=== PATIENT | male | born 1955 | race Caucasian/White ===

== ENCOUNTER → 2018-10-19 00:59 | Outpatient (CLI) | payer OTHER, SELFPAY ==
[2018-10-18 17:22] VITALS: BMI 35.7
[2018-10-19 01:12] LABS: Absolute Lymphocyte Count 2.59 X10^3/ul (0.83-4.51); Absolute Neutrophil Count 4.6 X10^3/uL (2.0-7.7); Basophil# 0.04 X10^3/uL; Basophil% 0.5 % (0-1); Eosinophil# 0.39 X10^3/uL; Eosinophils% 4.8 % (0-5); Hematocrit 41.5 % (40-54); Hemoglobin 14.4 g/dl (13.0-16.5); Lymphocyte # 2.59 X10^3/ul (4.0); Lymphocyte % 31.6 % (19-41); Mean Corp Hgb Conc 34.7 g/gl (32-36); Mean Corpuscular Hgb 31.9 pg (27.0-32.0); Mean Platelet Vol. 10.3 fl (6.2-12.0); Monocyte# 0.56 X10^3/uL; Monocyte% 6.8 % (0-10); Neutrophil % 56.2 % (47-70); Platelet Count 231 K/mm3 (150-450); RBC Distribution Width CV 12.7 % (11.6-14.6); RBC Distribution Width SD 42.5 fl (35.1-43.9); Red Blood Count 4.51 M/mm3 (4.6-6.2); White Blood Count 8.2 K/mm3 (4.4-11.0)
[2018-10-19 01:13] LABS: POSITIVE COUNT NO; POSITIVE DIFFERENTIAL NO; POSITIVE MORPHOLOGY NO
[2018-10-19 02:37] LABS: ALB/GLOB Ratio 1.1 RATIO (0.9-2.4); AST(SGOT) 36 U/L (15-37); Alanine Aminotransfer ALT/SGPT 37 U/L (16-61); Alkaline Phosphatase 61 U/L (45-117); Anion Gap 8 (5-15); BUN 18 mg/dL (7-18); BUN/Creat Ratio 21.3 RATIO (10-20); Calcium,Total 8.7 mg/dL (8.5-10.1); Chloride 106 mmol/L (98-107); Creatinine, Serum 0.84 mg/dL (0.70-1.30); EST Glomerular Filtration Rate 97 mL/min (>60); Est Glom Filt Rate - Afr Amer 118 mL/min (>60); Free T3 3.4 pg/mL (2.18-3.98); Globulin 3.7 g/dL (2.2-4.2); Glucose 83 mg/dL (74-106); Protein, Total 7.7 g/dL (6.4-8.2); Rheumatoid Factor < 10.0 IU/mL (<15); Sodium Level 138 mmol/L (136-145); T4 Free Direct 0.93 ng/dL (0.76-1.46); Thyroid Stim Hormone (TSH) 2.23 uIU/mL (0.358-3.74)
[2018-10-23 15:18] LABS: ANTINUCLEAR ANTIBODIES DIRECT Negative (Negative)
== END ==
PROVIDERS: Referring Provider Nurse Practitioner; Visit Provider Nurse Practitioner
DX: M25.40 Effusion, unspecified joint (principal); M06.9 Rheumatoid arthritis, unspecified; I10 Essential (primary) hypertension
CPT/HCPCS: 80053; 84439; 84443; 84481; 85025; 86038; 86225; 86235; 86431

== ENCOUNTER → 2018-12-29 20:58 | Outpatient (CLI) | payer OTHER, SELFPAY ==
[2018-12-29 09:58] VITALS: BMI 35.7
[2018-12-29 21:43] LABS: Cholesterol 156 mg/dL (200); High Density Lipoprotein 27 mg/dL; PSA,Total - Annual Screen 0.36 ng/mL (0.00-4.00); Triglycerides 249 mg/dL; Very Low Density Lipoprotein 50 mg/dL (5-40)
== END ==
PROVIDERS: Family Provider Nurse Practitioner; PCP Nurse Practitioner; Referring Provider Nurse Practitioner; Visit Provider Nurse Practitioner
DX: R35.0 Frequency of micturition (principal); I10 Essential (primary) hypertension
CPT/HCPCS: 80061; 84153; G0103

== ENCOUNTER → 2019-03-23 19:10 | Outpatient (CLI) | payer OTHER, SELFPAY ==
[2019-03-23 11:35] VITALS: BMI 34.8
[2019-03-23 19:33] LABS: Absolute Lymphocyte Count 1.91 X10^3/ul (0.83-4.51); Absolute Neutrophil Count 3.8 X10^3/uL (2.0-7.7); Basophil# 0.02 X10^3/uL; Basophil% 0.3 % (0-1); Eosinophil# 0.37 X10^3/uL; Eosinophils% 5.6 % (0-5); Hemoglobin 14.7 g/dl (13.0-16.5); Lymphocyte # 1.91 X10^3/ul (4.0); Lymphocyte % 28.8 % (19-41); Mean Corpuscular Hgb 31.8 pg (27.0-32.0); Mean Corpuscular Volume 90.9 fL (80-94); Mean Platelet Vol. 10.7 fl (6.2-12.0); Monocyte# 0.55 X10^3/uL; Monocyte% 8.3 % (0-10); Neutrophil # 3.78 X10^3/uL (2.7-7.7); Neutrophil % 56.8 % (47-70); Platelet Count 226 K/mm3 (150-450); RBC Distribution Width CV 12.4 % (11.6-14.6); RBC Distribution Width SD 40.8 fl (35.1-43.9); Red Blood Count 4.62 M/mm3 (4.6-6.2); White Blood Count 6.6 K/mm3 (4.4-11.0)
[2019-03-23 19:42] LABS: POSITIVE COUNT NO; POSITIVE DIFFERENTIAL NO; POSITIVE MORPHOLOGY NO
[2019-03-23 19:56] LABS: ALB/GLOB Ratio 1.2 RATIO (0.9-2.4); AST(SGOT) 26 U/L (15-37); Alanine Aminotransfer ALT/SGPT 39 U/L (16-61); Albumin, Serum 3.9 g/dL (3.2-5.0); Alkaline Phosphatase 63 U/L (45-117); Anion Gap 9 (5-15); BUN 15 mg/dL (7-18); BUN/Creat Ratio 17.3 RATIO (10-20); Calcium,Total 8.8 mg/dL (8.5-10.1); Chloride 106 mmol/L (98-107); Creatinine, Serum 0.87 mg/dL (0.70-1.30); EST Glomerular Filtration Rate 94 mL/min (>60); Est Glom Filt Rate - Afr Amer 114 mL/min (>60); Globulin 3.2 g/dL (2.2-4.2); Glucose 96 mg/dL (74-106); Magnesium 2.2 mg/dL (1.6-2.6); Potassium 3.9 mmol/L (3.5-5.1); Protein, Total 7.1 g/dL (6.4-8.2); Sodium Level 141 mmol/L (136-145)
== END ==
PROVIDERS: Family Provider Nurse Practitioner; PCP Nurse Practitioner; Referring Provider Nurse Practitioner; Visit Provider Nurse Practitioner
DX: I10 Essential (primary) hypertension (principal)
CPT/HCPCS: 80053; 83735; 84484; 85025

== ENCOUNTER 2019-04-06 23:03 | Emergency (ER) | payer OTHER, SELFPAY ==
[2019-03-23 11:35] VITALS: BMI 34.8
[2019-04-06 23:03] VITALS: BP 145/100; PULSE 67; RESP 18; TEMP 36.1; O2SAT 95; BMI 35.4
--- NOTE | 2019-04-06 23:53 | RAD_ITS ---
STUDY: X-RAY CHEST REASON FOR EXAM: Male, 63 years old. Dizziness TECHNIQUE: Frontal and lateral views of the chest. COMPARISON: None. FINDINGS: The lungs are clear and expanded. There is no demonstrated pleural abnormality. Normal size heart. Normal mediastinum and sue. Normal visualized pulmonary arteries. There is atherosclerotic calcification of the aortic arch with tortuosity. Normal visualized thoracic spine. Normal visualized ribs, clavicles, and shoulders. There is no demonstrated abnormality of the visualized soft tissue structures of the upper abdomen. RAD/Chest PA and Lateral IMPRESSION: Normal x-ray examination of the chest. Electronically Signed: Elvia Noel, at 1:12 EDT Tel , Service support ,
--- NOTE | 2019-04-06 23:53 | EKG12_ITS ---
Test Reason : DIZZINESS Blood Pressure : / mmHG Vent. Rate : 058 BPM Atrial Rate : 058 BPM P-R Int : 152 ms QRS Dur : 094 ms QT Int : 430 ms P-R-T Axes : 037 -13 023 degrees QTc Int : 422 ms Sinus bradycardia Otherwise normal ECG Confirmed by LJ MISHRA, MOISÉS ([id number]), digital editor JEANETTE DIALLO ([id number]) on 04/09/2019 1:48:38 PM Referred By: ANISHA Confirmed By:MOISÉS CALHOUN MD
[2019-04-07] VITALS (10 sets, daily range): BP systolic 133–156; BP diastolic 90–109; PULSE 57–80; RESP 15–19; O2SAT 95–98
--- NOTE | 2019-04-07 00:07 | ED.RN ---
NO OLD EKGS IN MUSE
[2019-04-07] MEDS: 0.9% Normal Saline 1,000 ML 50 ML IV (00:13)
[2019-04-07 00:22] LABS: Absolute Lymphocyte Count 2.67 X10^3/ul (0.83-4.51); Absolute Neutrophil Count 4.2 X10^3/uL (2.0-7.7); Basophil# 0.03 X10^3/uL; Basophil% 0.4 % (0-1); Eosinophil# 0.43 X10^3/uL; Eosinophils% 5.4 % (0-5); Hematocrit 39.7 % (40-54); Hemoglobin 14.4 g/dl (13.0-16.5); Lymphocyte # 2.67 X10^3/ul (4.0); Lymphocyte % 33.6 % (19-41); Mean Corp Hgb Conc 36.3 g/gl (32-36); Mean Corpuscular Hgb 31.7 pg (27.0-32.0); Mean Corpuscular Volume 87.4 fL (80-94); Mean Platelet Vol. 9.9 fl (6.2-12.0); Monocyte# 0.59 X10^3/uL; Monocyte% 7.4 % (0-10); Neutrophil # 4.21 X10^3/uL (2.7-7.7); Neutrophil % 52.9 % (47-70); Platelet Count 193 K/mm3 (150-450); RBC Distribution Width SD 37.7 fl (35.1-43.9); Red Blood Count 4.54 M/mm3 (4.6-6.2)
[2019-04-07 00:25] LABS: POSITIVE COUNT NO; POSITIVE DIFFERENTIAL NO; POSITIVE MORPHOLOGY NO
[2019-04-07 00:36] LABS: Anion Gap 5 (5-15); BUN 15 mg/dL (7-18); BUN/Creat Ratio 15.3 RATIO (10-20); Calcium,Total 8.5 mg/dL (8.5-10.1); Chloride 107 mmol/L (98-107); Creatinine, Serum 0.98 mg/dL (0.70-1.30); EST Glomerular Filtration Rate 82 mL/min (>60); Est Glom Filt Rate - Afr Amer 99 mL/min (>60); Estimated Creatinine Clearance 76.15 ml/min; Glucose 107 mg/dL (74-106); Potassium 3.8 mmol/L (3.5-5.1); Sodium Level 140 mmol/L (136-145)
[2019-04-07 00:37] LABS: International Normalized Ratio 1.2; Prothrombin Time (Protime)PT. 14.5 SECONDS (11.7-14.9)
[2019-04-07 00:38] LABS: Partial Thromboplast Time 28.1 Seconds (24.1-36.2)
--- NOTE | 2019-04-07 01:10 | CT_ITS ---
STUDY: CT BRAIN WITHOUT CONTRAST REASON FOR EXAM: Male, 63 years old. Dizziness. RADIATION DOSAGE (If Supplied By Facility): CTDIvol = ( 44.99 ) mGy, DLP = ( 779.24 ) mGycm TECHNIQUE: Transaxial CT imaging of the brain was performed without administration of intravenous contrast material. Individualized dose optimization techniques were used for this CT. COMPARISON: No relevant priors. FINDINGS: Normal soft tissue structures. Normal calvarium. Normal size ventricles and extra-axial spaces for the patient's age. Normal white matter tracts of the cerebral hemispheres. Normal basal ganglia and thalami. Normal brainstem. Normal cerebellum. There is no intracranial hemorrhage. There are no findings of an acute ischemic infarction. Normal visualized paranasal sinuses. CT/Brain/Head without Contrast IMPRESSION: Normal unenhanced CT scan of the brain. Electronically Signed: Elvia Noel, at 2:14 EDT Tel , Service support ,
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
[2019-04-07] MEDS: 0.9% Normal Saline 1,000 ML 1000 ML IV (01:40)
[2019-04-08 09:24] LABS: Bedside Glucose 115 mg/dL (70-110)
== END 2019-04-07 04:13 | disposition home or self-care (01) ==
PROVIDERS: Emergency Provider Emergency Medicine; Family Provider Nurse Practitioner; PCP Nurse Practitioner
DX: R42 Dizziness and giddiness (principal); R05 Cough; M54.2 Cervicalgia; J34.89 Other specified disorders of nose and nasal sinuses; R61 Generalized hyperhidrosis; I10 Essential (primary) hypertension; Z79.899 Other long term (current) drug therapy
CPT/HCPCS: 70450; 71046; 80048; 82962; 84484; 85025; 85610; 85730; 93005; 96360; 96361; 99285

== ENCOUNTER → 2020-02-28 12:31 | Outpatient (CLI) | payer OTHER, SELFPAY ==
[2020-02-06 17:39] VITALS: BMI 37.2
== END ==
PROVIDERS: PCP Nurse Practitioner; Referring Provider Nurse Practitioner; Visit Provider Nurse Practitioner
DX: Z20.828 Contact with and (suspected) exposure to other viral communicable diseases (principal)
CPT/HCPCS: 87635; G2023; U0003

== ENCOUNTER → 2020-12-03 15:01 | Outpatient (CLI) | payer OTHER, SELFPAY | PROVIDERS: PCP Nurse Practitioner; Referring Provider Nurse Practitioner; Visit Provider Nurse Practitioner | DX: Z20.822 Contact with and (suspected) exposure to COVID-19 (principal) | CPT/HCPCS: 87635; C9803; U0002 ==

== ENCOUNTER → 2021-05-13 21:37 | Outpatient (CLI) | payer OTHER, SELFPAY ==
[2021-05-13 21:48] LABS: Absolute Neutrophil Count 5.4 X10^3/uL (2.0-7.7); Basophil# 0.07 X10^3/uL; Basophil% 0.8 % (0-1); Eosinophil# 0.22 X10^3/uL; Eosinophils% 2.6 % (0-5); Hematocrit 41.2 % (40-54); Hemoglobin 14.2 g/dL (13.0-16.5); Lymphocyte % 25.8 % (19-41); Mean Corp Hgb Conc 34.5 g/dL (32-36); Mean Corpuscular Hgb 31.2 pg (27.0-32.0); Mean Corpuscular Volume 90.5 fL (80-94); Mean Platelet Vol. 10.3 fl (6.2-12.0); Monocyte# 0.65 X10^3/uL; Monocyte% 7.6 % (0-10); NRBC Flagged by Analyzer 0 % (0-5); Neutrophil # 5.36 X10^3/uL (2.7-7.7); Neutrophil % 62.8 % (47-70); Platelet Count 240 K/mm3 (150-450); RBC Distribution Width CV 11.9 % (11.6-14.6); RBC Distribution Width SD 39.4 fl (35.1-43.9); Red Blood Count 4.55 M/mm3 (4.6-6.2); White Blood Count 8.5 K/mm3 (4.4-11.0)
[2021-05-13 22:19] LABS: ALB/GLOB Ratio 1.2 RATIO (0.9-2.4); AST(SGOT) 22 U/L (15-37); Alanine Aminotransfer ALT/SGPT 39 U/L (16-61); Albumin, Serum 4.1 g/dL (3.2-5.0); Alkaline Phosphatase 65 U/L (45-117); Anion Gap 6 (5-15); BUN 16 mg/dL (7-18); BUN/Creat Ratio 18.7 RATIO (10-20); Calcium,Total 8.5 mg/dL (8.5-10.1); Chloride 106 mmol/L (98-107); Creatinine, Serum 0.85 mg/dL (0.70-1.30); EST Glomerular Filtration Rate 95 mL/min (>60); Est Glom Filt Rate - Afr Amer 115 mL/min (>60); Globulin 3.3 g/dL (2.2-4.2); Glucose 97 mg/dL (74-106); Potassium 4.1 mmol/L (3.5-5.1); Protein, Total 7.4 g/dL (6.4-8.2); Sodium Level 137 mmol/L (136-145); Thyroid Stim Hormone (TSH) 2.65 uIU/mL (0.358-3.74)
== END ==
PROVIDERS: PCP Nurse Practitioner; Visit Provider Nurse Practitioner
DX: R42 Dizziness and giddiness (principal); R51.9 Headache, unspecified
CPT/HCPCS: 80053; 84443; 85025

== ENCOUNTER → 2022-03-07 | Outpatient (CLI) | payer OTHER, SELFPAY ==
[2022-03-07 21:45] LABS: Absolute Lymphocyte Count 2.32 X10^3/uL (0.83-4.51); Basophil# 0.05 X10^3/uL; Basophil% 0.5 % (0-1); Eosinophil# 0.31 X10^3/uL; Hematocrit 40.8 % (40-54); Hemoglobin 14.3 g/dL (13.0-16.5); Lymphocyte # 2.32 X10^3/ul (0.83-4.51); Lymphocyte % 22.2 % (19-41); Mean Corpuscular Hgb 31.9 pg (27.0-32.0); Mean Corpuscular Volume 91.1 fL (80-94); Mean Platelet Vol. 10.7 fl (6.2-12.0); Monocyte# 0.78 X10^3/uL; Monocyte% 7.5 % (0-10); NRBC Flagged by Analyzer 0 % (0-5); Neutrophil # 6.96 X10^3/uL (2.7-7.7); Neutrophil % 66.4 % (47-70); Platelet Count 248 K/mm3 (150-450); RBC Distribution Width CV 12.2 % (11.6-14.6); RBC Distribution Width SD 40.2 fl (35.1-43.9); Red Blood Count 4.48 M/mm3 (4.6-6.2); White Blood Count 10.5 K/mm3 (4.4-11.0)
[2022-03-07 21:58] LABS: ALB/GLOB Ratio 1.1 RATIO (0.9-2.4); Albumin, Serum 4.1 g/dL (3.2-5.0); Anion Gap 3 (5-15); BUN 13 mg/dL (7-18); BUN/Creat Ratio 13.2 RATIO (10-20); Chloride 106 mmol/L (98-107); EST Glomerular Filtration Rate 81 mL/min (>60); Est Glom Filt Rate - Afr Amer 97 mL/min (>60); Globulin 3.6 g/dL (2.2-4.2); Potassium 4.5 mmol/L (3.5-5.1); Protein, Total 7.7 g/dL (6.4-8.2)
[2022-03-08 18:05] LABS: AST(SGOT) 27 U/L (15-37); Alanine Aminotransfer ALT/SGPT 37 U/L (16-61); Alkaline Phosphatase 64 U/L (45-117); Calcium,Total 9.2 mg/dL (8.5-10.1); Glucose 90 mg/dL (74-106); Rheumatoid Factor < 10.0 IU/mL (<15); Sodium Level 138 mmol/L (136-145)
[2022-03-10 21:48] LABS: ANTINUCLEAR ANTIBODIES DIRECT Negative (Negative)
== END | disposition home or self-care (01) ==
LOC: LABSPEC 21:38
PROVIDERS: PCP Nurse Practitioner; Visit Provider Nurse Practitioner
DX: R22.1 Localized swelling, mass and lump, neck (principal); M25.9 Joint disorder, unspecified
CPT/HCPCS: 80053; 85025; 86038; 86140; 86225; 86235; 86431

== ENCOUNTER → 2022-04-04 | Outpatient (CLI) | payer OTHER, SELFPAY ==
[2022-04-04 21:48] LABS: Absolute Lymphocyte Count 2.56 X10^3/uL (0.83-4.51); Absolute Neutrophil Count 5.4 X10^3/uL (2.0-7.7); Basophil# 0.05 X10^3/uL; Basophil% 0.6 % (0-1); Eosinophil# 0.37 X10^3/uL; Eosinophils% 4.1 % (0-5); Hematocrit 40.9 % (40-54); Hemoglobin 14.3 g/dL (13.0-16.5); Lymphocyte # 2.56 X10^3/ul (0.83-4.51); Lymphocyte % 28.3 % (19-41); Mean Corpuscular Hgb 32.1 pg (27.0-32.0); Mean Corpuscular Volume 91.9 fL (80-94); Mean Platelet Vol. 10.4 fl (6.2-12.0); Monocyte# 0.67 X10^3/uL; Monocyte% 7.4 % (0-10); NRBC Flagged by Analyzer 0 % (0-5); Neutrophil # 5.38 X10^3/uL (2.7-7.7); Neutrophil % 59.3 % (47-70); Platelet Count 232 K/mm3 (150-450); RBC Distribution Width CV 12.1 % (11.6-14.6); RBC Distribution Width SD 40.2 fl (35.1-43.9); Red Blood Count 4.45 M/mm3 (4.6-6.2); White Blood Count 9.1 K/mm3 (4.4-11.0)
[2022-04-04 22:02] LABS: ALB/GLOB Ratio 1.1 RATIO (0.9-2.4); AST(SGOT) 29 U/L (15-37); Alanine Aminotransfer ALT/SGPT 43 U/L (16-61); Albumin, Serum 3.8 g/dL (3.2-5.0); Alkaline Phosphatase 57 U/L (45-117); Anion Gap 8 (5-15); BUN 16 mg/dL (7-18); BUN/Creat Ratio 18.3 RATIO (10-20); CRP 5.47 mg/L (0.0-3.0); Chloride 106 mmol/L (98-107); Creatinine, Serum 0.87 mg/dL (0.70-1.30); EST Glomerular Filtration Rate 93 mL/min (>60); Est Glom Filt Rate - Afr Amer 112 mL/min (>60); Globulin 3.4 g/dL (2.2-4.2); Glucose 104 mg/dL (74-106); Potassium 4.1 mmol/L (3.5-5.1); Protein, Total 7.2 g/dL (6.4-8.2); Rheumatoid Factor < 10.0 IU/mL (<15); Sodium Level 140 mmol/L (136-145)
== END | disposition home or self-care (01) ==
PROVIDERS: Visit Provider Nurse Practitioner
DX: R22.41 Localized swelling, mass and lump, right lower limb (principal); M25.9 Joint disorder, unspecified; R79.82 Elevated C-reactive protein (CRP)
CPT/HCPCS: 80053; 85025; 86140; 86431

== ENCOUNTER → 2022-05-26 | Outpatient (CLI) | payer OTHER, SELFPAY ==
[2022-05-26 22:53] LABS: Absolute Lymphocyte Count 1.08 X10^3/uL (0.83-4.51); Basophil# 0.04 X10^3/uL; Basophil% 0.6 % (0-1); Eosinophil# 0.19 X10^3/uL; Eosinophils% 2.7 % (0-5); Hematocrit 40.9 % (40-54); Hemoglobin 14.3 g/dL (13.0-16.5); Lymphocyte # 1.08 X10^3/ul (0.83-4.51); Lymphocyte % 15.1 % (19-41); Mean Corpuscular Hgb 32.2 pg (27.0-32.0); Mean Corpuscular Volume 92.1 fL (80-94); Mean Platelet Vol. 10.2 fl (6.2-12.0); Monocyte# 0.77 X10^3/uL; Monocyte% 10.8 % (0-10); NRBC Flagged by Analyzer 0 % (0-5); Neutrophil # 5.04 X10^3/uL (2.7-7.7); Neutrophil % 70.5 % (47-70); Platelet Count 186 K/mm3 (150-450); RBC Distribution Width CV 12.2 % (11.6-14.6); RBC Distribution Width SD 41.1 fl (35.1-43.9); Red Blood Count 4.44 M/mm3 (4.6-6.2); White Blood Count 7.1 K/mm3 (4.4-11.0)
[2022-05-26 22:54] LABS: POSITIVE COUNT NO; POSITIVE DIFFERENTIAL NO; POSITIVE MORPHOLOGY NO
[2022-05-27 00:05] LABS: ALB/GLOB Ratio 1.1 RATIO (0.9-2.4); AST(SGOT) 29 U/L (15-37); Alanine Aminotransfer ALT/SGPT 44 U/L (16-61); Albumin, Serum 3.9 g/dL (3.2-5.0); Alkaline Phosphatase 58 U/L (45-117); Anion Gap 6 (5-15); BUN 14 mg/dL (7-18); BUN/Creat Ratio 14.6 RATIO (10-20); Chloride 105 mmol/L (98-107); Creatinine, Serum 0.96 mg/dL (0.70-1.30); EST Glomerular Filtration Rate 83 mL/min (>60); Est Glom Filt Rate - Afr Amer 101 mL/min (>60); Globulin 3.5 g/dL (2.2-4.2); Glucose 100 mg/dL (74-106); Potassium 4.1 mmol/L (3.5-5.1); Protein, Total 7.4 g/dL (6.4-8.2); Rheumatoid Factor < 10.0 IU/mL (<15); Sodium Level 137 mmol/L (136-145)
== END | disposition home or self-care (01) ==
PROVIDERS: Visit Provider Nurse Practitioner
DX: R25.2 Cramp and spasm (principal); J18.9 Pneumonia, unspecified organism; R50.9 Fever, unspecified
CPT/HCPCS: 80053; 83735; 85025; 86038; 86225; 86235; 86431

== ENCOUNTER → 2022-06-13 | Outpatient (CLI) | payer OTHER, SELFPAY ==
[2022-06-13 23:22] LABS: Absolute Lymphocyte Count 2.68 X10^3/uL (0.83-4.51); Absolute Neutrophil Count 6.1 X10^3/uL (2.0-7.7); Basophil# 0.03 X10^3/uL; Basophil% 0.3 % (0-1); Eosinophil# 0.32 X10^3/uL; Eosinophils% 3.3 % (0-5); Hematocrit 39.4 % (40-54); Hemoglobin 13.7 g/dL (13.0-16.5); Lymphocyte # 2.68 X10^3/ul (0.83-4.51); Lymphocyte % 27.2 % (19-41); Mean Corp Hgb Conc 34.8 g/dL (32-36); Mean Corpuscular Hgb 32.3 pg (27.0-32.0); Mean Corpuscular Volume 92.9 fL (80-94); Mean Platelet Vol. 10.7 fl (6.2-12.0); Monocyte# 0.57 X10^3/uL; Monocyte% 5.8 % (0-10); NRBC Flagged by Analyzer 0 % (0-5); Neutrophil # 6.13 X10^3/uL (2.7-7.7); Neutrophil % 62.3 % (47-70); Platelet Count 211 K/mm3 (150-450); RBC Distribution Width CV 12.1 % (11.6-14.6); RBC Distribution Width SD 41.1 fl (35.1-43.9); Red Blood Count 4.24 M/mm3 (4.6-6.2); White Blood Count 9.8 K/mm3 (4.4-11.0)
[2022-06-14 00:02] LABS: BNP,B-Type NATRIURETIC PEPTIDE 10.7 pg/mL (0-100)
[2022-06-14 01:16] LABS: AST(SGOT) 21 U/L (15-37); Alanine Aminotransfer ALT/SGPT 35 U/L (16-61); Albumin, Serum 3.6 g/dL (3.2-5.0); Alkaline Phosphatase 58 U/L (45-117); Anion Gap 10 (5-15); BUN 19 mg/dL (7-18); BUN/Creat Ratio 19.1 RATIO (10-20); Calcium,Total 8.9 mg/dL (8.5-10.1); Chloride 106 mmol/L (98-107); Cholesterol 184 mg/dL (200); Creatinine, Serum 0.99 mg/dL (0.70-1.30); EST Glomerular Filtration Rate 80 mL/min (>60); Est Glom Filt Rate - Afr Amer 96 mL/min (>60); Globulin 3.6 g/dL (2.2-4.2); Glucose 151 mg/dL (74-106); High Density Lipoprotein 29 mg/dL; Potassium 3.6 mmol/L (3.5-5.1); Protein, Total 7.2 g/dL (6.4-8.2); Sodium Level 140 mmol/L (136-145); Triglycerides 340 mg/dL; Very Low Density Lipoprotein 68 mg/dL (5-40)
[2022-06-14 08:50] LABS: Troponin-I HS 8 pg/mL (3.0-78.0)
== END | disposition home or self-care (01) ==
PROVIDERS: Visit Provider Nurse Practitioner
DX: R07.9 Chest pain, unspecified (principal); I10 Essential (primary) hypertension
CPT/HCPCS: 80053; 80061; 83880; 84484; 85025; 86141

== ENCOUNTER → 2022-09-06 | Outpatient (CLI) | payer OTHER, SELFPAY ==
--- NOTE | 2022-09-06 06:48 | ECHOD_ITS ---
Reason For Study: CHEST PAIN Procedure This was a 2D Doppler, Color Flow transthoracic echocardiogram. The study was technically difficult. Exam performed in department. Left Ventricle Normal LV size. Left ventricular systolic function is normal. The estimated ejection fraction is 65 %. No evidence for diastolic dysfunction. No regional wall motion abnormalities noted. Right Ventricle Normal RV size. Normal systolic function. Atria Normal left atrium. Normal right atrium. No doppler evidence for ASD. Mitral Valve There is mild mitral annular calcification. Normal mitral valve. The mitral valve chordae are thickened and/or calcified. Trivial mitral valve insufficiency. Tricuspid Valve Normal tricuspid valve. Trivial tricuspid valve insufficiency. Unable to estimate RV systolic pressure/pulmonary artery pressure due to technically difficult study. Aortic Valve Trisinus/trileaflet aortic valve. Normal aortic valve. Pulmonic Valve The pulmonic valve is not well visualized. Great Vessels Normal sized aortic root. Pericardium/Pleural No pericardial effusion. MMode/2D Measurements & Calculations LVIDd: 4.8 cm IVSd: 1.0 cm Ao root diam: 3.7 cm LVIDs: 3.4 cm LVPWd: 1.4 cm FS: 29.6 % LAV(MOD-bp): 46.1 ml LVAd ap4: 27.8 cm2 SV(MOD-sp4): 50.5 ml LAV(MOD-bp) Indexed: 20.5 ml/m2 LVLd ap4: 8.1 cm LAV(MOD-sp2): 47.2 ml EDV(MOD-sp4): 81.3 ml LAV(MOD-sp4): 46.4 ml EDV(sp4-el): 80.7 ml LVAs ap4: 14.7 cm2 LVLs ap4: 6.9 cm ESV(MOD-sp4): 30.7 ml ESV(sp4-el): 26.6 ml EF(MOD-sp4): 62.2 % EF(sp4-el): 67.0 % SV(sp4-el): 54.1 ml LA A4 area: 17.3 cm2 LA dimension(2D): 3.8 cm RA A4 area: 14.1 cm2 Time Measurements MV dec time: 0.17 sec Doppler Measurements & Calculations MV E max eddie: 61.5 cm/sec Lat Peak E' Eddie: 10.8 cm/sec Med Peak E' Eddie: 5.6 cm/sec MV A max eddie: 84.5 cm/sec E/E' lat: 5.7 E/E' med: 11.0 MV E/A: 0.73 MV V2 max: 94.1 cm/sec Ao V2 max: 118.8 cm/sec MV max P.6 mmHg MV dec slope: 394.4 cm/sec2 Ao max P.6 mmHg MV V2 mean: 59.9 cm/sec Ao V2 mean: 87.1 cm/sec MV mean P.5 mmHg Ao mean P.4 mmHg MV V2 VTI: 23.0 cm Ao V2 VTI: 24.3 cm AV (velocity ratio): 0.88 LV V1 max: 115.0 cm/sec PA V2 max: 90.3 cm/sec LV V1 max P.3 mmHg PA V2 mean: 66.1 cm/sec LV V1 mean P.2 mmHg LV V1 mean: 85.7 cm/sec LV V1 VTI: 21.3 cm ECHO/Echo Complete Interpretation Summary The study was technically difficult. Left ventricular systolic function is normal. The estimated ejection fraction is 65 %. There is mild mitral annular calcification. The mitral valve chordae are thickened and/or calcified. Trivial mitral valve insufficiency. Trivial tricuspid valve insufficiency. No evidence for diastolic dysfunction. Ordering Physician: Boris Bingham Performed By: Mary Parham RCS
--- NOTE | 2022-09-06 08:43 | STRESSREP_ITS ---
Stress Test Report Date: 09-06-2022 Procedure: Exercise tolerance test/imaging study Indications: Chest pain; dyspnea on exertion; hypertension Consent: Per the patient Procedure: The patient exercised on a Bebo protocol for 6 minutes and 30 seconds completing Stage II and 30 seconds of Stage III achieving a peak heart rate of 151 bpm (99% predicted maximal heart rate) with resting blood pressure of 142/94 mmHg and a peak blood pressure 182/100 mmHg and a peak MET capacity of 8 METs. The baseline ECG demonstrated normal sinus rhythm; poor R wave progression. The peak exercise ECG demonstrated no obvious ECG changes. There were occasional PVCs and an isolated ventricular couplet during exercise. The functional capacity was considered average. There was no complaint of chest discomfort during exercise or recovery. The examination was discontinued secondary to dyspnea and leg fatigue. Impression: 1. Technically adequate (percent predicted maximal heart rate greater than 85%) exercise tolerance test 2. Peak exercise ECG with no obvious ECG change 3. There were occasional PVCs and an isolated ventricular couplet during exercise 4. Nuclear images pending Myocardial perfusion imaging study: Technique: The patient was injected with mCi of technetium 99m Cardiolite and subsequently rest SPECT Cardiolite nuclear imaging was obtained in the horizontal long, vertical long, and short axis views. The patient exercised on a Bebo protocol for 6 minutes and 30 seconds completing Stage II and 30 seconds of Stage III achieving a peak heart rate of 151 bpm (99% predicted maximal heart rate) with resting blood pressure of 142/94 mmHg and a peak blood pressure 182/100 mmHg and a peak MET capacity of 8 METs. The patient was injected with mCi of technetium 99m Cardiolite and subsequently stress SPECT Cardiolite nuclear imaging was obtained in the horizontal long, vertical long, and short axis views. A gated Cardiolite study at peak stress was obtained. Interpretation: Rest and stress SPECT Cardiolite nuclear imaging status post realignment, normalization, and attenuation correction, demonstrates the appearance of relative uniform tracer uptake and myocardial perfusion appearing within normal limits. There is end systolic thickening and brightening. The gated Cardiolite study demonstrates myocardial thickening and inward wall motion. The reported LVEF is 62%. Impression: 1. Rest and stress SPECT Cardiolite nuclear imaging demonstrate relative uniform tracer uptake and myocardial perfusion appearing within normal limits. 2. The gated Cardiolite study reports an LVEF of 62%. This note was generated with [employer] software. It may contain incorrect words, spelling, and punctuation that were not noted in checking the note before signing.
== END | disposition home or self-care (01) ==
LOC: CVS 06:47
PROVIDERS: PCP Nurse Practitioner; Visit Provider Internal Medicine Cardiovascular Disease
DX: I49.3 Ventricular premature depolarization (principal); R53.83 Other fatigue; R06.00 Dyspnea, unspecified; I10 Essential (primary) hypertension; R07.9 Chest pain, unspecified; J18.9 Pneumonia, unspecified organism; E78.5 Hyperlipidemia, unspecified
CPT/HCPCS: 78452; 93017; 93306; A9500; A4216

== ENCOUNTER → 2023-10-03 | Outpatient (CLI) | payer OTHER, SELFPAY ==
--- OUTSIDE RECORDS SUMMARY | 2023-10-03 21:27 | XMS RPT_ITS | CCD ---
Author Name Unknown Address [address] [place] [address] Organization [facility] Care Team Providers Care Parts Department Supervisor Name Role Phone LEE THRASHER Referring Unavailable Adam HARD METALS HAND ENGRAVER.Rosa Isela FAUST Primary Care Provide r Adam HARD METALS HAND ENGRAVER.Rosa Isela FAUST Primary Care Provide r ADAM ROSA ISELA L Primary Care Unavailable MEDINA, ROSA ISELA L Primary Care Unavailable MEDINA, ROSA ISELA L Primary Care Unavailable MEDINA, ROSA ISELA L Referring Unavailable MEDINA, ROSA ISELA L Primary Care Unavailable MEDINA, ROSA ISELA L Referring Unavailable MEDINA, ROSA ISELA L Primary Care Unavailable MEDINA, ROSA ISELA L Referring Unavailable MEDINA, ROSA ISELA L Referring Unavailable MEDINA, ROSA ISELA L Primary Care Unavailable Allergies Allergy Classification Reported Allergen(s) Allergy Type Date of Onset Reaction(s) Facility (8 sources) Naproxen; Translations: [NAPROXEN SODIUM] Drug Allergy 7 Intolerance [facility] (8 sources) FLU VAC QS 2015-17(6-35MO)( PF); Translations: [FLU VAC QS 2016-17(6-35MO)( PF)] Propensity to adverse reactions to drug (disorder) 7 Intolerance [facility] Medications Completed/Discontinued Medications Medication Drug Class(es) Dates Sig (Normalized) Sig (Original) lisinopril 30 mg oral tablet (5 sources) Angiotensin Converting Enzyme Inhibitor Start: 12-29-2018 take 1 tablet by mouth once daily lisinopril (ZESTRIL,PRINIVIL ) 30 mg tablet Take 30 mg by mouth once daily. 0 12/29/2018 Active Problems Active Problems Problem Classification Problem Date Documented Da te Episodic/Chronic E Codes: Unspecified (1 source) Civilian activity done for income or pay; Translations: [Work related injury] Onset: 06-22-2023 Episodic Essential hypertension (5 sources) Hypertensive disorder; Translations: [Essential (primary) hypertension] Onset: 07-10-2016 09-21-2021 Chronic Open wounds of extremities (1 source) Laceration without foreign body of left hand, initial encounter; Translations: [Laceration of left hand without foreign body, initial encounter] Onset: 06-22-2023 Episodic Other non-traumatic joint disorders (1 source) Effusion, left knee; Translations: [Effusion, left knee] Onset: 06-07-2023 Episodic Other non-traumatic joint disorders (1 source) Pain in left knee; Translations: [Pain in left knee] Onset: 06-07-2023 Episodic Unclassified (1 source) leg injury Onset: 08-16-2023 Past or Other Problems Problem Classification Problem Date Documented Date Episodic/Chronic Other connective tissue disease (1 source) Other enthesopathies, not elsewhere classified; Translations: [Other enthesopathies, not elsewhere classified] Onset: 12-23-2022 Episodic Other hematologic conditions (5 sources) Raised cardiac enzyme or marker; Translations: [Other specified abnormalities of plasma proteins] Onset: 01-21-2019 01-21-2019 Episodic Other lower respiratory disease (1 source) Shortness of breath; Translations: [Shortness of breath] Onset: 12-23-2022 Episodic Other lower respiratory disease (1 source) Other forms of dyspnea; Translations: [Other forms of dyspnea] Onset: 12-23-2022 Episodic Syncope (5 sources) Syncope and collapse; Translations: [Syncope and collapse] Onset: 07-10-2016 07-10-2016 Episodic Results Test Name Value Interpretation Reference Range Facil ity Encounters Encounter Date Encounter Type Care Provider Facility Start: 08-16-2023 Emergency department patient visit ROSA ISELA MEDINA Facility:[facility] Start: 06-22-2023 End: 06-22-2023 Emergency department patient visit ROSA ISELA MEDINA Facility:[facility] Start: 06-07-2023 ambulatory ROSA ISELA MEDINA Facil ity:[facility] Start: 06-07-2023 End: 06-07-2023 Subsequent hospital visit by physician [facility] Procedures Date Procedure Procedure Detail Performing Clinician Start: 06-07-2023 Radiologic examinati on knee 1/2 views Rosa Isela Medina HARD METALS HAND ENGRAVER.DROPHAMMER OPERATOR Work Phone: Start: 12-23-2022 Radex shoulder compl ete minimum 2 views Rosa Isela Medina HARD METALS HAND ENGRAVER.CHRISTIANNE Work Phone: Start: 12-23-2022 Radiologic exam ches t 2 views Rosa Isela Medina HARD METALS HAND ENGRAVER.DROPHAMMER OPERATOR Work Phone: Start: 05-27-2022 Radiologic exam ches t 2 views Rosa Isela Medina HARD METALS HAND ENGRAVER.DROPHAMMER OPERATOR Work Phone: Start: 01-22-2019 Lipid 1996 panel - S tj or Plasma [facility] Plan of Treatment Date Care Activity Detail Author Start: 01-23-2024 Lipid 1996 panel - S tj or Plasma Lipid Screening [facility] Start: 01-23-2024 LIPID SCREEN LIPID SCREEN [facility] Start: 05-26-2023 Influenza vaccination [facility] Start: 09-25-2022 ADVANCE DIRECTIVE DISCUSSION ADVANCE DIRECTIVE DISCUSSION [facility] Start: 09-25-2022 DEPRESSION ASSESSMENT DEPRESSION ASS ESSMENT [facility] Start: 05-26-2022 Influenza vaccination INFLUENZA (#1) [facility] Start: 01-29-2022 DIABETES SCREEN DIABETES SCREEN [facility] Start: 01-29-2022 Diabetes Screening Diabetes Screenin g [facility] Start: 09-25-2021 ADVANCE DIRECTIVE DISCUSSION ADVANCE DIRECTIVE DISCUSSION [facility] Start: 2019 Pneumococcal Vaccine : 65+ (1 - PCV) Pneumococcal Vaccine: 65+ (1 - PCV) [facility] Start: 2019 PNEUMOCOCCAL: 65+ (1 - PCV) PNEUMOCOCCAL: 65+ (1 - PCV) [facility] Start: 2009 PROSTATE CANCER SCRE ENING DISCUSSION PROSTATE CANCER SCREENING DISCUSSION [facility] Start: 2004 SHINGRIX VACCINE (1 of 2) SHINGRIX V ACCINE (1 of 2) [facility] Start: 1999 COLOGUARD (FIT-DNA) COLOGUARD (FIT-D NA) [facility] Start: 1999 Colonoscopy COLONOSCOPY [facility] Start: 1999 COLORECTAL CANCER SCREENING COLORECTAL CANCER SCREENING [facility] Start: [address] COLONOGRAPHY [facility] Start: 1999 FECAL OCCULT BLOOD FECAL OCCULT BLOO D [facility] Start: 1999 SIGMOIDOSCOPY SIGMOIDOSCOPY Clebra[facility]io cardona [facility] Start: 1973 Urine microalbumin profile [facility] Start: 1972 ANNUAL PCP TEAM BONE GRINDER JUSTUS DISEASE VISIT ANNUAL PCP TEAM CHRONIC DISEASE VISIT [facility] Start: 1972 BP CONTROLLED (<130/80) BP CONTROLLE D (<130/80) [facility] Start: 1966 Adult depression scr eening assessment DEPRESSION SCREENING [facility] Start: 1954 COVID-19 VACCINE (#1) COVID-19 VACCI NE (#1) [facility] Payers Date Payer Category Payer Unknown [id number] 2019 Unknown [id number] 2019 Unknown [id number] Social History Date Type Detail Facility Start: 04-06-2018 Tobacco smoking stat us KYIS Never smoked tobacco [facility] Start: 04-06-2018 Tobacco use and exposure Smoke less tobacco non-user [facility] Start: 01-21-2019 Alcohol intake Current non-dr pourer off of alcohol (finding) [facility] Start: 1955 Sex Assigned At Not on file [facility] Start: 05-17-2022 End: 05-27-2022 Exposure to SARS-CoV-2 (event) Yes [facility] Start: 01-21-2019 End: 08-30-2020 History of Social function [facility] Start: 01-21-2019 End: 08-30-2020 Tobacco use panel [facility] note 07-08-2023 Note Date & Type Note Facility 07-08-2023 Note HNO ID: [id number] Author: Note, Interface Service: ? Author Type: ? Type: Progress Notes Filed: 07/08/2023 2:57 AM Note Text: Epic Scheduled Downtime: 07/08/2023 1:00:00 AM to 07/08/2023 1:28:00 AM [facility] Progress note 06-07-2023 Note Date & Type Note Facility 06-07-2023 Note HNO ID: [id number] Author: Brittney Pennington CT Service: ? Author Type: Technologist Type: Progress Notes Filed: 06/07/2023 9:30 AM Note Text: Radiology Service Progress Note PATIENT NAME: Ashvin Oliva DATE OF SERVICE: June 07, 2023 TIME: 9:30 AM PATIENT IDENTITY VERIFICATION COMPLETED USING TWO (2) IDENTIFIERS: Name and Date of confirmed by patient verbally. FALL SCREENING: Has the patient had 2 falls in the last year or 1 fall with injury or currently using an Ambulatory Assistive Device (Walker, Cane, Wheelchair, Crutches, etc.)? Yes, Patient High Risk for Falls What interventions were put in place to prevent falls during this visit? Instructed Patient to Call for Help if Needed, Offered Assistance with Transfers/Clothing, Instructed Patient to Remain Seated (Not on Exam Table) Until Exam, and Increased Observations by Caregivers PATIENT GENDER DATA: Male PATIENT RELEVANT IMPLANT DATA REVIEWED: Not Applicable RADIOLOGY DEPARTMENT: General X-ray: Exam(s) Completed: Lower Extremity X-Ray(s): Knee, AP Only Bilateral PERIPHERAL IV DATA: Not applicable SIGNED BY: RED Juares June 07, 2023 9:30 AM [facility] Progress note 06-07-2023 Note Date & Type Note Facility 06-07-2023 Note HNO ID: [id number] Author: Brittney Pennington CT Service: ? Author Type: Technologist Type: Progress Notes Filed: 06/07/2023 9:30 AM Note Text: Radiology Service Progress Note PATIENT NAME: Ashvin Oliva DATE OF SERVICE: June 07, 2023 TIME: 9:29 AM PATIENT IDENTITY VERIFICATION COMPLETED USING TWO (2) IDENTIFIERS: Name and Date of confirmed by patient verbally. FALL SCREENING: Has the patient had 2 falls in the last year or 1 fall with injury or currently using an Ambulatory Assistive Device (Walker, Cane, Wheelchair, Crutches, etc.)? Yes, Patient High Risk for Falls What interventions were put in place to prevent falls during this visit? Instructed Patient to Call for Help if Needed, Offered Assistance with Transfers/Clothing, Instructed Patient to Remain Seated (Not on Exam Table) Until Exam, and Increased Observations by Caregivers PATIENT GENDER DATA: Male PATIENT RELEVANT IMPLANT DATA REVIEWED: Not Applicable RADIOLOGY DEPARTMENT: General X-ray: Exam(s) Completed: Lower Extremity X-Ray(s): Knee, AP / LAT Left PERIPHERAL IV DATA: Not applicable SIGNED BY: RED Juares June 07, 2023 9:29 AM [facility] History of Present illness Narrative 06-07-[address] - 06/07/2023 9:00 AM EDT Note Date & Type Note Facility 06-07-2023 History of Presen t illness Narrative Radiology Service Progress Note PATIENT NAME: Ashvin Oliva DATE OF SERVICE: June 07, 2023 TIME: 9:30 AM PATIENT IDENTITY VERIFICATION COMPLETED USING TWO (2) IDENTIFIERS: Name and Date of confirmed by patient verbally. FALL SCREENING: Has the patient had 2 falls in the last year or 1 fall with injury or currently using an Ambulatory Assistive Device (Walker, Cane, Wheelchair, Crutches, etc.)? Yes, Patient High Risk for Falls What interventions were put in place to prevent falls during this visit? Instructed Patient to Call for Help if Needed, Offered Assistance with Transfers/Clothing, Instructed Patient to Remain Seated (Not on Exam Table) Until Exam, and Increased Observations by Caregivers PATIENT GENDER DATA: Male PATIENT RELEVANT IMPLANT DATA REVIEWED: Not Applicable RADIOLOGY DEPARTMENT: General X-ray: Exam(s) Completed: Lower Extremity X-Ray(s): Knee, AP Only Bilateral PERIPHERAL IV DATA: Not applicable SIGNED BY: RED Juares June 07, 2023 9:30 AM documented in this encounter [facility] History of Present illness Narrative 06-07-[address] - 06/07/2023 8:30 AM EDT Note Date & Type Note Facility 06-07-2023 History of Presen t illness Narrative Radiology Service Progress Note PATIENT NAME: Ashvin Oliva DATE OF SERVICE: June 07, 2023 TIME: 9:29 AM PATIENT IDENTITY VERIFICATION COMPLETED USING TWO (2) IDENTIFIERS: Name and Date of confirmed by patient verbally. FALL SCREENING: Has the patient had 2 falls in the last year or 1 fall with injury or currently using an Ambulatory Assistive Device (Walker, Cane, Wheelchair, Crutches, etc.)? Yes, Patient High Risk for Falls What interventions were put in place to prevent falls during this visit? Instructed Patient to Call for Help if Needed, Offered Assistance with Transfers/Clothing, Instructed Patient to Remain Seated (Not on Exam Table) Until Exam, and Increased Observations by Caregivers PATIENT GENDER DATA: Male PATIENT RELEVANT IMPLANT DATA REVIEWED: Not Applicable RADIOLOGY DEPARTMENT: General X-ray: Exam(s) Completed: Lower Extremity X-Ray(s): Knee, AP / LAT Left PERIPHERAL IV DATA: Not applicable SIGNED BY: RED Juares June 07, 2023 9:29 AM documented in this encounter [facility] Summary Purpose Family History No Family History Records FoundNo Family History Records FoundNo Family History Records FoundNo Family History Records Found Advance Directives No Advanced Directives Records FoundNo Advanced Directives Records FoundNo Advanced Directives Records FoundNo Advanced Directives Records Found Additional Source Comments (unrecognized sect ion and content) No Status Records FoundNo Status Records FoundNo Status Records FoundNo Status Records Found INFORMATION SOURCE (unrecogn ized section and content) DATE CREATED AUTHOR AUTHOR'S ORGANIZ ATION 08/30/2019 [facility] DATE CREATED AUTHOR AUTHOR'S ORGANIZ ATION 07/09/2023 [facility] DATE CREATED AUTHOR AUTHOR'S ORGANIZ ATION 08/19/2023 [facility] Source Comments (unrecognize d section and content) In the event this informatio n is protected by the Federal Confidentiality of Alcohol and Drug Abuse Patient Records regulations: The Federal rules restrict any use of the information to criminally investigate or prosecute any alcohol or drug abuse patient.[facility] the event this information is protected by the Federal Confidentiality of Alcohol and Drug Abuse Patient Records regulations: The Federal rules restrict any use of the information to criminally investigate or prosecute any alcohol or drug abuse patient.[facility] the event this information is protected by the Federal Confidentiality of Alcohol and Drug Abuse Patient Records regulations: The Federal rules restrict any use of the information to criminally investigate or prosecute any alcohol or drug abuse patient.[facility] the event this information is protected by the Federal Confidentiality of Alcohol and Drug Abuse Patient Records regulations: The Federal rules restrict any use of the information to criminally investigate or prosecute any alcohol or drug abuse patient.[facility] the event this information is protected by the Federal Confidentiality of Alcohol and Drug Abuse Patient Records regulations: The Federal rules restrict any use of the information to criminally investigate or prosecute any alcohol or drug abuse patient.[facility] Care Teams (unrecognized sec tion and content) Parts Department Supervisor Relationship Specialty Start Date End Date Rosa Isela Medina HARD METALS HAND ENGRAVER.DROPHAMMER OPERATOR [address] [place] [address] PCP - General Family Medicine 01/21/19 Parts Department Supervisor Relationship Specialty Start Date End Date Rosa Isela Medina HARD METALS HAND ENGRAVER.DROPHAMMER OPERATOR [address] [place] [address] PCP - General Family Medicine 01/21/19 Parts Department Supervisor Relationship Specialty Start Date End Date Rosa Isela Medina HARD METALS HAND ENGRAVER.DROPHAMMER OPERATOR [address] [place] [address] PCP - General Family Medicine 01/21/19 FOR RECORDS PERTAINING TO PATIENTS WHO ARE OR HAVE BEEN ENROLLED IN A CHEMICAL DEPENDENCY/SUBSTANCEABUSE PROGRAM, SOME INFORMATION MAY BE OMITTED. This clinical summary was aggregated from multiple sources. Caution should be exercised in using it in the provision of clinical care. This summary normalizes information from multiple sources, and as a consequence, information in this document may materially change the coding, format and clinical context of patient data. In addition, data may be omitted in some cases. CLINICAL DECISIONS SHOULD BE BASED ON THE PRIMARY CLINICAL RECORDS. [facility] [employer] [facility]. provides no warranty or guarantee of the accuracy or completeness of information in this document.
[2023-10-03 21:37] LABS: Absolute Lymphocyte Count 2.75 X10^3/uL (0.83-4.51); Basophil# 0.07 X10^3/uL; Basophil% 0.8 % (0-1); Eosinophil# 0.44 X10^3/uL; Eosinophils% 4.9 % (0-5); Hematocrit 39.2 % (40-54); Lymphocyte # 2.75 X10^3/ul (0.83-4.51); Lymphocyte % 30.7 % (19-41); Mean Corp Hgb Conc 35.7 g/dL (32-36); Mean Corpuscular Hgb 32.7 pg (27.0-32.0); Mean Corpuscular Volume 91.6 fL (80-94); Mean Platelet Vol. 10.7 fl (6.2-12.0); Monocyte# 0.64 X10^3/uL; Monocyte% 7.2 % (0-10); NRBC Flagged by Analyzer 0 % (0-5); Neutrophil # 5.03 X10^3/uL (2.7-7.7); Neutrophil % 56.2 % (47-70); Platelet Count 255 K/mm3 (150-450); RBC Distribution Width CV 12.3 % (11.6-14.6); RBC Distribution Width SD 40.8 fl (35.1-43.9); Red Blood Count 4.28 M/mm3 (4.6-6.2)
[2023-10-03 21:51] LABS: ALB/GLOB Ratio 1.1 RATIO (0.9-2.4); AST(SGOT) 34 U/L (15-37); Alanine Aminotransfer ALT/SGPT 53 U/L (16-61); Albumin, Serum 3.9 g/dL (3.2-5.0); Alkaline Phosphatase 71 U/L (45-117); Anion Gap 3 (5-15); BUN 15 mg/dL (7-18); BUN/Creat Ratio 15.5 RATIO (10-20); Calcium,Total 8.4 mg/dL (8.5-10.1); Chloride 107 mmol/L (98-107); Cholesterol 173 mg/dL (200); Creatinine, Serum 0.97 mg/dL (0.70-1.30); EST Glomerular Filtration Rate 82 mL/min (>60); Est Glom Filt Rate - Afr Amer 99 mL/min (>60); Globulin 3.6 g/dL (2.2-4.2); Glucose 103 mg/dL (74-106); High Density Lipoprotein 28 mg/dL; PSA,Total - Annual Screen 0.39 ng/mL (0.00-4.00); Potassium 3.9 mmol/L (3.5-5.1); Protein, Total 7.5 g/dL (6.4-8.2); Sodium Level 140 mmol/L (136-145); Triglycerides 320 mg/dL; Very Low Density Lipoprotein 64 mg/dL (5-40)
== END | disposition home or self-care (01) ==
PROVIDERS: PCP Nurse Practitioner; Visit Provider Nurse Practitioner
DX: I10 Essential (primary) hypertension (principal); E78.5 Hyperlipidemia, unspecified; R35.0 Frequency of micturition
CPT/HCPCS: 80053; 80061; 84153; 85025; G0103

== ENCOUNTER → 2024-08-20 | Outpatient (CLI) | payer OTHER, SELFPAY ==
[2024-08-20 22:43] LABS: Absolute Lymphocyte Count 2.65 X10^3/uL (0.83-4.51); Absolute Neutrophil Count 4.7 X10^3/uL (2.0-7.7); Basophil# 0.07 X10^3/uL; Basophil% 0.8 % (0-1); Eosinophils% 4.8 % (0-5); Hematocrit 41.4 % (40-54); Hemoglobin 14.5 g/dL (13.0-16.5); Lymphocyte # 2.65 X10^3/ul (0.83-4.51); Lymphocyte % 31.5 % (19-41); Mean Corpuscular Hgb 32.2 pg (27.0-32.0); Mean Platelet Vol. 10.2 fl (6.2-12.0); Monocyte# 0.59 X10^3/uL; NRBC Flagged by Analyzer 0 % (0-5); Neutrophil # 4.66 X10^3/uL (2.7-7.7); Neutrophil % 55.5 % (47-70); Platelet Count 248 K/mm3 (150-450); RBC Distribution Width CV 12.3 % (11.6-14.6); RBC Distribution Width SD 40.8 fl (35.1-43.9); White Blood Count 8.4 K/mm3 (4.4-11.0)
[2024-08-20 22:59] LABS: AST(SGOT) 31 U/L (15-37); Alanine Aminotransfer ALT/SGPT 47 U/L (16-61); Albumin, Serum 3.7 g/dL (3.2-5.0); Alkaline Phosphatase 73 U/L (45-117); Anion Gap 5 (5-15); BUN 13 mg/dL (7-18); BUN/Creat Ratio 13.1 RATIO (10-20); Calcium,Total 9.2 mg/dL (8.5-10.1); Chloride 108 mmol/L (98-107); Creatinine, Serum 0.99 mg/dL (0.70-1.30); EST Glomerular Filtration Rate 80 mL/min (>60); Est Glom Filt Rate - Afr Amer 96 mL/min (>60); Globulin 3.6 g/dL (2.2-4.2); Glucose 110 mg/dL (74-106); Potassium 4.1 mmol/L (3.5-5.1); Protein, Total 7.3 g/dL (6.4-8.2); Sodium Level 141 mmol/L (136-145); Troponin-I HS 10 pg/mL (3.0-78.0)
[2024-08-22 04:08] LABS: CRP, High Sensitivity 4.89 mg/L (0.00-3.00)
== END | disposition home or self-care (01) ==
PROVIDERS: PCP Nurse Practitioner; Visit Provider Nurse Practitioner
DX: R06.09 Other forms of dyspnea (principal); I10 Essential (primary) hypertension; R51.9 Headache, unspecified
CPT/HCPCS: 80053; 84443; 84484; 85025; 86141

== ENCOUNTER → 2025-03-21 | Outpatient (CLI) | payer OTHER, SELFPAY ==
--- OUTSIDE RECORDS SUMMARY | 2025-03-21 21:35 | XMS RPT_ITS | CCD ---
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 13.0-17.0 [facility] Comment on above: Order Comment: Speci men Type: BLOOD SPECIMENOrdering Facility: [facility] Address: [address] [place] [address] Performed By: #### 5 8410-2 ####ANDREWS LABORATORYCLIA [id number] [address] MCH (RBC) [Entitic mass] 32.3 pg Normal 26.0-34.0 [facility] Comment on above: Order Comment: Speci men Type: BLOOD SPECIMENOrdering Facility: [facility] Address: [address] [place] [address] Performed By: #### 5 8410-2 ####ANDREWS LABORATORYCLIA [id number] [address] MCHC (RBC) [Mass/Vol] 35.6 g/dL Normal 30.5-36.0 [facility] Comment on above: Order Comment: Speci men Type: BLOOD SPECIMENOrdering Facility: [facility] Address: [address] [place] [address] Performed By: #### 5 8410-2 ####ANDREWS LABORATORYCLIA [id number] [address] MCV (RBC) [Entitic vol] 90.8 fL Normal 80.0-100.0 [facility] Comment on above: Order Comment: Speci men Type: BLOOD SPECIMENOrdering Facility: [facility] Address: [address] [place] [address] Performed By: #### 5 8410-2 ####ANDREWS LABORATORYCLIA [id number] [address] Nucleated RBC (Bld) [#/Vol] 10*3/uL Normal <0.01 [facility] Comment on above: Order Comment: Speci men Type: BLOOD SPECIMENOrdering Facility: [facility] Address: [address] [place] [address] Performed By: #### 5 8410-2 ####ANDREWS LABORATORYCLIA [id number] [address] Platelet mean volume (Bld) [Entitic vol] 9.8 fL Normal 9.0-12.7 [facility] Comment on above: Order Comment: Speci men Type: BLOOD SPECIMENOrdering Facility: [facility] Address: [facility] [place] [id number] Performed By: #### 5 8410-2 ####ANDREWS LABORATORYCLIA [id number] [address] Platelets (Bld) [#/Vol] 200 10*3/uL Normal 150-400 [facility] Comment on above: Order Comment: Speci men Type: BLOOD SPECIMENOrdering Facility: [facility] Address: [address] [place] [address] Performed By: #### 5 8410-2 ####ANDREWS LABORATORYCLIA [id number] [place] [address] [place] RBC (Bld) [#/Vol] 3.90 10*6/uL Low 4.20-6.00 [facility] Comment on above: Order Comment: Speci men Type: BLOOD SPECIMENOrdering Facility: [facility] Address: [address] [place] [address] Performed By: #### 5 8410-2 ####ANDREWS LABORATORYCLIA [id number] [address] [place] WBC (Bld) [#/Vol] 6.76 10*3/uL Normal 3.70-11.00 [facility] Comment on above: Order Comment: Speci men Type: BLOOD SPECIMENOrdering Facility: [facility] Address: [address] [place] [address] Performed By: #### 5 8410-2 ####ANDREWS LABORATORYCLIA [id number] [place] [id number] [facility] CNCOon 12-20-2024 CNCO Letter Text Normal [facility] CNDSon 12-20-2024 CNDS HNO ID: [id number] Author: ELIANA COOPER MD Service: General Internal Medicine Author Type: Physician Type: Discharge Summary Filed: 12/20/2024 23:44 Note Text: [facility] STAFF PHYSICIAN NOTE OF PERSONAL INVOLVEMENT IN CARE I have reviewed the discharge summary obtained and documented by the nurse practitioner and I personally participated in the alfonso components. I have discussed the case and management of the patient's care. The following comments revise or confirm relevant alfonso components of their note. 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 PLAN: MRI is negative, decrease Amlodipine to 5 mg and advise with compressive socks to lower extremities and OP event recorder. Plan of care discussed with Provider, RN, Patient and Family/Significant Other: Spouse CARE COORDINATION: Discharge Management: I personally spent greater than 30 minutes involved in the discharge management of this patient SIGNATURE: Eliana Cooper MD DATE of SERVICE: December 20, 2024 TIME of SERVICE: 11:42 PM DISCHARGE SUMMARY PATIENT NAME: Nicolas Oliva Code Status: Full Code Highest Readmission Risk Score: 12 The 30 day readmissions risk score is derived from an internally validated risk model which evaluates patient level characteristics, utilization history, medication orders and lab results up until the day of discharge. Patients with a score of 39 or above are considered highest risk for readmission. Specific patient level drivers will be listed at the bottom of the summary. Admission Information Admission Information ADMIT DATE: 12/19/2024 DISCHARGE DATE: 12/20/2024 MY DOCTORS AND MEDICAL TEAM: My Main Hospital Doctor: Eliana Cooper MD Primary Care Provider: Rosa Isela Chiu APRN.CLIENT DELIVERY MANAGER My Medical Team Members: Treatment Team: Attending Provider: Eliana Cooper MD MY CONDITION AT DISCHARGE: Stable REASON I WAS IN THE HOSPITAL: Dizziness Severe RV4 stenosis SUMMARY OF WHAT HAPPENED WHILE I WAS IN THE HOSPITAL: You were admitted on 12/19/24 under the care of Dr. Eliana Cooper with dizziness. Evaluation via telestroke was initiated in the ER; CT brain showed no acute process, CTA showed severe RV4 stenosis. You have been started on daily aspirin and admitted for MRI, which showed no acute findings. Orthostatic vitals were completed and noted no drop, however you were advised to wear knee high compression stockings. 30 day event monitor has been ordered for evaluation for any arrythmia. Your amlodipine dose has been decreased d/t lower extremity swelling and may need to be discontinued all together. Please follow up with your PCP or guzzler builder regarding this. You have been advised to space out your blood pressure meds to avoid a drop. You are being discharged home today. Please follow up with your PCP in 1-2 weeks; please check your blood pressure daily (record and take with you to your follow up visit), you may need recheck of orthostatic vitals at follow up appointment as well. Discuss previous lipid panel with your PCP, if LDL>70 will need to be started on statin. Please also follow up with Neurology in 2 weeks. OTHER PROBLEMS/DIAGNOSIS: Principal Problem (Resolved): Dizziness Active Problems: HTN (hypertension) Resolved Problems: Dizziness, nonspecific OPERATIONS PERFORMED WHILE IN THE HOSPITAL: None IMPORTANT TEST/PROCEDURES: See summary TEST RESULTS NOT AVAILABLE AT THIS TIME: No pending results Discharge Disposition Discharge Disposition: Home With Self Care Activity When You Leave the Hospital Resume pre-hospital activity Diet Instructions Resume your pre-hospital diet Call Your Doctor If You have a severe headache You have lightheadedness, fainting, or confusion You have persistent nausea/vomiting over 24 hours You have swollen glands or cold and clammy skin Your temperature is greater than 101F Follow Up Appointments Follow-up Appointment 1-2 weeks When: In: Patient/Parents to call for appointment?: Yes Rosa Isela Chiu, CABLE SPLICING TECHNICIAN.[facility] [phone] [address] PCP Requested Referral Additional Provider to Provider Information: You were admitted on 12/19/24 under the care of Dr. Eliana Cooper with dizziness. Evaluation via telestroke was initiated in the ER; CT brain showed no acute process, CTA showed severe RV4 stenosis. You have been started on daily aspirin and admitted for MRI, which showed no acute findings. Orthostatic vitals were completed and noted no drop, however you were advised to wear knee high compression stockings. 30 day event monitor has been ordered for evaluation for any arrythmia. Your amlodipine dose has been decreased d/t lower extremity swelling and may need to be discontinued all together. Please follow up with your PCP or guzzler builder regarding this. You have been advised to space out your blo (more content not included)... Normal [facility] HISTORY PHYSICALon HISTORY PHYSICAL HNO ID: [id number] Author: ELIANA COOPER MD Service: General Internal Medicine Author Type: Physician Type: H&P Filed: 12/20/2024 13:01 Note Text: [facility] STAFF PHYSICIAN NOTE OF PERSONAL INVOLVEMENT IN CARE I have reviewed the history and physical examination obtained and documented by the nurse practitioner and I personally participated in the alfonso components. I have discussed the case and management of the patient's care. The following comments revise or confirm relevant alfonso components of their note. IMPRESSION: This is a 69 year old male who presents with dizziness. PLAN: check MRI. Plan of care discussed with Provider, RN, Patient and Family/Significant Other: SPOUSE CARE COORDINATION: The majority of the visit was spent counseling and/or coordinating care for the patient. Rvre-do-skoc time was 35 minutes SIGNATURE: Eliana Cooper MD DATE of SERVICE: December 20, 2024 TIME of SERVICE: 1:00 PM History and Physical Examination SERVICE DATE: 12/19/2024 SERVICE TIME: 1700 PCP: Rosa Isela Chiu APRN.CLIENT DELIVERY MANAGER PRIMARY ATTENDING: Sanjuanita John DO Subjective CHIEF COMPLAINT: Dizziness (Pt states dizziness while standing today at a work site/ denies SOB, CP or n/v/d) HPI: Patient is a 69 year old male with PMHx of HTN, COPD, and HLD. He presents to [facility] with dizziness. He states he was at work, and got so dizzy he had to sit down or else he felt he was going to pass out or fall. He did neither. He has never had this happened to him before. He states his guzzler builder has been adjusting his bp meds, and his bp has been improving (sbp less than 165). He knows this is high, but they been working on it for 2 years. In the ER tele neuro was consulted for unsteady gait. Has recommended MRI and PT. ER Workup: Labs were unremarkable. EKG: SB 55, QTc 436 CT of brain is negative for acute infarct CTA shows right ROB Mod-Severe stenosis, neck arteries are normal Elevated troponins / (chronic)- last stress test 08/2022 Dr. Ivette Sanchez will be admitting in observation status for dizziness. History provided by: patient, family member, and outside medical records FUNCTIONAL STATUS: Independent PAST MEDICAL HISTORY Diagnosis Date COPD (chronic obstructive pulmonary disease) (HCC) HLD (hyperlipidemia) Hypertension PAST SURGICAL HISTORY Procedure Laterality Date ORTHOPEDICS SURGERY HX No family history on file. Social History Tobacco Use Smoking status: Never Smokeless tobacco: Never Substance Use Topics Alcohol use: No Drug use: No I have confirmed and edited as necessary, the PFSH obtained by others. ALLERGIES Allergen Reactions Flu Vac Qs 2015-(* Intolerance Hs continu cold year afterrwards Prior to Admission Medications Prescriptions Last Dose Informant Patient Reported? Taking? albuterol HFA (PROVENTIL HFA, VENTOLIN HFA) 90 mcg/actuation inhaler Yes Yes Sig: Inhale 2 Puffs as instructed every 6 hours as needed. amLODIPine (NORVASC) 10 mg tablet Yes Yes Sig: Take 1 tablet by mouth once daily. carvedilol (COREG) 25 mg tablet Yes Yes Sig: Take 25 mg by mouth two times a day. TAKE WITH FOOD. losartan (COZAAR) 100 mg tablet Yes Yes Sig: Take 1 tablet by mouth once daily. Facility-Administered Medications: None REVIEW OF SYSTEMS: Review of Systems Constitutional: Negative for chills and fever. HENT: Negative. Respiratory: Negative for shortness of breath. Cardiovascular: Negative for chest pain and leg swelling. Gastrointestinal: Negative for abdominal pain, constipation, diarrhea, nausea and vomiting. Neurological: Positive for dizziness. NEAR-SYNCOPE Objective PHYSICAL EXAM: Physical Exam Vitals and nursing note reviewed. Constitutional: General: He is not in acute distress. Appearance: He is obese. He is not ill-appearing. HENT: Head: Normocephalic. Eyes: Pupils: Pupils are equal, round, and reactive to light. Cardiovascular: Rate and Rhythm: Regular rhythm. Bradycardia present. Pulses: Normal pulses. Heart sounds: Normal heart sounds. Pulmonary: Effort: Pulmonary effort is normal. No respiratory distress. Breath sounds: Normal breath sounds. No wheezing, rhonchi or rales. Abdominal: General: Bowel sounds are normal. Tenderness: There is no abdominal tenderness. Musculoskeletal: Right lower leg: No edema. Left lower leg: No edema. Skin: General: Skin is warm and dry. Neurological: Mental Status: He is alert and oriented to person, place, and time. BP 136/94 Pulse (!) 92 Temp 36.3 ?C (97.4 ?F) (Oral) Resp 18 Wt 120.7 kg (266 lb) SpO2 97% BMI 39.28 kg/m? Body mass index is 39.28 kg/m?. DATA: Diagnostic tests: Most recent labs and imaging results. Most recent EKG Imaging: CT BRAIN WO IVCON Result Date: 12/19/2024 * * *Final Report* * * DATE OF EXAM: Dec 19 2024 12:35PM [facility] 0504 - CT BRAIN WO IVCON / PROCEDURE REASON: Focal neuro de (more content not included)... [facility] NURSING PROGon 12-20-2024 NURSING PROG HNO ID: [id number] Author: PEG CROFT, RAINA Service: Nursing Author Type: Registered Nurse Type: Nursing Progress Note Filed: 12/20/2024 15:33 Note Text: Other: 1220 Dr. Cooper here with bedside rounding done with updated on labs AND vitals7 ortho. B/P.'s. 1520 Went over discharge instructions with pt. [facility] ALLIED HEALTHon 12-19-2024 ALLIED HEALTH HNO ID: [id number] Author: ROBERTO CARLOS GARCIA CT Service: Radiology Author Type: Director Utilization Management Type: [facility] Filed: 12/19/2024 20:07 Note Text: Radiology Service Progress Note PATIENT NAME: Nicolas Oliva DATE OF SERVICE: December 19, 2024 TIME: 8:07 PM PATIENT IDENTITY VERIFICATION COMPLETED USING TWO (2) IDENTIFIERS: Name and Date of confirmed by patient verbally. FALL SCREENING: Has the patient had 2 falls in the last year or 1 fall with injury or currently using an Ambulatory Assistive Device (Walker, Cane, Wheelchair, Crutches, etc.)? Inpatient: Screened on floor PATIENT GENDER DATA: Assigned male at PATIENT RELEVANT IMPLANT DATA REVIEWED: Yes PATIENT PRESENTS WITH AN IMPLANTABLE OR ATTACHED WIRE MESH FILTER FABRICATOR: No RADIOLOGY DEPARTMENT: MR; Exam(s) Completed: Head: Routine Brain PERIPHERAL IV DATA: Not applicable SIGNED BY: RED Ware December 19, 2024 8:07 PM [facility] HNO ID: [id number] Author: SKIP URRUTIA RT(R) Service: Radiology Author Type: Technologist Type: Allied Health Filed: 12/19/2024 12:29 Note Text: Radiology Service Progress Note PATIENT NAME: Nicolas Oliva DATE OF SERVICE: December 19, 2024 TIME: 12:29 PM PATIENT IDENTITY VERIFICATION COMPLETED USING TWO (2) IDENTIFIERS: Name and Date of confirmed by patient verbally and Name and Date of confirmed by identification band. FALL SCREENING: Has the patient had 2 falls in the last year or 1 fall with injury or currently using an Ambulatory Assistive Device (Walker, Cane, Wheelchair, Crutches, etc.)? No PATIENT GENDER DATA: Assigned male at PATIENT RELEVANT IMPLANT DATA REVIEWED: Not Applicable PATIENT PRESENTS WITH AN IMPLANTABLE OR ATTACHED WIRE MESH FILTER FABRICATOR: No RADIOLOGY DEPARTMENT: CT; Exam(s) Completed: Brain , CTA Brain , and CTA Neck PERIPHERAL IV DATA: Not applicable SIGNED BY: RT Vivian(R) December 19, 2024 12:29 PM Normal [facility] CBC W Auto Differential pane l (Bld)on 12-19-2024 Basophils (Bld) [#/Vol] 0.05 10*3/uL Normal <0.11 [facility] Comment on above: Order Comment: Speci men Type: BLOOD SPECIMENOrdering Facility: [facility] Address: [address] [place] [address] Performed By: #### 5 7021-8 ####ANDREWS LABORATORYCLIA [id number] [place] [address] [place] Basophils/100 WBC (Bld) 0.7 % Normal [facility] Comment on above: Order Comment: Speci men Type: BLOOD SPECIMENOrdering Facility: [facility] Address: [address] [place] [address] Performed By: #### 5 7021-8 ####ANDREWS LABORATORYCLIA [id number] [place] [address] [place] Differential cell count method Nom (Bld) Auto Normal [facility] Comment on above: Order Comment: Speci men Type: BLOOD SPECIMENOrdering Facility: [facility] Address: [address] [place] [address] Performed By: #### 5 7021-8 ####ANDREWS LABORATORYCLIA [id number] [place] [address] [place] Eosinophils (Bld) [#/Vol] 0.46 10*3/uL High <0.46 [facility] Comment on above: Order Comment: Speci men Type: BLOOD SPECIMENOrdering Facility: [facility] Address: [address] [place] [address] Performed By: #### 5 7021-8 ####ANDREWS LABORATORYCLIA [id number] [place] [address] [place] Eosinophils/100 WBC (Bld) 6.1 % Normal [facility] Comment on above: Order Comment: Speci men Type: BLOOD SPECIMENOrdering Facility: [facility] Address: [address] [place] [address] Performed By: #### 5 7021-8 ####ANDREWS LABORATORYCLIA [id number] [address] [place] Erythrocyte distribution width (RBC) [Ratio] 12.1 % Normal 11.5-15.0 [facility] Comment on above: Order Comment: Speci men Type: BLOOD SPECIMENOrdering Facility: [facility] Address: [address] [place] [address] Performed By: #### 5 7021-8 ####ANDREWS LABORATORYCLIA [id number] [address] [place] Hematocrit (Bld) [Volume fraction] 36.9 % Low 39.0-51.0 [facility] Comment on above: Order Comment: Speci men Type: BLOOD SPECIMENOrdering Facility: [facility] Address: [address] [place] [address] Performed By: #### 5 7021-8 ####ANDREWS LABORATORYCLIA [id number] [place] [address] [place] Hemoglobin (Bld) [Mass/Vol] 13.0 g/dL Normal 13.0-17.0 [facility] Comment on above: Order Comment: Speci men Type: BLOOD SPECIMENOrdering Facility: [facility] Address: [address] [place] [address] Performed By: #### 5 7021-8 ####ANDREWS LABORATORYCLIA [id number] [address] [place] Immature granulocytes (Bld) [#/Vol] 10*3/uL Normal <0.10 [facility] Comment on above: Order Comment: Speci men Type: BLOOD SPECIMENOrdering Facility: [facility] Address: [address] [place] [address] Performed By: #### 5 7021-8 ####ANDREWS LABORATORYCLIA [id number] [address] Immature granulocytes/100 WBC (Bld) 0.3 % Normal [facility] Comment on above: Order Comment: Speci men Type: BLOOD SPECIMENOrdering Facility: [facility] Address: [address] [place] [address] Performed By: #### 5 7021-8 ####ANDREWS LABORATORYCLIA [id number] [place] [address] [place] Lymphocytes (Bld) [#/Vol] 1.93 10*3/uL Normal 1.00-4.00 [facility] Comment on above: Order Comment: Speci men Type: BLOOD SPECIMENOrdering Facility: [facility] Address: [address] [place] [address] Performed By: #### 5 7021-8 ####ANDREWS LABORATORYCLIA [id number] [address] Lymphocytes/100 WBC (Bld) 25.6 % Normal [facility] Comment on above: Order Comment: Speci men Type: BLOOD SPECIMENOrdering Facility: [facility] Address: [address] [place] [address] Performed By: #### 5 7021-8 ####ANDREWS LABORATORYCLIA [id number] [address] [place] MCH (RBC) [Entitic mass] 32.1 pg Normal 26.0-34.0 [facility] Comment on above: Order Comment: Speci men Type: BLOOD SPECIMENOrdering Facility: [facility] Address: [address] [place] [address] Performed By: #### 5 7021-8 ####ANDREWS LABORATORYCLIA [id number] [address] MCHC (RBC) [Mass/Vol] 35.2 g/dL Normal 30.5-36.0 [facility] Comment on above: Order Comment: Speci men Type: BLOOD SPECIMENOrdering Facility: [facility] Address: [address] [place] [address] Performed By: #### 5 7021-8 ####ANDREWS LABORATORYCLIA [id number] [place] [address] [place] MCV (RBC) [Entitic vol] 91.1 fL Normal 80.0-100.0 [facility] Comment on above: Order Comment: Speci men Type: BLOOD SPECIMENOrdering Facility: [facility] Address: [address] [place] [address] Performed By: #### 5 7021-8 ####ANDREWS LABORATORYCLIA [id number] [place] [address] [place] Monocytes (Bld) [#/Vol] 0.62 10*3/uL Normal <0.87 [facility] Comment on above: Order Comment: Speci men Type: BLOOD SPECIMENOrdering Facility: [facility] Address: [address] [place] [address] Performed By: #### 5 7021-8 ####ANDREWS LABORATORYCLIA [id number] [address] [place] Monocytes/100 WBC (Bld) 8.2 % Normal [facility] Comment on above: Order Comment: Speci men Type: BLOOD SPECIMENOrdering Facility: [facility] Address: [address] [place] [address] Performed By: #### 5 7021-8 ####ANDREWS LABORATORYCLIA [id number] [place] [address] [place] Neutrophils (Bld) [#/Vol] 4.45 10*3/uL Normal 1.45-7.50 [facility] Comment on above: Order Comment: Speci men Type: BLOOD SPECIMENOrdering Facility: [facility] Address: [address] [place] [address] Performed By: #### 5 7021-8 ####ANDREWS LABORATORYCLIA [id number] [address] [place] Neutrophils/100 WBC (Bld) 59.1 % Normal [facility] Comment on above: Order Comment: Speci men Type: BLOOD SPECIMENOrdering Facility: [facility] Address: [address] [place] [address] Performed By: #### 5 7021-8 ####ANDREWS LABORATORYCLIA [id number] [place] [address] [place] Nucleated RBC (Bld) [#/Vol] 10*3/uL Normal <0.01 [facility] Comment on above: Order Comment: Speci men Type: BLOOD SPECIMENOrdering Facility: [facility] Address: [address] [place] [address] Performed By: #### 5 7021-8 ####ANDREWS LABORATORYCLIA [id number] [place] [address] [place] Nucleated RBC/100 WBC (Bld) [Ratio] 0.0 /100 WBC Normal [facility] Comment on above: Order Comment: Speci men Type: BLOOD SPECIMENOrdering Facility: [facility] Address: [address] [place] [address] Performed By: #### 5 7021-8 ####ANDREWS LABORATORYCLIA [id number] [place] [address] [place] Platelet mean volume (Bld) [Entitic vol] 10.1 fL Normal 9.0-12.7 [facility] Comment on above: Order Comment: Speci men Type: BLOOD SPECIMENOrdering Facility: [facility] Address: [address] [place] [address] Performed By: #### 5 7021-8 ####ANDREWS LABORATORYCLIA [id number] [place] [address] [place] Platelets (Bld) [#/Vol] 211 10*3/uL Normal 150-400 [facility] Comment on above: Order Comment: Speci men Type: BLOOD SPECIMENOrdering Facility: [facility] Address: [address] [place] [address] Performed By: #### 5 7021-8 ####ANDREWS LABORATORYCLIA [id number] [place] [address] [place] RBC (Bld) [#/Vol] 4.05 10*6/uL Low 4.20-6.00 [facility] Comment on above: Order Comment: Speci men Type: BLOOD SPECIMENOrdering Facility: [facility] Address: [address] [place] [address] [place] [address] Performed By: #### 5 7021-8 ####ANDREWS LABORATORYCLIA [id number] [place] [address] [place] WBC (Bld) [#/Vol] 7.53 10*3/uL Normal 3.70-11.00 [facility] Comment on above: Order Comment: Speci men Type: BLOOD SPECIMENOrdering Facility: [facility] Address: [address] [place] [address] Performed By: #### 5 7021-8 ####ANDREWS LABORATORYCLIA [id number] [place] [address] [place] [address] BRAIN WO IVCONon 12-20-19 CT BRAIN WO IVCON * * *Final Report* * * DATE OF EXAM: Dec 19 2024 12:35PM [facility] [address]504 - CT BRAIN WO IVCON / PROCEDURE REASON: Focal neuro deficit, new, fixed, or worsening, 4.5 to 24 hours, NIHSS 6 or great * * * * Physician Interpretation * * * * EXAMINATION: CTA HEAD W IVCON, CTA NECK W IVCON, CT BRAIN WO IVCON HISTORY: Dizziness while standing. Orthostatic? TECHNIQUE: Routine CT of the brain without IV contrast. Next, high resolution axial images were obtained through the head, neck and superior mediastinum following bolus administration of intravenous contrast for CT angiography. 3D maximum intensity projection images were created, reviewed and archived . MQ: CTABNPlus_4 Contrast: 80 mL Omnipaque [address] Radiation dose: Integrated Dose-Length Product (DLP) for this visit = 1272 mGy*cm. CT Dose Reduction Employed: Automated exposure control(AEC) and iterative recon COMPARISON: CT brain from 01/21/2019. RESULT: BRAIN: Acute change: No evidence of an acute infarct or other acute parenchymal process. ASPECT Score = 10 Hemorrhage: No evidence of acute intracranial hemorrhage. ECASS hemorrhagic transformation score: Not Applicable Mass Lesion / Mass Effect: There is no evidence of an intracranial mass or extra-axial fluid collection. No significant mass effect. Chronic change: None apparent. Parenchyma: There is no significant volume loss. The brain parenchyma is otherwise within normal limits for age. Ventricles: The ventricles are within normal limits of size and configuration for age. Other: The visualized paranasal sinuses are grossly clear. The skull and visualized extracranial soft tissues are grossly normal. NECK: Soft tissues: The soft tissue planes are maintained throughout. No evidence of a soft tissue mass in the neck or superior mediastinum. No significant lymphadenopathy is seen. Spine: Alignment is normal. Severe loss of disc height present at C5-C6 and C6-C7 but only mild canal stenoses at these level due to disc osteophyte complexes. Lung apices: The visualized lung apices are clear. CT ARTERIOGRAM: Extracranial Circulation: Aortic Arch: There is a normal branching pattern from the aortic arch. There is no significant stenosis in the proximal brachiocephalic vessels. Carotid Stenosis: Right Common: No significant stenosis. Right Internal Carotid Plaque: No significant plaque formation. Right Internal Carotid Stenosis (% by NASCET Criteria): 0 Left Common: No significant stenosis. Left Internal Carotid Plaque: No significant plaque formation. Left Internal Carotid Stenosis (% by NASCET Criteria): 0 Cervical Vertebral Arteries: Patency: Bilateral. Vertebral artery origins are patent bilaterally. Dominance: Left Intracranial Circulation: Anterior Circulation: Carotid siphons are normal in caliber bilaterally and symmetric. No significant atherosclerotic changes. The anterior and middle cerebral arteries are normal in caliber without thrombosis, focal stenosis or aneurysmal dilatation. Vertebrobasilar Circulation: There is moderate irregularity and tendon high-grade stenoses in the right intracranial vertebral artery (series 304 images 82-97). Left intracranial vertebral artery is patent. Basilar artery and intracranial vertebral arteries are normal in caliber. There is a type origin of the right ACTIVITY DIRECTOR. Both security system analyst are normal in course. There is normal contrast opacification of the dural venous sinuses. The right transverse and sigmoid sinus are dominant. Carrot Buncher (topogram) images: Unremarkable. IMPRESSION: BRAIN: Normal noncontrast CT brain. CTA HEAD: 1. 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 2. Otherwise normal intracranial CTA. CTA NECK: Normal CTA of the neck arteries. Arterial blood flow was measured to detect acute large vessel occlusion by computer aided detection software: Not Performed. Concordance between software and imaging review: Not Applicable. Goring Cutter: ABILIO Transcribe Date/Time: Dec 19 2024 12:43P Dictated by : ANNA BUTTERFIELD MD This examination was interpreted and the report reviewed and electronically signed by: ANNA BUTTERFIELD MD on Dec 19 2024 12:50PM EST [id number] [facility] CTA HEAD W IVCONon CTA HEAD W IVCON * * *Final Report* * * DATE OF EXAM: Dec 19 2024 12:35PM [facility] 0022 - CTA HEAD W IVCON / PROCEDURE REASON: Focal neuro deficit, new, fixed, or worsening, 4.5 to 24 hours, NIHSS < 6, strok * * * * Physician Interpretation * * * * EXAMINATION: CTA HEAD W IVCON, CTA NECK W IVCON, CT BRAIN WO IVCON HISTORY: Dizziness while standing. Orthostatic? TECHNIQUE: Routine CT of the brain without IV contrast. Next, high resolution axial images were obtained through the head, neck and superior mediastinum following bolus administration of intravenous contrast for CT angiography. 3D maximum intensity projection images were created, reviewed and archived . MQ: CTABNPlus_4 Contrast: 80 mL Omnipaque [address] Radiation dose: Integrated Dose-Length Product (DLP) for this visit = 1272 mGy*cm. CT Dose Reduction Employed: Automated exposure control(AEC) and iterative recon COMPARISON: CT brain from 01/21/2019. RESULT: BRAIN: Acute change: No evidence of an acute infarct or other acute parenchymal process. ASPECT Score = 10 Hemorrhage: No evidence of acute intracranial hemorrhage. ECASS hemorrhagic transformation score: Not Applicable Mass Lesion / Mass Effect: There is no evidence of an intracranial mass or extra-axial fluid collection. No significant mass effect. Chronic change: None apparent. Parenchyma: There is no significant volume loss. The brain parenchyma is otherwise within normal limits for age. Ventricles: The ventricles are within normal limits of size and configuration for age. Other: The visualized paranasal sinuses are grossly clear. The skull and visualized extracranial soft tissues are grossly normal. NECK: Soft tissues: The soft tissue planes are maintained throughout. No evidence of a soft tissue mass in the neck or superior mediastinum. No significant lymphadenopathy is seen. Spine: Alignment is normal. Severe loss of disc height present at C5-C6 and C6-C7 but only mild canal stenoses at these level due to disc osteophyte complexes. Lung apices: The visualized lung apices are clear. CT ARTERIOGRAM: Extracranial Circulation: Aortic Arch: There is a normal branching pattern from the aortic arch. There is no significant stenosis in the proximal brachiocephalic vessels. Carotid Stenosis: Right Common: No significant stenosis. Right Internal Carotid Plaque: No significant plaque formation. Right Internal Carotid Stenosis (% by NASCET Criteria): 0 Left Common: No significant stenosis. Left Internal Carotid Plaque: No significant plaque formation. Left Internal Carotid Stenosis (% by NASCET Criteria): 0 Cervical Vertebral Arteries: Patency: Bilateral. Vertebral artery origins are patent bilaterally. Dominance: Left Intracranial Circulation: Anterior Circulation: Carotid siphons are normal in caliber bilaterally and symmetric. No significant atherosclerotic changes. The anterior and middle cerebral arteries are normal in caliber without thrombosis, focal stenosis or aneurysmal dilatation. Vertebrobasilar Circulation: There is moderate irregularity and tendon high-grade stenoses in the right intracranial vertebral artery (series 304 images 82-97). Left intracranial vertebral artery is patent. Basilar artery and intracranial vertebral arteries are normal in caliber. There is a type origin of the right ACTIVITY DIRECTOR. Both security system analyst are normal in course. There is normal contrast opacification of the dural venous sinuses. The right transverse and sigmoid sinus are dominant. Carrot Buncher (topogram) images: Unremarkable. IMPRESSION: BRAIN: Normal noncontrast CT brain. CTA HEAD: 1. 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 2. Otherwise normal intracranial CTA. CTA NECK: Normal CTA of the neck arteries. Arterial blood flow was measured to detect acute large vessel occlusion by computer aided detection software: Not Performed. Concordance between software and imaging review: Not Applicable. Goring Cutter: ABILIO Transcribe Date/Time: Dec 19 2024 12:43P Dictated by : ANNA BUTTERFIELD MD This examination was interpreted and the report reviewed and electronically signed by: ANNA BUTTERFIELD MD on Dec 19 2024 12:50PM EST [id number] Normal [facility] CTA NECK W IVCONon CTA NECK W IVCON * * *Final Report* * * DATE OF EXAM: Dec 19 2024 12:35PM [facility] 0024 - CTA NECK W IVCON / PROCEDURE REASON: Focal neuro deficit, new, fixed, or worsening, 4.5 to 24 hours, NIHSS < 6, strok * * * * Physician Interpretation * * * * EXAMINATION: CTA HEAD W IVCON, CTA NECK W IVCON, CT BRAIN WO IVCON HISTORY: Dizziness while standing. Orthostatic? TECHNIQUE: Routine CT of the brain without IV contrast. Next, high resolution axial images were obtained through the head, neck and superior mediastinum following bolus administration of intravenous contrast for CT angiography. 3D maximum intensity projection images were created, reviewed and archived . MQ: CTABNPlus_4 Contrast: 80 mL Omnipaque [address] Radiation dose: Integrated Dose-Length Product (DLP) for this visit = 1272 mGy*cm. CT Dose Reduction Employed: Automated exposure control(AEC) and iterative recon COMPARISON: CT brain from 01/21/2019. RESULT: BRAIN: Acute change: No evidence of an acute infarct or other acute parenchymal process. ASPECT Score = 10 Hemorrhage: No evidence of acute intracranial hemorrhage. ECASS hemorrhagic transformation score: Not Applicable Mass Lesion / Mass Effect: There is no evidence of an intracranial mass or extra-axial fluid collection. No significant mass effect. Chronic change: None apparent. Parenchyma: There is no significant volume loss. The brain parenchyma is otherwise within normal limits for age. Ventricles: The ventricles are within normal limits of size and configuration for age. Other: The visualized paranasal sinuses are grossly clear. The skull and visualized extracranial soft tissues are grossly normal. NECK: Soft tissues: The soft tissue planes are maintained throughout. No evidence of a soft tissue mass in the neck or superior mediastinum. No significant lymphadenopathy is seen. Spine: Alignment is normal. Severe loss of disc height present at C5-C6 and C6-C7 but only mild canal stenoses at these level due to disc osteophyte complexes. Lung apices: The visualized lung apices are clear. CT ARTERIOGRAM: Extracranial Circulation: Aortic Arch: There is a normal branching pattern from the aortic arch. There is no significant stenosis in the proximal brachiocephalic vessels. Carotid Stenosis: Right Common: No significant stenosis. Right Internal Carotid Plaque: No significant plaque formation. Right Internal Carotid Stenosis (% by NASCET Criteria): 0 Left Common: No significant stenosis. Left Internal Carotid Plaque: No significant plaque formation. Left Internal Carotid Stenosis (% by NASCET Criteria): 0 Cervical Vertebral Arteries: Patency: Bilateral. Vertebral artery origins are patent bilaterally. Dominance: Left Intracranial Circulation: Anterior Circulation: Carotid siphons are normal in caliber bilaterally and symmetric. No significant atherosclerotic changes. The anterior and middle cerebral arteries are normal in caliber without thrombosis, focal stenosis or aneurysmal dilatation. Vertebrobasilar Circulation: There is moderate irregularity and tendon high-grade stenoses in the right intracranial vertebral artery (series 304 images 82-97). Left intracranial vertebral artery is patent. Basilar artery and intracranial vertebral arteries are normal in caliber. There is a type origin of the right ACTIVITY DIRECTOR. Both security system analyst are normal in course. There is normal contrast opacification of the dural venous sinuses. The right transverse and sigmoid sinus are dominant. Carrot Buncher (topogram) images: Unremarkable. IMPRESSION: BRAIN: Normal noncontrast CT brain. CTA HEAD: 1. 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 2. Otherwise normal intracranial CTA. CTA NECK: Normal CTA of the neck arteries. Arterial blood flow was measured to detect acute large vessel occlusion by computer aided detection software: Not Performed. Concordance between software and imaging review: Not Applicable. Goring Cutter: ABILIO Transcribe Date/Time: Dec 19 2024 12:43P Dictated by : ANNA BUTTERFIELD MD This examination was interpreted and the report reviewed and electronically signed by: ANNA BUTTERFIELD MD on Dec 19 2024 12:50PM EST [id number] Normal [facility] Comprehensive metabolic 2000 panelon 12-19-2024 Albumin [Mass/Vol] 4.1 g/dL Normal 3.9-4.9 [facility] Comment on above: Order Comment: Speci men Type: BLOOD SPECIMENOrdering Facility: [facility] Address: [address] [place] [address] Performed By: #### 3 3762-6, 40828-3, , [id number] ####MAYNARD LABORATORYCLIA [id number] [place] [address] [place] [facility] ALP [Catalytic activity/Vol] 64 U/L Normal 38-113 [facility] Comment on above: Order Comment: Speci men Type: BLOOD SPECIMENOrdering Facility: [facility] Address: [address] [place] [address] Performed By: #### 3 3762-6, 26946-0, , [id number] ####MAYNARD LABORATORYCLIA [id number] [place] [address] [place] ALT [Catalytic activity/Vol] 34 U/L Normal 10-54 [facility] Comment on above: Order Comment: Speci men Type: BLOOD SPECIMENOrdering Facility: [facility] Address: [address] [place] [id number] Performed By: #### 3 3762-6, 01425-4, , [id number] ####ANDREWS LABORATORYCLIA [id number] [place] [address] [place] Anion gap [Moles/Vol] 12 mmol/L Normal 8-15 [facility] Comment on above: Order Comment: Speci men Type: BLOOD SPECIMENOrdering Facility: [facility] Address: [address] [place] [address] Performed By: #### 3 3762-6, 07457-8, , [id number] ####ANDREWS LABORATORYCLIA [id number] [place] [address] [place] AST [Catalytic activity/Vol] 28 U/L Normal 14-40 [facility] Comment on above: Order Comment: Speci men Type: BLOOD SPECIMENOrdering Facility: [facility] Address: [address] [place], [place] [address] Performed By: #### 3 3762-6, 59996-3, , [id number] ####ANDREWS LABORATORYCLIA [id number] [place] [address] [place] Bilirubin [Mass/Vol] 0.5 mg/dL Normal 0.2-1.3 [facility] Comment on above: Order Comment: Speci men Type: BLOOD SPECIMENOrdering Facility: [facility] Address: [address] [place] [address] Performed By: #### 3 3762-6, 93445-9, , [id number] ####ANDREWS LABORATORYCLIA [id number] [place] [id number] [place] Calcium [Mass/Vol] 9.5 mg/dL Normal 8.5-10.2 [facility] Comment on above: Order Comment: Speci men Type: BLOOD SPECIMENOrdering Facility: [facility] Address: [address] [place] [address] Performed By: #### 3 3762-6, 97643-9, 31425-1, [id number] ####ANDREWS LABORATORYCLIA [id number] [place] [address] [place] Chloride [Moles/Vol] 101 mmol/L Normal 98-107 [facility] Comment on above: Order Comment: Speci men Type: BLOOD SPECIMENOrdering Facility: [facility] Address: [address] [place] [address] Performed By: #### 3 3762-6, 13341-9, 24673-0, [id number] ####ANDREWS LABORATORYCLIA [id number] [place] [address] [place] CO2 [Moles/Vol] 25 mmol/L Normal 22-30 [facility] Comment on above: Order Comment: Speci men Type: BLOOD SPECIMENOrdering Facility: [facility] Address: [address] [place] [address] Performed By: #### 3 3762-6, 86895-1, , [id number] ####ANDREWS LABORATORYCLIA [id number] [place] [id number] [place] Creatinine [Mass/Vol] 0.97 mg/dL Normal 0.73-1.22 [facility] Comment on above: Order Comment: Speci men Type: BLOOD SPECIMENOrdering Facility: [facility] Address: [address] [place] [address] Performed By: #### 3 3762-6, 62310-5, , [id number] ####ANDREWS LABORATORYCLIA [id number] [place] [id number] [facility] Creatinine and Glomerular filtration rate.predicted panel (S/P/Bld) 84 mL/min/1.73m??? Normal >=60 [facility] Comment on above: Order Comment: Speci men Type: BLOOD SPECIMENOrdering Facility: [facility] Address: [address] [place] [address] Result Comment: Amarilys mated Glomerular Filtration Rate (eGFR) is calculated using the 2020 CKD-EPI creatinine equation. This equation utilizes serum creatinine, sex, and age as parameters. The creatinine assay has traceable calibration to isotope dilution-mass spectrometry. Refer to KDIGO guidelines for clinical interpretation. In patients with unstable renal function, e.g. those with acute kidney injury, the eGFR may not accurately reflect actual GFR. Performed By: #### 3 3762-6, 50381-6, , [id number] ####ANDREWS LABORATORYCLIA [id number] [place] [address] [place] Glucose [Mass/Vol] 111 mg/dL High 74-99 [facility] Comment on above: Order Comment: Cody shanks Type: BLOOD SPECIMENOrdering Facility: [facility] Address: [address] [place], [place] [address] Result Comment: The [place] Diabetes Association (ADA) provides guidance for cutoff values for fasting glucose and random glucose. The ADA defines fasting as no caloric intake for at least 8 hours. Fasting plasma glucose results between 100 to 125 mg/dL indicate increased risk for diabetes (prediabetes). Fasting plasma glucose results greater than or equal to 126 mg/dL meet the criteria for diagnosis of diabetes. In the absence of unequivocal hyperglycemia, results should be confirmed by repeat testing. In a patient with classic symptoms of hyperglycemia or hyperglycemic crisis, random plasma glucose results greater than or equal to 200 mg/dL meet the criteria for diagnosis of diabetes. Reference: Standards of Medical Care in Diabetes 2016, [place] Diabetes Association. Diabetes Care. 2016.39(Suppl 1). Performed By: #### 3 3762-6, 99743-9, , [id number] ####ANDREWS LABORATORYCLIA [id number] [place] [address] [place] Potassium [Moles/Vol] 4.3 mmol/L Normal 3.7-5.1 [facility] Comment on above: Order Comment: Cody shanks Type: BLOOD SPECIMENOrdering Facility: [facility] Address: [address] [place] [address] Performed By: #### 3 3762-6, 09109-1, , [id number] ####ANDREWS LABORATORYCLIA [id number] [place] [address] [place] Protein [Mass/Vol] 6.9 g/dL Normal 6.3-8.0 [facility] Comment on above: Order Comment: Speci men Type: BLOOD SPECIMENOrdering Facility: [facility] Address: [address] [place], [place] [address] Performed By: #### 3 3762-6, 92473-5, 56967-5, [id number] ####ANDREWS LABORATORYCLIA [id number] [address] Sodium [Moles/Vol] 138 mmol/L Normal 136-144 [facility] Comment on above: Order Comment: Speci men Type: BLOOD SPECIMENOrdering Facility: [facility] Address: [address] [place] [address] Performed By: #### 3 3762-6, 81476-1, 02767-7, [id number] ####ANDREWS LABORATORYCLIA [id number] [address] Urea nitrogen [Mass/Vol] 20 mg/dL Normal 9-24 [facility] Comment on above: Order Comment: Speci men Type: BLOOD SPECIMENOrdering Facility: [facility] Address: [address] [place], [place] [address] Performed By: #### 3 3762-6, 82339-8, 96061-8, [id number] ####ANDREWS LABORATORYCLIA [id number] [address] OF [facility] ECG COMPLETEon 12-19-2024 ECG COMPLETE Ventricular Rate : 5 5 BPM Atrial Rate : 55 BPM P-R Interval : 166 ms QRS Duration : 106 ms Q-T Interval : 456 ms QTC Calculation(Bazett) : 436 ms Calculated P [place] : 27 degrees Calculated R [place] : -29 degrees Calculated T [place] : 35 degrees SINUS BRADYCARDIA CANNOT RULE OUT ANTERIOR INFARCT , AGE UNDETERMINED ABNORMAL ECG NO STEMI Confirmed by SANJUANITA WILDER DO ([id number]) on 12/26/2024 6:33:09 PM NAME : NICOLAS OLIVA PID : [id number] : 1955 Gender : Male Race : ORD : [id number] Procedure Date : Dec 19 2024 11:04:37 Edit Date : Dec 26 2024 18:33:10 Diagnosis: SINUS BRADYCARDIA CANNOT RULE OUT ANTERIOR INFARCT , AGE UNDETERMINED ABNORMAL ECG NO STEMI Confirmed by SANJUAINTA WILDER DO ([id number]) on 12/26/2024 6:33:09 PM Test Reason : Chest Pain Location : 1 : ER ED Overread By : SANJUANITA WILDER DO Edited By : SANJUANITA WILDER DO Referred By : , Acquired by : [id number], [facility] ED NOTEon 12-19-2024 ED NOTE HNO ID: [id number] Author: JERI BOOTH RN Service: ? Author Type: Registered Nurse Type: ED Notes Filed: 12/19/2024 17:34 Note Text: 4 S charge nurse informed of hand off report placed [facility] ED NOTE HNO ID: [id number] Author: JERI BOOTH RN Service: ? Author Type: Registered Nurse Type: ED Notes Filed: 12/19/2024 12:37 Note Text: Pt returned from [facility] ED NOTE HNO ID: [id number] Author: JERI OBOTH RN Service: ? Author Type: Registered Nurse Type: ED Notes Filed: 12/19/2024 12:32 Note Text: Pt in [facility] ED NOTE HNO ID: [id number] Author: JERI BOOTH RN Service: ? Author Type: Registered Nurse Type: ED Notes Filed: 12/19/2024 11:30 Note Text: Pt states room spinning when sitting and standing for orthostatics - Dr. Wilder informed [facility] ED NOTE HNO ID: [id number] Author: PEG JONES RN Service: ? Author Type: Registered Nurse Type: ED Notes Filed: 12/19/2024 10:51 Note Text: Bed: ED-03 Expected date: 12/19/24 Expected time: Means of arrival: Comments: [facility] ED PROV NOTEon 12-19-2024 ED PROV NOTE HNO ID: [id number] Author: SANJUANITA WILDER DO Service: Emergency Medicine Author Type: Physician Type: ED Provider Notes Filed: 12/19/2024 17:38 Note Text: ED Provider Note Patient Name: Nicolas Oliva : 1955 SERVICE DATE: 12/19/24 History Patient presents with: Dizziness: Pt states dizziness while standing today at a work site/ denies SOB, CP or n/v/d Patient is 69-year-old male with a history of hypertension presenting to the ER today with lightheadedness/dizzine ss after he stood up at work. He states he then states standing for little bit was walking and continue to feel lightheaded like he was going to pass out had to sit back down and then called EMS. He does state that his coworkers noticed he looked off and asked them specifically about it. Sitting at rest here he has no symptoms. He denies any chest pain, shortness of breath, nausea, vomiting. Denies similar symptoms in the past. PAST MEDICAL HISTORY Diagnosis Date COPD (chronic obstructive pulmonary disease) (HCC) HLD (hyperlipidemia) Hypertension PAST SURGICAL HISTORY Procedure Laterality Date ORTHOPEDICS SURGERY HX No family history on file. Social History Tobacco Use Smoking status: Never Smokeless tobacco: Never Substance and Sexual Activity Alcohol use: No Drug use: No Sexual activity: Not on file ALLERGIES Allergen Reactions Flu Vac Qs 2015-(* Intolerance Hs continu cold year afterrwards Review of Systems Constitutional: Negative for fever. Respiratory: Negative for shortness of breath. Cardiovascular: Negative for chest pain. Allergic/Immunologic: Negative for immunocompromised state. Neurological: Positive for dizziness and light-headedness. All other systems reviewed and are negative. Physical Exam Vitals [12/19/24 1053] BP Pulse Temp Temp src Resp SpO2 Weight Height 132/90 58 36.3 ?C (97.4 ?F) Oral 18 96 % 120.7 kg (266 lb) -- Physical Exam Vitals and nursing note reviewed. Constitutional: General: He is not in acute distress. Appearance: He is well-developed. He is not ill-appearing. HENT: Head: Normocephalic and atraumatic. Eyes: Conjunctiva/sclera: Conjunctivae normal. Neck: Thyroid: No thyromegaly. Trachea: No tracheal deviation. Cardiovascular: Rate and Rhythm: Normal rate and regular rhythm. Pulmonary: Effort: Pulmonary effort is normal. No respiratory distress. Breath sounds: Normal breath sounds. Abdominal: General: There is no distension. Musculoskeletal: General: Normal range of motion. Cervical back: Normal range of motion. Right lower leg: No edema. Left lower leg: No edema. Skin: General: Skin is warm and dry. Capillary Refill: Capillary refill takes less than 2 seconds. Findings: No rash. Neurological: Mental Status: He is alert and oriented to person, place, and time. Comments: Alert and oriented x 3 cranial nerves II through XII are intact bilaterally normal speech Normal finger to nose 5 out of 5 strength in the upper and lower extremities both proximal and distally Normal sensation in all 4 extremities NIHSS 0 Psychiatric: Behavior: Behavior normal. ED STROKE DOCUMENTATION (Last 48 Hours) Stroke Care Path Flowsheet Row Name 12/19/24 1050 Last Known Well Date Patient Last Known Well 12/19/24 -CY Time Patient Last Known Well 0900 -CY NIHSS NIHSS - Initial or Subsequent Initial -CY NIHSS Initial - LIP ENTRY ONLY !!!!! REMEMBER TO VALIDATE DATE AND TIME !!!!! LOC 0 - alert and responsive -CY LOC Questions 0 - both correct -CY LOC Commands 0 - both correct -CY Best Gaze 0 - normal gaze -CY Visual Lozada 0 - no visual loss -CY Facial Palsy 0 - normal -CY Motor Left Arm 0 - no drift -CY Motor Right Arm 0 - no drift -CY Motor Left Leg 0 - no drift -CY Motor Right Leg 0 - no drift -CY Limb Ataxia 0 - no ataxia (or aphasic, hemiplegic) -CY Sensory 0 - normal -CY Best Language 0 - normal -CY Dysarthria 0 - normal -CY Extinction and Inattention 0 - normal, none detected (or visual loss alone) -CY Initial NIHSS Score 0 -CY User Alfonso (r) = Recorded By, (t) = Taken By, (c) = Cosigned By Initials Name CY Sanjuanita Wilder, DO Diagnostic Testing ED Labs Ordered and Reviewed COMPREHENSIVE METABOLIC PANEL - Abnormal; Notable for the following components: Result Value Ref Range Glucose 111 (*) 74 - 99 mg/dL All other components within normal limits HIGH SENSITIVITY TROPONIN T (INITIAL) - Abnormal; Notable for the following components: HENRY High Sensitivity 42 (*) <12 ng/L All other components within normal limits COMPLETE BLOOD COUNT AND DIFFERENTIAL - Abnormal; Notable for the following components: RBC 4.05 (*) 4.20 - 6.00 m/uL Hematocrit 36.9 (*) 39.0 - 51.0 % Abs Eosin 0.46 (*) <0.46 k/uL All other components within normal limits HIGH SENSITIVITY TROPONIN T (SECOND) - Abnormal; Notable for the following components: HENRY High Sensi (more content not included)... Normal [facility] HIGH SENSITIVITY TROPONIN T (INITIAL)on 12-19-2024 Troponin T.cardiac High sensitivity method [Mass/Vol] 42 ng/L High <[address] [place] [address] Comment on above: Order Comment: Speci men Type: BLOOD SPECIMENOrdering Facility: [facility] Address: [address] [place] [address] Performed By: #### 3 3762-6, 38813-5, 05890-3, [id number] ####[facility]ORY[facility] [id number] [address] HIGH SENSITIVITY TROPONIN T (SECOND)on 12-19-2024 Troponin T.cardiac High sensitivity method [Mass/Vol] 33 ng/L High <[address] [place] [address] Comment on above: Order Comment: Speci men Type: BLOOD SPECIMENOrdering Facility: [facility] Address: [address] [place] [address] Performed By: #### L [id number] ####[facility]ORYCL[facility] [id number] [address] HIGH SENSITIVITY TROPONIN T (THIRD) 3 HRS AFTER INITIALon 12-19-2024 Troponin T.cardiac High sensitivity method [Mass/Vol] 33 ng/L High <[address] [place] [address] Comment on above: Order Comment: Speci men Type: BLOOD SPECIMENOrdering Facility: [facility] Address: [address] [place] [address] Performed By: #### L [id number] ####[facility]ORATORYCLIA [id number] [address] OF [facility] MRI BRAIN WO IVCONon 025 MRI BRAIN WO IVCON * * *Final Report* * * DATE OF EXAM: Dec 19 2024 8:14PM MDM 0294 - MRI BRAIN WO IVCON / PROCEDURE REASON: Dizziness, non-specific * * * * Physician Interpretation * * * * EXAMINATION: MRI BRAIN WO IVCON HISTORY: Dizziness, non-specific TECHNIQUE: MRI brain routine protocol without contrast. M: [id number] COMPARISON: CT brain and CTA head/neck 12/19/2024 RESULT: Acute Change: No evidence of restricted diffusion to suggest an acute infarct. Hemorrhage: No evidence of prior parenchymal hemorrhage on the susceptibility weighted sequences. Mass Lesion/ Mass Effect: No evidence of an intracranial mass, extra-axial fluid collection, or significant localized mass effect. Chronic Change: Small/patchy nonspecific foci of T2/FLAIR hyperintensity scattered in the supratentorial white matter likely reflecting chronic microvascular ischemia. Parenchyma: Mild to moderate generalized parenchymal volume loss. Ventricles: Commensurate with volume loss. Skull Base: Hypothalamic and pituitary region are grossly normal. Craniocervical junction is normal. No significant marrow replacement process. Vasculature: Major intracranial arteries and dural venous sinuses demonstrate typical flow voids, suggesting patency by spin echo criteria. Other: The paranasal sinuses and mastoid air cells are clear. The orbits and extracranial soft tissues are unremarkable. IMPRESSION: No acute intracranial findings, specifically no acute infarct. Chronic changes, as detailed. Goring Cutter: ABILIO Transcribe Date/Time: Dec 19 2024 8:21P Dictated by : JILLIAN SALINAS MD This examination was interpreted and the report reviewed and electronically signed by: JILLIAN SALINAS MD on Dec 19 2024 8:24PM EST [id number] Normal [facility] Magnesium [Mass/Vol] 2.2 mg/dL Normal 1.7-2.3 [facility] Comment on above: Order Comment: Speci men Type: BLOOD SPECIMENOrdering Facility: [facility] Address: [address] [place] [address] Performed By: #### 3 3762-6, 25709-8, 79312-9, [id number] ####[facility]ORATORYCLIA [id number] [place] [address] [place] NT-proBNP SerPl-mCncon 12-19 Natriuretic peptide.B prohormone N-Terminal [Mass/Vol] 70 pg/mL Normal <125 [facility] Comment on above: Order Comment: Speci men Type: BLOOD SPECIMENOrdering Facility: [facility] Address: [address] [place] [address] Performed By: #### 3 3762-6, 27425-2, 43814-7, [id number] ####[facility]ORATORYCLIA [id number] [place] [address] [place] Cardiology Visit Reporton Cardiology Visit Report [facility] [address] [place] [address] OFFICE VISIT Date of Service: 12/05/24 MR#: [id number] Acct: [id number] Name: NICOLAS OLIVA PENNY Sr. Rep #: [id number] : 1955 Provider: LI Triplett Age/Sex: 69/M Location: [facility] Status: Signed HPI HPI History of Present Illness Details: Nicolas Durant is a 69 year old white male who presents today for outpatient cardiovascular output follow-up. He established with us in May 2022 based upon a combination of concerns of chest/back discomfort, headache, and hypertension. Stress test was negative for ischemia. Echocardiogram demonstrated a preserved ejection fraction. He was seen last month after he had not been seen in our office since 2021 for concerns over increase in BP. Medications were added. Pt has been out of his coreg for 2 weeks. From a cardiac standpoint, patient is doing well. He does not have any chest discomfort/heaviness/ti ghtness. His exercise tolerance is stable for his age. He does not have any worsening symptoms of shortness of breath. He denies any PND. He does not have any orthopnea. He does not have any symptoms of congestive heart failure. He does not have any palpitations that he is aware of. He does not have any lightheadedness or dizziness. He does not have any near-syncope or syncope. He does not have any lower extremity edema. He does not have any symptoms of claudication. Intake Vital Signs 10/22/24 09:21 12/05/24 07:39 Height 5 ft 9 in 5 ft 9 in Weight: 255 lb 260 lb BMI 37.6 38.4 BP 143/90 H 138/85 H Blood Pressure Location Lt brachial Lt brachial Position Sitting Sitting Respiration 18 18 Pulse 58 L 62 Pulse Source Monitor Monitor Pulse Oximetry (%) 96 97 Intake Visit Reasons: 6 WK FU PER MMM Shellfish Grower Required: No Is patient in pain?: No Allergies naproxen (From Aleve) Adverse Reaction (Intermediate, Verified 12/05/24 09:25) B/P GEORGE UP Medications ???Medication ???Instructions ???Recorded ???Confirmed ???Type albuterol sulfate 90 mcg/actuation See Rx Instructions .Route 02/1310/22/24 Rx aerosol inhaler .COMPLEX #8.5 grams cyclobenzaprine 5 mg tablet 5 mg PO TID PRN muscle spasm #60 0 10/03/23 10/22/24 Rx tabs meclizine 12.5 mg tablet 12.5 mg PO TID PRN dizziness #45 0 12/14/23 10/22/24 Rx tabs levothyroxine 50 mcg tablet 50 mcg PO QDAY #30 tabs 08/21/24 0 10/22/24 Rx losartan 100 mg tablet 100 mg PO QDAY 3 months #30 tabs 1 11/04/23 12/05/24 Rx amlodipine 10 mg tablet 10 mg PO QDAY #30 tabs 09/10/24 Rx carvedilol 25 mg tablet 25 mg PO BID #60 tabs 12/05/24 Rx Ejection fraction %: 65 Have you fallen in the past year?: No PFSH Medical History Hypothyroid Hypertension Essential hypertension Osteoarthritis Exposure to COVID-19 virus Hypertension Surgical History Carpal tunnel syndrome of left wrist Family History Father Asthma at age 64; Brother Hypertension Sister Hypertension Myocardial infarction After childbirth at age 29; Brother Hypertension Brother Hypertension Aunt No problems noted. Brother Hypertension Brother Hypertension Brother Hypertension Sister Hypertension Sister Hypertension Other Heart disease Social History Smoking Status: Never smoker alcohol intake: current details: Rare substance use type: does not use caffeine: Yes Type: coffee Number of servings: 4 ROS Cardio Chest Pain: No Edema: Left GI GI: Positive for nausea and vomiting (this morning) Neuro Neuro: Positive for lightheadedness Cardiology Exam Const Appearance: cooperative, healthy appearing, comfortable and no acute distress Nutritional Appearance: well nourished and obese Orientation: alert, awake and oriented x3 Head Head: normal to inspection Ears: hearing grossly normal bilaterally Nose: external nose normal Face and Sinus: face symmetric Mouth: moist mucous membranes Eyes General: appearance normal, both eyes and all related structures Eyelids: eyelids normal EOM: EOM intact bilaterally Neck Neck: normal visual inspection and no JVD Carotids: normal carotid upstroke Chest Chest inspection: normal inspection of the chest, symmetric chest movement and normal respiratory effort; Negative cough Auscultation: Bilateral: Diminished Lung Sounds Cardio Rate: regular rate Rhythm: regular rhythm Heart sounds: S1 normal and S2 normal; Negative rub, gallop or murmur GI GI: normal to inspection and obese Neuro Gen (more content not included)... Normal [facility] Cardiology Visit Reporton Cardiology Visit Report [facility] [address] [place] [address] OFFICE VISIT Date of Service: 10/22/24 MR#: [id number] Acct: [id number] Name: NICOLAS OLIVA . Rep #: [id number] : 1955 Provider: LI Triplett Age/Sex: 69/M Location: [facility] Status: Signed HPI HPI History of Present Illness Details: Nicolas Durant is a 69 year old white male who presents today for outpatient cardiovascular output follow-up. He established with us in May 2022 based upon a combination of concerns of chest/back discomfort, headache, and hypertension. Stress test was negative for ischemia. Echocardiogram demonstrated a preserved ejection fraction. He was seen last month after he had not been seen in our office since 2021 for concerns over increase in BP. Medications were added. From a cardiac standpoint, patient is doing well. He does not have any chest discomfort/heaviness/ti ghtness. His exercise tolerance is stable for his age. He does not have any worsening symptoms of shortness of breath. He denies any PND. He does not have any orthopnea. He does not have any symptoms of congestive heart failure. He does not have any palpitations that he is aware of. He does not have any lightheadedness or dizziness. He does not have any near-syncope or syncope. He does not have any lower extremity edema. He does not have any symptoms of claudication. Intake Vital Signs 09/10/24 13:54 10/22/24 09:21 Height 5 ft 9 in 5 ft 9 in Weight: 255 lb BMI 37.6 BP 143/90 H Blood Pressure Location Lt brachial Position Sitting Respiration 18 Pulse 58 L Pulse Source Monitor Pulse Oximetry (%) 96 Intake Visit Reasons: 6 W FU Shellfish Grower Required: No Is patient in pain?: No Allergies naproxen (From Aleve) Adverse Reaction (Intermediate, Verified 10/22/24 09:21) B/P GEORGE UP Medications ???Medication ???Instructions ???Recorded ???Confirmed ???Type albuterol sulfate 90 mcg/actuation See Rx Instructions .Route 02/13/23 10/22/24 Rx aerosol inhaler .COMPLEX #8.5 grams cyclobenzaprine 5 mg tablet 5 mg PO TID PRN muscle spasm #60 10/03/23 10/22/24 Rx tabs meclizine 12.5 mg tablet 12.5 mg PO TID PRN dizziness #45 12/14/23 10/22/24 Rx tabs levothyroxine 50 mcg tablet 50 mcg PO QDAY #30 tabs 08/21/24 10/22/24 Rx losartan 100 mg tablet 100 mg PO QDAY 3 months #30 tabs 09/03/24 10/22/24 Rx amlodipine 10 mg tablet 10 mg PO QDAY #30 tabs 09/10/24 10/22/24 Rx carvedilol 25 mg tablet 25 mg PO BID #60 tabs 10/22/24 10/22/24 Rx Have you fallen in the past year?: No [facility] Medical History Hypothyroid Hypertension Essential hypertension Osteoarthritis Exposure to COVID-19 virus Hypertension Surgical History Carpal tunnel syndrome of left wrist Family History Father Asthma at age 64; Brother Hypertension Sister Hypertension Myocardial infarction After childbirth at age 29; Brother Hypertension Brother Hypertension Aunt No problems noted. Brother Hypertension Brother Hypertension Brother Hypertension Sister Hypertension Sister Hypertension Other Heart disease Social History Smoking Status: Never smoker alcohol intake: current details: Rare substance use type: does not use caffeine: Yes Type: coffee Number of servings: 4 ROS Const Const: Positive for headache(s); Negative for fatigue or weakness Eyes Eyes: Negative for loss of peripheral vision, blurry vision or change in vision ENT ENT: Positive for headache(s); Negative for balance problems Cardio Chest Pain: Yes (ache, thinks it is arthritis, only when he lifts something) Frequency: other (every few weeks, does not last long) Palpitations: No Edema: None Muscle aches with walking: None Resp Respiratory: Negative for SOB with activity, SOB at rest or SOB orthopnea SOB lying down GI GI: Positive for heartburn; Negative nausea, vomiting or black,tarry stools : Negative for hematuria Musc Musc: Positive for muscle aches/ myalgia and joint pain; Negative for muscle weakness or balance problems Neuro Neuro: Positive for headache(s); Negative for weakness or blurry vision Endo Endo: Negative for fatigue Cardiology Exam Const Appearance: cooperative, healthy appearing, comfortable and no acute distress Nutritional Appearance: well nourished and obese Orientation: alert, awake and oriented x3 Head Head: normal to inspection Ears: hearing grossly normal bilaterally Nose: external nose normal Face and Sinus: face symmetric Mouth: moist (more content not included)... Normal [facility] ALLIED HEALTHon 09-19-2024 ALLIED HEALTH HNO ID: [id number] Author: TAYLA ORANTES RT(R) Service: ? Author Type: Technologist Type: Allied Health Filed: 09/19/2024 18:56 Note Text: Radiology Service Progress Note PATIENT NAME: Nicolas Oliva DATE OF SERVICE: September 19, 2024 TIME: 6:56 PM PATIENT IDENTITY VERIFICATION COMPLETED USING TWO (2) IDENTIFIERS: Name and Date of confirmed by patient verbally. FALL SCREENING: Has the patient had 2 falls in the last year or 1 fall with injury or currently using an Ambulatory Assistive Device (Walker, Cane, Wheelchair, Crutches, etc.)? Emergency Room Patient: Screened in ED PATIENT GENDER DATA: Male PATIENT RELEVANT IMPLANT DATA REVIEWED: Not Applicable PATIENT PRESENTS WITH AN IMPLANTABLE OR ATTACHED WIRE MESH FILTER FABRICATOR: No RADIOLOGY DEPARTMENT: General X-ray: Exam(s) Completed: Chest X-Ray PERIPHERAL IV DATA: Not applicable SIGNED BY: Tayla Orantes, RT(R) September 19, 2024 6:56 PM Normal [facility] Basic metabolic 2000 panelon 09-19-2024 Anion gap [Moles/Vol] 10 mmol/L Normal 8-15 [facility] Comment on above: Order Comment: Speci men Type: BLOOD SPECIMEN Ordering Facility: [facility] Address: [address] [place] [address] Performed By: #### 2 4321-2 #### [facility] CLIA [id number] [address] [place] [address] [place] Calcium [Mass/Vol] 9.1 mg/dL Normal 8.5-10.2 [facility] Comment on above: Order Comment: Speci men Type: BLOOD SPECIMEN Ordering Facility: [facility] Address: [address] [place] [address] Performed By: #### 2 4321-2 #### [facility] CLIA [id number] [address] [place] [address] [place] Chloride [Moles/Vol] 101 mmol/L Normal 98-107 [facility] Comment on above: Order Comment: Speci men Type: BLOOD SPECIMEN Ordering Facility: [facility] Address: [address] [place] [address] Performed By: #### 2 4321-2 #### [facility] CLIA [id number] [address] [place] [address] [place] CO2 [Moles/Vol] 26 mmol/L Normal 22-30 [facility] Comment on above: Order Comment: Speci men Type: BLOOD SPECIMEN Ordering Facility: [facility] Address: [address] [place] [address] Performed By: #### 2 4321-2 #### [facility] CLIA [id number] [address] [place] [address] [place] Creatinine [Mass/Vol] 1.08 mg/dL Normal 0.73-1.22 [facility] Comment on above: Order Comment: Cody shanks Type: BLOOD SPECIMEN Ordering Facility: [facility] Address: [address] [place] [address] Performed By: #### 2 4321-2 #### [facility] CLIA [id number] [address] [place] [address] [facility] [place] Creatinine and Glomerular filtration rate.predicted panel (S/P/Bld) 74 mL/min/1.73m??? Normal >=60 [facility] Comment on above: Order Comment: Cody shanks Type: BLOOD SPECIMEN Ordering Facility: [facility] Address: [address] [place] [address] Result Comment: Amarilys mated Glomerular Filtration Rate (eGFR) is calculated using the 2020 CKD-EPI creatinine equation. This equation utilizes serum creatinine, sex, and age as parameters. The creatinine assay has traceable calibration to isotope dilution-mass spectrometry. Refer to KDIGO guidelines for clinical interpretation. In patients with unstable renal function, e.g. those with acute kidney injury, the eGFR may not accurately reflect actual GFR. Performed By: #### 2 4321-2 #### [facility] CLIA [id number] [address] [place], [place] [id number] [place] Glucose [Mass/Vol] 151 mg/dL High 74-99 [facility] Comment on above: Order Comment: Cody shanks Type: BLOOD SPECIMEN Ordering Facility: [facility] Address: [address] [place] [address] Result Comment: The [place] Diabetes Association (ADA) provides guidance for cutoff values for fasting glucose and random glucose. The ADA defines fasting as no caloric intake for at least 8 hours. Fasting plasma glucose results between 100 to 125 mg/dL indicate increased risk for diabetes (prediabetes). Fasting plasma glucose results greater than or equal to 126 mg/dL meet the criteria for diagnosis of diabetes. In the absence of unequivocal hyperglycemia, results should be confirmed by repeat testing. In a patient with classic symptoms of hyperglycemia or hyperglycemic crisis, random plasma glucose results greater than or equal to 200 mg/dL meet the criteria for diagnosis of diabetes. Reference: Standards of Medical Care in Diabetes 2016, [place] Diabetes Association. Diabetes Care. 2016.39(Suppl 1). Performed By: #### 2 4321-2 #### [facility] CLIA [id number] [address] [place] [address] [place] [facility] Potassium [Moles/Vol] 3.8 mmol/L Normal 3.7-5.1 [facility] Comment on above: Order Comment: Speci men Type: BLOOD SPECIMEN Ordering Facility: [facility] Address: [address] [place] [address] Performed By: #### 2 4321-2 #### [facility] CLIA [id number] [address] [place] [facility] Sodium [Moles/Vol] 137 mmol/L Normal 136-144 [facility] Comment on above: Order Comment: Speci men Type: BLOOD SPECIMEN Ordering Facility: [facility] Address: [address] [place] [address] Performed By: #### 2 4321-2 #### [facility] [facility] CLIA [id number] [address] [place] [address] STATES [facility] Urea nitrogen [Mass/Vol] 16 mg/dL Normal 9-24 [facility] Comment on above: Order Comment: Speci men Type: BLOOD SPECIMEN Ordering Facility: [facility] Address: [address] [place] [address] Performed By: #### 2 4321-2 #### [facility] CLIA [id number] [address] [place] [address] [place] CBC W Auto Differential pane l (Bld)on 09-19-2024 Basophils (Bld) [#/Vol] 0.04 10*3/uL Normal <0.11 [facility] Comment on above: Order Comment: Speci men Type: BLOOD SPECIMEN Ordering Facility: [facility] Address: [address] [place] [address] Performed By: #### 5 7021-8 #### [facility] CLIA [id number] [address] [place] [address] STATES OF [facility] Basophils/100 WBC (Bld) 0.7 % Normal [facility] Comment on above: Order Comment: Speci men Type: BLOOD SPECIMEN Ordering Facility: [facility] Address: [address] [place] [address] Performed By: #### 5 7021-8 #### [facility] CLIA [id number] [address] [place] [address] [facility] [place] Differential cell count method Nom (Bld) Auto Normal [facility] Comment on above: Order Comment: Speci men Type: BLOOD SPECIMEN Ordering Facility: [facility] Address: [address] [place] [address] Performed By: #### 5 7021-8 #### [facility] CLIA [id number] [address] [place] [id number] [place] Eosinophils (Bld) [#/Vol] 0.33 10*3/uL Normal <0.46 [facility] Comment on above: Order Comment: Speci men Type: BLOOD SPECIMEN Ordering Facility: [facility] Address: [address] [place] [address] Performed By: #### 5 7021-8 #### [facility] CLIA [id number] [address] Eosinophils/100 WBC (Bld) 5.5 % Normal [facility] Comment on above: Order Comment: Speci men Type: BLOOD SPECIMEN Ordering Facility: [facility] Address: [address] [place] [address] Performed By: #### 5 7021-8 #### [facility] CLIA [id number] [address] [place] [address] [place] Erythrocyte distribution width (RBC) [Ratio] 12.1 % Normal 11.5-15.0 [facility] Comment on above: Order Comment: Speci men Type: BLOOD SPECIMEN Ordering Facility: [facility] Address: [address] [place] [address] Performed By: #### 5 7021-8 #### [facility] CLIA [id number] [address] [place] [address] [place] Hematocrit (Bld) [Volume fraction] 42.3 % Normal 39.0-51.0 [facility] Comment on above: Order Comment: Speci men Type: BLOOD SPECIMEN Ordering Facility: [facility] Address: [address] [place] [address] Performed By: #### 5 7021-8 #### [facility] CLIA [id number] [address] [place] [address] [place] Hemoglobin (Bld) [Mass/Vol] 14.7 g/dL Normal 13.0-17.0 [facility] Comment on above: Order Comment: Speci men Type: BLOOD SPECIMEN Ordering Facility: [facility] Address: [address] [place] [address] Performed By: #### 5 7021-8 #### [facility] CLIA [id number] [address] [place] [address] [place] Immature granulocytes (Bld) [#/Vol] 10*3/uL Normal <0.10 [facility] Comment on above: Order Comment: Speci men Type: BLOOD SPECIMEN Ordering Facility: [facility] Address: [address] [place] [address] Performed By: #### 5 7021-8 #### [facility] CLIA [id number] [address] [place] [id number] [place] Immature granulocytes/100 WBC (Bld) 0.2 % Normal [facility] Comment on above: Order Comment: Speci men Type: BLOOD SPECIMEN Ordering Facility: [facility] Address: [address] [place] [address] Performed By: #### 5 7021-8 #### [facility] CLIA [id number] [address] [place] [id number] [place] Lymphocytes (Bld) [#/Vol] 1.70 10*3/uL Normal 1.00-4.00 [facility] Comment on above: Order Comment: Speci men Type: BLOOD SPECIMEN Ordering Facility: [facility] Address: [address] [place] [address] Performed By: #### 5 7021-8 #### [facility] CLIA [id number] [address] STATES [facility] Lymphocytes/100 WBC (Bld) 28.3 % Normal [facility] Comment on above: Order Comment: Speci men Type: BLOOD SPECIMEN Ordering Facility: [facility] Address: [address] [place] [address] Performed By: #### 5 7021-8 #### [facility] CLIA [id number] [address] [place] MCH (RBC) [Entitic mass] 32.1 pg Normal 26.0-34.0 [facility] Comment on above: Order Comment: Speci men Type: BLOOD SPECIMEN Ordering Facility: [facility] Address: [address] [place] [address] Performed By: #### 5 7021-8 #### [facility] CLIA [id number] [address] STATES OF [facility] MCHC (RBC) [Mass/Vol] 34.8 g/dL Normal 30.5-36.0 [facility] Comment on above: Order Comment: Speci men Type: BLOOD SPECIMEN Ordering Facility: [facility] Address: [address] [place] [address] Performed By: #### 5 7021-8 #### [facility] CLIA [id number] [address] OF [place] MCV (RBC) [Entitic vol] 92.4 fL Normal 80.0-100.0 [facility] Comment on above: Order Comment: Speci men Type: BLOOD SPECIMEN Ordering Facility: [facility] Address: [address] [place] [address] Performed By: #### 5 7021-8 #### [facility] CLIA [id number] [address] [place] Monocytes (Bld) [#/Vol] 0.56 10*3/uL Normal <0.87 [facility] Comment on above: Order Comment: Speci men Type: BLOOD SPECIMEN Ordering Facility: [facility] Address: [address] [place] [address] Performed By: #### 5 7021-8 #### [facility] CLIA [id number] [address] [place] [address] [place] Monocytes/100 WBC (Bld) 9.3 % Normal [facility] Comment on above: Order Comment: Speci men Type: BLOOD SPECIMEN Ordering Facility: [facility] Address: [address] [place] [address] Performed By: #### 5 7021-8 #### [facility] CLIA [id number] [address] [place] [address] [place] Neutrophils (Bld) [#/Vol] 3.36 10*3/uL Normal 1.45-7.50 [facility] Comment on above: Order Comment: Speci men Type: BLOOD SPECIMEN Ordering Facility: [facility] Address: [address] [place] [address] Performed By: #### 5 7021-8 #### [facility] CLIA [id number] [address] [place] [address] [place] Neutrophils/100 WBC (Bld) 56.0 % Normal [facility] Comment on above: Order Comment: Speci men Type: BLOOD SPECIMEN Ordering Facility: [facility] Address: [address] [place] [address] Performed By: #### 5 7021-8 #### [facility] CLIA [id number] [address] [place] [address] [place] Nucleated RBC (Bld) [#/Vol] Normal [facility] Comment on above: Order Comment: Speci men Type: BLOOD SPECIMEN Ordering Facility: [facility] Address: [address] [place] [address] Performed By: #### 5 7021-8 #### [facility] CLIA [id number] [address] [place] [address] [place] Nucleated RBC/100 WBC (Bld) [Ratio] Normal [facility] Comment on above: Order Comment: Speci men Type: BLOOD SPECIMEN Ordering Facility: [facility] Address: [address] [place] [address] Performed By: #### 5 7021-8 #### [facility] CLIA [id number] [address] [place] [address] [place] Platelet mean volume (Bld) [Entitic vol] 9.2 fL Normal 9.0-12.7 [facility] Comment on above: Order Comment: Speci men Type: BLOOD SPECIMEN Ordering Facility: [facility] Address: [address] [place] [address] Performed By: #### 5 7021-8 #### [facility] CLIA [id number] [address] [place] [address] [place] Platelets (Bld) [#/Vol] 194 10*3/uL Normal 150-400 [facility] Comment on above: Order Comment: Speci men Type: BLOOD SPECIMEN Ordering Facility: [facility] Address: [address] [place] [address] Performed By: #### 5 7021-8 #### [facility] CLIA [id number] [address] [place] [address] [place] RBC (Bld) [#/Vol] 4.58 10*6/uL Normal 4.20-6.00 [facility] Comment on above: Order Comment: Speci men Type: BLOOD SPECIMEN Ordering Facility: [facility] Address: [address] [place] [address] Performed By: #### 5 7021-8 #### [facility] CLIA [id number] [address] [place] [address] [place] WBC (Bld) [#/Vol] 6.00 10*3/uL Normal 3.70-11.00 [facility] Comment on above: Order Comment: Speci men Type: BLOOD SPECIMEN Ordering Facility: [facility] Address: [address] [place] [address] Performed By: #### 5 7021-8 #### [facility] CLIA [id number] [address] [place] [address] [facility] ECG COMPLETEon 09-19-2024 ECG COMPLETE Ventricular Rate : 7 6 BPM Atrial Rate : 76 BPM P-R Interval : 154 ms QRS Duration : 98 ms Q-T Interval : 398 ms QTC Calculation(Bazett) : 447 ms Calculated P [place] : 45 degrees Calculated R [place] : -48 degrees Calculated T [place] : 63 degrees SINUS RHYTHM WITH OCCASIONAL PREMATURE VENTRICULAR COMPLEXES LEFT ANTERIOR FASCICULAR BLOCK ABNORMAL ECG NO PREVIOUS ECGS AVAILABLE Confirmed by MD RODRIGUEZ VINAYAK ([id number]) on 09/24/2024 10:10:15 PM NAME : NICOLAS OLIVA PID : [id number] : 1955 Gender : Male Race : ORD : [id number] Procedure Date : Sep 19 2024 18:03:23 Edit Date : Sep 24 2024 22:10:16 Diagnosis: SINUS RHYTHM WITH OCCASIONAL PREMATURE VENTRICULAR COMPLEXES LEFT ANTERIOR FASCICULAR BLOCK ABNORMAL ECG NO PREVIOUS ECGS AVAILABLE Confirmed by MD RODRIGUEZ VINAYAK ([id number]) on 09/24/2024 10:10:15 PM Test Reason : Shortness of Breath Location : 191 : [facility] ED Overread By : MD RODRIGUEZ VINAYAK Edited By : MD RODRIGUEZ VINAYAK Referred By : , Acquired by : OLIVER MERLOS Normal [facility] ED NOTEon 09-19-2024 ED NOTE HNO ID: [id number] Author: WILLY CANNON RN Service: Emergency Medicine Author Type: Registered Nurse Type: ED Notes Filed: 09/19/2024 17:11 Note Text: Pt c/o cough congestion for 2 days. States had fever yesterday but today has been resolved. Concerned for pneumonia. [place], warm, dry. No apparent distress. Alert and oriented. Normal [facility] ED PROV NOTEon 09-19-2024 ED PROV NOTE HNO ID: [id number] Author: PRESTON KRUGER DO Service: Emergency Medicine Author Type: Physician Type: ED Provider Notes Filed: 09/19/2024 22:00 Note Text: ED Provider Note Patient Name: Nicolas Oliva : 1955 SERVICE DATE: 09/19/24 History Patient presents with: Cough Congested Nicolas Oliva is a 69 year old male who presents with Cough and Congested. - Symptoms began Monday. - Severity: moderate - Timing: constant - Symptoms are associated with shortness of breath, chest soreness from coughing, fever now resolved. - Symptoms are not associated with abdominal pain, vomiting, hemoptysis, syncope. . Patient presents with cough and shortness of breath. He reports symptoms started on Monday. He states that his chest is sore from coughing, but denies any other chest pain. He states that he had a fever, but that broke last night. He reports he has a history of bronchitis. No sore throat or ear pain. No abdominal pain or vomiting. PAST MEDICAL HISTORY Diagnosis Date Hypertension PAST SURGICAL HISTORY Procedure Laterality Date ORTHOPEDICS SURGERY HX No family history on file. Social History Tobacco Use Smoking status: Never Smokeless tobacco: Never Substance and Sexual Activity Alcohol use: No Drug use: No Sexual activity: Not on file ALLERGIES Allergen Reactions Flu Vac Qs 2015-(* Intolerance Hs continu cold year afterrwards Review of Systems Constitutional: Negative for fever. HENT: Negative for facial swelling, sore throat and trouble swallowing. Respiratory: Positive for cough, shortness of breath and wheezing. Cardiovascular: Positive for chest pain (Chest is sore from coughing, denies any other chest pain). Negative for leg swelling. Gastrointestinal: Negative for abdominal pain and vomiting. Musculoskeletal: Negative for neck stiffness. Neurological: Negative for syncope and weakness. Psychiatric/Behavioral: Negative for agitation and confusion. Physical Exam Vitals [09/19/24 1711] BP Pulse Temp Temp src Resp SpO2 Weight Height 130/81 73 36.8 ?C (98.2 ?F) Temporal 20 95 % 114.3 kg (252 lb) 1.753 m (5' 9) Physical Exam Vitals and nursing note reviewed. Constitutional: Appearance: He is not toxic-appearing or diaphoretic. HENT: Head: Normocephalic and atraumatic. Mouth/Throat: Mouth: Mucous membranes are moist. Pharynx: Oropharynx is clear. Eyes: General: No scleral icterus. Conjunctiva/sclera: Conjunctivae normal. Cardiovascular: Rate and Rhythm: Normal rate and regular rhythm. Pulses: Normal pulses. Pulmonary: Effort: Pulmonary effort is normal. No respiratory distress. Breath sounds: Wheezing present. Abdominal: General: Bowel sounds are normal. There is no distension. Palpations: Abdomen is soft. Tenderness: There is no abdominal tenderness. Musculoskeletal: Right lower leg: No edema. Left lower leg: No edema. Skin: General: Skin is warm and dry. Capillary Refill: Capillary refill takes less than 2 seconds. Neurological: General: No focal deficit present. Mental Status: He is alert and oriented to person, place, and time. GCS: GCS eye subscore is 4. GCS verbal subscore is 5. GCS motor subscore is 6. Psychiatric: Mood and Affect: Mood normal. Behavior: Behavior normal. Diagnostic Testing ED Labs Ordered and Reviewed BASIC METABOLIC PANEL - Abnormal; Notable for the following components: Result Value Ref Range Glucose 151 (*) 74 - 99 mg/dL All other components within normal limits HIGH SENSITIVITY TROPONIN T (INITIAL) - Abnormal; Notable for the following components: HENRY High Sensitivity 38 (*) <12 ng/L All other components within normal limits HIGH SENSITIVITY TROPONIN T (SECOND) - Abnormal; Notable for the following components: HENRY High Sensitivity 38 (*) <12 ng/L All other components within normal limits HIGH SENSITIVITY TROPONIN T (THIRD) 3 HRS AFTER INITIAL - Abnormal; Notable for the following components: HENRY High Sensitivity 36 (*) <12 ng/L All other components within normal limits COVID AND INFLUENZA A/B AND RSV PCR, EXPEDITED - Normal Narrative: Reference Range (the expected result in uninfected individuals): Not detected COMPLETE BLOOD COUNT AND DIFFERENTIAL Procedures ED Course / Clinical Impression Clinical Impressions as of 09/19/24 2200 COPD exacerbation (HCC) Bronchitis MDM / Disposition / Plan Will obtain labs, EKG and chest imaging. DuoNeb ordered. Steroids ordered. Reviewing patient's problem list from primary's visit on 09/10/24: Asthma (15 sources) Asthmatic bronchitis; Translations: [Unspecified asthma, uncomplicated] 07-13-2020 Chronic Chronic obstructive pulmonary disease and bronchiectasis (16 sources) Bronchitis; Translations: [Bronchitis, not specified as acute or chronic] 10-10-2019 Episodic Labs Reviewed BASIC METABOLIC PANEL - Abnormal; Notable for the following components (more content not included)... Normal [facility] HIGH SENSITIVITY TROPONIN T (INITIAL)on 09-19-2024 Troponin T.cardiac High sensitivity method [Mass/Vol] 38 ng/L High <12 [facility] Comment on above: Order Comment: Cody shanks Type: BLOOD SPECIMEN Ordering Facility: [facility] Address: [address] [place] [address] Performed By: #### L [id number] #### [facility] CLIA [id number] [address] [place] [address] HIGH SENSITIVITY TROPONIN T (SECOND)on 09-19-2024 Troponin T.cardiac High sensitivity method [Mass/Vol] 38 ng/L High <12 [facility] Comment on above: Order Comment: Cody shanks Type: BLOOD SPECIMEN Ordering Facility: [facility] Address: [address] [place] [address] Performed By: #### L [id number] #### [facility] CLIA [id number] [address] HIGH SENSITIVITY TROPONIN T (THIRD) 3 HRS AFTER INITIALon 09-19-2024 Troponin T.cardiac High sensitivity method [Mass/Vol] 36 ng/L High <12 [facility] Comment on above: Order Comment: Cody shanks Type: BLOOD SPECIMEN Ordering Facility: [facility] Address: [address] [place] [address] Performed By: #### L [id number] #### [facility] CLIA [id number] [address] [place] [address] OF [facility] XR CHEST 2V FRONTAL/LATon XR CHEST 2V FRONTAL/LAT * * *Final Report* * * DATE OF EXAM: Sep 19 2024 6:53PM LDX [id number] - XR CHEST 2V FRONTAL/LAT / PROCEDURE REASON: Chest Pain * * * * Physician Interpretation * * * * EXAMINATION: XR CHEST 2V FRONTAL/LAT Clinical History: Cough x two days, congestion/chest is very tight Chest Pain M: [id number] Comparison: 12/23/2022 RESULT: Lines, tubes, and devices: None. Lungs and pleura: The lungs and pleura are clear. Cardiomediastinal silhouette: The cardiomediastinal contours are within normal limits. There are atherosclerotic calcifications of the thoracic aorta. Other: The thoracic musculoskeletal structures and upper abdomen are not significantly changed. IMPRESSION: No acute cardiopulmonary process is identified. Goring Cutter: ABILIO Transcribe Date/Time: Sep 19 2024 7:43P Dictated by : ARVIN PIERCE MD This examination was interpreted and the report reviewed and electronically signed by: ARVIN PIERCE MD on Sep 19 2024 7:44PM EST [id number] Normal [facility] Cardiology Visit Reporton Cardiology Visit Report [facility] [place] [address] [place] [address] OFFICE VISIT Date of Service: 09/10/24 MR#: [id number] Acct: [id number] Name: NICOLAS OLIVA PENNY . Rep #: [id number] : 1955 Provider: LI Triplett Age/Sex: 69/M Location: [facility] Status: Signed HPI HPI History of Present Illness Details: Nicolas Durant is a 69 year old white male who presents today for outpatient cardiovascular output follow-up. He established with us in May 2022 based upon a combination of concerns of chest/back discomfort, headache, and hypertension. Stress test was negative for ischemia. Echocardiogram demonstrated a preserved ejection fraction. He was last in to see us in 2021. He was in to see his PCP earlier this month and noted to have elevated blood pressure readings. He is here today for follow-up from this. Pt notes that his BP has been increasing over the last several months. It has been running 170/100. STOP-BANG Assessment: 1. Do you snore? y 2. Are you frequently tired during the day? n 3. Have you been observed gasping or choking while asleep? n 4. Do you have high blood pressure? n 5. BMI - greater than 35kg/m2? y 6. Age - over 50 years old? y 7. Neck Circumference - greater than 37 cm for females or 40 cm for males? n 8. Gender - male? y Total STOP-BANG score = 4 which indicates positive risk for obstructive sleep apnea (yes to 3 or more questions = high risk of sleep apnea). Intake Vital Signs 09/03/24 17:42 09/10/24 13:51 09/10/24 13:54 Height 5 ft 9 in 5 ft 9 in 5 ft 9 in Weight: 253 lb BMI 37.3 BP 159/109 H Blood Pressure Location Lt brachial Position Sitting Respiration 20 H Pulse 84 Pulse Source Monitor Pulse Oximetry (%) 95 Intake Visit Reasons: HTN/ Medication Changes per PCP Shellfish Grower Required: No Is patient in pain?: No Allergies naproxen (From Aleve) Adverse Reaction (Intermediate, Verified 09/10/24 13:52) B/P GEORGE UP Medications ???Medication ???Instructions ???Recorded ???Confirmed ???Type albuterol sulfate 90 mcg/actuation See Rx Instructions .Route 02/13/23 09/05/24 Rx aerosol inhaler .COMPLEX #8.5 grams cyclobenzaprine 5 mg tablet 5 mg PO TID PRN muscle spasm #60 10/03/23 09/05/24 Rx tabs meclizine 12.5 mg tablet 12.5 mg PO TID PRN dizziness #45 12/14/23 09/05/24 Rx tabs levothyroxine 50 mcg tablet 50 mcg PO QDAY #30 tabs 08/21/24 09/05/24 Rx losartan 100 mg tablet 100 mg PO QDAY 3 months #30 tabs 09/03/24 09/10/24 Rx metoprolol succinate 100 mg 100 mg PO DAILY #30 tabs 09/03/24 09/10/24 Rx tablet,extended release 24 hr amlodipine 10 mg tablet 10 mg PO QDAY #30 tabs 09/10/24 09/10/24 Rx Have you fallen in the past year?: No Nurse's Note: no medication list, patient does not know what he is taking [facility] Medical History Hypothyroid Hypertension Essential hypertension Osteoarthritis Exposure to COVID-19 virus Hypertension Surgical History Carpal tunnel syndrome of left wrist Family History Father Asthma at age 64; Brother Hypertension Sister Hypertension Myocardial infarction After childbirth at age 29; Brother Hypertension Brother Hypertension Aunt No problems noted. Brother Hypertension Brother Hypertension Brother Hypertension Sister Hypertension Sister Hypertension Other Heart disease Social History Smoking Status: Never smoker alcohol intake: current details: Rare substance use type: does not use caffeine: Yes Type: coffee Number of servings: 4 ROS Const Const: Positive for headache(s); Negative for fatigue or weakness Eyes Eyes: Negative for loss of peripheral vision, blurry vision or change in vision ENT ENT: Positive for headache(s); Negative for balance problems Cardio Chest Pain: Yes (ache, thinks it is arthritis) Frequency: other (every few weeks, does not last long) Palpitations: No Edema: None Muscle aches with walking: None Resp Respiratory: Negative for SOB with activity, SOB at rest or SOB orthopnea SOB lying down GI GI: Positive for heartburn; Negative nausea, vomiting or black,tarry stools : Negative for hematuria Musc Musc: Positive for muscle aches/ myalgia and joint pain; Negative for muscle weakness or balance problems Neuro Neuro: Positive for headache(s); Negative for weakness or blurry vision Endo Endo: Negative for fatigue Cardiology Exam Const Appearance: cooperative, healthy appearing, comfortable and no acute distress Nutritional Appearance: well nourished (more content not included)... Normal [facility] CRP, High Sensitivity [id number] on 08-22-2024 CRP, HIGH SENS 4.89 mg/L High 0.00-3.00 [facility] Comment on above: Result Comment: Rela tive Risk for Future Cardiovascular Event Low <1.00 Average 1.00 - 3.00 High >3.00 Performed at: - [facility] [id number] Hearing Screen Coordinator: Vini Hernandez PhD, Phone: [phone] Performed By: #### L [id number], S783.3915, N9472.7123, F225.9130, L100.0100 #### [facility] [place], [address] CBC W/Diff, Automatedon 11-2 -2023 Absolute Lymph 2.65 X10 3/uL Normal 0.83-4.51 [facility] Comment on above: Performed By: #### L [id number], [id number], [id number], L501.9520, L100.0100 #### [facility] [address] [place], [address] Absolute Neut 4.7 X10 3/uL Normal 2.0-7.7 [facility] Comment on above: Performed By: #### L [id number], [id number], [id number], [id number], L100.0100 #### [facility] [address] [place], [address] Basophils/100 WBC (Bld) 0.8 % Normal 0-1 [facility] Comment on above: Performed By: #### L [id number], [id number], [id number], [id number], L100.0100 #### [facility] [address] [place], [address] Eosinophils/100 WBC (Bld) 4.8 % Normal 0-5 [facility] Comment on above: Performed By: #### L [id number], [id number], [id number], L501.9520, L100.0100 #### [facility] [address] [place], [address] Erythrocyte distribution width (RBC) [Ratio] 12.3 % Normal 11.6-14.6 [facility] Comment on above: Performed By: #### L [id number], [id number], [id number], L501.9520, L100.0100 #### [facility] [address] [place], [address] Hematocrit (Bld) [Volume fraction] 41.4 % Normal 40-54 [facility] Comment on above: Performed By: #### L [id number], [id number], [id number], L501.9520, L100.0100 #### [facility] [address] [place], [address] Hemoglobin (Bld) [Mass/Vol] 14.5 g/dL Normal 13.0-16.5 [facility] Comment on above: Performed By: #### L [id number], [id number], [id number], L501.9520, L100.0100 #### [facility] [address] [place], [address] IG% 0.400 Normal 0.0-0.9 [facility] Comment on above: Result Comment: IG% - Immature Granulocytes (promyelocytes, myelocytes and metamyelocytes) > 1% indicates that a LEFT SHIFT is Present. Performed By: #### L 501.4020, [id number], L3100.7870, L501.9520, L100.0100 #### [facility] [address] [place], [address] Lymphocytes/100 WBC (Bld) 31.5 % Normal 19-41 [facility] Comment on above: Performed By: #### L [id number], [id number], [id number], L501.9520, L100.0100 #### [facility] [address] [place], [address] MCH (RBC) [Entitic mass] 32.2 pg High 27.0-32.0 [facility] Comment on above: Performed By: #### L [id number], [id number], [id number], L501.9520, L100.0100 #### [facility] [address] [place], [address] MCHC (RBC) [Mass/Vol] 35.0 g/dL Normal 32-36 [facility] Comment on above: Performed By: #### L [id number], [id number], [id number], L501.9520, L100.0100 #### [facility] [address] [place], [address] MCV (RBC) [Entitic vol] 92.0 fL Normal 80-94 [facility] Comment on above: Performed By: #### L [id number], [id number], [id number], L501.9520, L100.0100 #### [facility] [address] [place], [address] Monocytes/100 WBC (Bld) 7.0 % Normal 0-10 [facility] Comment on above: Performed By: #### L 501.4020, [id number], [id number], [id number], L100.0100 #### [facility] [address] [place], [address] Neutrophils/100 WBC (Bld) 55.5 % Normal 47-70 [facility] Comment on above: Performed By: #### L 501.4020, [id number], [id number], L501.9520, L100.0100 #### [facility] [address] [place], [address] Nucleated RBC (Bld) [#/Vol] 0 10*3/uL Normal 0-5 [facility] Comment on above: Performed By: #### L [id number], [id number], [id number], L501.9520, L100.0100 #### [facility] [address] [place], [address] Platelet mean volume (Bld) [Entitic vol] 10.2 fL Normal 6.2-12.0 [facility] Comment on above: Performed By: #### L [id number], [id number], [id number], L501.9520, L100.0100 #### [facility] [address] [place], [address] Platelets (Bld) [#/Vol] 248 10*3/uL Normal 150-450 [facility] Comment on above: Performed By: #### L [id number], [id number], [id number], L501.9520, L100.0100 #### [facility] [address] [place], [address] RBC (Bld) [#/Vol] 4.50 10*6/uL Low 4.6-6.2 [facility] Comment on above: Performed By: #### L [id number], [id number], L3100.7870, L501.9520, L100.0100 #### [facility] [address] [place], [address] RDW SD 40.8 fl Normal 35.1-43.9 [facility] Comment on above: Performed By: #### L [id number], [id number], [id number], L501.9520, L100.0100 #### [facility] [address] [place], [address] WBC (Bld) [#/Vol] 8.4 10*3/uL Normal 4.4-11.0 [facility] Comment on above: Performed By: #### L [id number], [id number], L3100.7870, L501.9520, L100.0100 #### [facility] [address] [place], [address] Comprehensive Metabolic Prof ilon 08-20-2024 Albumin [Mass/Vol] 3.7 g/dL Normal 3.2-5.0 [facility] Comment on above: Order Comment: 1 Performed By: #### L 501.4020, [id number], L3100.7870, L501.9520, L100.0100 #### [facility] [address] [place], [address] Albumin/Globulin [Mass ratio] 1.0 {ratio} Normal 0.9-2.4 [facility] Comment on above: Order Comment: 1 Performed By: #### L [id number], [id number], [id number], L501.9520, L100.0100 #### [facility] [address] [place], [address] ALK P 73 U/L Normal 45-117 [facility] Comment on above: Order Comment: 1 Performed By: #### L [id number], [id number], [id number], L501.9520, L100.0100 #### [facility] [address] [place], [address] ALT [Catalytic activity/Vol] 47 U/L Normal 16-61 [facility] Comment on above: Order Comment: 1 Performed By: #### L [id number], [id number], [id number], L501.9520, L100.0100 #### [facility] [address] [place], [address] AST [Catalytic activity/Vol] 31 U/L Normal 15-37 [facility] Comment on above: Order Comment: 1 Performed By: #### L [id number], [id number], [id number], L501.9520, L100.0100 #### [facility] [address] [place], [address] Bilirubin [Mass/Vol] 0.50 mg/dL Normal 0.20-1.00 [facility] Comment on above: Order Comment: 1 Result Comment: For patients on eltrombopag therapy, use of Dimension [place] TBIL is not recommended. Performed By: #### L [id number], [id number], [id number], L501.9520, L100.0100 #### [facility] [address] [place], [address] BUN/CRE 13.1 RATIO Normal 10-20 [facility] Comment on above: Order Comment: 1 Performed By: #### L [id number], [id number], [id number], L501.9520, L100.0100 #### [facility] [address] [place], [address] CA,Total 9.2 mg/dL Normal 8.5-10.1 [facility] Comment on above: Order Comment: 1 Performed By: #### L [id number], [id number], [id number], L501.9520, L100.0100 #### [facility] [address] [place], [address] Chloride [Moles/Vol] 108 mmol/L High 98-107 [facility] Comment on above: Order Comment: 1 Performed By: #### L 501.4020, [id number], L3100.7870, L501.9520, L100.0100 #### [facility] [address] [place], [address] CO2 [Moles/Vol] 29.0 mmol/L Normal 21.0-32.0 [facility] Comment on above: Order Comment: 1 Performed By: #### L [id number], [id number], L3100.7870, L501.9520, L100.0100 #### [facility] [address] [place], [address] Creatinine [Mass/Vol] 0.99 mg/dL Normal 0.70-1.30 [facility] Comment on above: Order Comment: 1 Result Comment: The validity of the calculated GFR GFRAA in patients over 70 years has not been determined. Clinical correlation is essential. Performed By: #### L 501.4020, [id number], L3100.7870, L501.9520, L100.0100 #### [facility] [address] [place], [address] EST GFR - AA 96 mL/min Normal >60 [facility] Comment on above: Order Comment: 1 Result Comment: Afri can Nigerien GFR Calc Performed By: #### L [id number], [id number], [id number], L501.9520, L100.0100 #### [facility] [address] [place], [address] GAP 5 Normal 5-15 [facility] Comment on above: Order Comment: 1 Performed By: #### L 501.4020, [id number], L3100.7870, L501.9520, L100.0100 #### [facility] [address] [place], [address] GFR/1.73 sq M.predicted among non-blacks MDRD (S/P/Bld) [Vol rate/Area] 80 mL/min/{1.73_m2} Normal >60 [facility] Comment on above: Order Comment: 1 Result Comment: Non- GFR Calc Performed By: #### L [id number], [id number], L3100.7870, L501.9520, L100.0100 #### [facility] [address] [place], [address] Globulin (S) [Mass/Vol] 3.6 g/dL Normal 2.2-4.2 [facility] Comment on above: Order Comment: 1 Performed By: #### L [id number], [id number], [id number], L501.9520, L100.0100 #### [facility] [address] [place], [address] Glucose [Mass/Vol] 110 mg/dL High 74-106 [facility] Comment on above: Order Comment: 1 Result Comment: Fast ing Glucose result from 100 to 125 mg/dL suggests IMPAIRED HOMEOSTASIS per A.D.A. criteria. Performed By: #### L 501.4020, L500.4050, L3100.7870, L501.9520, L100.0100 #### [facility] [address] [place], [address] Potassium [Moles/Vol] 4.1 mmol/L Normal 3.5-5.1 [facility] Comment on above: Order Comment: 1 Performed By: #### L [id number], [id number], [id number], L501.9520, L100.0100 #### [facility] [address] [place], [address] Sodium [Moles/Vol] 141 mmol/L Normal 136-145 [facility] Comment on above: Order Comment: 1 Performed By: #### L 501.4020, L500.4050, L3100.7870, L501.9520, L100.0100 #### [facility] [address] [place], [address] T PROT 7.3 g/dL Normal 6.4-8.2 [facility] Comment on above: Order Comment: 1 Performed By: #### L 501.4020, [id number], [id number], L501.9520, L100.0100 #### [facility] [address] [place], [address] Urea nitrogen [Mass/Vol] 13 mg/dL Normal 7-18 [facility] Comment on above: Order Comment: 1 Performed By: #### L 501.4020, [id number], L3100.7870, L501.9520, L100.0100 #### [facility] [address] [place], [address] L501.4020on 08-20-2024 TROPONIN-I HS 10 pg/mL Normal 3.0-78.0 [facility] Comment on above: Order Comment: 1 Result Comment: Chiki richards Note: New Test Units and Gender Specific Reference Ranges. For more information see Policy Stat Procedure [place] High Sensitivity Troponin (TNIH) and attachments. Performed By: #### L 501.4020, L500.4050, L3100.7870, L501.9520, L100.0100 #### [facility] [address] [place], [place], [address] Thyroid Stim Hormone (TSH)on 08-20-2024 TSH 3.960 uIU/mL High 0.358-3.740 [facility] Comment on above: Order Comment: 1 Performed By: #### L 501.4020, L500.4050, [id number], L501.9520, L100.0100 #### [facility] [address] [place], [place], [id number] XR KNEE LIMITED 2V AP/LAT LE FTon 06-07-2023 [facility] No Panel Informationon 12-23 [facility] Absolute lymphocyte counton 06-13-2022 Lymphocytes Auto (Unsp spec) [#/Vol] 2.68 10*3/uL 0.83-4.51 [facility] Work Phone: Basophil percentageon 2021 Basophils/100 WBC (Bld) 0.3 % 0-1 [facility] Work Phone: Bilirubin [Mass/Vol] 0.40 mg/dL 0.20-1.00 [facility] Work Phone: Comment on above: For patients on eltr ombopag therapy, use of Dimension [place] TBIL is not recommended. Chloride [Moles/Vol] 106 mmol/L 98-107 [facility] Work Phone: Cholesterol [Mass/Vol] 184 mg/dL <200 [facility] Work Phone: Comment on above: <200 mg/dL Desirable 200-240 mg/dL Borderline >240 mg/dL High Risk Eosinophils/100 WBC (Bld) 3.3 % 0-5 [facility] Work Phone: Glucose [Mass/Vol] 151 mg/dL 74-106 [facility] Work Phone: Comment on above: Fasting Glucose resu lt greater than or equal to 126 mg/dL suggests DIABETES MELLITUS per A.D.A. criteria. Neutrophils (Bld) [#/Vol] 6.1 10*3/uL 2.0-7.7 [facility] Work Phone: Neutrophils/100 WBC (Bld) 62.3 % 47-70 [facility] Work Phone: Potassium [Moles/Vol] 3.6 mmol/L 3.5-5.1 [facility] Work Phone: Protein [Mass/Vol] 7.2 g/dL 6.4-8.2 [facility] Work Phone: Sodium [Moles/Vol] 140 mmol/L 136-145 [facility] Work Phone: Triglyceride [Mass/Vol] 340 mg/dL <199 [facility] Work Phone: Comment on above: The drugs N-Acetylcy steine and Metamizole may falsely depress this assay.Serum Triglycerides Reference Interval Normal <150 mg/dL Borderline high 150 - 199 mg/dL High 200 - 499 mg/dL Very High > or = 500 mg/dL WBC (Bld) [#/Vol] 9.8 10*3/uL 4.4-11.0 [facility] Work Phone: Blood erythrocytes count (nu mber/volume)on 06-13-2022 RBC (Bld) [#/Vol] 4.24 10*6/uL 4.6-6.2 [facility] Work Phone: Blood hemoglobin measurement (mass/volume)on 06-13-2022 Hemoglobin (Bld) [Mass/Vol] 13.7 g/dL 13.0-16.5 [facility] Work Phone: Blood lymphocytes/100 leukoc yteson 06-13-2022 Lymphocytes/100 WBC (Bld) 27.2 % 19-41 [facility] Work Phone: Blood monocytes/100 leukocyt eson 06-13-2022 Monocytes/100 WBC (Bld) 5.8 % 0-10 [facility] Work Phone: Blood platelet mean volumeon 06-13-2022 Platelet mean volume (Bld) [Entitic vol] 10.7 fL 6.2-12.0 [facility] Work Phone: Determination of erythrocyte mean corpuscular volume (MCV)on 06-13-2022 MCV (RBC) [Entitic vol] 92.9 fL 80-94 [facility] Work Phone: Hematocrit Auto (Bld) [Volum e fraction]on 06-13-2022 Hematocrit (Bld) [Volume fraction] 39.4 % 40-54 [facility] Work Phone: Laboratory - Chemistry and C hemistry - challengeon 06-13-2022 ALP [Catalytic activity/Vol] 58 U/L 45-117 [facility] Work Phone: ALT [Catalytic activity/Vol] 35 U/L 16-61 [facility] Work Phone: CO2 [Moles/Vol] 24.0 mmol/L 21.0-32.0 [facility] Work Phone: Globulin (S) [Mass/Vol] 3.6 g/dL 2.2-4.2 [facility] Work Phone: Natriuretic peptide B (Bld) [Mass/Vol] 10.7 pg/mL 0-100 [facility] Work Phone: Urea nitrogen/Creatinine [Mass ratio] 19.1 mg/mg 10-20 [facility] Work Phone: Laboratory - Hematology and Cell countson 06-13-2022 Erythrocyte distribution width (RBC) [Entitic vol] 41.1 fL 35.1-43.9 [facility] Work Phone: Erythrocyte distribution width (RBC) [Ratio] 12.1 % 11.6-14.6 [facility] Work Phone: Immature granulocytes/100 WBC (Bld) 1.100 % 0.0-0.9 [facility] Work Phone: Comment on above: IG% - Immature Granu locytes (promyelocytes, myelocytes and metamyelocytes) > 1% indicates that a LEFT SHIFT is Present. MCH (RBC) [Entitic mass] 32.3 pg 27.0-32.0 [facility] Work Phone: Nucleated RBC/100 WBC (Bld) [Ratio] 0 % 0-5 [facility] Work Phone: MCHC Auto (RBC) [Mass/Vol]on 06-13-2022 MCHC (RBC) [Mass/Vol] 34.8 g/dL 32-36 [facility] Work Phone: No Panel Informationon 06-13 C-Reactive Protein High Sensitivity 20.60 mg/L <3.00 [facility] Work Phone: Comment on above: Low Relative Risk of CVD <1.0 mg/L Average Relative Risk of CVD 1.0 - 3.0 mg/L High Relative Risk of CVD >3.0 mg/L Estimated GFR (MDRD) Amer 96 mL/min >60 [facility] Work Phone: Comment on above: GFR Calc Estimated GFR (MDRD) Non-Af Amer 80 mL/min >60 [facility] Work Phone: Comment on above: Non- GFR Calc Troponin I High Sensitivity 8 pg/mL 3.0-78.0 [facility] Work Phone: Comment on above: Please Note: New Kyung t Units and Gender Specific Reference Ranges. For more information see Policy Stat Procedure [place] High Sensitivity Troponin (TNIH) and attachments. Platelets bldon 06-13-2022 Platelets (Bld) [#/Vol] 211 10*3/uL 150-450 [facility] Work Phone: Serum or plasma albumin billy urement (mass/volume)on 06-13-2022 Albumin [Mass/Vol] 3.6 g/dL 3.2-5.0 [facility] Work Phone: Serum or plasma albumin/glob ulin mass ratioon 06-13-2022 Albumin/Globulin [Mass ratio] 1.0 {ratio} 0.9-2.4 [facility] Work Phone: Serum or plasma calcium billy urement (mass/volume)on 06-13-2022 Calcium [Mass/Vol] 8.9 mg/dL 8.5-10.1 [facility] Work Phone: Serum or plasma cholesterol in HDL measurement (mass/volume)on 06-13-2022 Cholesterol in HDL [Mass/Vol] 29 mg/dL >40 [facility] Work Phone: Comment on above: The drugs N-Acetylcy steine and Metamizole may falsely depress this assay. Reference Range HDL <40 mg/dL Low HDL Cholesterol HDL >or= 60 mg/dL High HDL Cholesterol Serum or plasma cholesterol in VLDL measurement (mass/volume)on 06-13-2022 Cholesterol in VLDL [Mass/Vol] 68 mg/dL 5-40 [facility] Work Phone: Serum or plasma creatinine m easurement (mass/volume)on 06-13-2022 Creatinine [Mass/Vol] 0.99 mg/dL 0.70-1.30 [facility] Work Phone: Comment on above: The validity of the calculated GFR & GFRAA in patients over 70 years has not been determined. Clinical correlation is essential. Serum or plasma low density lipoprotein (LDL) cholesterol measurement (mass/volume)on 06-13-2022 Cholesterol in LDL [Mass/Vol] 87 mg/dL 0-130 [facility] Work Phone: Serum or plasma urea nitroge n measurement (mass/volume)on 06-13-2022 Urea nitrogen [Mass/Vol] 19 mg/dL 7-18 [facility] Work Phone: Thin prep Papanicolaou smear with manual screeningon 06-13-2022 Thin prep Papanicolaou smear with manual screening 21 U/L 15-37 [facility] Work Phone: Thin prep Papanicolaou smear with manual screening 10 5-15 [facility] Work Phone: XR CHEST 2V FRONTAL/LATon [facility] Absolute lymphocyte counton 05-26-2022 Lymphocytes Auto (Unsp spec) [#/Vol] 1.08 10*3/uL 0.83-4.51 [facility] Work Phone: Basophil percentageon 2021 Basophils/100 WBC (Bld) 0.6 % 0-1 [facility] Work Phone: Bilirubin [Mass/Vol] 0.70 mg/dL 0.20-1.00 [facility] Work Phone: Comment on above: For patients on eltr ombopag therapy, use of Dimension [place] TBIL is not recommended. Chloride [Moles/Vol] 105 mmol/L 98-107 [facility] Work Phone: Eosinophils/100 WBC (Bld) 2.7 % 0-5 [facility] Work Phone: Glucose [Mass/Vol] 100 mg/dL 74-106 [facility] Work Phone: Comment on above: Fasting Glucose resu lt from 100 to 125 mg/dL suggests IMPAIRED HOMEOSTASIS per A.D.A. criteria. Neutrophils (Bld) [#/Vol] 5.0 10*3/uL 2.0-7.7 [facility] Work Phone: Neutrophils/100 WBC (Bld) 70.5 % 47-70 [facility] Work Phone: Potassium [Moles/Vol] 4.1 mmol/L 3.5-5.1 [facility] Work Phone: Protein [Mass/Vol] 7.4 g/dL 6.4-8.2 [facility] Work Phone: Sodium [Moles/Vol] 137 mmol/L 136-145 [facility] Work Phone: WBC (Bld) [#/Vol] 7.1 10*3/uL 4.4-11.0 [facility] Work Phone: Blood erythrocytes count (nu mber/volume)on 05-26-2022 RBC (Bld) [#/Vol] 4.44 10*6/uL 4.6-6.2 [facility] Work Phone: Blood hemoglobin measurement (mass/volume)on 05-26-2022 Hemoglobin (Bld) [Mass/Vol] 14.3 g/dL 13.0-16.5 [facility] Work Phone: Blood lymphocytes/100 leukoc yteson 05-26-2022 Lymphocytes/100 WBC (Bld) 15.1 % 19-41 [facility] Work Phone: Blood monocytes/100 leukocyt eson 05-26-2022 Monocytes/100 WBC (Bld) 10.8 % 0-10 [facility] Work Phone: Blood platelet mean volumeon 05-26-2022 Platelet mean volume (Bld) [Entitic vol] 10.2 fL 6.2-12.0 [facility] Work Phone: Determination of erythrocyte mean corpuscular volume (MCV)on 05-26-2022 MCV (RBC) [Entitic vol] 92.1 fL 80-94 [facility] Work Phone: Hematocrit Auto (Bld) [Volum e fraction]on 05-26-2022 Hematocrit (Bld) [Volume fraction] 40.9 % 40-54 [facility] Work Phone: Laboratory - Chemistry and C hemistry - challengeon 05-26-2022 ALP [Catalytic activity/Vol] 58 U/L 45-117 [facility] Work Phone: ALT [Catalytic activity/Vol] 44 U/L 16-61 [facility] Work Phone: CO2 [Moles/Vol] 26.0 mmol/L 21.0-32.0 [facility] Work Phone: Globulin (S) [Mass/Vol] 3.5 g/dL 2.2-4.2 [facility] Work Phone: Magnesium [Mass/Vol] 2.0 mg/dL 1.6-2.6 [facility] Work Phone: Urea nitrogen/Creatinine [Mass ratio] 14.6 mg/mg 10-20 [facility] Work Phone: Laboratory - Hematology and Cell countson 05-26-2022 Erythrocyte distribution width (RBC) [Entitic vol] 41.1 fL 35.1-43.9 [facility] Work Phone: Erythrocyte distribution width (RBC) [Ratio] 12.2 % 11.6-14.6 [facility] Work Phone: Immature granulocytes/100 WBC (Bld) 0.300 % 0.0-0.9 [facility] Work Phone: Comment on above: IG% - Immature Granu locytes (promyelocytes, myelocytes and metamyelocytes) > 1% indicates that a LEFT SHIFT is Present. MCH (RBC) [Entitic mass] 32.2 pg 27.0-32.0 [facility] Work Phone: Nucleated RBC/100 WBC (Bld) [Ratio] 0 % 0-5 [facility] Work Phone: MCHC Auto (RBC) [Mass/Vol]on 05-26-2022 MCHC (RBC) [Mass/Vol] 35.0 g/dL 32-36 [facility] Work Phone: No Panel Informationon 05-26 Estimated GFR (MDRD) Amer 101 mL/min >60 [facility] Work Phone: Comment on above: GFR Calc Estimated GFR (MDRD) Non-Af Amer 83 mL/min >60 [facility] Work Phone: Comment on above: Non- GFR Calc Platelets bldon 05-26-2022 Platelets (Bld) [#/Vol] 186 10*3/uL 150-450 [facility] Work Phone: Serum or plasma albumin billy urement (mass/volume)on 05-26-2022 Albumin [Mass/Vol] 3.9 g/dL 3.2-5.0 [facility] Work Phone: Serum or plasma albumin/glob ulin mass ratioon 05-26-2022 Albumin/Globulin [Mass ratio] 1.1 {ratio} 0.9-2.4 [facility] Work Phone: Serum or plasma calcium billy urement (mass/volume)on 05-26-2022 Calcium [Mass/Vol] 9.0 mg/dL 8.5-10.1 [facility] Work Phone: Serum or plasma creatinine m easurement (mass/volume)on 05-26-2022 Creatinine [Mass/Vol] 0.96 mg/dL 0.70-1.30 [facility] Work Phone: Comment on above: The validity of the calculated GFR & GFRAA in patients over 70 years has not been determined. Clinical correlation is essential. Serum or plasma urea nitroge n measurement (mass/volume)on 05-26-2022 Urea nitrogen [Mass/Vol] 14 mg/dL 7-18 [facility] Work Phone: Serum rheumatoid factor dete ctionon 05-26-2022 Rheumatoid factor Ql (S) < 10.0 IU/mL <15 [facility] Work Phone: Thin prep Papanicolaou smear with manual screeningon 05-26-2022 Thin prep Papanicolaou smear with manual screening 29 U/L 15-37 [facility] Work Phone: Thin prep Papanicolaou smear with manual screening 6 5-15 [facility] Work Phone: Absolute lymphocyte counton 04-04-2022 Lymphocytes Auto (Unsp spec) [#/Vol] 2.56 10*3/uL 0.83-4.51 [facility] Work Phone: Basophil percentageon 2021 Basophils/100 WBC (Bld) 0.6 % 0-1 [facility] Work Phone: Bilirubin [Mass/Vol] 0.40 mg/dL 0.20-1.00 [facility] Work Phone: Comment on above: For patients on eltr ombopag therapy, use of [place]ension [place] TBIL is not recommended. Chloride [Moles/Vol] 106 mmol/L 98-107 [facility] Work Phone: Eosinophils/100 WBC (Bld) 4.1 % 0-5 [facility] Work Phone: Glucose [Mass/Vol] 104 mg/dL 74-106 [facility] Work Phone: Comment on above: Fasting Glucose resu lt from 100 to 125 mg/dL suggests IMPAIRED HOMEOSTASIS per A.D.A. criteria. Neutrophils (Bld) [#/Vol] 5.4 10*3/uL 2.0-7.7 [facility] Work Phone: Neutrophils/100 WBC (Bld) 59.3 % 47-70 [facility] Work Phone: Potassium [Moles/Vol] 4.1 mmol/L 3.5-5.1 [facility] Work Phone: Protein [Mass/Vol] 7.2 g/dL 6.4-8.2 [facility] Work Phone: Sodium [Moles/Vol] 140 mmol/L 136-145 [facility] Work Phone: WBC (Bld) [#/Vol] 9.1 10*3/uL 4.4-11.0 [facility] Work Phone: Blood erythrocytes count (nu mber/volume)on 04-04-2022 RBC (Bld) [#/Vol] 4.45 10*6/uL 4.6-6.2 [facility] Work Phone: Blood hemoglobin measurement (mass/volume)on 04-04-2022 Hemoglobin (Bld) [Mass/Vol] 14.3 g/dL 13.0-16.5 [facility] Work Phone: Blood lymphocytes/100 leukoc yteson 04-04-2022 Lymphocytes/100 WBC (Bld) 28.3 % 19-41 [facility] Work Phone: Blood monocytes/100 leukocyt eson 04-04-2022 Monocytes/100 WBC (Bld) 7.4 % 0-10 [facility] Work Phone: Blood platelet mean volumeon 04-04-2022 Platelet mean volume (Bld) [Entitic vol] 10.4 fL 6.2-12.0 [facility] Work Phone: Determination of erythrocyte mean corpuscular volume (MCV)on 04-04-2022 MCV (RBC) [Entitic vol] 91.9 fL 80-94 [facility] Work Phone: Hematocrit Auto (Bld) [Volum e fraction]on 04-04-2022 Hematocrit (Bld) [Volume fraction] 40.9 % 40-54 [facility] Work Phone: Laboratory - Chemistry and C hemistry - challengeon 04-04-2022 ALP [Catalytic activity/Vol] 57 U/L 45-117 [facility] Work Phone: ALT [Catalytic activity/Vol] 43 U/L 16-61 [facility] Work Phone: CO2 [Moles/Vol] 26.0 mmol/L 21.0-32.0 [facility] Work Phone: Globulin (S) [Mass/Vol] 3.4 g/dL 2.2-4.2 [facility] Work Phone: Urea nitrogen/Creatinine [Mass ratio] 18.3 mg/mg 10-20 [facility] Work Phone: Laboratory - Hematology and Cell countson 04-04-2022 Erythrocyte distribution width (RBC) [Entitic vol] 40.2 fL 35.1-43.9 [facility] Work Phone: Erythrocyte distribution width (RBC) [Ratio] 12.1 % 11.6-14.6 [facility] Work Phone: Immature granulocytes/100 WBC (Bld) 0.300 % 0.0-0.9 [facility] Work Phone: Comment on above: IG% - Immature Granu locytes (promyelocytes, myelocytes and metamyelocytes) > 1% indicates that a LEFT SHIFT is Present. MCH (RBC) [Entitic mass] 32.1 pg 27.0-32.0 [facility] Work Phone: Nucleated RBC/100 WBC (Bld) [Ratio] 0 % 0-5 [facility] Work Phone: MCHC Auto (RBC) [Mass/Vol]on 04-04-2022 MCHC (RBC) [Mass/Vol] 35.0 g/dL 32-36 [facility] Work Phone: No Panel Informationon 04-04 Estimated GFR (MDRD) Amer 112 mL/min >60 [facility] Work Phone: Comment on above: GFR Calc Estimated GFR (MDRD) Non-Af Amer 93 mL/min >60 [facility] Work Phone: Comment on above: Non- GFR Calc Platelets bldon 04-04-2022 Platelets (Bld) [#/Vol] 232 10*3/uL 150-450 [facility] Work Phone: Serum or plasma C reactive p rotein measurement (mass/volume)on 04-04-2022 CRP [Mass/Vol] 5.47 mg/L 0.0-3.0 [facility] Work Phone: Comment on above: C-Reactive Protein ( CRP) provides useful information for thediagnosis, therapy and monitoring of inflammatory processesand associated diseases. For the evaluation of Relative Riskfor Cardiovascular Disease, a High Sensitivity CRP (HSCRP)should be ordered. Serum or plasma albumin billy urement (mass/volume)on 04-04-2022 Albumin [Mass/Vol] 3.8 g/dL 3.2-5.0 [facility] Work Phone: Serum or plasma albumin/glob ulin mass ratioon 04-04-2022 Albumin/Globulin [Mass ratio] 1.1 {ratio} 0.9-2.4 [facility] Work Phone: Serum or plasma calcium billy urement (mass/volume)on 04-04-2022 Calcium [Mass/Vol] 9.0 mg/dL 8.5-10.1 [facility] Work Phone: Serum or plasma creatinine m easurement (mass/volume)on 04-04-2022 Creatinine [Mass/Vol] 0.87 mg/dL 0.70-1.30 [facility] Work Phone: Comment on above: The validity of the calculated GFR & GFRAA in patients over 70 years has not been determined. Clinical correlation is essential. Serum or plasma urea nitroge n measurement (mass/volume)on 04-04-2022 Urea nitrogen [Mass/Vol] 16 mg/dL 7-18 [facility] Work Phone: Serum rheumatoid factor dete ctionon 04-04-2022 Rheumatoid factor Ql (S) < 10.0 IU/mL <15 [facility] Work Phone: Thin prep Papanicolaou smear with manual screeningon 04-04-2022 Thin prep Papanicolaou smear with manual screening 29 U/L 15-37 [facility] Work Phone: Thin prep Papanicolaou smear with manual screening 8 5-15 [facility] Work Phone: Basophil percentageon 2021 Basophil percentage Not Reportable [facility] Work Phone: No Panel Informationon 03-08 Anti-Nuclear Antibody Screen Negative Negative [facility] Work Phone: Comment on above: Performed at: [facility] [address] [id number] Director: Vini Hernandez PhD, Phone: [phone] [employer] Antibody Not Reportable [facility] Work Phone: [employer] Antibody Not Reportable [facility] Work Phone: Serum DNA double strand anti body assay (units/volume)on 03-08-2022 DNA double strand Ab Qn (S) Not Reportable [facility] Work Phone: Serum Monse-1 antibody assay (u nits/volume)on 03-08-2022 Monse-1 extractable nuclear Ab Qn (S) Not Reportable [facility] Work Phone: Serum Scl-70 extractable nuc lear antibody assay (units/volume)on 03-08-2022 SCL-70 extractable nuclear Ab Qn (S) Not Reportable [facility] Work Phone: Serum Roberto extractable nucl ear antibody detectionon 03-08-2022 Roberto extractable nuclear Ab Ql (S) Not Reportable [facility] Work Phone: Absolute lymphocyte counton 03-07-2022 Lymphocytes Auto (Unsp spec) [#/Vol] 2.32 10*3/uL 0.83-4.51 [facility] Work Phone: Basophil percentageon 2021 Basophils/100 WBC (Bld) 0.5 % 0-1 [facility] Work Phone: Bilirubin [Mass/Vol] 0.50 mg/dL 0.20-1.00 [facility] Work Phone: Comment on above: For patients on eltr ombopag therapy, use of [place] TBIL is not recommended. Chloride [Moles/Vol] 106 mmol/L 98-107 [facility] Work Phone: Eosinophils/100 WBC (Bld) 3.0 % 0-5 [facility] Work Phone: Glucose [Mass/Vol] 90 mg/dL 74-106 [facility] Work Phone: Comment on above: Previous reported re sult: 94 mg/dLEdited by: AUTOINNiall on 03/08/22:1804 AMENDED REPORT 03/08/221804 GLU previously reported as: 94 mg/dL Neutrophils (Bld) [#/Vol] 7.0 10*3/uL 2.0-7.7 [facility] Work Phone: Neutrophils/100 WBC (Bld) 66.4 % 47-70 [facility] Work Phone: Potassium [Moles/Vol] 4.5 mmol/L 3.5-5.1 [facility] Work Phone: Protein [Mass/Vol] 7.7 g/dL 6.4-8.2 [facility] Work Phone: Sodium [Moles/Vol] 138 mmol/L 136-145 [facility] Work Phone: Comment on above: Previous reported re sult: 137 mmol/LEdited by: JACK on 03/08/22:1804 AMENDED REPORT 03/08/221804 NA previously reported as: 137 mmol/L WBC (Bld) [#/Vol] 10.5 10*3/uL 4.4-11.0 [facility] Work Phone: Blood erythrocytes count (nu mber/volume)on 03-07-2022 RBC (Bld) [#/Vol] 4.48 10*6/uL 4.6-6.2 [facility] Work Phone: Blood hemoglobin measurement (mass/volume)on 03-07-2022 Hemoglobin (Bld) [Mass/Vol] 14.3 g/dL 13.0-16.5 [facility] Work Phone: Blood lymphocytes/100 leukoc yteson 03-07-2022 Lymphocytes/100 WBC (Bld) 22.2 % 19-41 [facility] Work Phone: Blood monocytes/100 leukocyt eson 03-07-2022 Monocytes/100 WBC (Bld) 7.5 % 0-10 [facility] Work Phone: Blood platelet mean volumeon 03-07-2022 Platelet mean volume (Bld) [Entitic vol] 10.7 fL 6.2-12.0 [facility] Work Phone: Determination of erythrocyte mean corpuscular volume (MCV)on 03-07-2022 MCV (RBC) [Entitic vol] 91.1 fL 80-94 [facility] Work Phone: Hematocrit Auto (Bld) [Volum e fraction]on 03-07-2022 Hematocrit (Bld) [Volume fraction] 40.8 % 40-54 [facility] Work Phone: Laboratory - Chemistry and C hemistry - challengeon 03-07-2022 ALP [Catalytic activity/Vol] 64 U/L 45-117 [facility] Work Phone: Comment on above: Previous reported re sult: 65 U/LEdited by: AUTOINS on 03/08/22:180 AMENDED REPORT 03/08/221804 ALK P previously reported as: 65 U/L ALT [Catalytic activity/Vol] 37 U/L 16-61 [facility] Work Phone: Comment on above: Previous reported re sult: 36 U/LEdited by: AUTOINS on 03/08/22:180 AMENDED REPORT 03/08/221804 ALT previously reported as: 36 U/L CO2 [Moles/Vol] 27.0 mmol/L 21.0-32.0 [facility] Work Phone: Comment on above: Previous reported re sult: 28.0 mmol/LEdited by: AUTOINS on 03/08/22:1804 AMENDED REPORT 03/08/221804 CO2 previously reported as: 28.0 mmol/L Globulin (S) [Mass/Vol] 3.6 g/dL 2.2-4.2 [facility] Work Phone: Urea nitrogen/Creatinine [Mass ratio] 13.2 mg/mg 10-20 [facility] Work Phone: Laboratory - Hematology and Cell countson 03-07-2022 Erythrocyte distribution width (RBC) [Entitic vol] 40.2 fL 35.1-43.9 [facility] Work Phone: Erythrocyte distribution width (RBC) [Ratio] 12.2 % 11.6-14.6 [facility] Work Phone: Immature granulocytes/100 WBC (Bld) 0.400 % 0.0-0.9 [facility] Work Phone: Comment on above: IG% - Immature Granu locytes (promyelocytes, myelocytes and metamyelocytes) > 1% indicates that a LEFT SHIFT is Present. MCH (RBC) [Entitic mass] 31.9 pg 27.0-32.0 [facility] Work Phone: Nucleated RBC/100 WBC (Bld) [Ratio] 0 % 0-5 [facility] Work Phone: MCHC Auto (RBC) [Mass/Vol]on 03-07-2022 MCHC (RBC) [Mass/Vol] 35.0 g/dL 32-36 [facility] Work Phone: No Panel Informationon 03-07 Estimated GFR (MDRD) Amer 97 mL/min >60 [facility] Work Phone: Comment on above: GFR Calc Estimated GFR (MDRD) Non-Af Amer 81 mL/min >60 [facility] Work Phone: Comment on above: Non- GFR Calc Platelets bldon 03-07-2022 Platelets (Bld) [#/Vol] 248 10*3/uL 150-450 [facility] Work Phone: Serum or plasma C reactive p rotein measurement (mass/volume)on 03-07-2022 CRP [Mass/Vol] 32.90 mg/L 0.0-3.0 [facility] Work Phone: Comment on above: C-Reactive Protein ( CRP) provides useful information for thediagnosis, therapy and monitoring of inflammatory processesand associated diseases. For the evaluation of Relative Riskfor Cardiovascular Disease, a High Sensitivity CRP (HSCRP)should be ordered. C-Reactive Protein (CRP) provides useful information for thediagnosis, therapy and monitoring of inflammatory processesand associated diseases. For the evaluation of Relative Riskfor Cardiovascular Disease, a High Sensitivity CRP (HSCRP)should be ordered.Previous reported result: 32.00 mg/LEdited by: JACK on 03/08/22:1805 AMENDED REPORT 03/08/221804 C-REACTIVE PROT previously reported as: 32.00 H mg/L C-Reactive Protein (CRP) provides useful information for thediagnosis, therapy and monitoring of inflammatory processesand associated diseases. For the evaluation of Relative Riskfor Cardiovascular Disease, a High Sensitivity CRP (HSCRP)should be ordered. Serum or plasma albumin billy urement (mass/volume)on 03-07-2022 Albumin [Mass/Vol] 4.1 g/dL 3.2-5.0 [facility] Work Phone: Serum or plasma albumin/glob ulin mass ratioon 03-07-2022 Albumin/Globulin [Mass ratio] 1.1 {ratio} 0.9-2.4 [facility] Work Phone: Serum or plasma calcium billy urement (mass/volume)on 03-07-2022 Calcium [Mass/Vol] 9.2 mg/dL 8.5-10.1 [facility] Work Phone: Comment on above: Previous reported re sult: 9.3 mg/dLEdited by: JACK on 03/08/22:1805 AMENDED REPORT 03/08/221804 CA previously reported as: 9.3 mg/dL Serum or plasma creatinine m easurement (mass/volume)on 03-07-2022 Creatinine [Mass/Vol] 1.00 mg/dL 0.70-1.30 [facility] Work Phone: Comment on above: The validity of the calculated GFR & GFRAA in patients over 70 years has not been determined. Clinical correlation is essential. The validity of the calculated GFR & GFRAA in patients over 70 years has not been determined. Clinical correlation is essential.Previous reported result: 0.98 mg/dLEdited by: JACK on 03/08/22:1805 AMENDED REPORT 03/08/221804 CREAT,SERUM previously reported as: 0.98 mg/dL The validity of the calculated GFR & GFRAA in patients over 70 years has not been determined. Clinical correlation is essential. Serum or plasma urea nitroge n measurement (mass/volume)on 03-07-2022 Urea nitrogen [Mass/Vol] 13 mg/dL 7-18 [facility] Work Phone: Serum rheumatoid factor dete ctionon 03-07-2022 Rheumatoid factor Ql (S) < 10.0 IU/mL <15 [facility] Work Phone: Comment on above: Previous reported re sult: < 15.0 IU/mLEdited by: AUTOINS on 03/08/22:180 AMENDED REPORT 03/08/221804 RHEUMATOID FAC previously reported as: < 15.0 IU/mL Thin prep Papanicolaou smear with manual screeningon 03-07-2022 Thin prep Papanicolaou smear with manual screening 27 U/L 15-37 [facility] Work Phone: Comment on above: Previous reported re sult: 22 U/LEdited by: AUTOINS on 03/08/22:180 AMENDED REPORT 03/08/221804 AST previously reported as: 22 U/L Thin prep Papanicolaou smear with manual screening 3 5-15 [facility] Work Phone: XR CHEST 2V FRONTAL/LATon XR CHEST 2V FRONTAL/LAT * * *Final Report* * * DATE OF EXAM: Aug 26 2019 4:45PM LDX [id number] - XR CHEST 2V FRONTAL/LAT / PROCEDURE REASON: pneumonia, RT lung * * * * Physician Interpretation * * * * EXAMINATION: CHEST RADIOGRAPH (2 VIEW FRONTAL & LATERAL) CLINICAL HISTORY: Pneumonia, right lung. MQ: [id number] Comparison: Chest 2 views 09/24/2018. [address] chest 01/21/2019. RESULT: Lines, tubes, and devices: None. Lungs and pleura: No consolidation. No lung mass. No pleural effusion or pneumothorax. Cardiomediastinal silhouette: Within normal limits and unchanged. Other: The visualized osseous structures appear stable. IMPRESSION: No acute radiographic abnormality. No radiographic evidence of pneumonia. Goring Cutter: ABILIO Transcribe Date/Time: Aug 27 2019 5:57P Dictated by : JACK GALEANA MD This examination was interpreted and the report reviewed and electronically signed by: JACK GALEANA MD on Aug 27 2019 5:58PM EST Normal [facility] Comprehensive Panelon 2018 Protein [Mass/Vol] 7.5 g/dL Normal 6.4-8.2 [facility] Comment on above: Performed By: #### P 14 #### [facility] [address] [place], [place] [address] ALP [Catalytic activity/Vol] 63 U/L Normal 46-116 [facility] Comment on above: Performed By: #### P 14 #### [facility] [address] [place], [place] [address] Bilirubin [Mass/Vol] 0.5 mg/dL Normal 0.2-1.0 [facility] Comment on above: Performed By: #### P 14 #### [facility] [address] [place], [place] [address] Creatinine [Mass/Vol] 0.82 mg/dL Normal 0.67-1.17 [facility] Comment on above: Performed By: #### P 14 #### [facility] [address] [place], [place] [address] ALT [Catalytic activity/Vol] 31 U/L Normal 12-78 [facility] Comment on above: Performed By: #### P 14 #### [facility] [address] [place], [place] [address] AST [Catalytic activity/Vol] 19 U/L Normal 9-37 [facility] Comment on above: Performed By: #### P 14 #### [facility] [address] [place], [place] [address] Glucose [Mass/Vol] 148 mg/dL High 70-99 [facility] Comment on above: Performed By: #### P 14 #### [facility] [address] [place], [place] [address] Albumin [Mass/Vol] 4.0 g/dL Normal 3.4-5.0 [facility] Comment on above: Performed By: #### P 14 #### [facility] [address] [place], [place] [address] Anion gap [Moles/Vol] 11 mmol/L Normal 8-16 [facility] Comment on above: Performed By: #### P 14 #### [facility] [address] [place], [place] [address] Calcium [Mass/Vol] 9.0 mg/dL Normal 8.5-10.1 [facility] Comment on above: Performed By: #### P 14 #### [facility] [address] [place] [address] CO2 [Moles/Vol] 25 mmol/L Normal 21-32 [facility] Comment on above: Performed By: #### P 14 #### [facility] [address] [place] [address] Urea nitrogen [Mass/Vol] 15 mg/dL Normal 7-18 [facility] Comment on above: Performed By: #### P 14 #### [facility] [address] [place] [address] Chloride [Moles/Vol] 107 mmol/L Normal 98-107 [facility] Comment on above: Performed By: #### P 14 #### [facility] [address] [place] [address] Potassium [Moles/Vol] 3.8 mmol/L Normal 3.5-5.1 [facility] Comment on above: Performed By: #### P 14 #### [facility] [address] [place] [address] Sodium [Moles/Vol] 139 mmol/L Normal 136-145 [facility] Comment on above: Performed By: #### P 14 #### [facility] [address] [place] [address] Hemogram/Diffon 01-29-2019 Abs. Baso 0.05 thou/cmm Normal 0.00-0.08 [facility] Comment on above: Performed By: #### L CBCD #### [facility] [address] [place] [address] Abs. Mckean 0.43 thou/cmm Normal 0.20-1.00 [facility] Comment on above: Performed By: #### L CBCD #### [facility] [address] [place] [address] Abs. Neut (ANC) 4.22 thou/cmm Normal 3.00-5.67 [facility] Comment on above: Performed By: #### L CBCD #### [facility] [address] [place], [place] [address] Basophils/100 WBC (Bld) 0.7 % Normal [facility] Comment on above: Performed By: #### L CBCD #### [facility] [address] [place], [place] [address] Eosinophils (Bld) [#/Vol] 0.47 thou/cmm High 0.00-0.41 [facility] Comment on above: Performed By: #### L CBCD #### [facility] [address] [place], [place] [address] Eosinophils/100 WBC (Bld) 6.3 % Normal [facility] Comment on above: Performed By: #### L CBCD #### [address] [address] Erythrocyte distribution width (RBC) [Ratio] 11.9 % Normal 11.5-15.9 [facility] Comment on above: Performed By: #### L CBCD #### [facility] [address] [place], [place] [address] Hematocrit (Bld) [Volume fraction] 41.6 % Low 42.0-52.0 [facility] Comment on above: Performed By: #### L CBCD #### [address] [address] Hemoglobin (Bld) [Mass/Vol] 14.9 g/dL Normal 14.0-18.0 [facility] Comment on above: Performed By: #### L CBCD #### [facility] [address] [place], [place] [address] Lymphocytes (Bld) [#/Vol] 2.33 thou/cmm Normal 1.50-3.65 [facility] Comment on above: Performed By: #### L CBCD #### [address] [address] Lymphocytes/100 WBC (Bld) 31.1 % Normal [facility] Comment on above: Performed By: #### L CBCD #### [facility] [address] [place] [address] MCH (RBC) [Entitic mass] 32.5 pg High 27.0-31.0 [facility] Comment on above: Performed By: #### L CBCD #### [facility] [address] [place] [address] MCHC (RBC) [Mass/Vol] 35.8 % Normal 32.0-36.0 [facility] Comment on above: Performed By: #### L CBCD #### [facility] [address] [place] [address] MCV (RBC) [Entitic vol] 90.6 fL Normal 80.0-94.0 [facility] Comment on above: Performed By: #### L CBCD #### [place] [address] Monocytes/100 WBC (Bld) 5.7 % Normal [facility] Comment on above: Performed By: #### L CBCD #### [place] [address] Platelet mean volume (Bld) [Entitic vol] 9.8 fL Normal 7.1-10.5 [facility] Comment on above: Performed By: #### L CBCD #### [place] [address] Platelets (Bld) [#/Vol] 201 thou/cmm Normal 150-400 [facility] Comment on above: Performed By: #### L CBCD #### [place] [address] RBC (Bld) [#/Vol] 4.59 mil/cmm Low 4.60-6.20 [facility] Comment on above: Performed By: #### L CBCD #### [place] [address] Seg Neutrophil 56.2 % Normal [facility] Comment on above: Performed By: #### L CBCD #### [place] [address] WBC (Bld) [#/Vol] 7.5 thou/cmm Normal 4.8-10.5 [facility] Comment on above: Performed By: #### L CBCD #### [facility] [address] [place], [place] [address] MDRD GFRon 01-29-2019 GFR/1.73 sq M predicted among non-blacks MDRD (S/P/Bld) [Vol rate/Area] mL/min/{1.73_m2} Normal >60mL/min/1.73 m2 [facility] Comment on above: Result Comment: If t he patient is , multiply the result by 1.210. Performed By: #### G FR #### [facility] [address] [place], [place] [address] Troponin Ion 01-29-2019 Troponin I.cardiac [Mass/Vol] ng/mL Normal 0.00-0.07 [facility] Comment on above: Performed By: #### L TROP #### [address] [address] Vital Signs Date Time Vital Sign Value Performing Clinician Cooper blair 08-02-2022 08:28-0500 Body height 175.26 cm SLURRY CONTROL OPERATOR HELPERMaribeth Chiu SLURRY CONTROL OPERATOR HELPER Work Phone: [facility] Work Phone: 08-02-2022 08:28-0500 Body mass index (BMI) [Ratio] 36.7 kg/m2 SLURRY CONTROL OPERATOR HELPERMaribeth Chiu SLURRY CONTROL OPERATOR HELPER Work Phone: [facility] Work Phone: 08-02-2022 08:28-0500 Body weight 112.94 kg SLURRY CONTROL OPERATOR HELPERMaribeth Chiu SLURRY CONTROL OPERATOR HELPER Work Phone: [facility] Work Phone: 08-02-2022 08:28-0500 Diastolic blood pressure 85 mm[Hg] SLURRY CONTROL OPERATOR HELPERMaribeth Chiu SLURRY CONTROL OPERATOR HELPER Work Phone: [facility] Work Phone: 08-02-2022 08:28-0500 Heart rate 65 /min SLURRY CONTROL OPERATOR HELPERMaribeth Chiu SLURRY CONTROL OPERATOR HELPER Work Phone: [facility] Work Phone: 08-02-2022 08:28-0500 Respiratory rate 18 /min SLURRY CONTROL OPERATOR HELPER-C Rosa Isela Chiu SLURRY CONTROL OPERATOR HELPER Work Phone: [facility] Work Phone: 08-02-2022 08:28-0500 Systolic blood pressure 125 mm[Hg] SLURRY CONTROL OPERATOR HELPER-C Rosa Isela Chiu SLURRY CONTROL OPERATOR HELPER Work Phone: [facility] Work Phone: 06-15-2022 13:05-0400 Body mass index (BMI) [Ratio] 34.9 kg/m2 SLURRY CONTROL OPERATOR HELPER-C Rosa Isela Chiu SLURRY CONTROL OPERATOR HELPER Work Phone: [facility] Work Phone: 06-15-2022 13:05-0400 Body weight 107.13 kg SLURRY CONTROL OPERATOR HELPER-C Rosa Isela Chiu SLURRY CONTROL OPERATOR HELPER Work Phone: [facility] Work Phone: 06-15-2022 13:05-0400 Diastolic blood pressure 96 mm[Hg] SLURRY CONTROL OPERATOR HELPER-C Rosa Isela Chiu SLURRY CONTROL OPERATOR HELPER Work Phone: [facility] Work Phone: 06-15-2022 13:05-0400 Heart rate 76 /min SLURRY CONTROL OPERATOR HELPER-C Rosa Isela Chiu SLURRY CONTROL OPERATOR HELPER Work Phone: [facility] Work Phone: 06-15-2022 13:05-0400 Respiratory rate 18 /min SLURRY CONTROL OPERATOR HELPER-C Rosa Isela Chiu SLURRY CONTROL OPERATOR HELPER Work Phone: [facility] Work Phone: 06-15-2022 13:05-0400 Systolic blood pressure 128 mm[Hg] SLURRY CONTROL OPERATOR HELPER-C Rosa Isela Chiu SLURRY CONTROL OPERATOR HELPER Work Phone: [facility] Work Phone: 06-14-2022 10:39-0400 Diastolic blood pressure 80 mm[Hg] SLURRY CONTROL OPERATOR HELPER-C Rosa Isela Chiu SLURRY CONTROL OPERATOR HELPER Work Phone: [facility] Work Phone: 06-14-2022 10:39-0400 Systolic blood pressure 142 mm[Hg] SLURRY CONTROL OPERATOR HELPER-C Rosa Isela Chiu SLURRY CONTROL OPERATOR HELPER Work Phone: [facility] Work Phone: 06-13-2022 20:03-0400 Body mass index (BMI) [Ratio] 35.4 kg/m2 SLURRY CONTROL OPERATOR HELPER-C Rosa Isela Chiu SLURRY CONTROL OPERATOR HELPER Work Phone: [facility] Work Phone: 06-13-2022 20:03-0400 Body temperature 98.8 [degF] SLURRY CONTROL OPERATOR HELPER-C Rosa Isela Chiu SLURRY CONTROL OPERATOR HELPER Work Phone: [facility] Work Phone: 06-13-2022 20:03-0400 Body weight 108.86 kg SLURRY CONTROL OPERATOR HELPER-C Rosa Isela Chiu SLURRY CONTROL OPERATOR HELPER Work Phone: [facility] Work Phone: 06-13-2022 20:03-0400 Heart rate 101 /min SLURRY CONTROL OPERATOR HELPER-C Rosa Isela Chiu SLURRY CONTROL OPERATOR HELPER Work Phone: [facility] Work Phone: 06-13-2022 20:03-0400 Respiratory rate 18 /min SLURRY CONTROL OPERATOR HELPER-C Rosa Isela Chiu SLURRY CONTROL OPERATOR HELPER Work Phone: [facility] Work Phone: 06-13-2022 20:03-0400 SaO2% (BldA) [Mass fraction] 98 % SLURRY CONTROL OPERATOR HELPER-C Rosa Isela Chiu SLURRY CONTROL OPERATOR HELPER Work Phone: [facility] Work Phone: 05-26-2022 19:25-0400 Body height 175.26 cm [facility] Work Phone: 05-26-2022 19:25-0400 Body mass index (BMI) [Ratio] 35.1 kg/m2 [facility] Work Phone: 05-26-2022 19:25-0400 Body temperature 99.5 [degF] [facility] Work Phone: 05-26-2022 19:25-0400 Body weight 107.95 kg [facility] Work Phone: 05-26-2022 19:25-0400 Diastolic blood pressure 90 mm[Hg] [facility] Work Phone: 05-26-2022 19:25-0400 Heart rate 89 /min [facility] Work Phone: 05-26-2022 19:25-0400 Respiratory rate 18 /min [facility] Work Phone: 05-26-2022 19:25-0400 SaO2% (BldA) [Mass fraction] 97 % [facility] Work Phone: 05-26-2022 19:25-0400 Systolic blood pressure 138 mm[Hg] [facility] Work Phone: 04-04-2022 11:58-0400 Body height 175.26 cm [facility] Work Phone: 03-07-2022 15:57-0400 Body height 175.26 cm [facility] Work Phone: 03-07-2022 15:57-0400 Body mass index (BMI) [Ratio] 35.9 kg/m2 [facility] Work Phone: 03-07-2022 15:57-0400 Body temperature 97.5 [degF] [facility] Work Phone: 03-07-2022 15:57-0400 Body weight 110.22 kg [facility] Work Phone: 03-07-2022 15:57-0400 Diastolic blood pressure 94 mm[Hg] [facility] Work Phone: 03-07-2022 15:57-0400 Heart rate 78 /min [facility] Work Phone: 03-07-2022 15:57-0400 Respiratory rate 18 /min [facility] Work Phone: 03-07-2022 15:57-0400 SaO2% (BldA) [Mass fraction] 95 % [facility] Work Phone: 03-07-2022 15:57-0400 Systolic blood pressure 148 mm[Hg] [facility] Work Phone: 01-03-2022 16:09-0400 Body mass index (BMI) [Ratio] 35.4 kg/m2 [facility] Work Phone: 01-03-2022 16:09-0400 Body temperature 97.7 [degF] [facility] Work Phone: 01-03-2022 16:09-0400 Body weight 108.86 kg [facility] Work Phone: 01-03-2022 16:09-0400 Diastolic blood pressure 100 mm[Hg] [facility] Work Phone: 01-03-2022 16:09-0400 Heart rate 79 /min [facility] Work Phone: 01-03-2022 16:09-0400 Respiratory rate 18 /min [facility] Work Phone: 01-03-2022 16:09-0400 SaO2% (BldA) [Mass fraction] 98 % [facility] Work Phone: 01-03-2022 16:09-0400 Systolic blood pressure 148 mm[Hg] [facility] Work Phone: 12-15-2021 18:04-0400 Body mass index (BMI) [Ratio] 36 kg/m2 [facility] Work Phone: 12-15-2021 18:04-0400 Body temperature 97.9 [degF] [facility] Work Phone: 12-15-2021 18:04-0400 Body weight 110.67 kg [facility] Work Phone: 12-15-2021 18:04-0400 Diastolic blood pressure 80 mm[Hg] [facility] Work Phone: 12-15-2021 18:04-0400 Heart rate 74 /min [facility] Work Phone: 12-15-2021 18:04-0400 Respiratory rate 18 /min [facility] Work Phone: 12-15-2021 18:04-0400 SaO2% (BldA) [Mass fraction] 95 % [facility] Work Phone: 12-15-2021 18:04-0400 Systolic blood pressure 122 mm[Hg] [facility] Work Phone: Encounters Encounter Date Encounter Type Care Provider Facility Start: 01-09-2025 End: 01-09-2025 ambulatory Rosa Isela Chiu SLURRY CONTROL OPERATOR HELPER Facility:[facility] Start: 12-19-2024 End: 12-19-2024 Admission to same day surgery center Jack Vieira MD Work Phone: Neurosurgery Comment on above: Stroke-like symptoms (Primary Dx) Start: 12-19-2024 End: 12-19-2024 Telemedicine consultation with patient Jack Vieira MD Work Phone: Neurosurgery Start: 12-19-2024 End: 12-20-2024 ambulatory ROSA ISELA CHIU Facility:[facility] Start: 12-05-2024 End: 12-05-2024 ambulatory Rosa Isela Chiu SLURRY CONTROL OPERATOR HELPER Facility:[facility] Start: 10-22-2024 End: 10-22-2024 ambulatory Rosa Isela Chiu SLURRY CONTROL OPERATOR HELPER Facility:[facility] Start: 09-19-2024 Emergency department patient visit ROSA ISELA CHIU Facility:[facility] Start: 09-10-2024 End: 09-10-2024 ambulatory Rosa Isela Chiu SLURRY CONTROL OPERATOR HELPER Facility:[facility] Start: 08-20-2024 End: 08-20-2024 ambulatory Rosa Isela Chiu SLURRY CONTROL OPERATOR HELPER Facility:[facility] Start: 06-07-2023 End: 06-07-2023 Subsequent hospital visit by physician [facility] Comment on above: Effusion, left knee [M25.462] Start: 12-23-2022 End: 12-23-2022 Subsequent hospital visit by physician [facility] Comment on above: Shortness of breath [R06.02] Start: 09-06-2022 Non-patient / Non-visit SLURRY CONTROL OPERATOR HELPER-Mohsen Chiu SLURRY CONTROL OPERATOR HELPER Work Phone: [facility] Start: 09-06-2022 End: 09-06-2022 ambulatory SLURRY CONTROL OPERATOR HELPER-Mohsen Chiu SLURRY CONTROL OPERATOR HELPER Work Phone: [facility] Work Phone: Start: 09-06-2022 End: 09-06-2022 Patient encounter procedure SLURRY CONTROL OPERATOR HELPER-Mohsen Chiu SLURRY CONTROL OPERATOR HELPER Work Phone: [facility] Start: 08-02-2022 End: 08-02-2022 Patient encounter procedure SLURRY CONTROL OPERATOR HELPER-Mohsen Chiu SLURRY CONTROL OPERATOR HELPER Work Phone: [facility] Start: 06-15-2022 End: 06-15-2022 Patient encounter procedure SLURRY CONTROL OPERATOR HELPER-Mohsen Chiu SLURRY CONTROL OPERATOR HELPER Work Phone: [facility] Start: 06-13-2022 End: 06-13-2022 Patient encounter procedure SLURRY CONTROL OPERATOR HELPER-Mohsen Chiu SLURRY CONTROL OPERATOR HELPER Work Phone: [facility]-Laboratory, Specimen Start: 05-27-2022 End: 05-27-2022 Subsequent hospital visit by physician [facility] Comment on above: Pneumonia, unspecifi ed organism [J18.9] Start: 05-26-2022 End: 05-26-2022 ambulatory [facility] Work Phone: Start: 05-26-2022 End: 05-26-2022 Patient encounter procedure [facility], Specimen Start: 04-04-2022 End: 04-04-2022 Patient encounter procedure [facility] Spec[facility] Start: 03-07-2022 End: 03-07-2022 Patient encounter procedure [facility] Spec[facility] Procedures Date Procedure Procedure Detail Performing Clinician Start: 06-07-2023 Radiologic examinati on knee 1/2 views Rosa Isela Chiu CABLE SPLICING TECHNICIAN.CLIENT DELIVERY MANAGER Work Phone: Start: 12-23-2022 Radex shoulder compl ete minimum 2 views Rosa Isela Chiu CABLE SPLICING TECHNICIAN.CLIENT DELIVERY MANAGER Work Phone: Start: 12-23-2022 Radiologic exam ches t 2 views Rosa Isela Chiu CABLE SPLICING TECHNICIAN.CLIENT DELIVERY MANAGER Work Phone: Start: 09-06-2022 Radionuclide imaging of perfusion of myocardium under exercise stress SLURRY CONTROL OPERATOR HELPER-C Rosa Isela Chiu SLURRY CONTROL OPERATOR HELPER Work Phone: Start: 05-27-2022 Radiologic exam ches t 2 views Rosa Isela Chiu CABLE SPLICING TECHNICIAN.CLIENT DELIVERY MANAGER Work Phone: Start: 01-22-2019 Lipid 1996 panel - S jt or Plasma [facility] Plan of Treatment Date Care Activity Detail Author Start: 06-22-2033 Urine microalbumin profile DTaP,Tdap,Td Vaccine (2 - Td or Tdap) [facility] Start: 2029 RSV Vaccine (1 - 1-dose 75+ series) RSV Vaccine (1 - 1-dose 75+ series) [facility] Start: 12-20-2027 Diabetes Screening Diabetes Screening [facility] Start: 09-25-2024 Advance Directive Discussion Advance Directive Discussion [facility] Start: 05-26-2024 Covid-19 Vaccine ( season) Covid-19 Vaccine ( season) [facility] Start: 05-26-2024 Influenza vaccination Influenza Vaccine (#1) [facility] Start: 01-23-2024 Lipid 1996 panel - Serum or Plasma Lipid Screening [facility] Start: 01-23-2024 Lipid panel Lipid Screening [facility] Start: 01-23-2024 LIPID SCREEN LIPID SCREEN [facility] Start: 05-26-2023 Influenza vaccination [facility] Start: 09-25-2022 ADVANCE DIRECTIVE DISCUSSION ADVANCE DIRECTIVE DISCUSSION [facility] Start: 09-25-2022 DEPRESSION ASSESSMENT DEPRESSION ASSESSMENT [facility] Start: 05-26-2022 Influenza vaccination INFLUENZA (#1) [facility] Start: 03-08-2022 Cytoplasmic ANCA Screen [facility] Work Phone: Start: 01-29-2022 DIABETES SCREEN DIABETES SCREEN [facility] Start: 01-29-2022 Diabetes Screening Diabetes Screening [facility] Start: 09-25-2021 ADVANCE DIRECTIVE DISCUSSION ADVANCE DIRECTIVE DISCUSSION [facility] Start: 2019 Pneumococcal Vaccine: 65+ (1 - PCV) Pneumococcal Vaccine: 65+ (1 - PCV) [facility] Start: 2019 PNEUMOCOCCAL: 65+ (1 - PCV) PNEUMOCOCCAL: 65+ (1 - PCV) [facility] Start: 2009 PROSTATE CANCER SCREENING DISCUSSION PROSTATE CANCER SCREENING DISCUSSION [facility] Start: 2004 Pneumococcal Vaccine: 50+ (1 of 1 - PCV) Pneumococcal Vaccine: 50+ (1 of 1 - PCV) [facility] Start: 2004 SHINGRIX VACCINE (1 of 2) SHINGRIX VACCINE (1 of 2) [facility] Start: 1999 COLOGUARD (FIT-DNA) COLOGUARD (FIT-DNA) [facility] Start: 1999 Colonoscopy COLONOSCOPY [facility] Start: 1999 COLORECTAL CANCER SCREENING COLORECTAL CANCER SCREENING [facility] Start: [address] COLONOGRAPHY [facility] Start: 1999 FECAL OCCULT BLOOD FECAL OCCULT BLOOD [facility] Start: 1999 Screening for malignant neoplasm of colon [facility] Start: 1999 SIGMOIDOSCOPY SIGMOIDOSCOPY [facility] Start: 1973 Urine microalbumin profile [facility] Start: 1972 ANNUAL PCP TEAM CHRONIC DISEASE VISIT ANNUAL PCP TEAM CHRONIC DISEASE VISIT [facility] Start: 1972 Anxiety Screening Anxiety Screening [facility] Start: 1972 BP CONTROLLED (<130/80) BP CONTROLLED (<130/80) [facility] Start: 1972 Depression Screening Depression Screening [facility] Start: 1966 Adult depression screening assessment DEPRESSION SCREENING [facility] Start: 1954 COVID-19 VACCINE (#1) COVID-19 VACCINE (#1) [facility] Antibody to lupus La protein measurement [facility] Work Phone: Antibody to SS-A measurement [facility] Work Phone: Centromere protein B Ab [Units/volume] in Serum [facility] Work Phone: Chromatin Ab [Units/volume] in Serum or Plasma [facility] Work Phone: DNA double strand Ab [Units/volume] in Serum [facility] Work Phone: Monse-1 extractable nuc lear Ab [Units/volume] in Serum [facility] Work Phone: Nuclear Ab [Presence ] in Serum [facility] Work Phone: SCL-70 extractable nuclear Ab [Units/volume] in Serum by Immunoassay [facility] Work Phone: Roberto extractable nu clear Ab [Presence] in Serum [facility] Work Phone: Troponin I measurement [facility] Work Phone: Immunizations Immunization Date Immunization Notes Care Provider Fa [facility] 06-22-2023 tetanus toxoid, redu roya diphtheria toxoid, and acellular pertussis vaccine, adsorbed Jack Vieira MD Work Phone: [facility] Payers Date Payer Category Payer Self-pay [id number] 2019 Private Health Insurance MMO SUP ER[employer] O [id number] 2019 Unknown [id number] 2019 Unknown [id number] Unknown [id number] Unknown [id number] Unknown [id number] Unknown [id number] Unknown [id number] Social History Date Type Detail Facility Start: 01-03-2022 End: 08-02-2022 Tobacco smoking status NHIS Unknown if ever smoked [facility] Work Phone: Start: 1955 Sex Assigned At Male [facility] Work Phone: Start: 04-06-[address] [facility] Start: 04-06-2018 Tobacco use and exposure Smokeless tobacco non-user [facility] Start: 01-21-2019 End: 12-19-2024 Alcohol intake Current non-drinker of alcohol (finding) [facility] Start: 1955 Sex Assigned At Not on file [facility] Start: 05-17-2022 End: 05-27-2022 Exposure to SARS-CoV-2 (event) Yes [facility] Start: 01-21-2019 End: 06-23-2023 History of Social function [facility] Start: 01-21-2019 End: 06-23-2023 Tobacco use panel [facility] Status Date Assessment Result Facility 01-22-2019 Are you deaf, or do you have serious difficulty hearing No 01/22/2019 5:07 PM Jessa Medina RN No [facility] 01-22-2019 Are you blind, or do you have serious difficulty seeing, even when wearing glasses No 01/22/2019 5:07 PM Jessa Medina, RAINA No [facility] 01-22-2019 Do you have serious difficulty walking or climbing stairs No 01/22/2019 5:07 PM Jessa Medina, RAINA No [facility] 01-22-2019 Do you have difficul ty dressing or bathing No 01/22/2019 5:07 PM EDT Jessa Orlando, RAINA No [facility] 01-22-2019 Because of a physica l, mental, or emotional condition, do you have difficulty doing errands alone such as visiting a physician's office or shopping No 01/22/2019 5:07 PM EDT Jessa Orlando RN No [facility] Mental Status Date Assessment Result Facility 01-22-2019 Because of a physica l, mental, or emotional condition, do you have serious difficulty concentrating, remembering, or making decisions No 01/22/2019 5:07 PM EDT Jessa Orlando RN No [facility] Clinical Notes 06-07-2023 to 12-20-2024 Handshoe, Jack Huston MD - 12/19/2024 3:38 PM Brittney Caiced[place], [place] - 06/07/2023 9:00 AM Brittney Caiced[place] - 06/07/2023 8:30 AM EDT Note Date & Type Note Facility 12-20-2024 Note HNO ID: [id number] Author: ANASTACIA MELLO RN Service: Care Management Author Type: Registered Nurse Type: Care Mgt Progress Note Filed: 12/20/2024 15:26 Note Text: CARE MANAGEMENT DISCHARGE NOTE SERVICE DATE: December 20, 2024 SERVICE TIME: 3:25 PM Discharge order written for today. Discharge Home Spouse to Transport. RN CM discussed discharge with Nurse: Peg Croft RN. Admission Date: 12/19/2024 LOS: 0 days Discharge Arrangement Discharge Arrangement: Home with Self Care Transportation Arrangements Transportation Arrangements: Car Date of Trip: 12/20/24 Destination: Home Handoff Communication: Handoff to: Primary Care Physician Primary Care Physician Name/Phone: PCP: Rosa Isela Chiu APRN CLIENT DELIVERY MANAGER - Additional Information: Discharge Information Row Name ED to Hosp-Admission (Current) from 12/19/2024 in [facility] Follow-Up Appointment Provider Name PCP: Rosa Isela Chiu APRN CLIENT DELIVERY MANAGER - SIGNATURE: Anastacia Mello RN PATIENT NAME: Nicolas Oliva DATE: December 20, 2024 TIME: 3:25 PM [facility] 12-20-2024 Note HNO ID: [id number] Author: ANASTACIA MELLO, RN Service: Care Management Author Type: Registered Nurse Type: Care Mgt Initial Assessment Filed: 12/20/2024 13:05 Note Text: CARE MANAGEMENT: ASSESSMENT AND DISCHARGE PLAN SERVICE DATE: December 20, 2024 SERVICE TIME: 12:54 PM auto dealership porter spoke with patient by phone to complete Care Management Assessment. Introduction made and role of Care Management explained. PCP: Rosa Isela Chiu APRN.CLIENT DELIVERY MANAGER - patient confirmed Primary Contact: Extended Emergency Contact Information Primary Emergency Contact: Amaya Oliva Address: [address] [place] [address] Mobile Relation: Spouse Secondary Emergency Contact: HazelNicolas Dulce Address: [address] [place] [id number] [facility] Relation: Son Admission Status: Observation [facility] Discharge Planning requested by: Per Department Practice Potential Transition Plans Home Advance Directives Current Advance Directive: None Distributor Cleaner Attempted to Assist with AD Completion: Yes Action: Education Provided Current Living Arrangements and Support Lives with: Spouse/significant other (Spouse: Amaya Oliva - ) Type of Residence: Private Residence (House) (Duplex: 2 Story with No Basement and 1 shallow entry step) Does the patient have to climb stairs at home?: stairs outside the home, Yes Support: Spouse/significant other (Spouse: Amaay Oliva - ) How do you manage to accomplish the following: Independent: Ambulation, Bathe/Shower, Dress, Meals/Meal Prep, Medication Management, Transportation to appointments/community, Going to the bathroom Current Services/Equipment Current DME Type: None Current Post-Acute Service(s) Provider: None Discharge Planning Patient Goal(s): Be able to go home Cullen of Choice Explained: Cullen of Choice Given: No (Discharge Needs: to be determined.) Discharge Pharmacy Preference: [facility] [place] Discharge Planning Participant(s): Patient Transport at Discharge: Transportation Arrangements: Car Destination: Home Needs Prior to Discharge: Needs Prior to Discharge: To Be Determined Post-Acute Discharge Plan: From home. Lives with spouse. Patient reports he is independent with all his care. Employed. Drives. DME: None. Active Services: None Discharge Plan: Home Discharge Transportation: Spouse/Amaya ARBOLEDA Dept to Follow. SIGNATURE: Anastacia Mello RN PATIENT NAME: Nicolas Oliva DATE: December 20, 2024 TIME: 12:54 PM [facility] 12-19-2024 Note HNO ID: [id number] Author: JACK VIEIRA MD Service: ? Author Type: Fellow Type: Progress Notes Filed: 12/19/2024 15:43 Note Text: TELESTROKE DOCUMENTATION Name: Nicolas Oliva : 1955 Referring Site: [place] Referring Provider: Dr. Graham Last Known Well (Date/Time): 12/19/24 09 Neurologist Callback (Date/Time): 12/19/24 1338 Chief Complaint: Unsteady gait HPI: 69 year old male,PMHx HTN who presented to [place] ED today for unsteady gait. LKW 0900 this AM since that time has had difficulty with balance, no other focal deficits. NIHSS 0 on arrival, able to ambulate but wide based and unsteady per provider. CT brain showed no acute process. 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 He was not a TNK candidate given LKW. Discussed plan for ASA 325 and admission with MRI, PT evaluation. Stroke Risk Factors Hypertension Current Anticoagulant Not Applicable BP: 138/98 NIHSS Telestroke Type - Patient location (ED or Inpatient): ED - Telephone Site Reported NIHSS: 0 Neurologist Performed Total Score: N/A Imaging CT Imaging reviewed, NO acute infarct/hemorrhage seen CTA Reviewed, Other (Specify) CTA Imaging Reviewed (Specify): RV4 severe stenosis Summary Suspected ACUTE ischemic stroke IV Thrombolysis Candidate Window: No - Patient arrived past 4.5 hour window OR Last Known Well Date/Time is unknown Potential Candidate for Endovascular Therapy: No - Negative for evidence of large vessel occlusion Disposition/Billing (Physician is not in the same physical location as the patient) The patient will remain at the referring institution for further evaluation and management This case was discussed with stroke staff who was immediately available for direct supervision when needed.(List staff name): Dr. Koenig Telephone Only: Minutes spent reviewing pertinent diagnostic data and discussing patient care with the referring physician: 10 More than 50 percent of the encounter was spent on coordinating care of the patient during a telestroke. Thank you for contacting the [facility]. I appreciate the opportunity for allowing me to participate in Nicolas Oliva's care. Please feel free to contact me and/or the [facility] at any time if you have any further questions or need additional assistance. Jack Vieira MD December 19, 2024 3:42 PM [facility] 12-19-2024 History of Present illness Narrative TELESTROKE DOCUMENTATION Name: Nicolas Oliva : 1955 Referring Site: [place] Referring Provider: Dr. Graham Last Known Well (Date/Time): 12/19/24 09 Neurologist Callback (Date/Time): 12/19/24 1338 Chief Complaint: Unsteady gait HPI: 69 year old male,PMHx HTN who presented to [place] ED today for unsteady gait. LKW 0900 this AM since that time has had difficulty with balance, no other focal deficits. NIHSS 0 on arrival, able to ambulate but wide based and unsteady per provider. CT brain showed no acute process. 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 He was not a TNK candidate given LKW. Discussed plan for ASA 325 and admission with MRI, PT evaluation. Stroke Risk Factors Hypertension Current Anticoagulant Not Applicable BP: 138/98 NIHSS Telestroke Type - Patient location (ED or Inpatient): ED - Telephone Site Reported NIHSS: 0 Neurologist Performed Total Score: N/A Imaging CT Imaging reviewed, NO acute infarct/hemorrhage seen CTA Reviewed, Other (Specify) CTA Imaging Reviewed (Specify): RV4 severe stenosis Summary Suspected ACUTE ischemic stroke IV Thrombolysis Candidate Window: No - Patient arrived past 4.5 hour window OR Last Known Well Date/Time is unknown Potential Candidate for Endovascular Therapy: No - Negative for evidence of large vessel occlusion Disposition/Billing (Physician is not in the same physical location as the patient) The patient will remain at the referring institution for further evaluation and management This case was discussed with stroke staff who was immediately available for direct supervision when needed.(List staff name): Dr. Koenig Telephone Only: Minutes spent reviewing pertinent diagnostic data and discussing patient care with the referring physician: 10 More than 50 percent of the encounter was spent on coordinating care of the patient during a telestroke. Thank you for contacting the [facility]. I appreciate the opportunity for allowing me to participate in Nicolas Oliva's care. Please feel free to contact me and/or [facility] at any time if you have any further questions or need additional assistance. Jack Vieira MD December 19, 2024 3:42 PM documented in this encounter [facility] 12-19-2024 Note HNO ID: [id number] Author: MARIA C KENT MD Service: Cardiovascular Medicine Author Type: Physician Type: Procedures Filed: 01/27/2025 16:05 Note Text: Patient Name: Nicolas Oliva : 1955 Ordering Provider: ROCÍO RUSSELL Indication: R42 Dizziness and giddiness Type of Monitor: Extended Monitoring-Zio Patch Enrollment Dates: 12/27/2024-01/10/2025 IRHYTHM FINDINGS: Patient had a min HR of 51 bpm, max HR of 167 bpm, and avg HR of 70 bpm. Predominant underlying rhythm was Sinus Rhythm. 9 Supraventricular Tachycardia runs occurred, the run with the fastest interval lasting 4 beats with a max rate of 167 bpm, the longest lasting 13.6 secs with an avg rate of 125 bpm. Some episodes of Supraventricular Tachycardia conducted with possible aberrancy. Some episodes of Supraventricular Tachycardia may be possible Atrial Tachycardia with variable block. Isolated SVEs were rare (<1.0%), SVE Couplets were rare (<1.0%), and SVE Triplets were rare (<1.0%). Isolated VEs were occasional (2.8%, 35,074), VE Couplets were rare (<1.0%, 45), and no VE Triplets were present. Ventricular Bigeminy and Trigeminy were present. Inverted QRS complexes possibly due to inverted placement of device. Maria C Kent MD, FACC. Diamond Cleaner, Department of Cardiology, [facility]. Clinical Asst. highballer, [facility] / [facility] Staff Forest Fire Prevention Manager, [facility] [place], [facility]. [facility] 09-19-2024 Note SARS-COV-2 (AGENT OF COVID-19) RNA: Not detected INFLUENZA A RNA: Not detected INFLUENZA B RNA: Not detected RESPIRATORY SYNCYTIAL VIRUS (RSV) RNA: Not detected [facility] Comment on above: Performed By: #### 9 [id number] #### [facility] CLIA [id number] [address] [place] [address] STATES OF [facility] 06-07-2023 History of Present illness Narrative Radiology Service Progress Note PATIENT NAME: Nicolas Oliva DATE OF SERVICE: June 07, 2023 [...] 2023 9:30 AM documented in this encounter [facility] 06-07-2023 History of Present illness Narrative Radiology Service Progress Note PATIENT NAME: Nicolas Oliva DATE OF SERVICE: June 07, 2023 [...] 2023 9:29 AM documented in this encounter [facility] Evaluation note Diagnosis Onset Date Pruritic dermatitis acute Psoriasis acute Asthmatic bronchitis acute SOB (shortness of breath) ac lester Disorder of sternoclavicular joint acute Elevated C-reactive protein (CRP) acute Localized swelling of right foot acute Lump in neck [facility] Work Phone: Evaluation note* Diagnosis Onset Date Resolution Status Pruritic dermatitis acute Psoriasis acute Asthmatic bronchitis acute SOB (shortness of breath) ac lester Disorder of sternoclavicular joint acute Elevated C-reactive protein (CRP) acute Localized swelling of right foot acute Lump in neck acute Disorder of sternoclavicular joint acute Elevated C-reactive protein (CRP) acute Localized swelling of right foot acute [facility] Work Phone: Evaluation note* Diagnosis Onset Date Resolution Status Disorder of sternoclavicular joint acute Elevated C-reactive protein (CRP) acute Localized swelling of right foot acute Lump in neck acute Disorder of sternoclavicular joint acute Elevated C-reactive protein (CRP) acute Localized swelling of right foot acute Asthmatic bronchitis acute Fever acute Pneumonia acute [facility] Work Phone: Evaluation note* Diagnosis Onset Date Resolution Status Asthmatic bronchitis acute Fever acute Pneumonia acute Chest pain acute Chest pain acute Hyperlipidemia LDL goal <130 acute Pneumonia acute Essential hypertension chron ic Dyspnea on exertion chronic Essential hypertension chron ic Lump in neck chronic [facility] Work Phone: Evaluation note* Diagnosis Stroke-like symptoms- Primary Other symptoms involving nervous and musculoskeletal systems documented in this encounter [facility] Summary Purpose Family History No Family History Records Found Relationship Condition Age at Onset Recorded Date/T evelyne Not Specified Cardiac disease Unknown father Asthma Unknown brother Hypertension Unknown sister Hypertension Unknown Myocardial infarction Unknown Advance Directives No Advanced Directives Records Found Advance Directive Response Recorded Date/ Time Living Will No January 03, 2022 4:09pm Power of Garbage Pick Up Worker No January 03 4:09pm Advance Directive Response Recorded Date/ Time Living Will No May 26 6:27pm Power of Garbage Pick Up Worker No May 26, 2022 6:27pm Advance Directive Response Recorded Date/ Time Living Will No May 26 5:27pm Power of Garbage Pick Up Worker No May 26, 2022 5:27pm Date Activated Date Inactivated Comments 12/19/2024 7:35 PM Question Answer Comments Full Code Order Discussed With: Patient Chief Complaint and Reason for Visit Chief Complaint medication refills & rash Chest cold & congestion bad cough Complaining of lump in the throat Reason for Visit Pruritic dermatitis Psoriasis Asthmatic bronchitis SOB (shortness of breath) Disorder of sternoclavicular joint Elevated C-reactive protein (CRP) Localized swelling of right foot Lump in neck Chief Complaint medication refills & rash Chest cold & congestion bad cough Complaining of lump in the throat Re:draw labs Reason for Visit Pruritic dermatitis Psoriasis Asthmatic bronchitis SOB (shortness of breath) Disorder of sternoclavicular joint Elevated C-reactive protein (CRP) Localized swelling of right foot Lump in neck Disorder of sternoclavicular joint Elevated C-reactive protein (CRP) Localized swelling of right foot Chief Complaint Complaining of lump in the throat Re:draw labs Cough fatigue H/A achey Reason for Visit Disorder of sternocl avicular joint Elevated C-reactive protein (CRP) Localized swelling of right foot Lump in neck Disorder of sternoclavicular joint Elevated C-reactive protein (CRP) Localized swelling of right foot Asthmatic bronchitis Fever Pneumonia Chief Complaint Cough fatigue H/A ac hey BP check up ABN EKG (ROSA ISELA CHIU) 6 wk FU CHEST PAIN CHEST PAIN Reason for Visit Asthmatic bronchitis Fever Pneumonia Chest pain Chest pain Hyperlipidemia LDL goal <130 Pneumonia Essential hypertension Dyspnea on exertion Essential hypertension Lump in neck Additional Source Comments (unrecognized sect ion and content) No Status Records FoundNo Status Records FoundNo Status Records FoundNo Status Records FoundNo Status Records Found INFORMATION SOURCE (unrecogn ized section and content) DATE CREATED AUTHOR 08/30/2019 [facility] DATE CREATED AUTHOR AUTHOR'S ORGANIZ ATION 09/26/[address] [facility] DATE CREATED AUTHOR AUTHOR'S ORGANIZ ATION 12/21/2024 [facility] DATE CREATED AUTHOR AUTHOR'S ORGANIZ ATION 01/11/2025 [facility] DATE CREATED AUTHOR AUTHOR'S ORGANIZ ATION 01/30/2025 [facility] Goals (unrecognized section and content) Goals may be documented in a n alternate sectionGoals may be documented in an alternate sectionGoals may be documented in an alternate sectionGoals may be documented in an alternate section Source Comments (unrecognize d section and content) In the event this informatio n is protected by the Federal Confidentiality of Alcohol and Drug Abuse Patient Records regulations: The Federal rules restrict any use of the information to criminally investigate or prosecute any alcohol or drug abuse patient.[facility] the event this information is protected by the Federal Confidentiality of Alcohol and Drug Abuse Patient Records regulations: The Federal rules restrict any use of the information to criminally investigate or prosecute any alcohol or drug abuse patient.[facility] the event this information is protected by the Federal Confidentiality of Alcohol and Drug Abuse Patient Records regulations: The Federal rules restrict any use of the information to criminally investigate or prosecute any alcohol or drug abuse patient.[facility] the event this information is protected by the Federal Confidentiality of Alcohol and Drug Abuse Patient Records regulations: The Federal rules restrict any use of the information to criminally investigate or prosecute any alcohol or drug abuse patient.[facility] the event this information is protected by the Federal Confidentiality of Alcohol and Drug Abuse Patient Records regulations: The Federal rules restrict any use of the information to criminally investigate or prosecute any alcohol or drug abuse patient.[facility] the event this information is protected by the Federal Confidentiality of Alcohol and Drug Abuse Patient Records regulations: The Federal rules restrict any use of the information to criminally investigate or prosecute any alcohol or drug abuse patient.[facility] Care Teams (unrecognized sec tion and content) Literature Professor Relationship Specialty Start Date End Date Chiu, Rosa Isela L, CABLE SPLICING TECHNICIAN.CLIENT DELIVERY MANAGER [address] [place], [place] [phone] PCP - General Family Practice 01/21/19 Literature Professor Relationship Specialty Start Date End Date Rosa Isela Chiu, CABLE SPLICING TECHNICIAN.CLIENT DELIVERY MANAGER [address] [place], [place] [phone] PCP - General Family Medicine 01/21/19 Literature Professor Relationship Specialty Start Date End Date Rosa Isela Chiu, CABLE SPLICING TECHNICIAN.CLIENT DELIVERY MANAGER [address] [place], [place] [phone] PCP - General Family Medicine 01/21/19 Literature Professor Relationship Specialty Start Date End Date Rosa Isela Chiu, CABLE SPLICING TECHNICIAN.CLIENT DELIVERY MANAGER [address] [place], [place] [phone] PCP - General Family Medicine 01/21/19 Literature Professor Relationship Specialty Start Date End Date Rosa Isela Chiu, CABLE SPLICING TECHNICIAN.CLIENT DELIVERY MANAGER [address] [place], [place] [phone] PCP - General Family Medicine 01/21/19 Reason for Visit (unrecogniz ed section and content) Reason Comments Neurologic Problem FOR RECORDS PERTAINING TO PATIENTS WHO ARE [...] BE BASED ON THE PRIMARY CLINICAL RECORDS. [employer] provides no warranty or guarantee of the accuracy or completeness of information in this document.
[2025-03-21 21:45] LABS: Absolute Lymphocyte Count 2.43 X10^3/uL (0.83-4.51); Absolute Neutrophil Count 4.4 X10^3/uL (2.0-7.7); Basophil# 0.04 X10^3/uL; Basophil% 0.5 % (0-1); Eosinophil# 0.41 X10^3/uL; Eosinophils% 5.2 % (0-5); Hemoglobin 13.7 g/dL (13.0-16.5); Lymphocyte # 2.43 X10^3/ul (0.83-4.51); Lymphocyte % 31.1 % (19-41); Mean Corp Hgb Conc 36.1 g/dL (32-36); Mean Corpuscular Hgb 32.5 pg (27.0-32.0); Mean Corpuscular Volume 90.3 fL (80-94); Mean Platelet Vol. 10.5 fl (6.2-12.0); Monocyte# 0.47 X10^3/uL; NRBC Flagged by Analyzer 0 % (0-5); Neutrophil # 4.44 X10^3/uL (2.7-7.7); Neutrophil % 56.9 % (47-70); Platelet Count 220 K/mm3 (150-450); RBC Distribution Width CV 12.3 % (11.6-14.6); RBC Distribution Width SD 40.2 fl (35.1-43.9); Red Blood Count 4.21 M/mm3 (4.6-6.2); White Blood Count 7.8 K/mm3 (4.4-11.0)
[2025-03-21 22:02] LABS: ALB/GLOB Ratio 1.5 RATIO (0.9-2.4); AST(SGOT) 31 U/L (<=37); Alanine Aminotransfer ALT/SGPT 36 U/L (<=46); Albumin, Serum 4.3 g/dL (3.4-4.8); Alkaline Phosphatase 66 U/L (40-129); Anion Gap 12 (5-15); BUN 16 mg/dL (4-19); BUN/Creat Ratio 18.4 RATIO (10-20); Calcium,Total 9.1 mg/dL (7.6-11.0); Chloride 103 mmol/L (98-108); Cholesterol 187 mg/dL (<=200); Creatinine, Serum 0.84 mg/dL (0.70-1.20); EST Glomerular Filtration Rate 94 (>60); Globulin 2.9 g/dL (2.2-4.2); Glucose 140 mg/dL (70-99); High Density Lipoprotein 24 mg/dL; Low Density Lipoprotein Calc. 87 mg/dL; Potassium 3.6 mmol/L (3.3-5.1); Protein, Total 7.2 g/dL (5.9-8.4); Sodium Level 137 mmol/L (133-145); Total Bilirubin 0.36 mg/dL (0.00-1.30); Triglycerides 380 mg/dL; Very Low Density Lipoprotein 76 mg/dL (5-40); cholesterol:hdl ratio screen 7.86
[2025-03-24 13:08] LABS: PSA, Free 0.17 ng/mL; PSA, Free % 45.2 % (.); PSA, Total Ultrasensitive 0.376 ng/mL (0.000-4.000)
== END | disposition home or self-care (01) ==
PROVIDERS: PCP Nurse Practitioner; Referring Provider Nurse Practitioner; Visit Provider Nurse Practitioner
DX: I10 Essential (primary) hypertension (principal); M05.741 Rheumatoid arthritis with rheumatoid factor of right hand without organ or systems involvement; M05.742 Rheumatoid arthritis with rheumatoid factor of left hand without organ or systems involvement; E03.9 Hypothyroidism, unspecified; R35.0 Frequency of micturition; E78.5 Hyperlipidemia, unspecified
CPT/HCPCS: 80053; 80061; 84153; 84154; 85025

== ENCOUNTER → 2025-07-19 | Outpatient (CLI) | payer OTHER, SELFPAY ==
--- OUTSIDE RECORDS SUMMARY | 2025-07-19 11:47 | XMS RPT_ITS | CCD ---
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 edema. He does not have sudden weight gain. He does acknowledge occasional lightheadedness with quick positional changes. He denies dizziness, syncopal or near syncopal episodes, and headaches. 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 Accompanied by: Self Is patient in pain?: No Allergies naproxen (From Aleve) Adverse Reaction (Intermediate, Verified 07/11/25 09:40) B/P GEORGE UP Medications ???Medication ???Instructions ???Recorded ???Confirmed ???Type aspirin 325 mg tablet,delayed 325 mg PO QDAY 01/09/25 07/11/25 H istory release albuterol sulfate 90 mcg/actuation See Rx Instructions .Route 03/2107/11/25 Rx aerosol inhaler .COMPLEX #8.5 grams carvedilol 25 mg tablet 25 mg PO BID #180 tabs 03/21/25 Rx cyclobenzaprine 5 mg tablet 5 mg PO TID PRN muscle spasm #60 0 03/21/25 07/11/25 Rx tabs losartan 100 mg tablet 100 mg PO QDAY #90 tabs 03/21/25 1 Rx amlodipine 5 mg tablet 5 mg PO QDAY #30 tabs 07/11/25 Rx hydrochlorothiazide 25 mg tablet 25 mg PO DAILY #30 tabs 07/11/25 1 Rx Ejection fraction %: 65 Have you fallen in the past year?: No Nurse's Note: Pt states he stopped taking his levothyroxine because it was causing too many side effects that he was unable to work. Pt wants a thyriod medication he can take with food. [facility] Medical History Hypothyroid Hypertension Essential hypertension Osteoarthritis [...] servings: 4 ROS Const Const: Positive for fatigue; Negative for weakness Eyes Eyes: Negative for change in vision ENT ENT: Negative for dizziness, Nosebleed/epistaxis or balance problems Cardio Chest Pain: No Palpitations: No Edema: Bilateral Resp Respiratory: Positive for SOB with activity GI GI: Negative nausea, vomiting, heartburn or bright, red blood in stools : Negative for hematuria Musc Musc: Negative for balance problems Neuro Neuro: Positive for lightheadedness; Negative for dizziness, syncope or weakness Endo Endo: Positive for [...] Eyelids: eyelids normal EOM: EOM intact bilaterally Nec (more content not included)... Normal [facility] PSA Total+%Freeon 03-24-2025 PSA, FREE 0.17 ng/mL Normal N/A [facility] Comment on above: Result Comment: Angel covarrubias ECLIA methodology. Performed By: #### L 500.4100, L100.0100, L500.4050, L3110.0500 #### [facility] [address] [place], [place], [id number] PSA, FREE % 45.2 Normal . [facility] Comment on above: Result Comment: The table below lists the probability of prostate cancer for men with non-suspicious JAMIE results and total PSA between 4 and 10 ng/mL, by patient age (Jessa et al, LAUREN 1998, 279:1542). % Free PSA 50-64 yr 65-75 yr 0.00-10.00% 56% 55% 10.01-15.00% 24% 35% 15.01-20.00% 17% 23% 20.01-25.00% 10% 20% >25.00% 5% 9% Please note: Jessa et al did not make specific recommendations regarding the use of percent free PSA for any other population of men. Performed at: [address] [id number] Telephone Cleaner: Vini Hernandez PhD, Phone: [phone] Performed By: #### L 500.4100, L100.0100, L500.4050, L3110.0500 #### [facility] [address] [place], [place], [id number] PSA, TOTAL ULTR 0.376 ng/mL Normal 0.000-4.000 [facility] Comment on above: Result Comment: Roch marci ECLIA methodology. According to the [place] [employer], Serum PSA should decrease and remain at undetectable levels after radical prostatectomy. The AUA defines biochemical recurrence as an initial PSA value 0.200 ng/mL or greater followed by a subsequent confirmatory PSA value 0.200 ng/mL or greater. Values obtained with different assay methods or kits cannot be used interchangeably. Results cannot be interpreted as absolute evidence of the presence or absence of malignant disease. Performed By: #### L 500.4100, L100.0100, L500.4050, L3110.0500 #### [facility] [address] [place], [place], [id number] Absolute lymphocyte countOrd ered By: Rosa Isela Chiu on 03-21-2025 Lymphocytes Auto (Unsp spec) [#/Vol] 2.43 10*3/uL 0.83-4.51 [facility] Absolute neutrophil countOrd ered By: Rosa Isela Chiu on 03-21-2025 Neutrophils (Bld) [#/Vol] 4.4 10*3/uL 2.0-7.7 [facility] Anion gap in Serum or Plasma Ordered By: Rosa Isela Chiu on 03-21-2025 Anion gap [Moles/Vol] 12 mmol/L 5-15 [facility] Automated lymphocyte count a s percentage of total leukocytesOrdered By: Rosa Isela Chiu on 03-21-2025 Lymphocytes/100 WBC Auto (Unsp spec) 31.1 % 19- [facility] BUN/creatinine ratioOrdered By: Rosa Iselajaylen Chiu on 03-21-2025 Urea nitrogen/Creatinine [Mass ratio] 18.4 mg/mg 10-20 [facility] Basophil percentageOrdered B y: Rosa Isela Chiu on 03-21-2025 Basophils/100 WBC (Bld) 0.5 % 0-[address] [facility] Bilirubin, totalOrdered By: Rosa Isela Chiu on 03-21-2025 Bilirubin [Mass/Vol] 0.36 mg/dL 0.00-1.30 [facility] CBC W/Diff, Automatedon 02-24 Absolute Lymph 2.43 X10 3/uL Normal 0.83-4.51 [facility] Comment on above: Performed By: #### L 500.4100, L100.0100, L500.4050, L3110.0500 #### [facility] [address] [place], [address] Absolute Neut 4.4 X10 3/uL Normal 2.0-7.7 [facility] Comment on above: Performed By: #### L 500.4100, L100.0100, L500.4050, L3110.0500 #### [facility] [address] [place], [address] Basophils/100 WBC (Bld) 0.5 % Normal 0-[address] [facility] Comment on above: Performed By: #### L 500.4100, L100.0100, L500.4050, L3110.0500 #### [facility] [address] [place], [address] Eosinophils/100 WBC (Bld) 5.2 % High 0-5 [facility] Comment on above: Performed By: #### L 500.4100, L100.0100, L500.4050, L3110.0500 #### [facility] [address] [place], [address] Erythrocyte distribution width (RBC) [Ratio] 12.3 % Normal 11.6-14.6 [facility] Comment on above: Performed By: #### L 500.4100, L100.0100, L500.4050, L3110.0500 #### [facility] [address] [place], [address] Hematocrit (Bld) [Volume fraction] 38.0 % Low 40-54 [facility] Comment on above: Performed By: #### L 500.4100, L100.0100, L500.4050, L3110.0500 #### [facility] [address] [place], [address] Hemoglobin (Bld) [Mass/Vol] 13.7 g/dL Normal 13.0-16.5 [facility] Comment on above: Performed By: #### L 500.4100, L100.0100, L500.4050, L3110.0500 #### [facility] [address] [place], [address] IG% 0.300 Normal 0.0-0.9 [facility] Comment on above: Result Comment: IG% - Immature Granulocytes (promyelocytes, myelocytes and metamyelocytes) > 1% indicates that a LEFT SHIFT is Present. Performed By: #### L 500.4100, L100.0100, L500.4050, L3110.0500 #### [facility] [address] [place], [address] Lymphocytes/100 WBC (Bld) 31.1 % Normal 19-41 [facility] Comment on above: Performed By: #### L 500.4100, L100.0100, L500.4050, L3110.0500 #### [facility] [address] [place], [address] MCH (RBC) [Entitic mass] 32.5 pg High 27.0-32.0 [facility] Comment on above: Performed By: #### L 500.4100, L100.0100, L500.4050, L3110.0500 #### [facility] [address] [place], [address] MCHC (RBC) [Mass/Vol] 36.1 g/dL High 32-36 [facility] Comment on above: Performed By: #### L 500.4100, L100.0100, L500.4050, L3110.0500 #### [facility] [address] [place], [address] MCV (RBC) [Entitic vol] 90.3 fL Normal 80-[address] [facility] Comment on above: Performed By: #### L 500.4100, L100.0100, L500.4050, L3110.0500 #### [facility] [address] [place], [address] Monocytes/100 WBC (Bld) 6.0 % Normal 0-[address] [facility] Comment on above: Performed By: #### L 500.4100, L100.0100, L500.4050, L3110.0500 #### [facility] [address] [place], [address] Neutrophils/100 WBC (Bld) 56.9 % Normal 47-70 [facility] Comment on above: Performed By: #### L 500.4100, L100.0100, L500.4050, L3110.0500 #### [facility] [address] [place], [address] Nucleated RBC (Bld) [#/Vol] 0 10*3/uL Normal 0-5 [facility] Comment on above: Performed By: #### L 500.4100, L100.0100, L500.4050, L3110.0500 #### [facility] [address] [place], [address] Platelet mean volume (Bld) [Entitic vol] 10.5 fL Normal 6.2-12.0 [facility] Comment on above: Performed By: #### L 500.4100, L100.0100, L500.4050, L3110.0500 #### [facility] [address] [place], [address] Platelets (Bld) [#/Vol] 220 10*3/uL Normal 150-450 [facility] Comment on above: Performed By: #### L 500.4100, L100.0100, L500.4050, L3110.0500 #### [facility] [address] [place], [address] RBC (Bld) [#/Vol] 4.21 10*6/uL Low 4.6-6.2 [facility] Comment on above: Performed By: #### L 500.4100, L100.0100, L500.4050, L3110.0500 #### [facility] [address] [place], [address] RDW SD 40.2 fl Normal 35.1-43.9 [facility] Comment on above: Performed By: #### L 500.4100, L100.0100, L500.4050, L3110.0500 #### [facility] [address] [place], [address] WBC (Bld) [#/Vol] 7.8 10*3/uL Normal 4.4-11.0 [facility] Comment on above: Performed By: #### L 500.4100, L100.0100, L500.4050, L3110.0500 #### [facility] [address] [place], [place], [id number] Calculated very low density lipoprotein (VLDL) cholesterol measurementOrdered By: Rosa Isela Chiu on 03-21-2025 Calculated very low density lipoprotein (VLDL) cholesterol measurement 76 mg/dL High 5-40 [facility] Carbon dioxide, total [Moles /volume] in Central venous bloodOrdered By: Rosa Isela Chiu on 03-21-2025 CO2 [Moles/Vol] 23.0 mmol/L 21.0-32.0 [facility] Chloride assayOrdered By: Do ra Chiu on 03-21-2025 Chloride [Moles/Vol] 103 mmol/L 98-108 [facility] Comprehensive Metabolic Prof ilon 03-21-2025 Albumin [Mass/Vol] 4.3 g/dL Normal 3.4-4.8 [facility] Comment on above: Performed By: #### L 500.4100, L100.0100, L500.4050, L3110.0500 #### [facility] [address] [place], [address] Albumin/Globulin [Mass ratio] 1.5 {ratio} Normal 0.9-2.4 [facility] Comment on above: Performed By: #### L 500.4100, L100.0100, L500.4050, L3110.0500 #### [facility] [address] [place], [address] ALK PHOS 66 U/L Normal 40-129 [facility] Comment on above: Performed By: #### L 500.4100, L100.0100, L500.4050, L3110.0500 #### [facility] [address] [place], [address] ALT [Catalytic activity/Vol] 36 U/L Normal <=46 [facility] Comment on above: Performed By: #### L 500.4100, L100.0100, L500.4050, L3110.0500 #### [facility] [address] [place], [address] AST [Catalytic activity/Vol] 31 U/L Normal <=37 [facility] Comment on above: Performed By: #### L 500.4100, L100.0100, L500.4050, L3110.0500 #### [facility] [address] [place], [address] Bilirubin [Mass/Vol] 0.36 mg/dL Normal 0.00-1.30 [facility] Comment on above: Performed By: #### L 500.4100, L100.0100, L500.4050, L3110.0500 #### [facility] [address] [place], [address] BUN/CRE 18.4 RATIO Normal 10-20 [facility] Comment on above: Performed By: #### L 500.4100, L100.0100, L500.4050, L3110.0500 #### [facility] [address] [place], [address] Calcium [Mass/Vol] 9.1 mg/dL Normal 7.6-11.0 [facility] Comment on above: Performed By: #### L 500.4100, L100.0100, L500.4050, L3110.0500 #### [facility] [address] [place], [address] Chloride [Moles/Vol] 103 mmol/L Normal 98-108 [facility] Comment on above: Performed By: #### L 500.4100, L100.0100, L500.4050, L3110.0500 #### [facility] [address] [place], [address] CO2 [Moles/Vol] 23.0 mmol/L Normal 21.0-32.0 [facility] Comment on above: Performed By: #### L 500.4100, L100.0100, L500.4050, L3110.0500 #### [facility] [address] [place], [address] Creatinine [Mass/Vol] 0.84 mg/dL Normal 0.70-1.20 [facility] Comment on above: Performed By: #### L 500.4100, L100.0100, L500.4050, L3110.0500 #### [facility] [address] [place], [address] GAP 12 Normal 5-15 [facility] Comment on above: Performed By: #### L 500.4100, L100.0100, L500.4050, L3110.0500 #### [facility] [address] [place], [address] GFR/1.73 sq M.predicted among non-blacks MDRD (S/P/Bld) [Vol rate/Area] 94 mL/min/{1.73_m2} Normal >60 [facility] Comment on above: Result Comment: mL/m in/1.73m2 CKD-EPI Creatinine Equation (2020) Performed By: #### L 500.4100, L100.0100, L500.4050, L3110.0500 #### [facility] [address] [place], [address] Globulin (S) [Mass/Vol] 2.9 g/dL Normal 2.2-4.2 [facility] Comment on above: Performed By: #### L 500.4100, L100.0100, L500.4050, L3110.0500 #### [facility] [address] [place], [address] Glucose [Mass/Vol] 140 mg/dL High 70-99 [facility] Comment on above: Performed By: #### L 500.4100, L100.0100, L500.4050, L3110.0500 #### [facility] [address] [place], [address] Potassium [Moles/Vol] 3.6 mmol/L Normal 3.3-5.1 [facility] Comment on above: Performed By: #### L 500.4100, L100.0100, L500.4050, L3110.0500 #### [facility] [address] [place], [address] Sodium [Moles/Vol] 137 mmol/L Normal 133-145 [facility] Comment on above: Performed By: #### L 500.4100, L100.0100, L500.4050, L3110.0500 #### [facility] [address] [place], [address] T PROT 7.2 g/dL Normal 5.9-8.4 [facility] Comment on above: Performed By: #### L 500.4100, L100.0100, L500.4050, L3110.0500 #### [facility] [address] [place], [address] Urea nitrogen [Mass/Vol] 16 mg/dL Normal 4-19 [facility] Comment on above: Performed By: #### L 500.4100, L100.0100, L500.4050, L3110.0500 #### [facility] [address] [place], [address] Eosinophil percentageOrdered By: Rosa Isela Chiu on 03-21-2025 Eosinophils/100 WBC (Bld) 5.2 % High 0-5 [facility] Erythrocyte distribution wid th ratioOrdered By: Rosa Isela Chiu on 03-21-2025 Erythrocyte distribution width (RBC) [Ratio] 12.3 % 11.6-14.6 [facility] Erythrocyte distribution wid th standard deviationOrdered By: Rosa Isela Chiu on 03-21-2025 Erythrocyte distribution width (RBC) [Ratio] 40.2 fl 35.1-43.9 [facility] Glomerular filtration rate ( GFR) estimation/1.73 sq m using serum, plasma, or whole bOrdered By: Rosa Isela Chiu on 03-21-2025 GFR/1.73 sq M.predicted among non-blacks MDRD (S/P/Bld) [Vol rate/Area] 94 mL/min/{1.73_m2} >60 [facility] Comment on above: mL/min/1.73m2 CKD-EP I Creatinine Equation (2020) Hematocrit Auto (Bld) [Volum e fraction]Ordered By: Rosa Isela Chiu on 03-21-2025 Hematocrit (Bld) [Volume fraction] 38.0 % Low 40-54 [facility] Hemoglobin measurementOrdere d By: Rosa Isela Chiu on 03-21-2025 Hemoglobin (Bld) [Mass/Vol] 13.7 g/dL 13.0-16.5 [facility] Immature granulocytes/100 WB C Auto (Bld)Ordered By: Rosa Isela Chiu on 03-21-2025 Immature granulocytes/100 WBC (Bld) 0.300 % 0.0-0.9 [facility] Comment on above: IG% - Immature Granu locytes (promyelocytes, myelocytes and metamyelocytes) > 1% indicates that a LEFT SHIFT is Present. LDL calc ser/plasOrdered By: Rosa Isela Chiu on 03-21-2025 Cholesterol in LDL [Mass/Vol] 87 mg/dL [facility] Comment on above: Dwysmegwya=431-153 m g/dL & Higher Stut=960 mg/dL or greater Laboratory - Chemistry and C hemistry - challengeOrdered By: Rosa Isela Chiu on 03-21-2025 AST [Catalytic activity/Vol] 31 U/L <38 [facility] Lipid Profileon 03-21-2025 CHOL:HDL 7.86 Normal [facility] Comment on above: Performed By: #### L 500.4100, L100.0100, L500.4050, L3110.0500 #### [facility] [address] [place], [address] Cholesterol [Mass/Vol] 187 mg/dL Normal <=200 [facility] Comment on above: Result Comment: Chol esterol level, Desirable <200 mg/dL Borderline high cholesterol 200-239 mg/dL High cholesterol >=240 mg/dL Recommendations of the NCEP Adult Treatment Panel for the following risk-cutoff thresholds for the [place] population. Performed By: #### L 500.4100, L100.0100, L500.4050, L3110.0500 #### [facility] [address] [place], [address] Cholesterol in HDL [Mass/Vol] 24 mg/dL Low [facility] Comment on above: Result Comment: [place] Cholesterol Education Program (NCEP) guidelines: <40 mg/dL: Low HDL-cholesterol (major risk factor for CHD) >= 60 mg/dL: High HDL-cholesterol (negative risk factor for CHD) HDL-cholesterol is affected by a number of factors, e.g. smoking, exercise, hormones, sex and age. Performed By: #### L 500.4100, L100.0100, L500.4050, L3110.0500 #### [facility] [address] [place], [address] Cholesterol in LDL [Mass/Vol] 87 mg/dL Normal [facility] Comment on above: Result Comment: Bord ficbxy=796-006 mg/dL Higher Anxd=625 mg/dL or greater Performed By: #### L 500.4100, L100.0100, L500.4050, L3110.0500 #### [facility] [address] [place], [address] Cholesterol in VLDL [Mass/Vol] 76 mg/dL High 5-40 [facility] Comment on above: Performed By: #### L 500.4100, L100.0100, L500.4050, L3110.0500 #### [facility] [address] [place], [place], [address] Triglyceride [Mass/Vol] 380 mg/dL High [facility] Comment on above: Result Comment: The drugs N-Acetylcysteine and Metamizole may falsely depress this assay. Normal range: <150 mg/dL Borderline High: 150-199 mg/dL High: 200-499 mg/dL Very High: >500 mg/dL Performed By: #### L 500.4100, L100.0100, L500.4050, L3110.0500 #### [facility] [address] [place], [place], [address] MCV (mean corpuscular volume ) determinationOrdered By: Rosa Isela Chiu on 03-21-2025 MCV (RBC) [Entitic vol] 90.3 fL 80-[address] [facility] Mean corpuscular hemoglobin (MCH) determinationOrdered By: Rosa Isela Chiu on 03-21-2025 MCH (RBC) [Entitic mass] 32.5 pg High 27.0-32.0 [facility] Mean corpuscular hemoglobin concentration (MCHC) determinationOrdered By: Rosa Isela Chiu on 03-21-2025 MCHC (RBC) [Mass/Vol] 36.1 g/dL High 32-36 [facility] Mean platelet volume determi nationOrdered By: Rosa Isela Chiu on 03-21-2025 Platelet mean volume (Bld) [Entitic vol] 10.5 fL 6.2-12.0 [facility] Monocyte percentageOrdered B y: Rosa Isela Chiu on 03-21-2025 Monocytes/100 WBC (Bld) 6.0 % 0-[address] [facility] Neutrophil percentageOrdered By: Rosa Isela Chiu on 03-21-2025 Neutrophils/100 WBC (Bld) 56.9 % 47-70 [facility] Nucleated red blood cell per centageOrdered By: Rosa Isela Chiu on 03-21-2025 Nucleated RBC/100 WBC (Bld) [Ratio] 0 % 0-5 [facility] Platelet countOrdered By: Do ra Chiu on 03-21-2025 Platelets (Bld) [#/Vol] 220 10*3/uL 150-450 [facility] Potassium measurement (mass/ volume)Ordered By: Rosa Isela Chiu on 03-21-2025 Potassium (Unsp spec) [Mass/Vol] 3.6 mmol/L 3.3-5.1 [facility] RBC Auto (Bld) [#/Vol]Ordere d By: Rosa Isela Chiu on 03-21-2025 RBC (Bld) [#/Vol] 4.21 10*6/uL Low 4.6-6.2 [facility] Screening total cholesterol/ high density lipoprotein (HDL) cholesterol ratioOrdered By: Rosa Isela Chiu on 03-21-2025 Cholesterol.total/Choles terol in HDL [Mass ratio] 7.86 {ratio} [facility] Serum creatinine measurement (mass/volume)Ordered By: Rosa Isela Chiu on 03-21-2025 Creatinine [Mass/Vol] 0.84 mg/dL 0.70-1.20 [facility] Serum globulin measurementOr dered By: Rosa Isela Chiu on 03-21-2025 Globulin (S) [Mass/Vol] 2.9 g/dL 2.2-4.[address] [facility] Serum glucose measurement (m ass/volume)Ordered By: Rosa Isela Chiu on 03-21-2025 Glucose [Mass/Vol] 140 mg/dL High 70-99 [facility] Serum or plasma alanine henriquez otransferase (ALT) measurementOrdered By: Rosa Isela Chiu on 03-21-2025 ALT [Catalytic activity/Vol] 36 U/L <47 [facility] Serum or plasma albumin billy urement (mass/volume)Ordered By: Rosa Isela Chiu on 03-21-2025 Albumin [Mass/Vol] 4.3 g/dL 3.4-4.8 [facility] Serum or plasma albumin/glob ulin mass ratioOrdered By: Rosa Isela Chiu on 03-21-2025 Albumin/Globulin [Mass ratio] 1.5 {ratio} 0.9-2.4 [facility] Serum or plasma alkaline alana sphatase measurementOrdered By: Rosa Isela Chiu on 03-21-2025 ALP [Catalytic activity/Vol] 66 U/L 40-129 [facility] Serum or plasma calcium billy urement (mass/volume)Ordered By: Rosa Isela Chiu on 03-21-2025 Calcium [Mass/Vol] 9.1 mg/dL 7.6-11.0 [facility] Serum or plasma cholesterol in HDL measurement (mass/volume)Ordered By: Rosa Isela Chiu on 03-21-2025 Cholesterol in HDL [Mass/Vol] 24 mg/dL Low >40 [facility] Comment on above: National Cholesterol Education Program (NCEP) guidelines:<40 mg/dL: Low HDL-cholesterol (major risk factor for CHD)>= 60 mg/dL: High HDL-cholesterol (negative risk factor for CHD)HDL-cholesterol is affected by a number of factors, e.g. smoking, exercise, hormones, sex and age. Serum or plasma cholesterol measurement (mass/volume)Ordered By: Rosa Isela Chiu on 03-21-2025 Cholesterol [Mass/Vol] 187 mg/dL <201 [facility] Comment on above: Cholesterol level, D esirable <200 mg/dLBorderline high cholesterol 200-239 mg/dLHigh cholesterol >=240 mg/dLRecommendations of the NCEP Adult Treatment Panel for the following risk-cutoff thresholds for the [place] population. Serum or plasma free prostat e specific antigen (PSA)/total PSA mass ratioOrdered By: Rosa Isela Chiu on 03-21-2025 Free PSA/Total PSA [Mass fraction] 45.2 % . [facility] Comment on above: The table below list s the probability of prostate cancer formen with non-suspicious JAMIE results and total PSA between4 and 10 ng/mL, by patient age (Jessa et al, LAUREN 1998,279:1542). % Free PSA 50-64 yr 65-75 yr 0.00-10.00% 56% 55% 10.01-15.00% 24% 35% 15.01-20.00% 17% 23% 20.01-25.00% 10% 20% >25.00% 5% 9%Please note: Catalona et al did not make specific recommendations regarding the use of percent free PSA for any other population of men.Performed at: - [facility] [id number] [place], [place] [id number] Director: Vini Hernandez PhD, Phone: [phone] Serum or plasma urea nitroge n measurement (mass/volume)Ordered By: Rosa Isela Chiu on 03-21-2025 Urea nitrogen [Mass/Vol] 16 mg/dL 4-19 [facility] Sodium levelOrdered By: Rosa Isela Chiu on 03-21-2025 Sodium [Moles/Vol] 137 mmol/L 133-145 [facility] Total proteinOrdered By: Afshin Chiu on 03-21-2025 Protein [Mass/Vol] 7.2 g/dL 5.9-8.4 [facility] Triglycerides measurementOrd ered By: Rosa Isela Cihu on 03-21-2025 Triglyceride [Mass/Vol] 380 mg/dL High <[address] [facility] Comment on above: The drugs N-Acetylcy steine and Metamizole may falsely depress this assay. Normal range: <150 mg/dLBorderline High: 150-199 mg/dLHigh: 200-499 mg/dLVery High: >500 mg/dL White blood cell (WBC) count Ordered By: Rosa Isela Chiu on 03-21-2025 WBC (Bld) [#/Vol] 7.8 10*3/uL 4.4-11.0 [facility] [facility] Visit Reporton Cardiology Visit Report [facility] [address] [place] [address]. [address] [place], [place] [address] OFFICE VISIT Date of Service: 01/09/25 MR#: [id number] Acct: [id number] Name: NICOLAS OLIVA PENNY Sr. Rep #: [id number] : 1955 Provider: LI Triplett Age/Sex: 69/M Location: [place] Status: Signed HPI HPI History [...] for better Bp control. He was in [facility] for lightheadedness. He did spend the night. 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 Normal [facility] Basic metabolic 2000 panelon 12-20-2024 Anion gap [Moles/Vol] 12 mmol/L Normal 8-15 [facility] Comment on above: Order Comment: Speci men Type: BLOOD SPECIMENOrdering Facility: [facility] Address: [address] [place] [address] Performed By: #### 2 4321-2 ####ANDREWS LABORATORYCLIA [id number] [place] [address] [place] Calcium [Mass/Vol] 8.8 mg/dL Normal 8.5-10.2 [facility] Comment on above: Order Comment: Speci men Type: BLOOD SPECIMENOrdering Facility: [facility] Address: [address] [place] [address] Performed By: #### 2 4321-2 ####ANDREWS LABORATORYCLIA [id number] [place] [address] [place] Chloride [Moles/Vol] 103 mmol/L Normal 98-107 [facility] Comment on above: Order Comment: Speci men Type: BLOOD SPECIMENOrdering Facility: [facility] Address: [address] [place] [address] Performed By: #### 2 4321-2 ####ANDREWS LABORATORYCLIA [id number] [place] [address] [place] CO2 [Moles/Vol] 24 mmol/L Normal 22-30 [facility] Comment on above: Order Comment: Speci men Type: BLOOD SPECIMENOrdering Facility: [facility] Address: [address] [place] [address] Performed By: #### 2 4321-2 ####ANDREWS LABORATORYCLIA [id number] [place] [address] [place] Creatinine [Mass/Vol] 0.88 mg/dL Normal 0.73-1.22 [facility] Comment on above: Order Comment: Speci men Type: BLOOD SPECIMENOrdering Facility: [facility] Address: [address] [place] [address] Performed By: #### 2 4321-2 ####ANDREWS LABORATORYCLIA [id number] [place] [address] [place] Creatinine and Glomerular filtration rate.predicted panel (S/P/Bld) 93 mL/min/1.73m??? Normal >=60 [facility] Comment on above: Order Comment: Cody shanks Type: BLOOD SPECIMENOrdering Facility: [facility] Address: [address] [place] [address] Result Comment: Amarilys mated Glomerular Filtration Rate [...] actual GFR. Performed By: #### 2 4321-2 ####[facility] LABORATORYCLIA [id number] [place] [address] [place] Glucose [Mass/Vol] 129 mg/dL High 74-99 [facility] Comment on above: Order Comment: Cody shanks Type: BLOOD SPECIMENOrdering Facility: [facility] Address: [address] [place] [address] Result Comment: The [place] Diabetes [employer] (ADA) provides guidance for cutoff [...] Standards of Medical Care in Diabetes 2016, [place] [employer]. Diabetes Care. 2016.39(Suppl 1). Performed By: #### 2 4321-2 ####[facility]IL[facility] LABORATORYCLIA [id number] [place] [id number] [place] Potassium [Moles/Vol] 3.9 mmol/L Normal 3.7-5.1 [facility] Comment on above: Order Comment: Cody shanks Type: BLOOD SPECIMENOrdering Facility: [facility] Address: [address] [place] [id number] Performed By: #### 2 4321-2 ####[facility]IL[facility] LABORATORYCLIA [id number] [address] Sodium [Moles/Vol] 139 mmol/L Normal 136-144 [facility] Comment on above: Order Comment: Speci men Type: BLOOD SPECIMENOrdering Facility: [facility] Address: [address] [place] [address] Performed By: #### 2 4321-2 ####ANDREWS LABORATORYCLIA [id number] [address] STATES [facility] Urea nitrogen [Mass/Vol] 18 mg/dL Normal 9-24 [facility] Comment on above: Order Comment: Speci men Type: BLOOD SPECIMENOrdering Facility: [facility] Address: [address] [place] [address] Performed By: #### 2 4321-2 ####ANDREWS LABORATORYCLIA [id number] [address] CBC panel Auto (Bld)on 12-20 Erythrocyte distribution width (RBC) [Ratio] 12.0 % Normal 11.5-15.0 [facility] Comment on above: Order Comment: Speci men Type: BLOOD SPECIMENOrdering Facility: [facility] Address: [address] [place] [address] Performed By: #### 5 8410-2 ####ANDREWS LABORATORYCLIA [id number] [address] [place] Hematocrit (Bld) [Volume fraction] 35.4 % Low 39.0-51.0 [facility] Comment on above: Order Comment: Speci men Type: BLOOD SPECIMENOrdering Facility: [facility] Address: [address] [place] [address] Performed By: #### 5 8410-2 ####ANDREWS LABORATORYCLIA [id number] [address] Hemoglobin (Bld) [Mass/Vol] 12.6 g/dL Low 13.0-17.0 [facility] Comment on above: Order Comment: Speci men Type: BLOOD SPECIMENOrdering Facility: [facility] Address: [address] [place] [address] Performed By: #### 5 8410-2 ####ANDREWS LABORATORYCLIA [id number] [address] MCH (RBC) [Entitic mass] 32.3 pg Normal 26.0-34.0 [facility] Comment on above: Order Comment: Speci men Type: BLOOD SPECIMENOrdering Facility: [facility] Address: [address] [place] [address] Performed By: #### 5 8410-2 ####ANDREWS LABORATORYCLIA [id number] [address] MCHC (RBC) [Mass/Vol] 35.6 g/dL Normal 30.5-36.0 [facility] Comment on above: Order Comment: Speci men Type: BLOOD SPECIMENOrdering Facility: [facility] Address: [address] [place] [address] Performed By: #### 5 8410-2 ####ANDREWS LABORATORYCLIA [id number] [address] MCV (RBC) [Entitic vol] 90.8 fL Normal 80.0-100.0 [facility] Comment on above: Order Comment: Speci men Type: BLOOD SPECIMENOrdering Facility: [facility] Address: [address] [place] [address] Performed By: #### 5 8410-2 ####ANDREWS LABORATORYCLIA [id number] [address] Nucleated RBC (Bld) [#/Vol] 10*3/uL Normal <0.01 [facility] Comment on above: Order Comment: Speci men Type: BLOOD SPECIMENOrdering Facility: [facility] Address: [address] [place] [address] Performed By: #### 5 8410-2 ####ANDREWS LABORATORYCLIA [id number] [address] Platelet mean volume (Bld) [Entitic vol] 9.8 fL Normal 9.0-12.7 [facility] Comment on above: Order Comment: Speci men Type: BLOOD SPECIMENOrdering Facility: [facility] Address: [address] [place] [address] Performed By: #### 5 8410-2 ####ANDREWS LABORATORYCLIA [id number] [place] [address] [facility] [place] Platelets (Bld) [#/Vol] 200 10*3/uL Normal 150-400 [facility] Comment on above: Order Comment: Speci men Type: BLOOD SPECIMENOrdering Facility: [facility] Address: [address] [place] [address] Performed By: #### 5 8410-2 ####ANDREWS LABORATORYCLIA [id number] [place] [id number] [facility] [place] RBC (Bld) [#/Vol] 3.90 10*6/uL Low 4.20-6.[address] [facility] Comment on above: Order Comment: Speci men Type: BLOOD SPECIMENOrdering Facility: [facility] Address: [address] [place] [address] Performed By: #### 5 8410-2 ####[facility]IL[facility] LABORATORYCLIA [id number] [place] [id number] [facility] WBC (Bld) [#/Vol] 6.76 10*3/uL Normal 3.70-11.[address] [facility] Comment on above: Order Comment: Speci men Type: BLOOD SPECIMENOrdering Facility: [facility] Address: [address] [place] [address] Performed By: #### 5 8410-2 ####SE[facility]IL[facility] LABORATORYCLIA [id number] [place] [id number] [facility] CNCOon 12-20-2024 CNCO Letter Text Normal [facility] CNDSon 12-20-2024 CNDS HNO ID: [id number] Author: ELIANA COOPER MD Service: General Internal Medicine Author Type: Physician Type: Discharge Summary Filed: 12/20/2024 23:44 Note Text: [facility] STAFF PHYSICIAN NOTE OF PERSONAL INVOLVEMENT IN [...] MD Primary Care Provider: Rosa Isela Chiu APRN.STAMP MAKER My Medical Team Members: Treatment Team: Attending [...] Please follow up with your PCP or processing tech regarding this. You have been advised to [...] call for appointment?: Yes Rosa Isela Chiu, [facility] [phone] [address] [place] [id number] PCP Requested Referral Additional Provider to Provider [...] Please follow up with your PCP or processing tech regarding this. You have been advised to space out your blo (more content not included)... Normal [facility] HISTORY PHYSICALon HISTORY PHYSICAL HNO ID: [id number] Author: ELIANA COOPER MD Service: General Internal Medicine Author Type: Physician Type: H&P Filed: 12/20/2024 13:01 Note Text: [facility] STAFF PHYSICIAN NOTE OF PERSONAL INVOLVEMENT IN [...] counseling and/or coordinating care for the patient. Vqyo-tu-atsa time was 35 minutes SIGNATURE: Eliana Cooper MD DATE of SERVICE: December 20, 2024 TIME of SERVICE: 1:00 PM History and Physical Examination SERVICE DATE: 12/19/2024 SERVICE TIME: 1700 PCP: Rosa Isela Chiu APRN.STAMP MAKER PRIMARY ATTENDING: Sanjuanita John DO Subjective CHIEF COMPLAINT: Dizziness (Pt states dizziness while standing today at a work site/ denies SOB, CP or n/v/d) HPI: Patient is a 69 year old male with PMHx of HTN, COPD, and HLD. He presents to [facility] with dizziness. He states he was at work, and got so dizzy he had to sit down or else he felt he was going to pass out or fall. He did neither. He has never had this happened to him before. He states his processing tech has been adjusting his bp meds, and [...] stenosis, neck arteries are normal Elevated troponins 42/33/33 (chronic)- last stress test 08/2022 Dr. Ivette [...] others. ALLERGIES Allergen Reactions Flu Vac Qs (* Intolerance Hs continu cold year afterrwards Prior [...] DATE OF EXAM: Dec 19 2024 12:35PM [facility] [place] [place] CT BRAIN WO IVCON / PROCEDURE REASON: Focal neuro de (more content not included)... [facility] NURSING PROGon 12-20-2024 NURSING PROG HNO ID: [id number] Author: PEG CROFT RN Service: Nursing Author Type: Registered Nurse Type: Nursing Progress Note Filed: 12/20/2024 15:33 Note Text: Other: 1220 Dr. Cooper here with bedside rounding done with updated on labs AND vitals7 ortho. B/P.'s. 1520 [facility] HNO ID: [id number] Author: ROBERTO CARLOS GARCIA CT Service: Radiology Author Type: Supervisor Inspection And Testing Type: [facility] Filed: 12/19/2024 20:07 Note Text: Radiology Service [...] PATIENT PRESENTS WITH AN IMPLANTABLE OR ATTACHED STONE CARVER: No RADIOLOGY DEPARTMENT: MR; Exam(s) Completed: Head: Routine Brain PERIPHERAL IV DATA: Not applicable SIGNED BY: RED Ware December 19, 2024 8:07 PM [facility] HNO ID: [id number] Author: OPHELIA KIRK RT(R) Service: Radiology Author Type: Technologist Type: [facility] Filed: 12/19/2024 12:29 Note Text: Radiology Service [...] PATIENT PRESENTS WITH AN IMPLANTABLE OR ATTACHED STONE CARVER: No RADIOLOGY DEPARTMENT: CT; Exam(s) Completed: Brain , CTA Brain , and CTA Neck PERIPHERAL IV DATA: Not applicable SIGNED BY: Ophelia Kirk RT(R) December 19, 2024 12:29 PM Normal [facility] CBC W Auto Differential pane l (Bld)on 12-19-2024 Basophils (Bld) [#/Vol] 0.05 10*3/uL Normal <0.11 [facility] Comment on above: Order Comment: Speci men Type: BLOOD SPECIMENOrdering Facility: [facility] Address: [address] [place] [address] Performed By: #### 5 7021-8 ####ANDREWS LABORATORYCLIA [id number] [place] [address] [place] Basophils/100 WBC (Bld) 0.7 % Normal [facility] Comment on above: Order Comment: Speci men Type: BLOOD SPECIMENOrdering Facility: [facility] Address: [address] [place] [address] Performed By: #### 5 7021-8 ####ANDREWS LABORATORYCLIA [id number] [address] [place] Differential cell count method Nom (Bld) Auto Normal [facility] Comment on above: Order Comment: Speci men Type: BLOOD SPECIMENOrdering Facility: [facility] Address: [address] [place] [address] Performed By: #### 5 7021-8 ####ANDREWS LABORATORYCLIA [id number] [place] [address] [place] Eosinophils (Bld) [#/Vol] 0.46 10*3/uL High <0.46 [facility] Comment on above: Order Comment: Speci men Type: BLOOD SPECIMENOrdering Facility: [facility] Address: [address] [place] [address] Performed By: #### 5 7021-8 ####ANDREWS LABORATORYCLIA [id number] [place] [address] [place] Eosinophils/100 WBC (Bld) 6.1 % Normal [facility] Comment on above: Order Comment: Speci men Type: BLOOD SPECIMENOrdering Facility: [facility] Address: [address] [place] [address] Performed By: #### 5 7021-8 ####ANDREWS LABORATORYCLIA [id number] [address] [place] Erythrocyte distribution width (RBC) [Ratio] 12.1 % Normal 11.5-15.0 [facility] Comment on above: Order Comment: Speci men Type: BLOOD SPECIMENOrdering Facility: [facility] Address: [address] [place] [address] Performed By: #### 5 7021-8 ####ANDREWS LABORATORYCLIA [id number] [address] [place] Hematocrit (Bld) [Volume fraction] 36.9 % Low 39.0-51.0 [facility] Comment on above: Order Comment: Speci men Type: BLOOD SPECIMENOrdering Facility: [facility] Address: [address] [place] [address] Performed By: #### 5 7021-8 ####ANDREWS LABORATORYCLIA [id number] [place] [address] [place] Hemoglobin (Bld) [Mass/Vol] 13.0 g/dL Normal 13.0-17.0 [facility] Comment on above: Order Comment: Speci men Type: BLOOD SPECIMENOrdering Facility: [facility] Address: [address] [place] [address] Performed By: #### 5 7021-8 ####ANDREWS LABORATORYCLIA [id number] [place] [address] [place] Immature granulocytes (Bld) [#/Vol] 10*3/uL Normal <0.10 [facility] Comment on above: Order Comment: Speci men Type: BLOOD SPECIMENOrdering Facility: [facility] Address: [address] [place] [address] Performed By: #### 5 7021-8 ####ANDREWS LABORATORYCLIA [id number] [address] Immature granulocytes/100 WBC (Bld) 0.3 % Normal [facility] Comment on above: Order Comment: Speci men Type: BLOOD SPECIMENOrdering Facility: [facility] Address: [address] [place] [address] Performed By: #### 5 7021-8 ####ANDREWS LABORATORYCLIA [id number] [address] Lymphocytes (Bld) [#/Vol] 1.93 10*3/uL Normal 1.00-4.00 [facility] Comment on above: Order Comment: Speci men Type: BLOOD SPECIMENOrdering Facility: [facility] Address: [address] [place] [address] Performed By: #### 5 7021-8 ####ANDREWS LABORATORYCLIA [id number] [address] Lymphocytes/100 WBC (Bld) 25.6 % Normal [facility] Comment on above: Order Comment: Speci men Type: BLOOD SPECIMENOrdering Facility: [facility] Address: [address] [place] [address] Performed By: #### 5 7021-8 ####ANDREWS LABORATORYCLIA [id number] [address] [place] [facility] MCH (RBC) [Entitic mass] 32.1 pg Normal 26.0-34.0 [facility] Comment on above: Order Comment: Speci men Type: BLOOD SPECIMENOrdering Facility: [facility] Address: [address] [place] [address] Performed By: #### 5 7021-8 ####ANDREWS LABORATORYCLIA [id number] [address] MCHC (RBC) [Mass/Vol] 35.2 g/dL Normal 30.5-36.0 [facility] Comment on above: Order Comment: Speci men Type: BLOOD SPECIMENOrdering Facility: [facility] Address: [address] [place] [address] Performed By: #### 5 7021-8 ####ANDREWS LABORATORYCLIA [id number] [place] [address] [place] MCV (RBC) [Entitic vol] 91.1 fL Normal 80.0-100.0 [facility] Comment on above: Order Comment: Speci men Type: BLOOD SPECIMENOrdering Facility: [facility] Address: [address] [place] [address] Performed By: #### 5 7021-8 ####ANDREWS LABORATORYCLIA [id number] [place] [address] [place] Monocytes (Bld) [#/Vol] 0.62 10*3/uL Normal <0.87 [facility] Comment on above: Order Comment: Speci men Type: BLOOD SPECIMENOrdering Facility: [facility] Address: [address] [place] [address] Performed By: #### 5 7021-8 ####ANDREWS LABORATORYCLIA [id number] [address] [place] Monocytes/100 WBC (Bld) 8.2 % Normal [facility] Comment on above: Order Comment: Speci men Type: BLOOD SPECIMENOrdering Facility: [facility] Address: [address] [place] [address] Performed By: #### 5 7021-8 ####ANDREWS LABORATORYCLIA [id number] [place] [address] [place] Neutrophils (Bld) [#/Vol] 4.45 10*3/uL Normal 1.45-7.50 [facility] Comment on above: Order Comment: Speci men Type: BLOOD SPECIMENOrdering Facility: [facility] Address: [address] [place] [address] Performed By: #### 5 7021-8 ####ANDREWS LABORATORYCLIA [id number] [place] [address] [place] Neutrophils/100 WBC (Bld) 59.1 % Normal [facility] Comment on above: Order Comment: Speci men Type: BLOOD SPECIMENOrdering Facility: [facility] Address: [address] [place] [address] Performed By: #### 5 7021-8 ####ANDREWS LABORATORYCLIA [id number] [place] [address] [place] Nucleated RBC (Bld) [#/Vol] 10*3/uL Normal <0.01 [facility] Comment on above: Order Comment: Speci men Type: BLOOD SPECIMENOrdering Facility: [facility] Address: [address] [place] [address] Performed By: #### 5 7021-8 ####ANDREWS LABORATORYCLIA [id number] [place] [address] [place] Nucleated RBC/100 WBC (Bld) [Ratio] 0.0 /100 WBC Normal [facility] Comment on above: Order Comment: Speci men Type: BLOOD SPECIMENOrdering Facility: [facility] Address: [address] [place] [address] Performed By: #### 5 7021-8 ####ANDREWS LABORATORYCLIA [id number] [place] [address] [place] Platelet mean volume (Bld) [Entitic vol] 10.1 fL Normal 9.0-12.7 [facility] Comment on above: Order Comment: Speci men Type: BLOOD SPECIMENOrdering Facility: [facility] Address: [address] [place] [address] Performed By: #### 5 7021-8 ####ANDREWS LABORATORYCLIA [id number] [place] [address] [place] Platelets (Bld) [#/Vol] 211 10*3/uL Normal 150-400 [facility] Comment on above: Order Comment: Speci men Type: BLOOD SPECIMENOrdering Facility: [facility] Address: [address] [place] [address] Performed By: #### 5 7021-8 ####ANDREWS LABORATORYCLIA [id number] [place] [address] [place] RBC (Bld) [#/Vol] 4.05 10*6/uL Low 4.20-6.[address] [facility] Comment on above: Order Comment: Speci men Type: BLOOD SPECIMENOrdering Facility: [facility] Address: [address] [place] [address] Performed By: #### 5 7021-8 ####ANDREWS LABORATORYCLIA [id number] [place] [address] [place] WBC (Bld) [#/Vol] 7.53 10*3/uL Normal 3.70-11.[address] 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 Both pulverizer tender are normal in course. There is normal contrast opacification of the dural venous sinuses. The right transverse and sigmoid sinus are dominant. Flow Specialist (topogram) images: Unremarkable. IMPRESSION: BRAIN: Normal noncontrast CT brain. CTA HEAD: 1. 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 2. Otherwise normal intracranial CTA. CTA NECK: Normal CTA of the neck arteries. Arterial blood flow was measured to detect acute large vessel occlusion by computer aided detection software: Not Performed. Concordance between software and imaging review: Not Applicable. Finance Director: ABILIO Transcribe Date/Time: Dec 19 2024 12:43P Dictated by : ANNA BUTTERFIELD MD This examination was interpreted and the report reviewed and electronically signed by: ANNA BUTTERFIELD MD on Dec 19 2024 12:50PM EST [id number] [facility] CTA HEAD W IVCONon CTA HEAD W IVCON * * *Final Report* * * DATE OF EXAM: Dec 19 2024 12:35PM [facility] [place]22 - CTA HEAD W IVCON / [...] is a type origin of the right UI UX WEB DEVELOPER. Both pulverizer tender are normal in course. There is normal contrast opacification of the dural venous sinuses. The right transverse and sigmoid sinus are dominant. Flow Specialist (topogram) images: Unremarkable. IMPRESSION: BRAIN: Normal noncontrast CT brain. CTA HEAD: 1. 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 2. Otherwise normal intracranial CTA. CTA NECK: Normal CTA of the neck arteries. Arterial blood flow was measured to detect acute large vessel occlusion by computer aided detection software: Not Performed. Concordance between software and imaging review: Not Applicable. 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 Both pulverizer tender are normal in course. There is normal contrast opacification of the dural venous sinuses. The right transverse and sigmoid sinus are dominant. Flow Specialist (topogram) images: Unremarkable. IMPRESSION: BRAIN: Normal noncontrast CT brain. CTA HEAD: 1. 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 2. Otherwise normal intracranial CTA. CTA NECK: Normal CTA of the neck arteries. Arterial blood flow was measured to detect acute large vessel occlusion by computer aided detection software: Not Performed. Concordance between software and imaging review: Not Applicable. Finance Director: ABILIO Transcribe Date/Time: Dec 19 2024 12:43P Dictated by : ANNA BUTTERFIELD MD This examination was interpreted and the report reviewed and electronically signed by: ANNA BUTTERFIELD MD on Dec 19 2024 12:50PM EST [id number] N Normal [facility] Comprehensive metabolic 2000 panelon 12-19-2024 Albumin [Mass/Vol] 4.1 g/dL Normal 3.9-4.9 [facility] Comment on above: Order Comment: Speci men Type: BLOOD SPECIMENOrdering Facility: [facility] Address: [address] [place] [address] Performed By: #### 3 3762-6, 65132-9, 58297-1, [id number] ####[facility] LABORATORYCLIA [id number] [place] [address] [place] ALP [Catalytic activity/Vol] 64 U/L Normal 38-113 [facility] Comment on above: Order Comment: Speci men Type: BLOOD SPECIMENOrdering Facility: [facility] Address: [address] [place] [address] Performed By: #### 3 3762-6, 22850-5, 46590-7, [id number] ####[facility] LABORATORYCLIA [id number] [place] [address] [place] ALT [Catalytic activity/Vol] 34 U/L Normal 10-54 [facility] Comment on above: Order Comment: Speci men Type: BLOOD SPECIMENOrdering Facility: [facility] Address: [address] [place] [address] Performed By: #### 3 3762-6, 47478-9, 22778-6, [id number] ####[facility] LABORATORYCLIA [id number] [place] [address] [place] Anion gap [Moles/Vol] 12 mmol/L Normal 8-15 [facility] Comment on above: Order Comment: Speci men Type: BLOOD SPECIMENOrdering Facility: [facility] Address: [facility] [place] [id number] Performed By: #### 3 3762-6, 33952-3, 31175-3, [id number] ####[facility] LABORATORYCLIA [id number] [place] [address] [place] AST [Catalytic activity/Vol] 28 U/L Normal 14-40 [facility] Comment on above: Order Comment: Speci men Type: BLOOD SPECIMENOrdering Facility: [facility] Address: [facility] [place] [address] Performed By: #### 3 3762-6, 36121-9, 48187-0, [id number] ####AND[facility] LABORATORYCLIA [id number] [place] [address] [place] Bilirubin [Mass/Vol] 0.5 mg/dL Normal 0.2-1.3 [facility] Comment on above: Order Comment: Speci men Type: BLOOD SPECIMENOrdering Facility: [facility] Address: [address] [place] [address] Performed By: #### 3 3762-6, 46789-4, 39195-7, [id number] ####[facility] LABORATORYCLIA [id number] [place] [address] [place] Calcium [Mass/Vol] 9.5 mg/dL Normal 8.5-10.2 [facility] Comment on above: Order Comment: Speci men Type: BLOOD SPECIMENOrdering Facility: [facility] Address: [address] [place] [id number] Performed By: #### 3 3762-6, 81063-6, 86601-4, [id number] ####ANDREWS LABORATORYCLIA [id number] [place] [address] [place] Chloride [Moles/Vol] 101 mmol/L Normal 98-107 [facility] Comment on above: Order Comment: Cody shanks Type: BLOOD SPECIMENOrdering Facility: [facility] Address: [address] [place] [address] Performed By: #### 3 3762-6, 60640-2, , [id number] ####[facility]ORATORYCLIA [id number] [place] [address] [place] CO2 [Moles/Vol] 25 mmol/L Normal 22-30 [facility] Comment on above: Order Comment: Cody shanks Type: BLOOD SPECIMENOrdering Facility: [facility] Address: [address] [place] [address] Performed By: #### 3 3762-6, 34686-8, , [id number] ####[facility] LABORATORYCLIA [id number] [place] [id number] [place] Creatinine [Mass/Vol] 0.97 mg/dL Normal 0.73-1.22 [facility] Comment on above: Order Comment: Cody shanks Type: BLOOD SPECIMENOrdering Facility: [facility] Address: [address] [place] [address] Performed By: #### 3 3762-6, 31761-7, , [id number] ####[facility] LABORATORYCLIA [id number] [place] [address] [place] Creatinine and Glomerular filtration rate.predicted panel (S/P/Bld) 84 mL/min/1.73m??? Normal >=60 [facility] Comment on above: Order Comment: Cody shanks Type: BLOOD SPECIMENOrdering Facility: [facility] Address: [address] [place] [address] Result Comment: Amarilys mated Glomerular Filtration Rate [...] actual GFR. Performed By: #### 3 3762-6, 12125-6, , [id number] ####ANDREWS LABORATORYCLIA [id number] [place] [address] [place] Glucose [Mass/Vol] 111 mg/dL High 74-99 [facility] Comment on above: Order Comment: Cody shanks Type: BLOOD SPECIMENOrdering Facility: [facility] Address: [address] [place] [address] Result Comment: The [place] [employer] (ADA) provides guidance for cutoff [...] Standards of Medical Care in Diabetes 2016, [place] [employer]. Diabetes Care. 2016.39(Suppl 1). Performed By: #### 3 3762-6, 44183-8, , [id number] ####[facility] LABORATORYCLIA [id number] [place] [address] [place] Potassium [Moles/Vol] 4.3 mmol/L Normal 3.7-5.1 [facility] Comment on above: Order Comment: Cody shanks Type: BLOOD SPECIMENOrdering Facility: [facility] Address: [address] [place] [id number] Performed By: #### 3 3762-6, 84662-7, , [id number] ####[facility]REWS LABORATORYCLIA [id number] [place] [address] [place] Protein [Mass/Vol] 6.9 g/dL Normal 6.3-8.0 [facility] Comment on above: Order Comment: Cody shanks Type: BLOOD SPECIMENOrdering Facility: [facility] Address: [address] [place] [address] Performed By: #### 3 3762-6, 39363-8, 07440-4, [id number] ####ANDREWS LABORATORYCLIA [id number] [place] [address] [facility] Sodium [Moles/Vol] 138 mmol/L Normal 136-144 [facility] Comment on above: Order Comment: Speci men Type: BLOOD SPECIMENOrdering Facility: [facility] Address: [address] [place] [address] [place] [id number] Performed By: #### 3 3762-6, 49392-5, 49351-5, [id number] ####ANDREWS LABORATORYCLIA [id number] [place] [id number] [place] Urea nitrogen [Mass/Vol] 20 mg/dL Normal 9-24 [facility] Comment on above: Order Comment: Speci men Type: BLOOD SPECIMENOrdering Facility: [facility] Address: [address] [place], [place] [address] [address] Performed By: #### 3 3762-6, 56940-9, 42378-2, [id number] ####ANDRE[facility] LABORATORYCLIA [id number] [address] ECG COMPLETEon 12-19-2024 ECG COMPLETE Ventricular Rate : 5 5 BPM Atrial Rate : 55 BPM P-R Interval : 166 ms QRS Duration : 106 ms Q-T Interval : 456 ms QTC Calculation(Bazett) : 436 ms Calculated P [place] : 27 degrees Calculated R [place] : -29 degrees Calculated T [place] : 35 degrees SINUS BRADYCARDIA CANNOT RULE OUT ANTERIOR INFARCT , AGE UNDETERMINED ABNORMAL ECG NO STEMI Confirmed by SANJUANITA WILDER DO ([id number]) on 12/26/2024 6:33:09 PM NAME : NICOLAS OLIVA PID : [id number] : 1955 Gender : Male Race : ORD : [id number] Procedure Date : Dec 19 2024 11:04:37 Edit Date : Dec 26 2024 18:33:10 Diagnosis: SINUS BRADYCARDIA CANNOT RULE OUT ANTERIOR INFARCT , AGE UNDETERMINED ABNORMAL ECG NO STEMI Confirmed by SANJUANITA WILDER DO ([id number]) on 12/26/2024 6:33:09 PM Test Reason : Chest Pain Location : 1 : ER ED Overread By : SANJUANITA WILDER DO Edited By : SANJUANITA WILDER DO Referred By : , Acquired by : [id number], [facility] ED NOTEon 12-19-2024 ED NOTE HNO ID: [id number] Author: JERI BOOTH, RN Service: ? Author Type: Registered Nurse Type: ED Notes Filed: 12/19/2024 17:34 Note Text: 4 S charge nurse informed of hand off report placed [facility] ED NOTE HNO ID: [id number] Author: JERI BOOTH, RN Service: ? Author Type: Registered Nurse Type: ED Notes Filed: 12/19/2024 12:37 Note Text: Pt returned from [facility] ED NOTE HNO ID: [id number] Author: JERI BOOTH, RN Service: ? Author Type: Registered Nurse Type: ED Notes Filed: 12/19/2024 12:32 Note Text: Pt in [facility] ED NOTE HNO ID: [id number] Author: JERI BOOTH, RN Service: ? Author Type: Registered Nurse Type: ED Notes Filed: 12/19/2024 11:30 Note Text: Pt states room spinning when sitting and standing for orthostatics - Dr. Wilder informed [facility] ED NOTE HNO ID: [id number] Author: PEG JONES, RAINA Service: ? Author Type: Registered Nurse Type: ED Notes Filed: 12/19/2024 10:51 Note Text: Bed: ED-03 Expected date: 12/19/24 Expected time: Means of arrival: Comments: [facility] ED PROV NOTEon 12-19-2024 ED PROV NOTE HNO ID: [id number] Author: SANJUANITA WILDER DO Service: Emergency Medicine [...] hypertension presenting to the ER today with lightheadedness/dizzi ness after he stood up at work. He [...] file ALLERGIES Allergen Reactions Flu Vac Qs (* Intolerance Hs continu cold year afterrwards Review [...] By, (c) = Cosigned By Initials Name Sanjuanita Jeong, DO Diagnostic Testing ED Labs Ordered and [...] High Sensi (more content not included)... Normal [facility] HIGH SENSITIVITY TROPONIN T (INITIAL)on 12-19-2024 Troponin T.cardiac High sensitivity method [Mass/Vol] 42 ng/L High <12 [facility] Comment on above: Order Comment: Speci men Type: BLOOD SPECIMENOrdering Facility: [facility] Address: [address] [place] [address] Performed By: #### 3 3762-6, 90308-7, 11818-0, [id number] ####[facility] LABORATORYCLIA [id number] [address] HIGH SENSITIVITY TROPONIN T (SECOND)on 12-19-2024 Troponin T.cardiac High sensitivity method [Mass/Vol] 33 ng/L High <12 [facility] Comment on above: Order Comment: Speci men Type: BLOOD SPECIMENOrdering Facility: [facility] Address: [address] [place] [address] Performed By: #### L [id number] ####[facility] LABORATORYCLIA [id number] [address] HIGH SENSITIVITY TROPONIN T (THIRD) 3 HRS AFTER INITIALon 12-19-2024 Troponin T.cardiac High sensitivity method [Mass/Vol] 33 ng/L High <[address] [place] [address] Comment on above: Order Comment: Speci men Type: BLOOD SPECIMENOrdering Facility: [facility] Address: [address] [place] [address] Performed By: #### L [id number] ####[facility] LABORATORYCLIA [id number] [address] MRI BRAIN WO IVCONon 025 MRI BRAIN WO IVCON * * *Final Report* * * DATE OF EXAM: Dec 19 2024 8:14PM [facility] 0294 - MRI BRAIN WO IVCON / [...] no acute infarct. Chronic changes, as detailed. Finance Director: ABILIO Transcribe Date/Time: Dec 19 2024 8:21P Dictated by : JILLIAN SALINAS MD This examination was interpreted and the report reviewed and electronically signed by: JILLIAN SALINAS MD on Dec 19 2024 8:24PM EST [id number] N Normal [facility] Magnesium SerPl-mCncon 12-19 Magnesium [Mass/Vol] 2.2 mg/dL Normal 1.7-2.3 [facility] Comment on above: Order Comment: Speci men Type: BLOOD SPECIMENOrdering Facility: [facility] Address: [address] [place] [address] Performed By: #### 3 3762-6, 64500-6, 15050-2, [id number] ####[facility] LABORATORYCLIA [id number] [address] NT-proBNP [facility]-19 Natriuretic peptide.B prohormone N-Terminal [Mass/Vol] 70 pg/mL Normal <125 [facility] Comment on above: Order Comment: Speci men Type: BLOOD SPECIMENOrdering Facility: [facility] Address: [address] [place] [address] Performed By: #### 3 3762-6, 12675-6, 26393-8, [id number] ####[facility] LABORATORYCLIA [id number] [place] [address] [facility] Cardiology Visit Reporton Cardiology Visit Report [facility] [address] [place] [address] OFFICE VISIT Date of Service: 12/05/24 MR#: [id number] Acct: [id number] Name: NICOLAS OLIVA . Rep #: [id number] : 1955 Provider: LI Triplett Age/Sex: 69/M Location: [place] Status: Signed HPI HPI History [...] well. He does not have any chest discomfort/heaviness/ tightness. 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 Normal [facility] Cardiology Visit Reporton Cardiology Visit Report [facility] [address] [place] [address] OFFICE VISIT Date of Service: 10/22/24 MR#: [id number] Acct: [id number] Name: NICOLAS OLIVA PENNY . Rep #: [id number] : 1955 Provider: IL Triplett Age/Sex: 69/M Location: [place] Status: Signed HPI HPI History [...] well. He does not have any chest discomfort/heaviness/ tightness. His exercise tolerance is stable for his [...] 96 Intake Visit Reasons: 6 W FU Manager Pipeline Required: No Is patient in pain?: No [...] Mouth: moist (more content not included)... Normal [facility] ALLIED HEALTHon 09-19-2024 ALLIED HEALTH HNO ID: [id number] Author: TAYLA ORANTES RT(R) Service: ? Author [...] PATIENT PRESENTS WITH AN IMPLANTABLE OR ATTACHED STONE CARVER: No RADIOLOGY DEPARTMENT: General X-ray: Exam(s) Completed: Chest X-Ray PERIPHERAL IV DATA: Not applicable SIGNED BY: Tayla Orantes RT(R) September 19, 2024 6:[address] [facility] Basic metabolic 2000 panelon 09-19-2024 Anion gap [Moles/Vol] 10 mmol/L Normal 8-15 [facility] Comment on above: Order Comment: Speci men Type: BLOOD SPECIMEN [facility] Address: [address] [place] [address] Performed By: #### 2 4321-2 #### [facility] CLIA [id number] [address] [place] [address] [place] Calcium [Mass/Vol] 9.1 mg/dL Normal 8.5-10.2 [facility] Comment on above: Order Comment: Speci men Type: BLOOD SPECIMEN [facility] Address: [address] [place] [address] Performed By: #### 2 4321-2 #### [facility] CLIA [id number] [address] [place] [address] [place] Chloride [Moles/Vol] 101 mmol/L Normal 98-107 [facility] Comment on above: Order Comment: Speci men Type: BLOOD SPECIMEN [facility] Address: [address] [place] [address] Performed By: #### 2 4321-2 #### [facility] CLIA [id number] [address] [place] [address] [place] CO2 [Moles/Vol] 26 mmol/L Normal 22-30 [facility] Comment on above: Order Comment: Speci men Type: BLOOD SPECIMEN [facility] Address: [address] [place] [address] Performed By: #### 2 4321-2 #### [facility] CLIA [id number] [address] [place] [address] [place] Creatinine [Mass/Vol] 1.08 mg/dL Normal 0.73-1.22 [facility] Comment on above: Order Comment: Cody shanks Type: BLOOD SPECIMEN [facility] Address: [address] [place] [address] Performed By: #### 2 4321-2 #### [facility] CLIA [id number] [address] [place] [address] [place] Creatinine and Glomerular filtration rate.predicted panel (S/P/Bld) 74 mL/min/1.73m??? Normal >=60 [facility] Comment on above: Order Comment: Cody shanks Type: BLOOD SPECIMEN [facility] Address: [address] [place] [address] Result Comment: Amarilys mated Glomerular Filtration Rate [...] GFR. Performed By: #### 2 4321-2 #### [facility] CLIA [id number] [address] [place] [id number] [place] Glucose [Mass/Vol] 151 mg/dL High 74-99 [facility] Comment on above: Order Comment: Cody shanks Type: BLOOD SPECIMEN [facility] Address: [address] [place] [address] Result Comment: The [place] Diabetes [employer] (ADA) provides guidance for cutoff [...] Standards of Medical Care in Diabetes 2016, [place] [employer]. Diabetes Care. 2016.39(Suppl 1). Performed By: #### 2 4321-2 #### [facility] CLIA [id number] [address] [place] [address] [place] Potassium [Moles/Vol] 3.8 mmol/L Normal 3.7-5.1 [facility] Comment on above: Order Comment: Speci men Type: BLOOD SPECIMEN [facility] Address: [address] [place] [address] Performed By: #### 2 4321-2 #### [facility] CLIA [id number] [address] [place] [address] [place] Sodium [Moles/Vol] 137 mmol/L Normal 136-144 [facility] Comment on above: Order Comment: Speci men Type: BLOOD SPECIMEN [facility] Address: [address] [place] [address] Performed By: #### 2 4321-2 #### [facility] CLIA [id number] [address] [place] [address] [place] [facility] Urea nitrogen [Mass/Vol] 16 mg/dL Normal 9-24 [facility] Comment on above: Order Comment: Speci men Type: BLOOD SPECIMEN [facility] Address: [address] [place] [address] Performed By: #### 2 4321-2 #### [facility] CLIA [id number] [address] [place] [address] [place] CBC W Auto Differential pane l (Bld)on 09-19-2024 Basophils (Bld) [#/Vol] 0.04 10*3/uL Normal <0.11 [facility] Comment on above: Order Comment: Speci men Type: BLOOD SPECIMEN [facility] Address: [address] [place] [address] Performed By: #### 5 7021-8 #### [facility] CLIA [id number] [address] OF [facility] Basophils/100 WBC (Bld) 0.7 % Normal A [facility] Comment on above: Order Comment: Speci men Type: BLOOD SPECIMEN [facility] Address: [address] [place] [address] Performed By: #### 5 7021-8 #### [facility] CLIA [id number] [address] [place] [address] [facility] [place] Differential cell count method Nom (Bld) Auto Normal [facility] Comment on above: Order Comment: Speci men Type: BLOOD SPECIMEN [facility] Address: [address] [place] [address] Performed By: #### 5 7021-8 #### [facility] CLIA [id number] [address] [place] [address] [facility] [place] Eosinophils (Bld) [#/Vol] 0.33 10*3/uL Normal <0.46 [facility] Comment on above: Order Comment: Speci men Type: BLOOD SPECIMEN [facility] Address: [address] [place] [address] Performed By: #### 5 7021-8 #### [facility] CLIA [id number] [address] Eosinophils/100 WBC (Bld) 5.5 % Normal [facility] Comment on above: Order Comment: Speci men Type: BLOOD SPECIMEN [facility] Address: [address] [place] [address] Performed By: #### 5 7021-8 #### [facility] CLIA [id number] [address] [place] [address] [facility] [place] Erythrocyte distribution width (RBC) [Ratio] 12.1 % Normal 11.5-15.0 [facility] Comment on above: Order Comment: Speci men Type: BLOOD SPECIMEN [facility] Address: [address] [place] [address] Performed By: #### 5 7021-8 #### [facility] CLIA [id number] [address] [place] [address] [facility] Hematocrit (Bld) [Volume fraction] 42.3 % Normal 39.0-51.0 [facility] Comment on above: Order Comment: Speci men Type: BLOOD SPECIMEN [facility] Address: [address] [place] [address] Performed By: #### 5 7021-8 #### [facility] CLIA [id number] [address] [place] [address] [place] Hemoglobin (Bld) [Mass/Vol] 14.7 g/dL Normal 13.0-17.0 [facility] Comment on above: Order Comment: Speci men Type: BLOOD SPECIMEN [facility] Address: [address] [place] [address] Performed By: #### 5 7021-8 #### [facility] CLIA [id number] [address] [place] [address] [place] Immature granulocytes (Bld) [#/Vol] 10*3/uL Normal <0.10 [facility] Comment on above: Order Comment: Speci men Type: BLOOD SPECIMEN [facility] Address: [address] [place] [address] Performed By: #### 5 7021-8 #### [facility] CLIA [id number] [address] [place] [address] [place] Immature granulocytes/100 WBC (Bld) 0.2 % Normal [facility] Comment on above: Order Comment: Speci men Type: BLOOD SPECIMEN [facility] Address: [address] [place] [address] Performed By: #### 5 7021-8 #### [facility] CLIA [id number] [address] [place] [address] [place] Lymphocytes (Bld) [#/Vol] 1.70 10*3/uL Normal 1.00-4.00 [facility] Comment on above: Order Comment: Speci men Type: BLOOD SPECIMEN [facility] Address: [address] [place] [address] Performed By: #### 5 7021-8 #### [facility] CLIA [id number] [address] Lymphocytes/100 WBC (Bld) 28.3 % Normal [facility] Comment on above: Order Comment: Speci men Type: BLOOD SPECIMEN [facility] Address: [address] [place] [address] Performed By: #### 5 7021-8 #### [facility] CLIA [id number] [address] MCH (RBC) [Entitic mass] 32.1 pg Normal 26.0-34.0 [facility] Comment on above: Order Comment: Speci men Type: BLOOD SPECIMEN [facility] Address: [address] [place] [address] Performed By: #### 5 7021-8 #### [facility] CLIA [id number] [address] [place] [address] OF [facility] MCHC (RBC) [Mass/Vol] 34.8 g/dL Normal 30.5-36.0 [facility] Comment on above: Order Comment: Speci men Type: BLOOD SPECIMEN [facility] Address: [address] [place] [address] Performed By: #### 5 7021-8 #### [facility] CLIA [id number] [address] [place] [address] MCV (RBC) [Entitic vol] 92.4 fL Normal 80.0-100.0 [facility] Comment on above: Order Comment: Speci men Type: BLOOD SPECIMEN [facility] Address: [address] [place] [address] Performed By: #### 5 7021-8 #### [facility] CLIA [id number] [address] [place] Monocytes (Bld) [#/Vol] 0.56 10*3/uL Normal <0.87 [facility] Comment on above: Order Comment: Speci men Type: BLOOD SPECIMEN [facility] Address: [address] [place] [address] Performed By: #### 5 7021-8 #### [facility] CLIA [id number] [address] [place] [address] [place] Monocytes/100 WBC (Bld) 9.3 % Normal [facility] Comment on above: Order Comment: Speci men Type: BLOOD SPECIMEN [facility] Address: [address] [place] [address] Performed By: #### 5 7021-8 #### [facility] CLIA [id number] [address] [place] [address] [place] Neutrophils (Bld) [#/Vol] 3.36 10*3/uL Normal 1.45-7.50 [facility] Comment on above: Order Comment: Speci men Type: BLOOD SPECIMEN [facility] Address: [address] [place] [address] Performed By: #### 5 7021-8 #### [facility] LAB CLIA [id number] [address] [place] [address] [place] Neutrophils/100 WBC (Bld) 56.0 % Normal [facility] Comment on above: Order Comment: Speci men Type: BLOOD SPECIMEN Ordering Facility: [facility] Address: [address] [place] [address] Performed By: #### 5 7021-8 #### [facility] CLIA [id number] [address] [place] [address] [place] Nucleated RBC (Bld) [#/Vol] Normal [facility] Comment on above: Order Comment: Speci men Type: BLOOD SPECIMEN Ordering Facility: [facility] Address: [address] [place] [address] Performed By: #### 5 7021-8 #### [facility] CLIA [id number] [address] [place] [address] [place] Nucleated RBC/100 WBC (Bld) [Ratio] Normal [facility] Comment on above: Order Comment: Speci men Type: BLOOD SPECIMEN Ordering Facility: [facility] Address: [facility] [place] [address] Performed By: #### 5 7021-8 #### [facility] CLIA [id number] [address] [place] [address] [place] Platelet mean volume (Bld) [Entitic vol] 9.2 fL Normal 9.0-12.7 [facility] Comment on above: Order Comment: Speci men Type: BLOOD SPECIMEN Ordering Facility: [facility] Address: [address] [place] [address] Performed By: #### 5 7021-8 #### [facility] CLIA [id number] [address] [place] [address] [place] Platelets (Bld) [#/Vol] 194 10*3/uL Normal 150-400 [facility] Comment on above: Order Comment: Speci men Type: BLOOD SPECIMEN Ordering Facility: [facility] Address: [address] [place] [address] Performed By: #### 5 7021-8 #### [facility] CLIA [id number] [address] [place] [address] [place] RBC (Bld) [#/Vol] 4.58 10*6/uL Normal 4.20-6.00 [facility] Comment on above: Order Comment: Speci men Type: BLOOD SPECIMEN Ordering Facility: [facility] Address: [address] [place] [address] Performed By: #### 5 7021-8 #### [facility] CLIA [id number] [address] [place] [address] [place] WBC (Bld) [#/Vol] 6.00 10*3/uL Normal 3.70-11.00 [facility] Comment on above: Order Comment: Speci men Type: BLOOD SPECIMEN Ordering Facility: [facility] Address: [address] [place] [address] Performed By: #### 5 7021-8 #### [facility] CLIA [id number] [address] [place] [address] [facility] ECG COMPLETEon 09-19-2024 ECG COMPLETE Ventricular Rate : 7 6 BPM Atrial Rate : 76 BPM P-R Interval : 154 ms QRS Duration : 98 ms Q-T Interval : 398 ms QTC Calculation(Bazett) : 447 ms Calculated P [place] : 45 degrees Calculated R [place] : -48 degrees Calculated T [place] : 63 degrees SINUS RHYTHM WITH OCCASIONAL PREMATURE VENTRICULAR COMPLEXES LEFT ANTERIOR FASCICULAR BLOCK ABNORMAL ECG NO PREVIOUS ECGS AVAILABLE Confirmed by MD RODRIGUEZ VINAYAK ([id number]) on 09/24/2024 10:10:15 PM NAME : NICOLAS OLIVA PID : [id number] : 1955 Gender : Male Race : ORD : [id number] Procedure Date : Sep 19 2024 18:03:23 Edit Date : Sep 24 2024 22:10:16 Diagnosis: SINUS RHYTHM WITH OCCASIONAL PREMATURE VENTRICULAR COMPLEXES LEFT ANTERIOR FASCICULAR BLOCK ABNORMAL ECG NO PREVIOUS ECGS AVAILABLE Confirmed by MD RODRIGUEZ VINAYAK ([id number]) on 09/24/2024 10:10:15 PM Test Reason : Shortness of Breath Location : 191 : [facility] ED Overread By : MD RODRIGUEZ VINAYAK Edited By : MD RODRIGUEZ VINAYAK Referred By : , Acquired by : OLIVER MERLOS Normal [facility] ED NOTEon 09-19-2024 ED NOTE HNO ID: [id number] Author: WILLY CANNON RN Service: Emergency Medicine Author Type: Registered Nurse Type: ED Notes Filed: 09/19/2024 17:11 Note Text: Pt c/o cough congestion for 2 days. States had fever yesterday but today has been resolved. Concerned for pneumonia. [place], warm, dry. No apparent distress. Alert and oriented. Normal [facility] ED PROV NOTEon 09-19-2024 ED PROV NOTE HNO ID: [id number] Author: PRESTON KRUGER DO Service: Emergency Medicine [...] stiffness. Neurological: Negative for syncope and weakness. Psychiatric/Behaviora l: Negative for agitation and confusion. Physical Exam [...] following components (more content not included)... Normal [facility] HIGH SENSITIVITY TROPONIN T (INITIAL)on 09-19-2024 Troponin T.cardiac High sensitivity method [Mass/Vol] 38 ng/L High <12 [facility] Comment on above: Order Comment: Cody shanks Type: BLOOD SPECIMEN Ordering Facility: [facility] Address: [address] [place] [address] Performed By: #### L [id number] #### [facility] CLIA [id number] [address] [place] [id number] [place] [address] HIGH SENSITIVITY TROPONIN T (SECOND)on 09-19-2024 Troponin T.cardiac High sensitivity method [Mass/Vol] 38 ng/L High <12 [facility] Comment on above: Order Comment: Cody shanks Type: BLOOD SPECIMEN Ordering Facility: [facility] Address: [address] [place] [address] Performed By: #### L [id number] #### [facility] CLIA [id number] [address] [place] [address] HIGH SENSITIVITY TROPONIN T (THIRD) 3 HRS AFTER INITIALon 09-19-2024 Troponin T.cardiac High sensitivity method [Mass/Vol] 36 ng/L High <12 [facility] Comment on above: Order Comment: Cody shanks Type: BLOOD SPECIMEN Ordering Facility: [facility] Address: [address] [place] [address] Performed By: #### L [id number] #### [facility] CLIA [id number] [address] [place] [address] OF [facility] XR CHEST 2V FRONTAL/LATon XR CHEST 2V FRONTAL/LAT * * *Final Repor t* * * DATE OF EXAM: Sep 19 [...] IMPRESSION: No acute cardiopulmonary process is identified. Finance Director: ABILIO Transcribe Date/Time: Sep 19 2024 7:43P Dictated by : ARVIN PIERCE MD This examination was interpreted and the report reviewed and electronically signed by: ARVIN PIERCE MD on Sep 19 2024 7:44PM EST [id number] Normal [facility] Cardiology Visit Reporton Cardiology Visit Report [facility] [place] [id number] [facility] [place] [address] OFFICE VISIT Date of Service: 09/10/24 MR#: [id number] Acct: [id number] Name: NICOLAS OLIVA PENNY Sr. Rep #: [id number] : 1955 Provider: LI Triplett Age/Sex: 69/M Location: [facility] Status: Signed HPI HPI History [...] Visit Reasons: HTN/ Medication Changes per PCP Manager Pipeline Required: No Is patient in pain?: No [...] does not know what he is taking [facility] Medical History Hypothyroid Hypertension Essential hypertension Osteoarthritis [...] well nourished (more content not included)... Normal [facility] CRP, High Sensitivity [id number] on 08-22-2024 CRP, HIGH SENS 4.89 mg/L High 0.00-3.00 [facility] Comment on above: Result Comment: Rela tive Risk for Future Cardiovascular Event Low <1.00 Average 1.00 - 3.00 High >3.00 Performed at: - [facility] [id number] Telephone Cleaner: Vini Hernandez PhD, Phone: [phone] Performed By: #### L 100.0100, L501.6910, L500.4050, L3543.4640, L501.7262 ####[facility] [address] [place], [address] CBC W/Diff, Automatedon 11-2 Absolute Lymph 2.65 X10 3/uL Normal 0.83-4.51 [facility] Comment on above: Performed By: #### L 100.0100, L501.4020, L500.4050, L3100.7870, L501.9520 #### [facility] [address] [place], [address] Absolute Neut 4.7 X10 3/uL Normal 2.0-7.7 [facility] Comment on above: Performed By: #### L 100.0100, L501.4020, L500.4050, L3100.7870, L501.9520 #### [facility] [address] [place], [address] Basophils/100 WBC (Bld) 0.8 % Normal 0-[address] [facility] Comment on above: Performed By: #### L 100.0100, L501.4020, L500.4050, L3100.7870, L501.9520 #### [facility] [address] [place], [address] Eosinophils/100 WBC (Bld) 4.8 % Normal 0-5 [facility] Comment on above: Performed By: #### L 100.0100, L501.4020, L500.4050, L3100.7870, L501.9520 #### [facility] [address] [place], [address] Erythrocyte distribution width (RBC) [Ratio] 12.3 % Normal 11.6-14.6 [facility] Comment on above: Performed By: #### L 100.0100, L501.4020, L500.4050, L3100.7870, L501.9520 #### [facility] [address] [place], [address] Hematocrit (Bld) [Volume fraction] 41.4 % Normal 40-54 [facility] Comment on above: Performed By: #### L 100.0100, L501.4020, L500.4050, L3100.7870, L501.9520 #### [facility] [address] [place], [address] Hemoglobin (Bld) [Mass/Vol] 14.5 g/dL Normal 13.0-16.5 [facility] Comment on above: Performed By: #### L 100.0100, L501.4020, L500.4050, L3100.7870, L501.9520 #### [facility] [address] [place], [address] IG% 0.400 Normal 0.0-0.9 [facility] Comment on above: Result Comment: IG% - Immature Granulocytes (promyelocytes, myelocytes and metamyelocytes) > 1% indicates that a LEFT SHIFT is Present. Performed By: #### L 100.0100, L501.4020, L500.4050, L3100.7870, L501.9520 #### [facility] [address] [place], [address] Lymphocytes/100 WBC (Bld) 31.5 % Normal 19-41 [facility] Comment on above: Performed By: #### L 100.0100, L501.4020, L500.4050, L3100.7870, L501.9520 #### [facility] [address] [place], [address] MCH (RBC) [Entitic mass] 32.2 pg High 27.0-32.0 [facility] Comment on above: Performed By: #### L 100.0100, L501.4020, L500.4050, L3100.7870, L501.9520 #### [facility] [address] [place], [address] MCHC (RBC) [Mass/Vol] 35.0 g/dL Normal 32-36 [facility] Comment on above: Performed By: #### L 100.0100, L501.4020, L500.4050, L3100.7870, L501.9520 #### [facility] [address] [place], [address] MCV (RBC) [Entitic vol] 92.0 fL Normal 80-[address] [facility] Comment on above: Performed By: #### L 100.0100, L501.4020, L500.4050, L3100.7870, L501.9520 #### [facility] [address] [place], [address] Monocytes/100 WBC (Bld) 7.0 % Normal 0-10 [facility] Comment on above: Performed By: #### L 100.0100, L501.4020, L500.4050, L3100.7870, L501.9520 #### [facility] [address] [place], [address] Neutrophils/100 WBC (Bld) 55.5 % Normal 47-70 [facility] Comment on above: Performed By: #### L 100.0100, L501.4020, L500.4050, L3100.7870, L501.9520 #### [facility] [address] [place], [address] Nucleated RBC (Bld) [#/Vol] 0 10*3/uL Normal 0-5 [facility] Comment on above: Performed By: #### L 100.0100, L501.4020, L500.4050, L3100.7870, L501.9520 #### [facility] [address] [place], [address] Platelet mean volume (Bld) [Entitic vol] 10.2 fL Normal 6.2-12.0 [facility] Comment on above: Performed By: #### L 100.0100, L501.4020, L500.4050, L3100.7870, L501.9520 #### [facility] [address] [place], [address] Platelets (Bld) [#/Vol] 248 10*3/uL Normal 150-450 [facility] Comment on above: Performed By: #### L 100.0100, L501.4020, L500.4050, L3100.7870, L501.9520 #### [facility] [address] [place], [address] RBC (Bld) [#/Vol] 4.50 10*6/uL Low 4.6-6.2 [facility] Comment on above: Performed By: #### L 100.0100, L501.4020, L500.4050, L3100.7870, L501.9520 #### [facility] [address] [place], [address] RDW SD 40.8 fl Normal 35.1-43.9 [facility] Comment on above: Performed By: #### L 100.0100, L501.4020, L500.4050, L3100.7870, L501.9520 #### [facility] [address] [place], [address] WBC (Bld) [#/Vol] 8.4 10*3/uL Normal 4.4-11.0 [facility] Comment on above: Performed By: #### L 100.0100, L501.4020, L500.4050, L3100.7870, L501.9520 #### [facility] [address] [place], [address] Comprehensive Metabolic Prof ilon 08-20-2024 Albumin [Mass/Vol] 3.7 g/dL Normal 3.2-5.0 [facility] Comment on above: Order Comment: 1 Performed By: #### L 100.0100, L501.4020, L500.4050, L3100.7870, L501.9520 ####[facility] [address] [place], [address] Albumin/Globulin [Mass ratio] 1.0 {ratio} Normal 0.9-2.4 [facility] Comment on above: Order Comment: 1 Performed By: #### L 100.0100, L501.4020, L500.4050, L3100.7870, L501.9520 ####[facility] [address] [place], [address] ALK P 73 U/L Normal 45-117 [facility] Comment on above: Order Comment: 1 Performed By: #### L 100.0100, L501.4020, L500.4050, L3100.7870, L501.9520 ####[facility] [address] [place], [address] ALT [Catalytic activity/Vol] 47 U/L Normal 16-61 [facility] Comment on above: Order Comment: 1 Performed By: #### L 100.0100, L501.4020, L500.4050, L3100.7870, L501.9520 ####[facility] [address] [place], [address] AST [Catalytic activity/Vol] 31 U/L Normal 15-37 [facility] Comment on above: Order Comment: 1 Performed By: #### L 100.0100, L501.4020, L500.4050, L3100.7870, L501.9520 ####[facility] [address] [place], [address] Bilirubin [Mass/Vol] 0.50 mg/dL Normal 0.20-1.00 [facility] Comment on above: Order Comment: 1 Result Comment: For patients on eltrombopag therapy, use of Dimension [place] TBIL is not recommended. Performed By: #### L 100.0100, L501.4020, L500.4050, L3100.7870, L501.9520 ####[facility] [address] [place], [address] BUN/CRE 13.1 RATIO Normal 10-20 [facility] Comment on above: Order Comment: 1 Performed By: #### L 100.0100, L501.4020, L500.4050, L3100.7870, L501.9520 ####[facility] [address] [place], [address] CA,Total 9.2 mg/dL Normal 8.5-10.1 [facility] Comment on above: Order Comment: 1 Performed By: #### L 100.0100, L501.4020, L500.4050, L3100.7870, L501.9520 ####[facility] [address] [place], [address] Chloride [Moles/Vol] 108 mmol/L High 98-107 [facility] Comment on above: Order Comment: 1 Performed By: #### L 100.0100, L501.4020, L500.4050, L3100.7870, L501.9520 ####[facility] [address] [place], [address] CO2 [Moles/Vol] 29.0 mmol/L Normal 21.0-32.0 [facility] Comment on above: Order Comment: 1 Performed By: #### L 100.0100, L501.4020, L500.4050, L3100.7870, L501.9520 ####[facility] [address] [place], [address] Creatinine [Mass/Vol] 0.99 mg/dL Normal 0.70-1.30 [facility] Comment on above: Order Comment: 1 Result Comment: The validity of the calculated GFR GFRAA in patients over 70 years has not been determined. Clinical correlation is essential. Performed By: #### L 100.0100, L501.4020, L500.4050, L3100.7870, L501.9520 ####[facility] [address] [place], [address] EST GFR - AA 96 mL/min Normal >60 [facility] Comment on above: Order Comment: 1 Result Comment: Afri can [place] GFR Calc Performed By: #### L 100.0100, L501.4020, L500.4050, L3100.7870, L501.9520 ####[facility] [address] [place], [address] GAP 5 Normal 5-15 [facility] Comment on above: Order Comment: 1 Performed By: #### L 100.0100, L501.4020, L500.4050, L3100.7870, L501.9520 ####[facility] [address] [place], [address] GFR/1.73 sq M.predicted among non-blacks MDRD (S/P/Bld) [Vol rate/Area] 80 mL/min/{1.73_m2} Normal >60 [facility] Comment on above: Order Comment: 1 Result Comment: Non- GFR Calc Performed By: #### L 100.0100, L501.4020, L500.4050, L3100.7870, L501.9520 ####[facility] [address] [place], [address] Globulin (S) [Mass/Vol] 3.6 g/dL Normal 2.2-4.2 [facility] Comment on above: Order Comment: 1 Performed By: #### L 100.0100, L501.4020, L500.4050, L3100.7870, L501.9520 ####[facility] [address] [place], [address] Glucose [Mass/Vol] 110 mg/dL High 74-106 [facility] Comment on above: Order Comment: 1 Result Comment: Fast ing Glucose result from 100 to 125 mg/dL suggests IMPAIRED HOMEOSTASIS per A.D.A. criteria. Performed By: #### L 100.0100, L501.4020, L500.4050, L3100.7870, L501.9520 ####[facility] [address] [place], [address] Potassium [Moles/Vol] 4.1 mmol/L Normal 3.5-5.1 [facility] Comment on above: Order Comment: 1 Performed By: #### L 100.0100, L501.4020, L500.4050, L3100.7870, L501.9520 ####[facility] [address] [place], [address] Sodium [Moles/Vol] 141 mmol/L Normal 136-145 [facility] Comment on above: Order Comment: 1 Performed By: #### L 100.0100, L501.4020, L500.4050, L3100.7870, L501.9520 ####[facility] [address] [place], [address] T PROT 7.3 g/dL Normal 6.4-8.2 [facility] Comment on above: Order Comment: 1 Performed By: #### L 100.0100, L501.4020, L500.4050, L3100.7870, L501.9520 ####[facility] [address] [place], [address] Urea nitrogen [Mass/Vol] 13 mg/dL Normal 7-18 [facility] Comment on above: Order Comment: 1 Performed By: #### L 100.0100, L501.4020, L500.4050, L3100.7870, L501.9520 ####[facility] [address] [place], [address] L501.4020on 08-20-2024 TROPONIN-I HS 10 pg/mL Normal 3.0-78.0 [facility] Comment on above: Order Comment: 1 Result Comment: Chiki richards Note: New Test Units and Gender Specific Reference Ranges. For more information see Policy Stat Procedure [place] High Sensitivity Troponin (TNIH) and attachments. Performed By: #### L 100.0100, L501.4020, L500.4050, L3100.7870, L501.9520 ####[facility] [address] [place], [place], [address] Thyroid Stim Hormone (TSH)on 08-20-2024 TSH 3.960 uIU/mL High 0.358-3.740 [facility] Comment on above: Order Comment: 1 Performed By: #### L 100.0100, L501.4020, L500.4050, L3100.7870, L501.9520 ####[facility] [address] [place], [place], [address] XR KNEE LIMITED 2V AP/LAT LE FTon 06-07-2023 [facility] No Panel Informationon 12-23 [facility] Absolute lymphocyte counton 06-13-2022 Lymphocytes Auto (Unsp spec) [#/Vol] 2.68 10*3/uL 0.83-4.51 [facility] Work Phone: Basophil percentageon 2021 Basophils/100 WBC (Bld) 0.3 % 0-[address] [facility] Work Phone: Bilirubin [Mass/Vol] 0.40 mg/dL 0.20-1.00 [facility] Work Phone: Comment on above: For patients on eltr ombopag therapy, use of Dimension [place] TBIL is not recommended. Chloride [Moles/Vol] 106 mmol/L 98-107 [facility] Work Phone: Cholesterol [Mass/Vol] 184 mg/dL <200 [facility] Work Phone: Comment on above: <200 mg/dL Desirable 200-240 mg/dL Borderline >240 mg/dL High Risk Eosinophils/100 WBC (Bld) 3.3 % 0-5 [facility] Work Phone: Glucose [Mass/Vol] 151 mg/dL 74-106 [facility] Work Phone: [phone] Comment on above: Fasting Glucose resu lt greater than or equal to 126 mg/dL suggests DIABETES MELLITUS per A.D.A. criteria. Neutrophils (Bld) [#/Vol] 6.1 10*3/uL 2.0-7.7 [facility] Work Phone: Neutrophils/100 WBC (Bld) 62.3 % 47-70 [facility] Work Phone: [phone] Potassium [Moles/Vol] 3.6 mmol/L 3.5-5.1 [facility] Work Phone: [phone] Protein [Mass/Vol] 7.2 g/dL 6.4-8.2 [facility] Work Phone: [phone] Sodium [Moles/Vol] 140 mmol/L 136-145 [facility] Work Phone: [phone] Triglyceride [Mass/Vol] 340 mg/dL <[address] [facility] Work Phone: Comment on above: The drugs N-Acetylcy steine and Metamizole may falsely depress this assay.Serum Triglycerides Reference Interval Normal <150 mg/dL Borderline high 150 - 199 mg/dL High 200 - 499 mg/dL Very High > or = 500 mg/dL WBC (Bld) [#/Vol] 9.8 10*3/uL 4.4-11.0 [facility] Work Phone: [phone] Blood erythrocytes count (nu mber/volume)on 06-13-2022 RBC (Bld) [#/Vol] 4.24 10*6/uL 4.6-6.2 [facility] Work Phone: [phone] Blood hemoglobin measurement (mass/volume)on 06-13-2022 Hemoglobin (Bld) [Mass/Vol] 13.7 g/dL 13.0-16.5 [facility] Work Phone: [phone] Blood lymphocytes/100 leukoc yteson 06-13-2022 Lymphocytes/100 WBC (Bld) 27.2 % 19-41 [facility] Work Phone: Blood monocytes/100 leukocyt eson 06-13-2022 Monocytes/100 WBC (Bld) 5.8 % 0-[address] [facility] Work Phone: Blood platelet mean volumeon 06-13-2022 Platelet mean volume (Bld) [Entitic vol] 10.7 fL 6.2-12.0 [facility] Work Phone: Determination of erythrocyte mean corpuscular volume (MCV)on 06-13-2022 MCV (RBC) [Entitic vol] 92.9 fL 80-[address] [facility] Work Phone: Hematocrit Auto (Bld) [Volum e fraction]on 06-13-2022 Hematocrit (Bld) [Volume fraction] 39.4 % 40-54 [facility] Work Phone: Laboratory - Chemistry and C hemistry - challengeon 06-13-2022 ALP [Catalytic activity/Vol] 58 U/L 45-117 [facility] Work Phone: ALT [Catalytic activity/Vol] 35 U/L 16-61 [facility] Work Phone: CO2 [Moles/Vol] 24.0 mmol/L 21.0-32.0 [facility] Work Phone: [phone] Globulin (S) [Mass/Vol] 3.6 g/dL 2.2-4.[address] [facility] Work Phone: Natriuretic peptide B (Bld) [Mass/Vol] 10.7 pg/mL 0-100 [facility] Work Phone: Urea nitrogen/Creatinine [Mass ratio] 19.1 mg/mg 10-20 [facility] Work Phone: Laboratory - Hematology and Cell countson 06-13-2022 Erythrocyte distribution width (RBC) [Entitic vol] 41.1 fL 35.1-43.9 [facility] Work Phone: Erythrocyte distribution width (RBC) [Ratio] 12.1 % 11.6-14.6 [facility] Work Phone: [phone] Immature granulocytes/100 WBC (Bld) 1.100 % 0.0-0.9 [facility] Work Phone: [phone] Comment on above: IG% - Immature Granu locytes (promyelocytes, myelocytes and metamyelocytes) > 1% indicates that a LEFT SHIFT is Present. MCH (RBC) [Entitic mass] 32.3 pg 27.0-32.0 [facility] Work Phone: [phone] Nucleated RBC/100 WBC (Bld) [Ratio] 0 % 0-5 [facility] Work Phone: [phone] MCHC Auto (RBC) [Mass/Vol]on 06-13-2022 MCHC (RBC) [Mass/Vol] 34.8 g/dL 32-36 [facility] Work Phone: No Panel Informationon 06-13 C-Reactive Protein High Sensitivity 20.60 mg/L <3.00 [facility] Work Phone: [phone] Comment on above: Low Relative Risk of CVD <1.0 mg/L Average Relative Risk of CVD 1.0 - 3.0 mg/L High Relative Risk of CVD >3.0 mg/L Estimated GFR (MDRD) Amer 96 mL/min >60 [facility] Work Phone: [phone] Comment on above: GFR Calc Estimated GFR (MDRD) Non-Af Amer 80 mL/min >60 [facility] Work Phone: [phone] Comment on above: Non- GFR Calc Troponin I High Sensitivity 8 pg/mL 3.0-78.0 [facility] Work Phone: [phone] Comment on above: Please Note: New Kyung t Units and Gender Specific Reference Ranges. For more information see Policy Stat Procedure [place] High Sensitivity Troponin (TNIH) and attachments. Platelets bldon 06-13-2022 Platelets (Bld) [#/Vol] 211 10*3/uL 150-450 [facility] Work Phone: [phone] Serum or plasma albumin billy urement (mass/volume)on 06-13-2022 Albumin [Mass/Vol] 3.6 g/dL 3.2-5.0 [facility] Work Phone: Serum or plasma albumin/glob ulin mass ratioon 06-13-2022 Albumin/Globulin [Mass ratio] 1.0 {ratio} 0.9-2.4 [facility] Work Phone: Serum or plasma calcium billy urement (mass/volume)on 06-13-2022 Calcium [Mass/Vol] 8.9 mg/dL 8.5-10.1 [facility] Work Phone: Serum or plasma cholesterol in HDL measurement (mass/volume)on 06-13-2022 Cholesterol in HDL [Mass/Vol] 29 mg/dL >40 [facility] Work Phone: Comment on above: The drugs N-Acetylcy steine and Metamizole may falsely depress this assay. Reference Range HDL <40 mg/dL Low HDL Cholesterol HDL >or= 60 mg/dL High HDL Cholesterol Serum or plasma cholesterol in VLDL measurement (mass/volume)on 06-13-2022 Cholesterol in VLDL [Mass/Vol] 68 mg/dL 5-40 [facility] Work Phone: Serum or plasma creatinine m easurement (mass/volume)on 06-13-2022 Creatinine [Mass/Vol] 0.99 mg/dL 0.70-1.30 [facility] Work Phone: Comment on above: The validity of the calculated GFR & GFRAA in patients over 70 years has not been determined. Clinical correlation is essential. Serum or plasma low density lipoprotein (LDL) cholesterol measurement (mass/volume)on 06-13-2022 Cholesterol in LDL [Mass/Vol] 87 mg/dL 0-130 [facility] Work Phone: Serum or plasma urea nitroge n measurement (mass/volume)on 06-13-2022 Urea nitrogen [Mass/Vol] 19 mg/dL 7-18 [facility] Work Phone: Thin prep Papanicolaou smear with manual screeningon 06-13-2022 Thin prep Papanicolaou smear with manual screening 21 U/L 15-37 [facility] Work Phone: Thin prep Papanicolaou smear with manual screening 10 5-15 [facility] Work Phone: XR CHEST 2V FRONTAL/LATon [facility] Absolute lymphocyte counton 05-26-2022 Lymphocytes Auto (Unsp spec) [#/Vol] 1.08 10*3/uL 0.83-4.51 [facility] Work Phone: Basophil percentageon 2021 Basophils/100 WBC (Bld) 0.6 % 0-[address] [facility] Work Phone: Bilirubin [Mass/Vol] 0.70 mg/dL 0.20-1.00 [facility] Work Phone: Comment on above: For patients on eltr ombopag therapy, use of Dimension [place] TBIL is not recommended. Chloride [Moles/Vol] 105 mmol/L 98-107 [facility] Work Phone: Eosinophils/100 WBC (Bld) 2.7 % 0-5 [facility] Work Phone: [phone] Glucose [Mass/Vol] 100 mg/dL 74-106 [facility] Work Phone: Comment on above: Fasting Glucose resu lt from 100 to 125 mg/dL suggests IMPAIRED HOMEOSTASIS per A.D.A. criteria. Neutrophils (Bld) [#/Vol] 5.0 10*3/uL 2.0-7.7 [facility] Work Phone: Neutrophils/100 WBC (Bld) 70.5 % 47-70 [facility] Work Phone: Potassium [Moles/Vol] 4.1 mmol/L 3.5-5.1 [facility] Work Phone: Protein [Mass/Vol] 7.4 g/dL 6.4-8.2 [facility] Work Phone: Sodium [Moles/Vol] 137 mmol/L 136-145 [facility] Work Phone: WBC (Bld) [#/Vol] 7.1 10*3/uL 4.4-11.0 [facility] Work Phone: Blood erythrocytes count (nu mber/volume)on 05-26-2022 RBC (Bld) [#/Vol] 4.44 10*6/uL 4.6-6.2 [facility] Work Phone: Blood hemoglobin measurement (mass/volume)on 05-26-2022 Hemoglobin (Bld) [Mass/Vol] 14.3 g/dL 13.0-16.5 [facility] Work Phone: Blood lymphocytes/100 leukoc yteson 05-26-2022 Lymphocytes/100 WBC (Bld) 15.1 % 19-41 [facility] Work Phone: Blood monocytes/100 leukocyt eson 05-26-2022 Monocytes/100 WBC (Bld) 10.8 % 0-[address] [facility] Work Phone: Blood platelet mean volumeon 05-26-2022 Platelet mean volume (Bld) [Entitic vol] 10.2 fL 6.2-12.0 [facility] Work Phone: Determination of erythrocyte mean corpuscular volume (MCV)on 05-26-2022 MCV (RBC) [Entitic vol] 92.1 fL 80-[address] [facility] Work Phone: Hematocrit Auto (Bld) [Volum e fraction]on 05-26-2022 Hematocrit (Bld) [Volume fraction] 40.9 % 40-54 [facility] Work Phone: Laboratory - Chemistry and C hemistry - challengeon 05-26-2022 ALP [Catalytic activity/Vol] 58 U/L 45-117 [facility] Work Phone: ALT [Catalytic activity/Vol] 44 U/L 16-61 [facility] Work Phone: CO2 [Moles/Vol] 26.0 mmol/L 21.0-32.0 [facility] Work Phone: [phone] Globulin (S) [Mass/Vol] 3.5 g/dL 2.2-4.[address] [facility] Work Phone: [phone] Magnesium [Mass/Vol] 2.0 mg/dL 1.6-2.6 [facility] Work Phone: [phone] Urea nitrogen/Creatinine [Mass ratio] 14.6 mg/mg 10-20 [facility] Work Phone: [phone] Laboratory - Hematology and Cell countson 05-26-2022 Erythrocyte distribution width (RBC) [Entitic vol] 41.1 fL 35.1-43.9 [facility] Work Phone: [phone] Erythrocyte distribution width (RBC) [Ratio] 12.2 % 11.6-14.6 [facility] Work Phone: [phone] Immature granulocytes/100 WBC (Bld) 0.300 % 0.0-0.9 [facility] Work Phone: [phone] Comment on above: IG% - Immature Granu locytes (promyelocytes, myelocytes and metamyelocytes) > 1% indicates that a LEFT SHIFT is Present. MCH (RBC) [Entitic mass] 32.2 pg 27.0-32.0 [facility] Work Phone: Nucleated RBC/100 WBC (Bld) [Ratio] 0 % 0-5 [facility] Work Phone: [phone] MCHC Auto (RBC) [Mass/Vol]on 05-26-2022 MCHC (RBC) [Mass/Vol] 35.0 g/dL 32-36 [facility] Work Phone: No Panel Informationon 05-26 Estimated GFR (MDRD) Amer 101 mL/min >60 [facility] Work Phone: [phone] Comment on above: GFR Calc Estimated GFR (MDRD) Non-Af Amer 83 mL/min >60 [facility] Work Phone: [phone] Comment on above: Non- GFR Calc Platelets bldon 05-26-2022 Platelets (Bld) [#/Vol] 186 10*3/uL 150-450 [facility] Work Phone: Serum or plasma albumin billy urement (mass/volume)on 05-26-2022 Albumin [Mass/Vol] 3.9 g/dL 3.2-5.0 [facility] Work Phone: Serum or plasma albumin/glob ulin mass ratioon 05-26-2022 Albumin/Globulin [Mass ratio] 1.1 {ratio} 0.9-2.4 [facility] Work Phone: [phone] Serum or plasma calcium billy urement (mass/volume)on 05-26-2022 Calcium [Mass/Vol] 9.0 mg/dL 8.5-10.1 [facility] Work Phone: [phone] Serum or plasma creatinine m easurement (mass/volume)on 05-26-2022 Creatinine [Mass/Vol] 0.96 mg/dL 0.70-1.30 [facility] Work Phone: Comment on above: The validity of the calculated GFR & GFRAA in patients over 70 years has not been determined. Clinical correlation is essential. Serum or plasma urea nitroge n measurement (mass/volume)on 05-26-2022 Urea nitrogen [Mass/Vol] 14 mg/dL 7-18 [facility] Work Phone: [phone] Serum rheumatoid factor dete ctionon 05-26-2022 Rheumatoid factor Ql (S) < 10.0 IU/mL <15 [facility] Work Phone: [phone] Thin prep Papanicolaou smear with manual screeningon 05-26-2022 Thin prep Papanicolaou smear with manual screening 29 U/L 15-37 [facility] Work Phone: [phone] Thin prep Papanicolaou smear with manual screening 6 5-15 [facility] Work Phone: [phone] Absolute lymphocyte counton 04-04-2022 Lymphocytes Auto (Unsp spec) [#/Vol] 2.56 10*3/uL 0.83-4.51 [facility] Work Phone: Basophil percentageon 2021 Basophils/100 WBC (Bld) 0.6 % 0-[address] [facility] Work Phone: Bilirubin [Mass/Vol] 0.40 mg/dL 0.20-1.00 [facility] Work Phone: Comment on above: For patients on eltr ombopag therapy, use of Dimension [place] TBIL is not recommended. Chloride [Moles/Vol] 106 mmol/L 98-107 [facility] Work Phone: Eosinophils/100 WBC (Bld) 4.1 % 0-5 [facility] Work Phone: Glucose [Mass/Vol] 104 mg/dL 74-106 [facility] Work Phone: Comment on above: Fasting Glucose resu lt from 100 to 125 mg/dL suggests IMPAIRED HOMEOSTASIS per A.D.A. criteria. Neutrophils (Bld) [#/Vol] 5.4 10*3/uL 2.0-7.7 [facility] Work Phone: Neutrophils/100 WBC (Bld) 59.3 % 47-70 [facility] Work Phone: Potassium [Moles/Vol] 4.1 mmol/L 3.5-5.1 [facility] Work Phone: Protein [Mass/Vol] 7.2 g/dL 6.4-8.2 [facility] Work Phone: Sodium [Moles/Vol] 140 mmol/L 136-145 [facility] Work Phone: WBC (Bld) [#/Vol] 9.1 10*3/uL 4.4-11.0 [facility] Work Phone: Blood erythrocytes count (nu mber/volume)on 04-04-2022 RBC (Bld) [#/Vol] 4.45 10*6/uL 4.6-6.2 [facility] Work Phone: Blood hemoglobin measurement (mass/volume)on 04-04-2022 Hemoglobin (Bld) [Mass/Vol] 14.3 g/dL 13.0-16.5 [facility] Work Phone: Blood lymphocytes/100 leukoc yteson 04-04-2022 Lymphocytes/100 WBC (Bld) 28.3 % 19-41 [facility] Work Phone: Blood monocytes/100 leukocyt eson 04-04-2022 Monocytes/100 WBC (Bld) 7.4 % 0-[address] [facility] Work Phone: Blood platelet mean volumeon 04-04-2022 Platelet mean volume (Bld) [Entitic vol] 10.4 fL 6.2-12.0 [facility] Work Phone: Determination of erythrocyte mean corpuscular volume (MCV)on 04-04-2022 MCV (RBC) [Entitic vol] 91.9 fL 80-[address] [facility] Work Phone: Hematocrit Auto (Bld) [Volum e fraction]on 04-04-2022 Hematocrit (Bld) [Volume fraction] 40.9 % 40-54 [facility] Work Phone: Laboratory - Chemistry and C hemistry - challengeon 04-04-2022 ALP [Catalytic activity/Vol] 57 U/L 45-117 [facility] Work Phone: ALT [Catalytic activity/Vol] 43 U/L 16-61 [facility] Work Phone: CO2 [Moles/Vol] 26.0 mmol/L 21.0-32.0 [facility] Work Phone: Globulin (S) [Mass/Vol] 3.4 g/dL 2.2-4.[address] [facility] Work Phone: Urea nitrogen/Creatinine [Mass ratio] 18.3 mg/mg 10-20 [facility] Work Phone: Laboratory - Hematology and Cell countson 04-04-2022 Erythrocyte distribution width (RBC) [Entitic vol] 40.2 fL 35.1-43.9 [facility] Work Phone: [phone] Erythrocyte distribution width (RBC) [Ratio] 12.1 % 11.6-14.6 [facility] Work Phone: [phone] Immature granulocytes/100 WBC (Bld) 0.300 % 0.0-0.9 [facility] Work Phone: [phone] Comment on above: IG% - Immature Granu locytes (promyelocytes, myelocytes and metamyelocytes) > 1% indicates that a LEFT SHIFT is Present. MCH (RBC) [Entitic mass] 32.1 pg 27.0-32.0 [facility] Work Phone: [phone] Nucleated RBC/100 WBC (Bld) [Ratio] 0 % 0-5 [facility] Work Phone: [phone] MCHC Auto (RBC) [Mass/Vol]on 04-04-2022 MCHC (RBC) [Mass/Vol] 35.0 g/dL 32-36 [facility] Work Phone: No Panel Informationon 04-04 Estimated GFR (MDRD) Amer 112 mL/min >60 [facility] Work Phone: Comment on above: GFR Calc Estimated GFR (MDRD) Non-Af Amer 93 mL/min >60 [facility] Work Phone: [phone] Comment on above: Non- GFR Calc Platelets bldon 04-04-2022 Platelets (Bld) [#/Vol] 232 10*3/uL 150-450 [facility] Work Phone: [phone] Serum or plasma C reactive p rotein measurement (mass/volume)on 04-04-2022 CRP [Mass/Vol] 5.47 mg/L 0.0-3.0 [facility] Work Phone: [phone] Comment on above: C-Reactive Protein ( CRP) provides useful information for thediagnosis, therapy and monitoring of inflammatory processesand associated diseases. For the evaluation of Relative Riskfor Cardiovascular Disease, a High Sensitivity CRP (HSCRP)should be ordered. Serum or plasma albumin billy urement (mass/volume)on 04-04-2022 Albumin [Mass/Vol] 3.8 g/dL 3.2-5.0 [facility] Work Phone: [phone] Serum or plasma albumin/glob ulin mass ratioon 04-04-2022 Albumin/Globulin [Mass ratio] 1.1 {ratio} 0.9-2.4 [facility] Work Phone: Serum or plasma calcium billy urement (mass/volume)on 04-04-2022 Calcium [Mass/Vol] 9.0 mg/dL 8.5-10.1 [facility] Work Phone: [phone] Serum or plasma creatinine m easurement (mass/volume)on 04-04-2022 Creatinine [Mass/Vol] 0.87 mg/dL 0.70-1.30 [facility] Work Phone: Comment on above: The validity of the calculated GFR & GFRAA in patients over 70 years has not been determined. Clinical correlation is essential. Serum or plasma urea nitroge n measurement (mass/volume)on 04-04-2022 Urea nitrogen [Mass/Vol] 16 mg/dL 7-18 [facility] Work Phone: [phone] Serum rheumatoid factor dete ctionon 04-04-2022 Rheumatoid factor Ql (S) < 10.0 IU/mL <15 [facility] Work Phone: [phone] Thin prep Papanicolaou smear with manual screeningon 04-04-2022 Thin prep Papanicolaou smear with manual screening 29 U/L 15-37 [facility] Work Phone: [phone] Thin prep Papanicolaou smear with manual screening 8 5-15 [facility] Work Phone: Basophil percentageon 2021 Basophil percentage Not Reportable [facility] Work Phone: [phone] No Panel Informationon 03-08 Anti-Nuclear Antibody Screen Negative Negative [facility] Work Phone: Comment on above: Performed at: [address] [id number] Director: Vini Hernandez PhD, Phone: [phone] [employer]rome[employer] B Antibody Not Reportable [facility] Work Phone: FORGING [employer] LEVER [employer]ENDER Antibody Not Reportable [facility] Work Phone: Serum DNA double strand anti body assay (units/volume)on 03-08-2022 DNA double strand Ab Qn (S) Not Reportable [facility] Work Phone: Serum Monse-1 antibody assay (u nits/volume)on 03-08-2022 Monse-1 extractable nuclear Ab Qn (S) Not Reportable [facility] Work Phone: Serum Scl-70 extractable nuc lear antibody assay (units/volume)on 03-08-2022 SCL-70 extractable nuclear Ab Qn (S) Not Reportable [facility] Work Phone: Serum Roberto extractable nucl ear antibody detectionon 03-08-2022 Roberto extractable nuclear Ab Ql (S) Not Reportable [facility] Work Phone: Absolute lymphocyte counton 03-07-2022 Lymphocytes Auto (Unsp spec) [#/Vol] 2.32 10*3/uL 0.83-4.51 [facility] Work Phone: Basophil percentageon 2021 Basophils/100 WBC (Bld) 0.5 % 0-[address] [facility] Work Phone: Bilirubin [Mass/Vol] 0.50 mg/dL 0.20-1.00 [facility] Work Phone: Comment on above: For patients on eltr ombopag therapy, use of Dimension [place] TBIL is not recommended. Chloride [Moles/Vol] 106 mmol/L 98-107 [facility] Work Phone: Eosinophils/100 WBC (Bld) 3.0 % 0-5 [facility] Work Phone: Glucose [Mass/Vol] 90 mg/dL 74-106 [facility] Work Phone: Comment on above: Previous reported re sult: 94 mg/dLEdited by: JACK on 03/08/22:180 AMENDED REPORT 03/08/221804 GLU previously reported as: 94 mg/dL Neutrophils (Bld) [#/Vol] 7.0 10*3/uL 2.0-7.7 [facility] Work Phone: Neutrophils/100 WBC (Bld) 66.4 % 47-70 [facility] Work Phone: Potassium [Moles/Vol] 4.5 mmol/L 3.5-5.1 [facility] Work Phone: Protein [Mass/Vol] 7.7 g/dL 6.4-8.2 [facility] Work Phone: Sodium [Moles/Vol] 138 mmol/L 136-145 [facility] Work Phone: Comment on above: Previous reported re sult: 137 mmol/LEdited by: JACK on 03/08/22:1804 AMENDED REPORT 03/08/221804 NA previously reported as: 137 mmol/L WBC (Bld) [#/Vol] 10.5 10*3/uL 4.4-11.0 [facility] Work Phone: Blood erythrocytes count (nu mber/volume)on 03-07-2022 RBC (Bld) [#/Vol] 4.48 10*6/uL 4.6-6.2 [facility] Work Phone: Blood hemoglobin measurement (mass/volume)on 03-07-2022 Hemoglobin (Bld) [Mass/Vol] 14.3 g/dL 13.0-16.5 [facility] Work Phone: Blood lymphocytes/100 leukoc yteson 03-07-2022 Lymphocytes/100 WBC (Bld) 22.2 % 19-41 [facility] Work Phone: Blood monocytes/100 leukocyt eson 03-07-2022 Monocytes/100 WBC (Bld) 7.5 % 0-[address] [facility] Work Phone: Blood platelet mean volumeon 03-07-2022 Platelet mean volume (Bld) [Entitic vol] 10.7 fL 6.2-12.0 [facility] Work Phone: [phone] Determination of erythrocyte mean corpuscular volume (MCV)on 03-07-2022 MCV (RBC) [Entitic vol] 91.1 fL 80-[address] [facility] Work Phone: Hematocrit Auto (Bld) [Volum e fraction]on 03-07-2022 Hematocrit (Bld) [Volume fraction] 40.8 % 40-54 [facility] Work Phone: [phone] Laboratory - Chemistry and C hemistry - challengeon 03-07-2022 ALP [Catalytic activity/Vol] 64 U/L 45-117 [facility] Work Phone: Comment on above: Previous reported re sult: 65 U/LEdited by: AUTOINS on 03/08/22:1804 AMENDED REPORT 03/08/221804 ALK P previously reported as: 65 U/L ALT [Catalytic activity/Vol] 37 U/L 16-61 [facility] Work Phone: [phone] Comment on above: Previous reported re sult: 36 U/LEdited by: AUTOINS on 03/08/22:180 AMENDED REPORT 03/08/221804 ALT previously reported as: 36 U/L CO2 [Moles/Vol] 27.0 mmol/L 21.0-32.0 [facility] Work Phone: [phone] Comment on above: Previous reported re sult: 28.0 mmol/LEdited by: AUTOINS on 03/08/22:180 AMENDED REPORT 03/08/221804 CO2 previously reported as: 28.0 mmol/L Globulin (S) [Mass/Vol] 3.6 g/dL 2.2-4.[address] [facility] Work Phone: [phone] Urea nitrogen/Creatinine [Mass ratio] 13.2 mg/mg 10-20 [facility] Work Phone: [phone] Laboratory - Hematology and Cell countson 03-07-2022 Erythrocyte distribution width (RBC) [Entitic vol] 40.2 fL 35.1-43.9 [facility] Work Phone: [phone] Erythrocyte distribution width (RBC) [Ratio] 12.2 % 11.6-14.6 [facility] Work Phone: [phone] Immature granulocytes/100 WBC (Bld) 0.400 % 0.0-0.9 [facility] Work Phone: [phone] Comment on above: IG% - Immature Granu locytes (promyelocytes, myelocytes and metamyelocytes) > 1% indicates that a LEFT SHIFT is Present. MCH (RBC) [Entitic mass] 31.9 pg 27.0-32.0 [facility] Work Phone: [phone] Nucleated RBC/100 WBC (Bld) [Ratio] 0 % 0-5 [facility] Work Phone: [phone] MCHC Auto (RBC) [Mass/Vol]on 03-07-2022 MCHC (RBC) [Mass/Vol] 35.0 g/dL 32-36 [facility] Work Phone: [phone] No Panel Informationon 03-07 Estimated GFR (MDRD) Amer 97 mL/min >60 [facility] Work Phone: Comment on above: GFR Calc Estimated GFR (MDRD) Non-Af Amer 81 mL/min >60 [facility] Work Phone: [phone] Comment on above: Non- GFR Calc Platelets bldon 03-07-2022 Platelets (Bld) [#/Vol] 248 10*3/uL 150-450 [facility] Work Phone: [phone] Serum or plasma C reactive p rotein measurement (mass/volume)on 03-07-2022 CRP [Mass/Vol] 32.90 mg/L 0.0-3.0 [facility] Work Phone: [phone] Comment on above: C-Reactive Protein ( CRP) [...] be ordered.Previous reported result: 32.00 mg/LEdited by: [employer] plcNiall on 03/08/22:1804 AMENDED REPORT 03/08/221804 C-REACTIVE PROT previously reported as: 32.00 H mg/L C-Reactive Protein (CRP) provides useful information for thediagnosis, therapy and monitoring of inflammatory processesand associated diseases. For the evaluation of Relative Riskfor Cardiovascular Disease, a High Sensitivity CRP (HSCRP)should be ordered. Serum or plasma albumin billy urement (mass/volume)on 03-07-2022 Albumin [Mass/Vol] 4.1 g/dL 3.2-5.0 [facility] Work Phone: Serum or plasma albumin/glob ulin mass ratioon 03-07-2022 Albumin/Globulin [Mass ratio] 1.1 {ratio} 0.9-2.4 [facility] Work Phone: Serum or plasma calcium billy urement (mass/volume)on 03-07-2022 Calcium [Mass/Vol] 9.2 mg/dL 8.5-10.1 [facility] Work Phone: Comment on above: Previous reported re sult: 9.3 mg/dLEdited by: [employer]Niall on 03/08/22:1804 AMENDED REPORT 03/08/221804 CA previously reported as: 9.3 mg/dL Serum or plasma creatinine m easurement (mass/volume)on 03-07-2022 Creatinine [Mass/Vol] 1.00 mg/dL 0.70-1.30 [facility] Work Phone: Comment on above: The validity of the calculated GFR & GFRAA in patients over 70 years has not been determined. Clinical correlation is essential. The validity of the calculated GFR & GFRAA in patients over 70 years has not been determined. Clinical correlation is essential.Previous reported result: 0.98 mg/dLEdited by: [employer]S on 03/08/22:1805 AMENDED REPORT 03/08/221804 CREAT,SERUM previously reported as: 0.98 mg/dL The validity of the calculated GFR & GFRAA in patients over 70 years has not been determined. Clinical correlation is essential. Serum or plasma urea nitroge n measurement (mass/volume)on 03-07-2022 Urea nitrogen [Mass/Vol] 13 mg/dL 7-18 [facility] Work Phone: Serum rheumatoid factor dete ctionon 03-07-2022 Rheumatoid factor Ql (S) < 10.0 IU/mL <15 [facility] Work Phone: Comment on above: Previous reported re sult: < 15.0 IU/mLEdited by: AUTOINS on 03/08/22:1805 AMENDED REPORT 03/08/221804 RHEUMATOID FAC previously reported as: < 15.0 IU/mL Thin prep Papanicolaou smear with manual screeningon 03-07-2022 Thin prep Papanicolaou smear with manual screening 27 U/L 15-37 [facility] Work Phone: Comment on above: Previous reported re sult: 22 U/LEdited by: AUTOINS on 03/08/22:1805 AMENDED REPORT 03/08/221804 AST previously reported as: 22 U/L Thin prep Papanicolaou smear with manual screening 3 5-15 [facility] Work Phone: XR CHEST 2V FRONTAL/LATon XR CHEST 2V FRONTAL/LAT * * *Final Repor t* * * DATE OF EXAM: Aug 26 [...] radiographic abnormality. No radiographic evidence of pneumonia. Finance Director: ABILIO Transcribe Date/Time: Aug 27 2019 5:57P Dictated by : JACK GALEANA MD This examination was interpreted and the report reviewed and electronically signed by: JACK GALEANA MD on Aug 27 2019 5:58PM EST Normal [facility] Comprehensive Panelon 2018 Protein [Mass/Vol] 7.5 g/dL Normal 6.4-8.2 [facility] Comment on above: Performed By: #### P 14 #### [facility] [address] [place], [place] [address] ALP [Catalytic activity/Vol] 63 U/L Normal 46-116 [facility] Comment on above: Performed By: #### P 14 #### [facility] [address] [place], [place] [address] Bilirubin [Mass/Vol] 0.5 mg/dL Normal 0.2-1.0 [facility] Comment on above: Performed By: #### P 14 #### [facility] [address] [place], [place] [address] Creatinine [Mass/Vol] 0.82 mg/dL Normal 0.67-1.17 [facility] Comment on above: Performed By: #### P 14 #### [facility] [address] [place], [place] [address] ALT [Catalytic activity/Vol] 31 U/L Normal 12-78 [facility] Comment on above: Performed By: #### P 14 #### [address] [address] AST [Catalytic activity/Vol] 19 U/L Normal 9-37 [facility] Comment on above: Performed By: #### P 14 #### [facility] [address] [place], [place] [address] Glucose [Mass/Vol] 148 mg/dL High 70-99 [facility] Comment on above: Performed By: #### P 14 #### [facility] [address] [place], [place] [address] Albumin [Mass/Vol] 4.0 g/dL Normal 3.4-5.0 [facility] Comment on above: Performed By: #### P 14 #### [facility] [address] [place], [place] [address] Anion gap [Moles/Vol] 11 mmol/L Normal 8-16 [facility] Comment on above: Performed By: #### P 14 #### [facility] [address] [place], [place] [address] Calcium [Mass/Vol] 9.0 mg/dL Normal 8.5-10.1 [facility] Comment on above: Performed By: #### P 14 #### [facility] [address] [place], [place] [address] CO2 [Moles/Vol] 25 mmol/L Normal 21-32 [facility] Comment on above: Performed By: #### P 14 #### [facility] [address] [place] [address] Urea nitrogen [Mass/Vol] 15 mg/dL Normal 7-18 [facility] Comment on above: Performed By: #### P 14 #### [facility] [address] [place] [address] Chloride [Moles/Vol] 107 mmol/L Normal 98-107 [facility] Comment on above: Performed By: #### P 14 #### [facility] [address] [place], [place] [address] Potassium [Moles/Vol] 3.8 mmol/L Normal 3.5-5.1 [facility] Comment on above: Performed By: #### P 14 #### [facility] [address] [place], [place] [address] Sodium [Moles/Vol] 139 mmol/L Normal 136-145 [facility] Comment on above: Performed By: #### P 14 #### [facility] [address] [place], [place] [address] Hemogram/Diffon 01-29-2019 Abs. Baso 0.05 thou/cmm Normal 0.00-0.08 [facility] Comment on above: Performed By: #### L CBCD #### [facility] [address] [place], [place] [address] Abs. [place] 0.43 thou/cmm Normal 0.20-1.00 [facility] Comment on above: Performed By: #### L CBCD #### [facility] [address] [place], [place] [address] Abs. Neut (ANC) 4.22 thou/cmm Normal 3.00-5.67 [facility] Comment on above: Performed By: #### L CBCD #### [facility] [address] [place], [place] [address] Basophils/100 WBC (Bld) 0.7 % Normal [facility] Comment on above: Performed By: #### L CBCD #### [facility] [address] [place] [address] Eosinophils (Bld) [#/Vol] 0.47 thou/cmm High 0.00-0.41 [facility] Comment on above: Performed By: #### L CBCD #### [facility] [address] [place] [address] Eosinophils/100 WBC (Bld) 6.3 % Normal [facility] Comment on above: Performed By: #### L CBCD #### [facility] [address] [place] [address] Erythrocyte distribution width (RBC) [Ratio] 11.9 % Normal 11.5-15.9 [facility] Comment on above: Performed By: #### L CBCD #### [facility] [address] [place] [address] Hematocrit (Bld) [Volume fraction] 41.6 % Low 42.0-52.0 [facility] Comment on above: Performed By: #### L CBCD #### [facility] [address] [place] [address] Hemoglobin (Bld) [Mass/Vol] 14.9 g/dL Normal 14.0-18.0 [facility] Comment on above: Performed By: #### L CBCD #### [facility] [address] [place] [address] Lymphocytes (Bld) [#/Vol] 2.33 thou/cmm Normal 1.50-3.65 [facility] Comment on above: Performed By: #### L CBCD #### [place] [address] Lymphocytes/100 WBC (Bld) 31.1 % Normal [facility] Comment on above: Performed By: #### L CBCD #### [facility] [address] [place], [place] [address] MCH (RBC) [Entitic mass] 32.5 pg High 27.0-31.0 [facility] Comment on above: Performed By: #### L CBCD #### [facility] [address] [place], [place] [address] MCHC (RBC) [Mass/Vol] 35.8 % Normal 32.0-36.0 [facility] Comment on above: Performed By: #### L CBCD #### [place] [address] MCV (RBC) [Entitic vol] 90.6 fL Normal 80.0-94.0 [facility] Comment on above: Performed By: #### L CBCD #### [place] [address] Monocytes/100 WBC (Bld) 5.7 % Normal [facility] Comment on above: Performed By: #### L CBCD #### [address] [address] Platelet mean volume (Bld) [Entitic vol] 9.8 fL Normal 7.1-10.5 [facility] Comment on above: Performed By: #### L CBCD #### [address] [address] Platelets (Bld) [#/Vol] 201 thou/cmm Normal 150-400 [facility] Comment on above: Performed By: #### L CBCD #### [address] [address] RBC (Bld) [#/Vol] 4.59 mil/cmm Low 4.60-6.20 [facility] Comment on above: Performed By: #### L CBCD #### [address] [address] Seg Neutrophil 56.2 % Normal [facility] Comment on above: Performed By: #### L CBCD #### [facility] [address] [place], [place] [address] WBC (Bld) [#/Vol] 7.5 thou/cmm Normal 4.8-10.5 [facility] Comment on above: Performed By: #### L CBCD #### [facility] [address] [place] [id number] MDRD GFRon 01-29-2019 GFR/1.73 sq M predicted among non-blacks MDRD (S/P/Bld) [Vol rate/Area] mL/min/{1.73_m2} Normal >60mL/min/1.7 3m2 [facility] Comment on above: Result Comment: If t he patient is , multiply the result by 1.210. Performed By: #### G FR #### [place] [id number] Troponin Ion 01-29-2019 Troponin I.cardiac [Mass/Vol] ng/mL Normal 0.00-0.07 [facility] Comment on above: Performed By: #### L TROP #### [address] [address] Vital Signs Date Time Vital Sign Value Performing Clinician Cooper blair 03-21-2025 16:41-0400 Body height 175.26 cm Rosa Isela Chiu NP-C Work Phone: [facility] 03-21-2025 16:41-0400 Body mass index (BMI) [Ratio] 38 kg/m2 Rosa Isela Chiu FINANCIAL SERVICES CONSULTANT-C Work Phone: [facility] 03-21-2025 16:41-0400 Body temperature 97.5 [degF] Rosa Isela Chiu FINANCIAL SERVICES CONSULTANT-C Work Phone: [facility] 03-21-2025 16:41-0400 Body weight 117.02 kg Rosa Isela Chiu FINANCIAL SERVICES CONSULTANT-C Work Phone: [facility] 03-21-2025 16:41-0400 Diastolic blood pressure 60 mm[Hg] Rosa Isela Chiu FINANCIAL SERVICES CONSULTANT-C Work Phone: [facility] 03-21-2025 16:41-0400 Heart rate 69 /min Rosa Iselajaylen Chiu FINANCIAL SERVICES CONSULTANT-C Work Phone: [facility] 03-21-2025 16:41-0400 Respiratory rate 18 /min Rosa Iselajaylen Chiu FINANCIAL SERVICES CONSULTANT-C Work Phone: [facility] 03-21-2025 16:41-0400 SaO2% (BldA) [Mass fraction] 98 % Rosa Iselajaylen Chiu FINANCIAL SERVICES CONSULTANT-C Work Phone: [facility] 03-21-2025 16:41-0400 Systolic blood pressure 115 mm[Hg] Rosa Iselajaylen Chiu FINANCIAL SERVICES CONSULTANT-C Work Phone: [facility] 01-09-2025 14:24-0400 Body mass index (BMI) [Ratio] 37.9 kg/m2 Rosa Iselajaylen Chiu FINANCIAL SERVICES CONSULTANT-C Work Phone: [facility] 01-09-2025 14:24-0400 Body weight 116.57 kg Rosa Iselajaylen Chiu FINANCIAL SERVICES CONSULTANT-C Work Phone: [facility] 01-09-2025 14:24-0400 Diastolic blood pressure 73 mm[Hg] Rosa Iselajaylen Chiu FINANCIAL SERVICES CONSULTANT-C Work Phone: [facility] 01-09-2025 14:24-0400 Heart rate 76 /min Rosa Iselajaylen Chiu FINANCIAL SERVICES CONSULTANT-C Work Phone: [facility] 01-09-2025 14:24-0400 Respiratory rate 18 /min Rosa Iselajaylen AguirreChiu FINANCIAL SERVICES CONSULTANT-C Work Phone: [facility] 01-09-2025 14:24-0400 Systolic blood pressure 112 mm[Hg] Rosa Iselajaylen Chiu FINANCIAL SERVICES CONSULTANT-C Work Phone: [facility] 12-05-2024 07:39-0400 Body mass index (BMI) [Ratio] 38.4 kg/m2 Rosa Iselajaylen Chiu FINANCIAL SERVICES CONSULTANT-C Work Phone: [facility] 12-05-2024 07:39-0400 Body weight 117.93 kg Rosa Isela Adam FINANCIAL SERVICES CONSULTANT-C Work Phone: [facility] 12-05-2024 07:39-0400 Diastolic blood pressure 85 mm[Hg] Rosa Isela Chiu FINANCIAL SERVICES CONSULTANT-C Work Phone: [facility] 12-05-2024 07:39-0400 Heart rate 62 /min Rosa Isela Chiu FINANCIAL SERVICES CONSULTANT-C Work Phone: [facility] 12-05-2024 07:39-0400 Respiratory rate 18 /min Rosa Isela Chiu FINANCIAL SERVICES CONSULTANT-C Work Phone: [facility] 12-05-2024 07:39-0400 SaO2% (BldA) [Mass fraction] 97 % Rosa Isela Chiu FINANCIAL SERVICES CONSULTANT-C Work Phone: [facility] 12-05-2024 07:39-0400 Systolic blood pressure 138 mm[Hg] Rosa Isela Chiu FINANCIAL SERVICES CONSULTANT-C Work Phone: [facility] 08-02-2022 08:28-0500 Body height 175.26 cm FINANCIAL SERVICES CONSULTANT-C Rosa Isela Chiu FINANCIAL SERVICES CONSULTANT Work Phone: [facility] Work Phone: 08-02-2022 08:28-0500 Body mass index (BMI) [Ratio] 36.7 kg/m2 FINANCIAL SERVICES CONSULTANT-C Rosa Isela Chiu FINANCIAL SERVICES CONSULTANT Work Phone: [facility] Work Phone: 08-02-2022 08:28-0500 Body weight 112.94 kg FINANCIAL SERVICES CONSULTANT-C Rosa Isela Chiu FINANCIAL SERVICES CONSULTANT Work Phone: [facility] Work Phone: 08-02-2022 08:28-0500 Diastolic blood pressure 85 mm[Hg] FINANCIAL SERVICES CONSULTANT-C Rosa Isela Chiu FINANCIAL SERVICES CONSULTANT Work Phone: [facility] Work Phone: 08-02-2022 08:28-0500 Heart rate 65 /min FINANCIAL SERVICES CONSULTANT-C Rosa Isela Chiu FINANCIAL SERVICES CONSULTANT Work Phone: [facility] Work Phone: 08-02-2022 08:28-0500 Respiratory rate 18 /min FINANCIAL SERVICES CONSULTANT-C Rosa Isela Chiu FINANCIAL SERVICES CONSULTANT Work Phone: [facility] Work Phone: 08-02-2022 08:28-0500 Systolic blood pressure 125 mm[Hg] FINANCIAL SERVICES CONSULTANT-C Rosa Isela Chiu FINANCIAL SERVICES CONSULTANT Work Phone: [facility] Work Phone: 06-15-2022 13:05-0400 Body mass index (BMI) [Ratio] 34.9 kg/m2 FINANCIAL SERVICES CONSULTANT-C Rosa Isela Chiu FINANCIAL SERVICES CONSULTANT Work Phone: [facility] Work Phone: 06-15-2022 13:05-0400 Body weight 107.13 kg FINANCIAL SERVICES CONSULTANT-C Rosa Isela Chiu FINANCIAL SERVICES CONSULTANT Work Phone: [facility] Work Phone: 06-15-2022 13:05-0400 Diastolic blood pressure 96 mm[Hg] FINANCIAL SERVICES CONSULTANT-C Rosa Isela Chiu FINANCIAL SERVICES CONSULTANT Work Phone: [facility] Work Phone: 06-15-2022 13:05-0400 Heart rate 76 /min FINANCIAL SERVICES CONSULTANT-C Rosa Isela Chiu FINANCIAL SERVICES CONSULTANT Work Phone: [facility] Work Phone: 06-15-2022 13:05-0400 Respiratory rate 18 /min FINANCIAL SERVICES CONSULTANT-C Rosa Isela Chiu FINANCIAL SERVICES CONSULTANT Work Phone: [facility] Work Phone: 06-15-2022 13:05-0400 Systolic blood pressure 128 mm[Hg] FINANCIAL SERVICES CONSULTANT-C Rosa Isela Chiu FINANCIAL SERVICES CONSULTANT Work Phone: [facility] Work Phone: 06-14-2022 10:39-0400 Diastolic blood pressure 80 mm[Hg] FINANCIAL SERVICES CONSULTANT-C Rosa Isela Chiu FINANCIAL SERVICES CONSULTANT Work Phone: [facility] Work Phone: 06-14-2022 10:39-0400 Systolic blood pressure 142 mm[Hg] FINANCIAL SERVICES CONSULTANT-C Rosa Isela Chiu FINANCIAL SERVICES CONSULTANT Work Phone: [facility] Work Phone: 06-13-2022 20:03-0400 Body mass index (BMI) [Ratio] 35.4 kg/m2 FINANCIAL SERVICES CONSULTANT-C Rosa Isela Chiu FINANCIAL SERVICES CONSULTANT Work Phone: [facility] Work Phone: 06-13-2022 20:03-0400 Body temperature 98.8 [degF] FINANCIAL SERVICES CONSULTANT-C Rosa Isela Chiu FINANCIAL SERVICES CONSULTANT Work Phone: [facility] Work Phone: 06-13-2022 20:03-0400 Body weight 108.86 kg FINANCIAL SERVICES CONSULTANT-C Rosa Isela Chiu FINANCIAL SERVICES CONSULTANT Work Phone: [facility] Work Phone: 06-13-2022 20:03-0400 Heart rate 101 /min FINANCIAL SERVICES CONSULTANT-C Rosa Isela Chiu FINANCIAL SERVICES CONSULTANT Work Phone: [facility] Work Phone: 06-13-2022 20:03-0400 Respiratory rate 18 /min FINANCIAL SERVICES CONSULTANT-C Rosa Isela Chiu FINANCIAL SERVICES CONSULTANT Work Phone: [facility] Work Phone: 06-13-2022 20:03-0400 SaO2% (BldA) [Mass fraction] 98 % FINANCIAL SERVICES CONSULTANT-C Rosa Isela Chiu FINANCIAL SERVICES CONSULTANT Work Phone: [facility] Work Phone: 05-26-2022 19:25-0400 Body height 175.26 cm [facility] Work Phone: 05-26-2022 19:25-0400 Body mass index (BMI) [Ratio] 35.1 kg/m2 [facility] Work Phone: 05-26-2022 19:25-0400 Body temperature 99.5 [degF] [facility] Work Phone: 05-26-2022 19:25-0400 Body weight 107.95 kg [facility] Work Phone: 05-26-2022 19:25-0400 Diastolic blood pressure 90 mm[Hg] [facility] Work Phone: 05-26-2022 19:25-0400 Heart rate 89 /min [facility] Work Phone: 05-26-2022 19:25-0400 Respiratory rate 18 /min [facility] Work Phone: 05-26-2022 19:25-0400 SaO2% (BldA) [Mass fraction] 97 % [facility] Work Phone: 05-26-2022 19:25-0400 Systolic blood pressure 138 mm[Hg] [facility] Work Phone: 04-04-2022 11:58-0400 Body height 175.26 cm [facility] Work Phone: 03-07-2022 15:57-0400 Body height 175.26 cm [facility] Work Phone: 03-07-2022 15:57-0400 Body mass index (BMI) [Ratio] 35.9 kg/m2 [facility] Work Phone: 03-07-2022 15:57-0400 Body temperature 97.5 [degF] [facility] Work Phone: 03-07-2022 15:57-0400 Body weight 110.22 kg [facility] Work Phone: 03-07-2022 15:57-0400 Diastolic blood pressure 94 mm[Hg] [facility] Work Phone: 03-07-2022 15:57-0400 Heart rate 78 /min [facility] Work Phone: 03-07-2022 15:57-0400 Respiratory rate 18 /min [facility] Work Phone: 03-07-2022 15:57-0400 SaO2% (BldA) [Mass fraction] 95 % [facility] Work Phone: 03-07-2022 15:57-0400 Systolic blood pressure 148 mm[Hg] [facility] Work Phone: 01-03-2022 16:09-0400 Body mass index (BMI) [Ratio] 35.4 kg/m2 [facility] Work Phone: 01-03-2022 16:09-0400 Body temperature 97.7 [degF] [facility] Work Phone: 01-03-2022 16:09-0400 Body weight 108.86 kg [facility] Work Phone: 01-03-2022 16:09-0400 Diastolic blood pressure 100 mm[Hg] [facility] Work Phone: 01-03-2022 16:09-0400 Heart rate 79 /min [facility] Work Phone: 01-03-2022 16:09-0400 Respiratory rate 18 /min [facility] Work Phone: 01-03-2022 16:09-0400 SaO2% (BldA) [Mass fraction] 98 % [facility] Work Phone: 01-03-2022 16:09-0400 Systolic blood pressure 148 mm[Hg] [facility] Work Phone: 12-15-2021 18:04-0400 Body mass index (BMI) [Ratio] 36 kg/m2 [facility] Work Phone: 12-15-2021 18:04-0400 Body temperature 97.9 [degF] [facility] Work Phone: 12-15-2021 18:04-0400 Body weight 110.67 kg [facility] Work Phone: 12-15-2021 18:04-0400 Diastolic blood pressure 80 mm[Hg] [facility] Work Phone: 12-15-2021 18:04-0400 Heart rate 74 /min [facility] Work Phone: 12-15-2021 18:04-0400 Respiratory rate 18 /min [facility] Work Phone: 12-15-2021 18:04-0400 SaO2% (BldA) [Mass fraction] 95 % [facility] Work Phone: 12-15-2021 18:04-0400 Systolic blood pressure 122 mm[Hg] [facility] Work Phone: Encounters Encounter Date Encounter Type Care Provider Facility Start: 07-11-2025 End: 07-11-2025 ambulatory Missy Mcrae NP Facility:[facility] Start: 03-21-2025 End: 03-21-2025 ambulatory Rosa Isela Chiu FINANCIAL SERVICES CONSULTANT-C Work Phone: -Laboratory Specimen Start: 03-21-2025 End: 03-21-2025 Patient encounter procedure Rosa Isela Chiu FINANCIAL SERVICES CONSULTANT-C -Laboratory Specimen Work Phone: Start: 03-21-2025 End: 03-21-2025 ambulatory Rosa Isela Chiu NP Facility:[facility] Start: 01-09-2025 End: 01-09-2025 Patient encounter procedure Shanae JEFFERSON -[place] [facility] Work Phone: Start: 01-09-2025 End: 01-09-2025 ambulatory Shanae JEFFERSON Facility:[facility] Start: 12-19-2024 End: 12-19-2024 Admission to same day surgery center Jack Vieira MD Work Phone: Neurosurgery Comment on above: Stroke-like symptoms (Primary Dx) Start: 12-19-2024 End: 12-19-2024 Telemedicine consultation with patient Jack Vieira MD Work Phone: Neurosurgery Start: 12-19-2024 End: 12-20-2024 ambulatory ROSA ISELA CHIU Facility:[facility] Start: 12-05-2024 End: 12-05-2024 Patient encounter procedure Shanae Sanders PA -[facility] Work Phone: Start: 12-05-2024 End: 12-05-2024 ambulatory Shanae JEFFERSON Facility:[facility] Start: 10-22-2024 End: 10-22-2024 ambulatory Shanae JEFFERSON Facility:[facility] Start: 09-19-2024 Emergency department patient visit ROSA ISELA CHIU Facility:[facility] Start: 09-10-2024 End: 09-10-2024 ambulatory Shanae JEFFERSON Facility:[facility] Start: 08-20-2024 End: 08-20-2024 ambulatory Rosa Isela Chiu FINANCIAL SERVICES CONSULTANT Facility:[facility] Start: 06-07-2023 End: 06-07-2023 Subsequent hospital visit by physician [facility] Comment on above: Effusion, left knee [M25.462] Start: 12-23-2022 End: 12-23-2022 Subsequent hospital visit by physician [facility] Comment on above: Shortness of breath [R06.02] Start: 09-06-2022 Non-patient / Non-visit FINANCIAL SERVICES CONSULTANT-C Dulce Chiu FINANCIAL SERVICES CONSULTANT Work Phone: [facility] Start: 09-06-2022 End: 09-06-2022 ambulatory FINANCIAL SERVICES CONSULTANT-Mohsen Chiu FINANCIAL SERVICES CONSULTANT Work Phone: [facility] Work Phone: Start: 09-06-2022 End: 09-06-2022 Patient encounter procedure FINANCIAL SERVICES CONSULTANT-Mohsen Chiu FINANCIAL SERVICES CONSULTANT Work Phone: [facility]-Cardiovascular Services Start: 08-02-2022 End: 08-02-2022 Patient encounter procedure FINANCIAL SERVICES CONSULTANT-Mohsen Chiu FINANCIAL SERVICES CONSULTANT Work Phone: [facility] Start: 06-15-2022 End: 06-15-2022 Patient encounter procedure FINANCIAL SERVICES CONSULTANT-Mohsen Chiu FINANCIAL SERVICES CONSULTANT Work Phone: [facility] Start: 06-13-2022 End: 06-13-2022 Patient encounter procedure FINANCIAL SERVICES CONSULTANT-C Rosa Iselajaylen AguirreChiu FINANCIAL SERVICES CONSULTANT Work Phone: [facility]-Laboratory, Specimen Start: 05-27-2022 End: 05-27-2022 Subsequent hospital visit by physician [facility] Comment on above: Pneumonia, unspecifi ed organism [J18.9] Start: 05-26-2022 End: 05-26-2022 ambulatory [facility] Work Phone: Start: 05-26-2022 End: 05-26-2022 Patient encounter procedure [facility]-Laboratory, Specimen Start: 04-04-2022 End: 04-04-2022 Patient encounter procedure [facility]-Laboratory, Specimen Start: 03-07-2022 End: 03-07-2022 Patient encounter procedure [facility]-Laboratory, Specimen Procedures Date Procedure Procedure Detail Performing Clinician Start: 03-21-2025 Free prostate specif ic antigen level Rosa Isela Chiu FINANCIAL SERVICES CONSULTANT-C Work Phone: Comment on above: Julia ECLIA methodol ogy. Start: 03-21-2025 Prostate specific an tigen measurement Rosa Isela Chiu FINANCIAL SERVICES CONSULTANT-C Work Phone: Comment on above: Trovali ECLIA methodol ogy.According to the [place] [employer], Serum PSAshould decrease and remain at undetectable levels afterradical prostatectomy. The AUA defines biochemicalrecurrence as an initial PSA value 0.200 ng/mL or greaterfollowed by a subsequent confirmatory PSA value 0.200 ng/mLor greater. Values obtained with different assay methods orkits cannot be used interchangeably. Results cannot beinterpreted as absolute evidence of the presence or absenceof malignant disease. Start: 06-07-2023 Radiologic examinati on knee 1/2 views Rosa Isela Chiu ROOM SERVICE SUPERVISOR.STAMP MAKER Work Phone: Start: 12-23-2022 Radex shoulder compl ete minimum 2 views Rosa Isela Chiu ROOM SERVICE SUPERVISOR.STAMP MAKER Work Phone: Start: 12-23-2022 Radiologic exam chest 2 views Rosa Isela Chiu ROOM SERVICE SUPERVISOR.STAMP MAKER Work Phone: Start: 09-06-2022 Radionuclide imaging of perfusion of myocardium under exercise stress FINANCIAL SERVICES CONSULTANT-C Rosa Isela Chiu FINANCIAL SERVICES CONSULTANT Work Phone: Start: 05-27-2022 Radiologic exam chest 2 views Rosa Isela Chiu ROOM SERVICE SUPERVISOR.STAMP MAKER Work Phone: Start: 01-22-2019 Lipid 1996 panel - S tj or Plasma [facility] Plan of Treatment Date Care Activity Detail Author Start: 06-22-2033 Urine microalbumin profile DTaP,Tdap,Td Vaccine (2 - Td or Tdap) [facility] Start: 2029 RSV Vaccine (1 - 1-dose 75+ series) RSV Vaccine (1 - 1-dose 75+ series) [facility] Start: 12-20-2027 Diabetes Screening Diabetes Screening [facility] Start: 09-25-2024 Advance Directive Discussion Advance Directive Discussion [facility] Start: 05-26-2024 Covid-19 Vaccine () Covid-19 Vaccine () [facility] Start: 05-26-2024 Influenza vaccination Influenza Vaccine (#1) [facility] Start: 01-23-2024 Lipid 1996 panel - Serum or Plasma Lipid Screening [facility] Start: 01-23-2024 Lipid panel Lipid Screening [facility] Start: 01-23-2024 LIPID SCREEN LIPID SCREEN [facility] Start: 05-26-2023 Influenza vaccination [facility] Start: 09-25-2022 ADVANCE DIRECTIVE DISCUSSION ADVANCE DIRECTIVE DISCUSSION [facility] Start: 09-25-2022 DEPRESSION ASSESSMENT DEPRESSION ASSESSMENT [facility] Start: 05-26-2022 Influenza vaccination INFLUENZA (#1) [facility] Start: 03-08-2022 Cytoplasmic ANCA Screen [facility] Work Phone: Start: 01-29-2022 DIABETES SCREEN DIABETES SCREEN [facility] Start: 01-29-2022 Diabetes Screening Diabetes Screening [facility] Start: 09-25-2021 ADVANCE DIRECTIVE DISCUSSION ADVANCE DIRECTIVE DISCUSSION [facility] Start: 2019 Pneumococcal Vaccine: 65+ (1 - PCV) Pneumococcal Vaccine: 65+ (1 - PCV) [facility] Start: 2019 PNEUMOCOCCAL: 65+ (1 - PCV) PNEUMOCOCCAL: 65+ (1 - PCV) [facility] Start: 2009 PROSTATE CANCER SCREENING DISCUSSION PROSTATE CANCER SCREENING DISCUSSION [facility] Start: 2004 Pneumococcal Vaccine: 50+ (1 of 1 - PCV) Pneumococcal Vaccine: 50+ (1 of 1 - PCV) [facility] Start: 2004 SHINGRIX VACCINE (1 of 2) SHINGRIX VACCINE (1 of 2) [facility] Start: 1999 COLOGUARD (FIT-DNA) COLOGUARD (FIT-DNA) [facility] Start: 1999 Colonoscopy COLONOSCOPY [facility] Start: 1999 COLORECTAL CANCER SCREENING COLORECTAL CANCER SCREENING [facility] Start: [address] COLONOGRAPHY [facility] Start: 1999 FECAL OCCULT BLOOD FECAL OCCULT BLOOD [facility] Start: 1999 Screening for malignant neoplasm of colon [facility] Start: 1999 SIGMOIDOSCOPY SIGMOIDOSCOPY [facility] Start: 1973 Urine microalbumin profile [facility] Start: 1972 ANNUAL PCP TEAM CHRONIC DISEASE VISIT ANNUAL PCP TEAM CHRONIC DISEASE VISIT [facility] Start: 1972 Anxiety Screening Anxiety Screening [facility] Start: 1972 BP CONTROLLED (<130/80) BP CONTROLLED (<130/80) [facility] Start: 1972 Depression Screening Depression Screening [facility] Start: 1966 Adult depression screening assessment DEPRESSION SCREENING [facility] Start: 1954 COVID-19 VACCINE (#1) COVID-19 VACCINE (#1) [facility] Antibody to lupus La protein measurement [facility] Work Phone: Antibody to SS-A measurement [facility] Work Phone: Centromere protein B Ab [Units/volume] in Serum [facility] Work Phone: Chromatin Ab [Units/volume] in Serum or Plasma [facility] Work Phone: DNA double strand Ab [Units/volume] in Serum [facility] Work Phone: Monse-1 extractable nuc lear Ab [Units/volume] in Serum [facility] Work Phone: Nuclear Ab [Presence ] in Serum [facility] Work Phone: [id number]-[id number] extractable nuclear Ab [Units/volume] in Serum by Immunoassay [facility] Work Phone: Roberto extractable nu clear Ab [Presence] in Serum [facility] Work Phone: Troponin I measurement [facility] Work Phone: Immunizations Immunization Date Immunization Notes Care Provider [facility] 06-22-2023 tetanus toxoid, redu roya diphtheria toxoid, and acellular pertussis vaccine, adsorbed Jack Vieira MD Work Phone: [facility] Payers Date Payer Category Payer Self-pay [id number] 2019 Private Health Insurance MMO [employer] PPO [id number] 2019 Unknown [id number] 2019 Unknown [id number] Unknown [id number] Unknown [id number] Unknown [id number] Unknown [id number] Unknown [id number] Unknown [id number] Unknown [id number] Social History Date Type Detail Facility Start: 01-03-2022 End: 08-02-2022 Tobacco smoking status DEIS Unknown if ever smoked [facility] Work Phone: Start: 1955 Sex Assigned At Male W [facility] Start: 04-06-2018 End: 08-20-2024 Tobacco smoking status DEIS Never smoked tobacco [facility] Start: 04-06-2018 Tobacco use and exposure Smokeless tobacco non-user [facility] Start: 01-21-2019 End: 12-19-2024 Alcohol intake Current non-drinker of alcohol (finding) [facility] Start: 1955 Sex Assigned At Not on file [facility] Start: 05-17-2022 End: 05-27-2022 Exposure to SARS-CoV-2 (event) Yes [facility] Start: 01-21-2019 End: 06-23-2023 History of Social function [facility] Start: 01-21-2019 End: 06-23-2023 Tobacco use panel [facility] PHQ2 Score 0 [facility] Functional Status Date Assessment Result Facility 01-22-2019 Are you deaf, or do you have serious difficulty hearing No 01/22/2019 5:07 PM Jessa Medina, RAINA No [facility] 01-22-2019 Are you blind, or do you have serious difficulty seeing, even when wearing glasses No 01/22/2019 5:07 PM Jessa Medina, RAINA No [facility] 01-22-2019 Do you have serious difficulty walking or climbing stairs No 01/22/2019 5:07 PM Jessa Medina, RAINA No [facility] 01-22-2019 Do you have difficul ty dressing or bathing No 01/22/2019 5:07 PM Jessa Medina, RAINA No [facility] 01-22-2019 Because of a physica l, mental, or emotional condition, do you have difficulty doing errands alone such as visiting a physician's office or shopping No 01/22/2019 5:07 PM EDT Jessa Orlando, RAINA No [facility] Mental Status Date Assessment Result Facility 01-22-2019 Because of a physica l, mental, or emotional condition, do you have serious difficulty concentrating, remembering, or making decisions No 01/22/2019 5:07 PM EDT Jessa Orlando, RAINA No [facility] Clinical Notes 06-07-2023 to 12-20-2024 Handshoe, Jack Huston MD - 12/19/2024 3:38 PM EDT Note Date & Type Note Facility 12-20-2024 Note HNO ID: [id number] Author: ANASTACIA MELLO RN Service: Care Management [...] Physician Name/Phone: PCP: Rosa Isela Chiu APRN STAMP MAKER - Additional Information: Discharge Information Row Name ED to Hosp-Admission (Current) from 12/19/2024 in [facility] Follow-Up Appointment Provider Name PCP: Rosa Isela Chiu APRN STAMP MAKER - SIGNATURE: Anastacia Mello RN PATIENT NAME: Nicolas Oliva DATE: December 20, 2024 TIME: 3:25 PM [facility] 12-20-2024 Note HNO ID: [id number] Author: ANASTACIA MELLO RN Service: Care Management Author Type: Registered Nurse Type: Care Mgt Initial Assessment Filed: 12/20/2024 13:05 Note Text: CARE MANAGEMENT: ASSESSMENT AND DISCHARGE PLAN SERVICE DATE: December 20, 2024 SERVICE TIME: 12:54 PM property management bookkeeper spoke with patient by phone to complete Care Management Assessment. Introduction made and role of Care Management explained. PCP: Rosa Isela Chiu APRN.STAMP MAKER - patient confirmed Primary Contact: Extended Emergency Contact Information Primary Emergency Contact: Amaya Oliva Address: [address] [place] [address] [facility] Mobile Relation: Spouse Secondary Emergency Contact: Nicolas Oliva Address: [address] [place], [place] [id number] [place] [address] Relation: Son Admission Status: Observation Insurance Provider: [employer] PPO Discharge Planning requested by: Per Department Practice Potential Transition Plans Home Advance Directives Current Advance Directive: None Reject Opener Attempted to Assist with AD Completion: Yes Action: Education Provided Current Living Arrangements and Support Lives with: Spouse/significant other (Spouse: Amaya Oliva - ) Type of Residence: Private Residence (House) (Duplex: 2 Story with No Basement and 1 shallow entry step) Does the patient have to climb stairs at home?: stairs outside the home, Yes Support: Spouse/significant other (Spouse: Amaya Oliva - ) How do you manage to accomplish the following: Independent: Ambulation, Bathe/Shower, Dress, Meals/Meal Prep, Medication Management, Transportation to appointments/community, Going to the bathroom Current Services/Equipment Current DME Type: None Current Post-Acute Service(s) Provider: None Discharge Planning Patient Goal(s): Be able to go home [place] Explained: [place] Given: No (Discharge Needs: to be determined.) Discharge Pharmacy Preference: [facility] [place] Discharge Planning Participant(s): Patient Transport at Discharge: Transportation Arrangements: Car Destination: Home Needs Prior to Discharge: Needs Prior to Discharge: To Be Determined Post-Acute Discharge Plan: From home. Lives with spouse. Patient reports he is independent with all his care. Employed. Drives. DME: None. Active Services: None Discharge Plan: Home Discharge Transportation: Spouse/Amaya Dept to Follow. SIGNATURE: Anastacia Mello RN PATIENT NAME: Nicolas Oliva DATE: December 20, 2024 TIME: 12:54 PM [facility] 12-19-2024 Note HNO ID: [id number] Author: JACK VIEIRA MD Service: ? Author Type: Fellow Type: Progress Notes Filed: 12/19/2024 15:43 Note Text: TELESTROKE DOCUMENTATION Name: Nicolas Oliva : 1955 Referring Site: [place] Referring Provider: Dr. Graham Last Known Well (Date/Time): 12/19/24 09 Neurologist Callback (Date/Time): 12/19/24 1338 Chief Complaint: Unsteady gait HPI: 69 year old male,PMHx HTN who presented to [place] ED today for unsteady gait. LKW 0900 [...] a telestroke. Thank you for contacting the [facility]. I appreciate the opportunity for allowing me to participate in Nicolas Oliva's care. Please feel free to contact me and/or the [facility] at any time if you have any further questions or need additional assistance. Jack Vieira MD December 19, 2024 3:42 PM [facility] 12-19-2024 History of Present illness Narrative TELESTROKE DOCUMENTATION Name: Nicolas Oliva : 1955 Referring Site: [place] Referring Provider: Dr. Graham Last Known Well (Date/Time): 12/19/24 09 Neurologist Callback (Date/Time): 12/19/24 1338 Chief Complaint: Unsteady gait HPI: 69 year old male,PMHx HTN who presented to [place] ED today for unsteady gait. LKW 0900 [...] a telestroke. Thank you for contacting the [facility]. I appreciate the opportunity for allowing me to participate in Nicolas Oliva's care. Please feel free to contact me and/or the [facility] at any time if you have any further questions or need additional assistance. Jack Vieira MD December 19, 2024 3:42 PM documented in this encounter [facility] 12-19-2024 Note HNO ID: [id number] Author: MARIA C KENT MD Service: Cardiovascular [...] of device. Maria C Kent MD, FACC. Resident Manager, Department of Cardiology, [facility]. Clinical Asst. international tax manager, [facility] Staff Sports Official, [facility] [place], [facility]. [facility] 12-05-2024 Evaluation note Diagnosis Onset Date Resolution Essential hypertension chronic Ma rc 2024 9:19am Essential hypertension chronic Ap ril 2024 2:19pm Asthmatic bronchitis acute March 21, 2025 4:03pm Hyperlipidemia LDL goal <130 acute March 21, 2025 4:03pm Hypothyroid acute March 21 4:03pm Hypertension chronic March 21, 025 4:03pm [facility] Work Phone: 1(257) 996-265012-26-2024 [id number] (AGENT OF COVID-19) RNA: Not detected INFLUENZA A RNA: Not detected INFLUENZA B RNA: Not detected RESPIRATORY SYNCYTIAL VIRUS (RSV) RNA: Not detectedSt. Joseph HospitalComment on above:Performed By: #### [id number] #### [facility] CLIA [id number] [address] [place], [place] [id number] [facility]09-13-2023 History of Present illness Narrative* Brittney Pennington CT - 06/07/2023 9:00 AM EDT Radiology Service Progress Note PATIENT NAME: Nicolas Oliva DATE OF SERVICE: June 07, 2023 TIME: 9:30 AM PATIENT IDENTITY VERIFICATION COMPLETED USING TWO (2) IDENTIFIERS: Name and Date of confirmedby patient verbally. FALL SCREENING: Has the patient had 2 falls in the last year or 1 fall with injury or currently using an Ambulatory Assistive Device (Walker, Cane, Wheelchair, Crutches, etc.)? Yes, Patient High Riskfor Falls What interventions were put in place to prevent falls during this visit? Instructed Patient to Callfor Help if Needed, Offered Assistance with Transfers/Clothing, Instructed Patient to Remain Seated(Not on Exam Table) Until Exam, and Increased Observations by Caregivers PATIENT GENDER DATA: Male PATIENT RELEVANT IMPLANT DATA REVIEWED: Not Applicable RADIOLOGY DEPARTMENT: General X-ray: Exam(s) Completed: Lower Extremity X- Ray(s): Knee, AP Only Bilateral PERIPHERAL IV DATA: Not applicable SIGNED BY: RED Juares June 07, 2023 9:30 AM documented in [facility] History of Present illness Narrative* Brittney Pennington CT - 06/07/2023 8:30 AM EDT Radiology Service Progress Note PATIENT NAME: Nicolas Oliva DATE OF SERVICE: June 07, 2023 TIME: 9:29 AM PATIENT IDENTITY VERIFICATION COMPLETED USING TWO (2) IDENTIFIERS: Name and Date of confirmedby patient verbally. FALL SCREENING: Has the patient had 2 falls in the last year or 1 fall with injury or currently using an Ambulatory Assistive Device (Walker, Cane, Wheelchair, Crutches, etc.)? Yes, Patient High Riskfor Falls What interventions were put in place to prevent falls during this visit? Instructed Patient to Callfor Help if Needed, Offered Assistance with Transfers/Clothing, Instructed Patient to Remain Seated(Not on Exam Table) Until Exam, and Increased Observations by Caregivers PATIENT GENDER DATA: Male PATIENT RELEVANT IMPLANT DATA REVIEWED: Not Applicable RADIOLOGY DEPARTMENT: General X-ray: Exam(s) Completed: Lower Extremity X- Ray(s): Knee, AP / LAT Left PERIPHERAL IV DATA: Not applicable SIGNED BY: RED Juares June 07, 2023 9:29 AM documented in this encounterPark[facility] HospitalEvaluation note* Diagnosis Onset Date Resolution Status Pruritic dermatitis acute Psoriasis acute Asthmatic bronchitis acute SOB (shortness of breath) ac [place] Disorder of sternoclavicular joint acute Elevated C-reactive protein (CRP) acute Localized swelling of right foot acute Lump in neck acute [facility] Work Phone: Evaluation note* Diagnosis Onset Date Resolution Status Pruritic dermatitis acute Psoriasis acute Asthmatic bronchitis acute SOB (shortness of breath) ac [place] Disorder of sternoclavicular joint acute Elevated C-reactive protein (CRP) acute Localized swelling of right foot acute Lump in neck acute Disorder of sternoclavicular joint acute Elevated C-reactive protein (CRP) acute Localized swelling of right foot acute [facility] Work Phone: Evaluation note* Diagnosis Onset Date Resolution Status Disorder of sternoclavicular joint acute Elevated C-reactive protein (CRP) acute Localized swelling of right foot acute Lump in neck acute Disorder of sternoclavicular joint acute Elevated C-reactive protein (CRP) acute Localized swelling of right foot acute Asthmatic bronchitis acute Fever acute Pneumonia acute [facility] Work Phone: Evaluation note* Diagnosis Onset Date Resolution Status Asthmatic bronchitis acute Fever acute Pneumonia acute Chest pain acute Chest pain acute Hyperlipidemia LDL goal <130 acute Pneumonia acute Essential hypertension chron ic Dyspnea on exertion chronic Essential hypertension chron ic Lump in neck chronic [facility] Work Phone: Evaluation note* Diagnosis Stroke-like symptoms- Primary Other symptoms involving nervous and musculoskeletal systems documented in this encounter [facility] (narrative)No reason for referral information availableWMercy Health St. [facility] Work Phone: Summary Purpose Family History No Family History Records Found Relationship Condition Age at Onset Recorded Date/T evelyne Not Specified Cardiac disease Unknown father Asthma Unknown brother Hypertension Unknown sister Hypertension Unknown Myocardial infarction Unknown Advance Directives No Advanced Directives Records Found Advance Directive Response Recorded Date/ Time Living Will No January 03, 2022 4:09pm Power of Manager Reliability No January 03 4:09pm Advance Directive Response Recorded Date/ Time Living Will No May 26 022 6:27pm Power of Manager Reliability No May 26, 2022 6:27pm Advance Directive Response Recorded Date/ Time Living Will No May 26 022 5:27pm Power of Manager Reliability No May 26, 2022 5:27pm Date Activated [...] on exertion Essential hypertension Lump in neck Chief Complaint Admit Date 6 WK FU PER MMM December 05, 2024 9:1 9am 1 M FU January 09, 2025 2:1 9pm medication refills March 21, 2025 4:03 pm Reason for Visit Admit Date Essential hypertension December 05, 2024 9:19am Essential hypertension January 09, 2025 2:19pm Asthmatic bronchitis March 21, 2025 4:0 3pm Hyperlipidemia LDL goal <130 March 21, 2025 4:03pm Hypothyroid March 21, 2025 4:03 pm Hypertension March 21, 2025 4:03 pm Additional Source Comments (unrecognized sect ion and content) No Status Records FoundNo Status Records FoundNo Status Records FoundNo Status Records FoundNo Status Records Found INFORMATION SOURCE (unrecogn ized section and content) DATE CREATED AUTHOR 08/30/2019 [facility] DATE CREATED AUTHOR AUTHOR'S ORGANIZ ATION 09/26/2024 [facility] DATE CREATED AUTHOR AUTHOR'S ORGANIZ ATION 12/21/2024 [facility] DATE CREATED AUTHOR AUTHOR'S ORGANIZ ATION 01/30/2025 [facility] DATE CREATED AUTHOR AUTHOR'S ORGANIZ ATION 07/13/2025 [facility] Goals (unrecognized section and content) Goals [...] or prosecute any alcohol or drug abuse patient.[facility] HospitalIn the event this information is protected by the Federal Confidentiality of Alcohol and Drug Abuse Patient Records regulations: The Federal rules restrict any use of the information to criminally investigate or prosecute any alcohol or drug abuse patient.[facility] HospitalIn the event this information is protected by the Federal Confidentiality of Alcohol and Drug Abuse Patient Records regulations: The Federal rules restrict any use of the information to criminally investigate or prosecute any alcohol or drug abuse patient.[facility] HospitalIn the event this information is protected by the Federal Confidentiality of Alcohol and Drug Abuse Patient Records regulations: The Federal rules restrict any use of the information to criminally investigate or prosecute any alcohol or drug abuse patient.[facility] HospitalIn the event this information is protected by the Federal Confidentiality of Alcohol and Drug Abuse Patient Records regulations: The Federal rules restrict any use of the information to criminally investigate or prosecute any alcohol or drug abuse patient.[facility] HospitalIn the event this information is protected by the Federal Confidentiality of Alcohol and Drug Abuse Patient Records regulations: The Federal rules restrict any use of the information to criminally investigate or prosecute any alcohol or drug abuse patient.[facility] Care Teams (unrecognized sec tion and content) Personal Carer Relationship Specialty Start Date End Date Rosa Isela Chiu, ASHLEY.STAMP MAKER [address] [place], [place] [phone] PCP - General Family Practice 01/21/19 Personal Carer Relationship Specialty Start Date End Date Rosa Isela Chiu APRN.STAMP MAKER [address] [place] [address] PCP - General Family Medicine 01/21/19 Personal Carer Relationship Specialty Start Date End Date Rosa Isela Chiu APRN.STAMP MAKER [address] [place], [place] [phone] PCP - General Family Medicine 01/21/19 Personal Carer Relationship Specialty Start Date End Date Rosa Isela Chiu APRN.STAMP MAKER [address] [place], [place] [phone] PCP - General Family Medicine 01/21/19 Personal Carer Relationship Specialty Start Date End Date Rosa Isela Chiu APRN.STAMP MAKER [address] [id number] PCP - General Family Medicine 01/21/19 Team Status: Active Member Role/Relationship Status Dates Rosa Isela Chiu NP, FINANCIAL SERVICES CONSULTANT-C Family Provider Active Rosa Isela Chiu NP, FINANCIAL SERVICES CONSULTANT-C Primary Care Provider Active Team Status: Inactive Member Role/Relationship Status Dates Rosa Isela Chiu NP, FINANCIAL SERVICES CONSULTANT-C Primary Care Provider Active Start: December 05, 2024 End: December 05, 2024 Rosa Isela Chiu NP, FINANCIAL SERVICES CONSULTANT-C Referring Provider Active Start: December 05, 2024 End: December 05, 2024 Shanae Sanders PA, PA Attending Provider Active Start: December 05, 2024 End: December 05, 2024 Team Status: Inactive Member Role/Relationship Status Dates Rosa Isela Chiu NP, FINANCIAL SERVICES CONSULTANT-C Primary Care Provider Active Start: January 09, 2025 End: January 09, 2025 Rosa Isela Chiu NP, FINANCIAL SERVICES CONSULTANT-C Referring Provider Active Start: January 09, 2025 End: January 09, 2025 Shanae Sanders PA, PA Attending Provider Active Start: January 09, 2025 End: January 09, 2025 Team Status: Inactive Member Role/Relationship Status Dates Rosa Isela Chiu NP, FINANCIAL SERVICES CONSULTANT-C Primary Care Provider Active Start: March 21, 2025 End: March 21, 2025 Rosa Isela Chiu NP, FINANCIAL SERVICES CONSULTANT-C Attending Provider Active Start: March 21, 2025 End: March 21, 2025 Rosa Isela Chiu NP, FINANCIAL SERVICES CONSULTANT-C Referring Provider Active Start: March 21, 2025 End: March 21, 2025 Team Status: Inactive Member Role/Relationship Status Dates Rosa Isela Chiu NP, FINANCIAL SERVICES CONSULTANT-C Primary Care Provider Active Start: March 21, 2025 End: March 21, 2025 Rosa Isela Chiu NP, FINANCIAL SERVICES CONSULTANT-C Attending Provider Active Start: March 21, 2025 End: March 21, 2025 Rosa Isela Chiu NP, FINANCIAL SERVICES CONSULTANT-C Referring Provider Active Start: March 21, 2025 End: March 21, 2025 Reason for Visit (unrecogniz ed section and [...] BE BASED ON THE PRIMARY CLINICAL RECORDS. [facility], [facility]. provides no warranty or guarantee of the accuracy or completeness of information in this document.
[2025-07-19 12:17] LABS: Hematocrit 39.5 % (40-54); Hemoglobin 14.3 g/dL (13.0-16.5); Immature Granulocytes Count 0.110 X10^3/uL (0.0-0.0); Mean Corp Hgb Conc 36.2 g/dL (32-36); Mean Corpuscular Volume 88.6 fL (80-94); Mean Platelet Vol. 10.1 fl (6.2-12.0); NRBC Flagged by Analyzer 0 % (0-5); Platelet Count 230 K/mm3 (150-450); RBC Distribution Width CV 11.9 % (11.6-14.6); RBC Distribution Width SD 38.0 fl (35.1-43.9); Red Blood Count 4.46 M/mm3 (4.6-6.2); White Blood Count 7.1 K/mm3 (4.4-11.0)
[2025-07-19 13:07] LABS: Anion Gap 12 (5-15); BUN 19 mg/dL (4-19); BUN/Creat Ratio 17.9 RATIO (10-20); Calcium,Total 9.3 mg/dL (7.6-11.0); Carbon Dioxide 25.1 mmol/L (21.0-32.0); Chloride 102 mmol/L (98-108); Free T3 3.5 pg/mL (2.18-3.98); Glucose 154 mg/dL (70-99); Potassium 3.6 mmol/L (3.3-5.1)
== END | disposition home or self-care (01) ==
LOC: LAB 11:45
PROVIDERS: PCP Nurse Practitioner; Referring Provider Nurse Practitioner Gerontology; Visit Provider Nurse Practitioner Gerontology
DX: R53.83 Other fatigue (principal)
CPT/HCPCS: 36415; 80048; 84439; 84443; 84481; 85025